=== PATIENT | female | born 1985 | race Caucasian/White ===

== ENCOUNTER 2023-07-13 07:21 | Inpatient (IN) | payer MEDICARE, MEDICAID, SELFPAY ==
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
--- NOTE | 2023-07-13 07:53 | PC.NURSE ---
Attempted to read 96 hour hold rights to patient. Patient very hostile and yelling at this time. [employer] is still present and at bedside with patient. Patient is still in handcuffs at this time for her safety per PD. Copy of rights left at the bedside.
[2023-07-13] MEDS: haloperidol inj 5 mg/mL INJ 1 mL IM (07:59)
--- NOTE | 2023-07-13 08:18 | PC.PHAR ---
unable to verify medications with pt-no meds pull up on ext med history
[2023-07-13 08:29] VITALS: BP 149/81; PULSE 90; RESP 18; O2SAT 95
[2023-07-13] MEDS: nicotine 21 mg Patch 1 PATCH TRANSDERMA (08:58)
[2023-07-13] MEDS: LORazepam 1 mg Tablet PO (09:22)
[2023-07-13 09:56] LABS: Basophils # 0.1 10^3/uL (0.0-0.1); Basophils % 0.4 %; Eosinophils % 0.2 %; Hematocrit 48.1 % (36-47); Lymphocytes # 2.7 10^3/uL (0.8-4.8); Lymphocytes % 13.4 %; Mean Corpuscular HGB Conc 32.6 g/dL (30-55); Mean Corpuscular Hemoglobin 27.2 pg (27-33); Mean Corpuscular Volume 83.4 fl (85-98); Mean Platelet Volume 10.3 fL (7.4-10.4); Monocytes # 1.2 10^3/uL (0.2-0.9); Neutrophils # 15.74 10^3/uL (1.8-7.7); Neutrophils % 79.4 %; Nucleated Red Blood Cells % 0 %; Platelet Count 390 10^3/cmm (157-399); Red Blood Count 5.77 10^6/uL (3.85-5.65); Red Cell Distribution Width 14.7 % (12.1-15.1); White Blood Count 19.84 10^3/uL (3.29-11.43)
[2023-07-13 10:08] LABS: HCG Qualitative Urine. Negative (Negative)
[2023-07-13 10:21] LABS: Amphetamines Screen Urine Negative (Negative); Barbiturates Screen Urine Negative (Negative); Benzodiazepines Screen Urine Negative (Negative); Cocaine Screen Urine Negative (Negative); Opiate Screen Urine Negative (Negative); PCP Screen Urine Negative (Negative); THC Screen Urine Positive (Negative)
--- NOTE | 2023-07-13 10:24 | XR_ITS ---
WS: [id number] Exam: XR chest 1V portable [id number] Date/Time of Exam: 07/13/2023 12:10 PM Reason For Exam: leukocyctosis No priors. Findings: The lungs are clear and fully expanded. Costophrenic angles are sharp. No infiltrates. Bronchovascula r relief appears normal. Cardiac silhouette is unremarkable. Bony elements are intact. IMPRESSION: Unremarkable chest radiograph.
[2023-07-13 10:30] LABS: Acetaminophen < 5.0 ug/mL (10-30); Alanine Aminotransferase 22 U/L (0-33); Albumin Level 4.2 g/dL (3.5-5.2); Alcohol Level < 10 mg/dL (0-10); Alkaline Phosphatase 84 U/L (35-105); Anion Gap 18.5 (5-19); Aspartate Amino Transferase 16 U/L (0-32); Blood Urea Nitrogen 7 mg/dL (6-20); Calcium 8.8 mg/dL (8.5-10.5); Carbon Dioxide 21 mmol/L (22-29); Chloride 101 mmol/L (98-107); Globulin 3.7 g/dL (1.3-4.6); Glomerular Filtration Rate 79.4 mL/min (90-130); Glucose 108 mg/dL (65-115); Osmolality Calculated 283 mOsm/kg (285-295); Potassium 3.5 mmol/L (3.5-5.1); Salicylate < 0.3 mg/dL (3-10); Sodium 137 mmol/L (136-145); Total Bilirubin 1.2 mg/dL (0.15-1.2); Total Protein 7.9 g/dL (6.6-8.7)
[2023-07-13 10:35] LABS: Thyroid Stimulating Hormone 1.18 uIU/mL (0.27-4.20)
[2023-07-13 10:58] LABS: Urine Appearance Cloudy (CLEAR); Urine Color Yellow (Yellow); pH Urine 6 (5-7)
[2023-07-13 10:59] LABS: Add Urine Microscopic? YES; Bilirubin Urine Neg (Negative); Blood Urine 3+ (Negative); Glucose Urine UA Norm (Normal); Ketones Urine Negative (Negative); Leukocyte Esterase Urine Negative (Negative); Nitrate Urine Negative (Negative); Protein Urine 1+ (Negative); Urobilinogen Urine Norm (Negative)
[2023-07-13 11:08] LABS: Amorphous Sediment Urine TRACE /hpf; Bacteria Urine 2+ /hpf; Hyaline Casts Urine 0-4 /lpf; Mucus Urine 3+ /hpf; RBC Urine 0-4 /hpf (0-2); Transitional Epi Cells Urine 0-4 /hpf; WBC Urine 0-4 /hpf (0-5)
[2023-07-13 11:09] LABS: Add Urine Culture? No
[2023-07-13 11:31] VITALS: TEMP 37
[2023-07-13] MEDS: nitrofurantoin SR (BID) 100 mg Capsule PO ×2 (11:58→17:44)
[2023-07-13 12:20] VITALS: BP 167/99; PULSE 99; RESP 18
--- NOTE | 2023-07-13 14:07 | PC.NURSE ---
Patient yelling out randomly and appears to be responding to internal stimuli, looking into the distance as if someone were there. Stated, you guys always gotta go there and start some stupid shit. Patient has been asking staff to stop spewing racist shit, and also asked to talked to someone, but when staff attempted to talk to her she refused to engage.
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
[2023-07-13] MEDS: nicotine 2 mg Gum BUCCAL (18:16)
[2023-07-13] MEDS: trazodone 50 mg Tablet PO (19:48)
[2023-07-13] MEDS: ondansetron 4 MG Tablet PO (19:48)
[2023-07-13] MEDS: OLANZapine 5 mg ODT PO (19:48)
[2023-07-13 20:50] VITALS: BP 183/102; PULSE 100; RESP 20; TEMP 37.1; O2SAT 97
--- NOTE | 2023-07-13 20:54 | PC.NURSE ---
PT STATES SHE IS ANXIOUS AND DEPRESSED. PT WAS GIVEN PRN MEDICATIONS FOR ANXIETY AND SLEEP,, PT WAS GIVEN ZYDIS 5 MG ORDERED FOR ANXIETY AND TRAZODONE 50 MG FOR SLEEP. PT DENIES SI/HI AND AVH AT THIS TIME. PT HAS BEEN TO THE NURSES STATION SEVERAL TIMES HAVING VARIOUS COMPLAINTS AND HAVING DELUSIONS THAT SOMEONE HAS MY [age] YEAR OLD, AND ITS ALL JUST A GAME TO THEM. PT WAS ASSURRED HER CHILDREN ARE SAFE. DR. CUBA WAS NOTIFIED OF ZYDIS BEING INEFFECTIVE AND NEW ORDERS WERE RECEIVED FOR ATIVAN 2 MG, BENADRYL 5 0 MG Q 4 HOURS AGITATION. ALL QUESTIONS ANSWERED AND SUPPORT VOICED.
[2023-07-13] MEDS: LORazepam 2 mg Tablet PO (23:40)
[2023-07-13] MEDS: haloperidol 5 mg Tablet PO (23:40)
--- NOTE | 2023-07-13 23:41 | PC.NURSE ---
HAD TO RETRIEVE A SECOND DOSE OF BENADRYL 50 MG DUE TO THE FIRST DOSE BREAKING IN TWO PIECES INSIDE OF THE PACKAGE, BENADRYL 50 MG WASTED IN PIXIS. SECOND DOSE PULLED TO GIVE ORDERED FOR AGITATION.
[2023-07-13] MEDS: diphenhydrAMINE 50 mg Capsule PO (23:44)
--- NOTE | 2023-07-13 23:46 | PC.NURSE ---
PT WOKE UP IN A SEVERE PANIC, STATING SHE IS HAVING A PANIC ATTACK AND NEEDS SOME MEDICINE RIGHT NOW. PT WAS GIVEN HALDOL 5 MG PO, BENADRYL 50 MG AND ATIVAN 2 MG PO ORDERED FOR AGITATION AND ANXIETY. PT TOOK MEDICATIONS, THANKED RN AND LAID DOWN. SUPPORT WAS VOICED.
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
[2023-07-14 06:00] VITALS: BP 171/129; PULSE 112; RESP 20; TEMP 37.2; O2SAT 96
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
[2023-07-14] MEDS: nicotine 2 mg Gum BUCCAL (08:02)
[2023-07-14] MEDS: nitrofurantoin SR (BID) 100 mg Capsule PO ×2 (09:51→18:44)
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
[2023-07-14 14:00] VITALS: BP 176/80; PULSE 93; RESP 17; TEMP 36.9; O2SAT 96
[2023-07-14] MEDS: OLANZapine 5 mg ODT PO (16:34)
[2023-07-14] MEDS: hyDROXYzine 25 mg Capsule 50 MG PO (16:34)
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
--- NOTE | 2023-07-14 16:37 | PC.NURSE ---
Pt just stated to this nurse that I will just kill myself when I get outta here, I'm sick of this Shit!!! . This nurse tried comforting the pt and stated that her children need her and pt then stated, No they don't they have their father .
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
--- NOTE | 2023-07-14 20:26 | PC.NURSE ---
Attempted to obtain vitals. Patient stated I wish you all would just leave me alone. CN was present at this time.
[2023-07-14] MEDS: haloperidol 5 mg Tablet PO (20:33)
[2023-07-14] MEDS: trazodone 50 mg Tablet PO (20:33)
--- NOTE | 2023-07-15 05:31 | PC.NURSE ---
PT RECEIVED PRN MEDICATIONS THIS SHIFT FOR SLEEP AND INCREASED REPORTS OR ANXIETY. PT RECEIVED TRAZODONE AND HALDOL ORDERED. MEDICATIONS DEEMED EFFECTIVE. PT HAS HAD NO OTHER COMPLAINTS OF ANXIETY AND HAS SLEPT APPROXIMATEL 9-10 HOURS THIS SHIFT. PT CONTINUES TO REST WITH EYES CLOSED AND NO DISTRESS NOTED.
[2023-07-15 06:00] VITALS: RESP 18
--- NOTE | 2023-07-15 06:50 | PC.NURSE ---
pt refused vs [id number]
[2023-07-15] MEDS: haloperidol 5 mg Tablet PO (10:58)
[2023-07-15] MEDS: LORazepam 2 mg Tablet PO (10:58)
[2023-07-15] MEDS: diphenhydrAMINE 50 mg Capsule PO (10:58)
[2023-07-15] MEDS: nicotine 2 mg Gum BUCCAL (11:03)
[2023-07-15] MEDS: nitrofurantoin SR (BID) 100 mg Capsule PO ×2 (11:34→18:18)
--- NOTE | 2023-07-15 11:36 | PC.NURSE ---
At 1055 pt came up to nurses station asking staff for tampons. Staff informed pt that our facility only provides sanitary pads. this pt became agitated and started yelling at staff and stated well if you are just going to let me fucking bleed everywhere can i get something for anxiety? This nurse went back to the med room and pulled PO Haldol 5mg. When this nurse returned to the nurses station pt was asked to come up to the nurses station so we could scan her wrist band per medication administration protocol. Pt then began yelling at this nurse why cant you come out here and give it to me? what are you afraid im going to fucking hit you? Nursing staff decided to to give the pt an oral B52. PO benadryl 50mg and Ativan 2mg was pulled in addition to the Haldol 5mg. Pt took medications willingly. Pt continued to yell at nursing staff about tampons. Staff offered pt sanitary pads that we have on the unit and pt refused them and requested toilet paper. Behavioral monitoring continues.
[2023-07-15 14:00] VITALS: RESP 15
--- NOTE | 2023-07-15 16:38 | PC.NURSE ---
Pt was givin oral medications earlier in the day for agitation, RN told this marine underwriter to only obtain respirations at 1400 vitals. Respirations were obtained at 15. This marine underwriter will continue to monitor.
--- NOTE | 2023-07-15 16:58 | P.NPUPN_ITS ---
Subjective NPU 2 Subjective: 38-year-old female with bipolar disorder with psychotic features with a history of noncompliance reported to be admitted out of concerns regarding her active paranoia. She continued to report that she was uncertain regarding her children safety. She had continued to appear extremely irritable and reported that people here and outside of here had been attempting to support her plans to return home. She had reported a history of multiple inpatient hospitalizations and stated that she did not want to be on any particular medications at this time. The patient had minimized having thoughts of hurting herself or others. Mental Status Exam 2 MSE Comments: Patient is a truculent obese white female with poor hygiene and poor eye contact. Her gait appeared within normal limits. She was seen rambling through the hallway screaming loudly at staff. There was no evidence of any abnormal involuntary motor movements other than moderate psychomotor agitation. Her speech was productive and loud with no increase in rate noted. Her mood was described as upset. Her affect was mood congruent and agitated. Her thought content showed no evidence of suicidal ideation with no plan. She denied any homicidal ideation. There was evidence of significant paranoia and ideas of reference. She was alert and oriented to date but not place at this time. Her recent and remote memory were not tested. Her insight is feeble. Her judgment is poor. Her impulse control appeared impaired. Her attention span appeared impaired as well. She did not appear to be responding to internal stimuli. Vitals/I&O/Wt Last Vital Signs Temp 98.4 F 07/14/23 14:00 Pulse 93 07/14/23 14:00 Resp 15 07/15/23 14:00 BP 176/80 07/14/23 14:00 Pulse Ox 96 07/14/23 14:00 O2 Del Method Room Air 07/14/23 06:00 Data NPU 07/13/23 09:45 07/13/23 09:45 A&P Assessment and plan (1) Psychosis: (2) Suicidal ideation: (3) Bipolar disorder with psychotic features: Plan 38-year-old female with a past history of psychosis and possible bipolar disorder admitted involuntarily with increased agitation and decreased need for sleep with suicidal ideation. Patient would likely benefit from continued inpatient hospital stay. 1. Encourage individual, group and milieu therapy. 2.Recommend sober living treatment at the highest level of care to which the patient is willing to commit. 3.Continue q-15 minute checks for safety.? 4, Trial of latuda to target psychosis/bayron. Involuntary Hold Information 2 96 Hour Hold: 96 Hour Involuntary Admission: Yes 96 Hour Hold Ending Date: 07/19/23 96 Hour Hold Ending Time: 07:48 Attestations NPU 2 Medical Necessity Statement*: Inpatient hospitalization is medically necessary and deemed to ?be ?the clinically appropriate intervention ?at this time.? We will monitor/initiate medications and make changes as indicated.? The patient?s likely length of stay 5-7 days. Coding Level of Care Code Acute Code for Chg Fwd Diagnoses Psychosis F29 Suicidal ideation R45.851 Bipolar disorder with psychotic features F31.9
[2023-07-15] MEDS: lurasidone 20 mg Tablet PO (18:18)
[2023-07-15] MEDS: OLANZapine 5 mg ODT PO (18:27)
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
[2023-07-15] MEDS: ibuprofen 600 mg Tablet PO (20:40)
[2023-07-15] MEDS: hyDROXYzine 25 mg Capsule 50 MG PO (20:41)
[2023-07-15 20:43] VITALS: BP 159/91; PULSE 112; RESP 18; TEMP 36.7; O2SAT 95
--- NOTE | 2023-07-15 21:46 | PC.NURSE ---
PT IS IN BED RESTING, IS OBSERVED HAVING ANXIETY AND AGITATION. PT STATES SHE IS ON HER PERIOD AND NO ONE WILL GIVE ME A TAMPON, I HAVE A RASH AND CAN NOT WEAR A PAD AND NO ONE WILL LISTEN TO ME OR HELP ME. I'VE BEEN LAYING HERE BLEEDING ON MYSELF ALL DAY AND I HAVE HPV AND NO TELLING WHAT ELSE AND I'M SURE IT'S A HUGE INFECTION RISK BUT NO ONE HERE CARES. PT WAS ASSURED THAT THIS RN WOULD ATTEMPT TO ASSIST HER. PT WAS OBSERVED LAYING IN BLOODY SHEETS AND HAD BLOOD ON BLANKETS. PT WAS INFORMED THE UNIT DOES NOT CARE TAMPONS AND THE ONLY ITEM WE HAVE FOR MENSTATION ARE PADS AND MESH PANTIES BUT THIS RN WOULD CONTACT THE [employer] AND SEE IF ANY OTHER FLOORS HAVE TAMPONS AVAILABLE TO THEIR FEMALE PTS. [facility] [employer] WAS ABLE TO GET A PACK OF 10 TAMPONS FOR PT. PT WAS INFORMED THAT WE HAD A SMALL SUPPLY OF TAMPONS AND SHE IS WELCOME TO USE THEM. PT WAS GIVEN ONE TAMPON AND EDUCATED IF SHE NEEDS MORE TO COME TO THE NURSES STATION. PT IS VERY GRATEFUL AND THANKED RN. PT DENIES SI/HI AND AVH AT THIS TIME. RATES ANXIETY AND DEPRESSION 02/22. RATES MENSTRAL CRAMPS 12/23, IBUPROFEN 600 MG WAS GIVEN ORDERED. PT WAS GIVEN VISTARIL 50 MG ORDERED FOR ANXIETY. PT WAS GIVEN HER SHOWER BOX, CLEAN SCRUBS AND TOWELS TO SHOWER DUE TO PT HAVING POOR HYGIENE AND BLEEDING ON SELF. PT STATES I'M TOO TIRED I WILL SHOWER LATER. PT ENCOURAGED TO CLEAN UP BUT CONTINUES TO DECLINE. ALL QUESTIONS ANSWERED AND SUPPORT WAS VOICED.
--- NOTE | 2023-07-16 05:15 | PC.NURSE ---
PT RECEIVED PRN MEDICATION THIS SHIFT FOR REPORTS OF INCREASED ANXIETY. PT WAS GIVEN ZYDIS ORDERED. MEDICATIONS DEEMED EFFECTIVE AT THIS TIME. PT WAS ABLE TO REST THROUGH OUT THE THE SHIFT. PT SLEPT APPROXIMATELY 9-10 HOURS THIS SHIFT. PT CONTINUES TO REST WITH EYES CLOSED AND NO DISTRESS NOTED AT THIS TIME.
[2023-07-16 06:00] VITALS: BP 151/103; PULSE 105; RESP 18; O2SAT 98
[2023-07-16] MEDS: haloperidol 5 mg Tablet PO (09:58)
[2023-07-16] MEDS: benztropine 1 mg Tablet PO (09:58)
[2023-07-16] MEDS: diphenhydrAMINE 50 mg Capsule PO (09:58)
[2023-07-16] MEDS: LORazepam 2 mg Tablet PO ×2 (09:58→19:15)
[2023-07-16] MEDS: nitrofurantoin SR (BID) 100 mg Capsule PO ×2 (09:59→18:24)
[2023-07-16] MEDS: nicotine 2 mg Gum BUCCAL (09:59)
[2023-07-16 14:00] VITALS: BP 155/83; PULSE 119; RESP 20; TEMP 36.3; O2SAT 93
--- NOTE | 2023-07-16 15:42 | P.NPUPN_ITS ---
Subjective NPU 2 Subjective: 38-year-old female with bipolar disorder with psychotic features with a history of noncompliance reported to be admitted out of concerns regarding her active paranoia. She had required use of Haldol as she became violent and threatening asking repeatedly that she speak with someone that could tell her where her children are. The patient had been informed that her children were safe at home with the patient's . She had continued to reiterate that she was being persecuted and that others were responsible for her hospitalization. The patient reported a history of noncompliance with her psychotropic medications despite it having stabilized the patient leading to her many discharges from inpatient psychiatric facilities. She refused to let the treatment team contact her . Mental Status Exam 2 MSE Comments: Patient is a pugnacious obese white female with poor hygiene and poor eye contact. Her gait appeared within normal limits. She was seen rambling and screaming through the hallway cursing at staff. There was no evidence of any abnormal involuntary motor movements other than moderate psychomotor agitation. Her speech was productive and loud with no increase in rate noted. Her mood was described as mad. Her affect was mood congruent and agitated. Her thought content showed no evidence of suicidal ideation with no plan. She denied any homicidal ideation. There was evidence of significant paranoia and ideas of reference. She was alert and oriented to date but not place at this time. Her recent and remote memory were not tested. Her insight is feeble. Her judgment is poor. Her impulse control appeared impaired. Her attention span appeared impaired as well. She did not appear to be responding to internal stimuli. Vitals/I&O/Wt Last Vital Signs Temp 98.1 F 07/15/23 20:43 Pulse 105 H 07/16/23 06:00 Resp 18 07/16/23 06:00 BP 151/103 07/16/23 06:00 Pulse Ox 98 07/16/23 06:00 O2 Del Method Room Air 07/16/23 06:00 Data NPU 07/13/23 09:45 07/13/23 09:45 A&P Assessment and plan (1) Psychosis: (2) Suicidal ideation: (3) Bipolar disorder with psychotic features: Plan 38-year-old female with a past history of psychosis and possible bipolar disorder admitted involuntarily with increased agitation and decreased need for sleep with suicidal ideation. Patient would likely benefit from continued inpatient hospital stay. 1. Encourage individual, group and milieu therapy. 2.Recommend sober living treatment at the highest level of care to which the patient is willing to commit. 3.Continue q-15 minute checks for safety.? 4, Trial of latuda to target psychosis/bayron. Involuntary Hold Information 2 96 Hour Hold: 96 Hour Involuntary Admission: Yes 96 Hour Hold Ending Date: 07/19/23 96 Hour Hold Ending Time: 07:48 Attestations NPU 2 Medical Necessity Statement*: Inpatient hospitalization is medically necessary and deemed to ?be ?the clinically appropriate intervention ?at this time.? We will monitor/initiate medications and make changes as indicated.? The patient?s likely length of stay 5-7 days. Coding Level of Care Code Acute Code for Chg Fwd Diagnoses Psychosis F29 Suicidal ideation R45.851 Bipolar disorder with psychotic features F31.9
[2023-07-16] MEDS: acetaminophen 325 mg Tablet 650 MG PO (17:13)
[2023-07-16] MEDS: ibuprofen 600 mg Tablet PO (17:16)
[2023-07-16] MEDS: OLANZapine 5 mg ODT PO (18:31)
--- NOTE | 2023-07-16 18:32 | PC.NURSE ---
Patient refused Latuda, stating that she doesn't want to take it because once she is discharged she won't be able to afford the medication.This nurse attempted to encourage patient to take until talking with the doctor about possible options, and brought up GoodRx, but patient was adament that she would not be taking this medication.
[2023-07-16 20:25] VITALS: BP 112/74; PULSE 108; RESP 17; TEMP 36.7; O2SAT 96
--- NOTE | 2023-07-16 20:34 | PC.NURSE ---
Patient behavior Around shift change just after 1899, Nurse steve was rounding and opened this patients door. She yelled to the effect get the fuck out of my room and close my door. He explained the rule that the door had to be cracked. She got up and slammed the door. When steve opened the door again she said to the effect that if you don't close my door I will throw this water on you and she did. This nurse and the adaptive physical education specialist went and talked to her about the door policy. She was fine with her door being shut and stated her anxiety was thru the roof. Ativan 2 mg po was given and patient requested to be left alone.
[2023-07-17 06:00] VITALS: PULSE 116; RESP 20; O2SAT 95
[2023-07-17] MEDS: LORazepam 2 mg Tablet PO ×3 (06:01→21:15)
[2023-07-17] MEDS: nicotine 2 mg Gum BUCCAL (06:07)
[2023-07-17 06:40] VITALS: BP 147/99; PULSE 70; RESP 18; O2SAT 95
[2023-07-17] MEDS: nitrofurantoin SR (BID) 100 mg Capsule PO (08:25)
--- NOTE | 2023-07-17 11:03 | PC.NURSE ---
PT BEHAVEURE/STATEMENTS PT UPSET FOR BEING HERE. DURING MORNING ASSESSMENT PT WAS VERY UPSET FOR BEING HERE AND STATED THAT WHEN SHE GETS OUT OF HERE SHE WOULD SHOOT, OR HANG SELF. AFTER PT MET WITH PT GOT VERY UPSET AND REPEATED THAT WHEN SHE GETS OUT SHE WILL SHOOT SELF. WILL CONTINUE TO MONITOR.
[2023-07-17] MEDS: diphenhydrAMINE 50 mg Capsule PO ×2 (12:09→21:15)
[2023-07-17] MEDS: haloperidol 5 mg Tablet PO ×2 (12:09→21:15)
--- NOTE | 2023-07-17 12:15 | PC.NURSE ---
PRN MEDS PT GIVEN 50 MG BENADRYL, 5 MG HALDOL, AND 2 MG ATIVAN FOR ANXIETY, BEING ANGRY AND THREATENING STAFF, WILL CONTINUE TO MONITOR.
[2023-07-17 14:00] VITALS: RESP 20
--- NOTE | 2023-07-17 18:05 | P.NPUPN_ITS ---
Subjective NPU 2 Subjective: 38-year-old female with bipolar disorder with psychotic features with a history of noncompliance reported to be admitted out of concerns regarding her active paranoia. Patient remained actively psychotic. She continued to appear confrontational and reported that she needed to be transferred to another hospital. She had been unwilling to discuss taking any medications for her reported history of schizoaffective disorder. She had required an intervention as security had to convince the patient to take a time out in her room as she had been willing to receive Haldol, Ativan, and Cogentin orally due to excess agitation. The patient had reported having difficulties with sleep. She had made several references to staff that when she left here she was going to hang herself. Mental Status Exam 2 MSE Comments: Patient is a truculent obese white female with poor hygiene and poor eye contact. Her gait appeared within normal limits. She was once again seen rambling and screaming through the hallway verbally assaulting staff. There was no evidence of any abnormal involuntary motor movements other than moderate psychomotor agitation. Her speech was productive and loud with no increase in rate noted. Her mood was described as upset. Her affect was irritable. Her thought content showed no evidence of suicidal ideation with no plan. She denied any homicidal ideation. There was evidence of significant paranoia and ideas of reference. She was alert and oriented x3. . Her recent and remote memory were not tested. Her insight is feeble. Her judgment is poor. Her impulse control appeared impaired. Her attention span appeared impaired as well. She did not appear to be responding to internal stimuli. Vitals/I&O/Wt Last Vital Signs Temp 98.0 F 07/16/23 20:25 Pulse 70 07/17/23 06:40 Resp 20 H 07/17/23 14:00 BP 147/99 07/17/23 06:40 Pulse Ox 95 07/17/23 06:40 O2 Del Method Room Air 07/17/23 06:40 Data NPU 07/13/23 09:45 07/13/23 09:45 A&P Assessment and plan (1) Psychosis: (2) Suicidal ideation: (3) Bipolar disorder with psychotic features: Plan 38-year-old female with a past history of psychosis and possible bipolar disorder admitted involuntarily with increased agitation and decreased need for sleep with suicidal ideation. Patient would likely benefit from continued inpatient hospital stay. 1. Encourage individual, group and milieu therapy. 2.Recommend sober living treatment at the highest level of care to which the patient is willing to commit. 3.Continue q-15 minute checks for safety.? 4. Discontinue Latuda, patient refusing all medications for a myriad of reasons. Involuntary Hold Information 2 96 Hour Hold: 96 Hour Involuntary Admission: Yes 96 Hour Hold Ending Date: 07/19/23 96 Hour Hold Ending Time: 07:48 Attestations NPU 2 Medical Necessity Statement*: Inpatient hospitalization is medically necessary and deemed to ?be ?the clinically appropriate intervention ?at this time.? We will monitor/initiate medications and make changes as indicated.? The patient?s likely length of stay 7-10 days. Coding Level of Care Code Acute Code for g Fwd Diagnoses Psychosis F29 Suicidal ideation R45.851 Bipolar disorder with psychotic features F31.9
[2023-07-17 20:28] VITALS: BP 153/77; PULSE 103; RESP 18; O2SAT 96
--- NOTE | 2023-07-17 23:47 | PC.NURSE ---
Patient behavior Around 2109 patient came to desk and in a loud voice said to the effect-is any one not going to bother to check on me, I just had a bad dream about my kids dying and that should be a cause for some kind of medication, I want the good stuff. Patient given medication for anxiety, see MAR.
[2023-07-18 06:00] VITALS: RESP 16
--- NOTE | 2023-07-18 08:18 | PC.NURSE ---
PT CAME TO NURSES STATION REQUESTING A PHONE NUMBER BUT WOULD NOT TELL STAFF WHAT PHONE NUMBER SHE NEEDED. PT CONTINUED TO YELL AT NURSES LOUD SHE CAN UNTIL SHE ASKED FOR DFS NUMBER. THIS AUTOMATIC CASTING MACHINE OPERATOR LOOKED UP THE [place] DFS NUMBER AND THEN PT YELLED AT ME THAT SHE WANTED THE [place] DFS NUMBER. DURING THIS CONVERSATION PT CONTINUES TO CALL THE AUTOMATIC CASTING MACHINE OPERATOR A SARAH PARRA . PT THEN LEAVES THE NURSES STATION WINDOW AND GOES TO THE DAY ROOM TO GET HER BREAKFAST TRAY. PT BRINGS BREAKFAST TRAY TO NURSES STATION AND DUMPS IT OUT ON THE FLOOR. PT WALKS AWAY AND RETURNS 5 MINUTES LATER AND ASK IF THE MECHANICAL ENGINEERING COOP WERE COMING NOW. WHEN STAFF SAYS NO THE MECHANICAL ENGINEERING [employer]OP ARE NOT COMING PT STATES DO I HAVE TO BEAT THE SHIT OUT OF YOU ALL TO GET THEM HERE TO GET ME OUT OF HERE . PT CONTINUES TO SIT BY NURSES STATION YELLING OUT TO STAFF YELLING AND CUSSING. SECURITY HAS BEEN NOTIFIED.
[2023-07-18] MEDS: diphenhydrAMINE 50 mg Capsule PO (08:55)
[2023-07-18] MEDS: LORazepam 2 mg Tablet PO (08:55)
[2023-07-18] MEDS: haloperidol 5 mg Tablet PO (08:55)
--- NOTE | 2023-07-18 08:56 | PC.NURSE ---
Pt came up to the nurses station yelling at staff members that she needs a phone number to find her kids. This nurse asked the pt what number she needed and we would look it up for her. The patient then began yelling I don't need to tell you my [employer] business bitch. Pt continued to yell and cuss at staff while she walked down to the dayroom. Pt picked up her breakfast tray from the dayroom walked up to the nurses station and dumped it on the floor in front of the nurses station. Pt then went to her room for about 5 minutes and then came out and said are the police on there way. Staff told patient that we cannot just call the police to come and get her. Pt then responded Do i have to beat the shit out of you all to get them to get me out of here? Security was notified and pt continued to yell/cuss at staff stating i would rather be in prison then in this hell hole. Security arrivedon the unit and talked to the patient on the bench outside the nurses station. Pt asked nursing staff for something to calm down. This nurse and charge nurse decided to pull a B52. 2mg Ativan, 50mg Benadryl and 5mg of Haldol PO were pulled and administered to he pt. Pt took medications without issues. Behavioral monitoring continues
[2023-07-18] MEDS: nicotine 2 mg Gum BUCCAL (09:01)
--- NOTE | 2023-07-18 09:03 | PC.NURSE ---
refused breakfast, threw tray on the floor, demanding to leave, cursing staff and name calling, calling charge gang weigher lane cancino
[2023-07-18 14:00] VITALS: RESP 20
--- NOTE | 2023-07-18 15:20 | PC.NURSE ---
patient refused vitals.
[2023-07-18] MEDS: diphenhydrAMINE 50 mg/mL SDV 1mL IM (15:52)
[2023-07-18] MEDS: LORazepam 2 mg/mL INJ 1 mL IM (15:52)
[2023-07-18] MEDS: haloperidol inj 5 mg/mL INJ 1 mL IM (15:52)
--- NOTE | 2023-07-18 15:53 | PC.NURSE ---
Pt came up the nurses station yelling and cussing at staff demanding she see the doctor. Staff informed her that the doctor is busy and that he will see her when he has time. Pt remained on the bench yelling and cussing at staff Charge nurse attempted to verbally deescalate the pt but the pt stated shut up and suck my ass. Security was notified. Security talked to pt for 5-10 minutes. Pt made a couple phone calls then stared yelling at staff saying you guys are refusing to give me medications and now you are refusing to let me see the doctor. If he does not come and see me I will be a huge pain in the ass. This nurse told pt that we do have medications for her that would help her calm down. Ativan 2mg IM, Benadryl 50mg IM and Haldol 5mg IM was pulled and administered to pt. Benadryl was given in the right deltoid and Ativan and Haldol were administered in the left deltoid.During administration pt began crying.Staff attempted to talk to pt to try and calm her down but it was unsuccessful, pt walked away crying. Pt is now observed asleep in her room. Behavioral monitoring continues
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
--- NOTE | 2023-07-18 18:47 | P.NPUPN_ITS ---
Subjective NPU 2 Subjective: 38-year-old female with bipolar disorder with psychotic features with a history of noncompliance reported to be admitted out of concerns regarding her active paranoia. The patient had stated that it was her right to kill herself when she leaves here. She continued to perseverate regarding her children stating that the hospital would be responsible if she was not allowed to leave today. She had continued to require significant redirection with the presence of security while receiving as needed medication. The patient had continued to refuse the need to receive any medication despite clear evidence of difficulties with controlling her impulses as she remained difficult to redirect while targeting nearly the whole staff with her abusive words. Mental Status Exam 2 MSE Comments: Patient is a irascible obese white female with poor hygiene and poor eye contact. Her gait appeared within normal limits. She was once again seen again perseverating regarding her children while screaming and calling nurses cnts through the window. There was no evidence of any abnormal involuntary motor movements other than moderate psychomotor agitation. Her speech was productive and loud with no increase in rate noted. Her mood was described as angry. Her affect remained irritable. Her thought content showed no evidence of suicidal ideation with no plan. She denied any homicidal ideation. There was evidence of significant paranoia and ideas of reference. She was alert and oriented x3. Her recent and remote memory were not tested. Her insight is feeble. Her judgment is poor. Her impulse control appeared impaired. Her attention span appeared impaired as well. She did not appear to be responding to internal stimuli. Vitals/I&O/Wt Last Vital Signs Temp 98.0 F 07/16/23 20:25 Pulse 103 H 07/17/23 20:28 Resp 20 H 07/18/23 14:00 BP 153/77 07/17/23 20:28 Pulse Ox 96 07/17/23 20:28 O2 Del Method Room Air 07/17/23 20:28 Data NPU 07/13/23 09:45 07/13/23 09:45 A&P Assessment and plan (1) Psychosis: (2) Suicidal ideation: (3) Bipolar disorder with psychotic features: Plan 38-year-old female with a past history of psychosis and possible bipolar disorder admitted involuntarily with increased agitation and decreased need for sleep with suicidal ideation. Patient would likely benefit from continued inpatient hospital stay. 1. Encourage individual, group and milieu therapy. 2.Recommend sober living treatment at the highest level of care to which the patient is willing to commit. 3.Continue q-15 minute checks for safety.? 4. 21 day hold filed. Forced medications likely. Involuntary Hold Information 2 96 Hour Hold: 96 Hour Involuntary Admission: Yes 96 Hour Hold Ending Date: 07/19/23 96 Hour Hold Ending Time: 07:48 Attestations NPU 2 Medical Necessity Statement*: Inpatient hospitalization is medically necessary and deemed to ?be ?the clinically appropriate intervention ?at this time.? We will monitor/initiate medications and make changes as indicated.? The patient?s likely length of stay prolonged given continued manic symptoms. Coding Level of Care Code Acute Code for g Fwd Diagnoses Psychosis F29 Suicidal ideation R45.851 Bipolar disorder with psychotic features F31.9
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
--- NOTE | 2023-07-18 21:37 | PC.NURSE ---
Attempted to obtain vitals for patient patient stated NO
--- NOTE | 2023-07-18 21:51 | PC.NURSE ---
IN BED RESTING AROUSES TO VOICE. STATES JUST GET OUT OF HERE I DON'T WANT YOU IN HERE BOTHERING ME. PT DID DENY PAIN. DOES DENY SI/HI AND AVH AT THIS TIME. RATES ANXIETY AND DEPRESSION 02/22 AND STATES YOU SHOULD ALREADY KNOW THAT SHIT, YOU KNOW I'M ANXIOUS AND DEPRESSED. PT WAS OFFERED PRN MEDICATIONS BUT WHEN RN WENT TO ROOM TO GIVE THEM PT WAS RESTING WITH EYES CLOSED. SUPPORT WAS VOICED.
--- NOTE | 2023-07-19 05:11 | PC.NURSE ---
PT DID NOT RECEIVE ANY PRN MEDICATIONS THIS SHIFT. WHEN PT IS AWAKE PT IS NOTED TO BE ANXIOUS AND REFUSES VITALS AND SNACKS. PT HAS SLEPT APPROXIMATELY 9-10 HOURS THIS SHIFT. PT IS CURRENTLY RESTING WITH EYES CLOSED WITH NO DISTRESS NOTED AT THIS TIME.
--- NOTE | 2023-07-19 06:44 | PC.NURSE ---
Attempted to obtain patients vitals. patient refused.
[2023-07-19] MEDS: LORazepam 2 mg Tablet PO ×2 (10:24→18:22)
[2023-07-19] MEDS: diphenhydrAMINE 50 mg Capsule PO (10:24)
[2023-07-19] MEDS: haloperidol 5 mg Tablet PO (10:24)
[2023-07-19] MEDS: nicotine 2 mg Gum BUCCAL (10:49)
[2023-07-19] MEDS: ziprasidone 20 mg/mL SDV IM (12:19)
[2023-07-19 14:00] VITALS: RESP 13
--- NOTE | 2023-07-19 17:12 | P.NPUPN_ITS ---
Subjective NPU 2 Subjective: 38-year-old female with bipolar disorder with psychotic features, r/o schizoaffective disorder bipolar type admitted with paranoia, intense irritability and suicidal ideation. Patient became agitated on interview once again and required prn medication of Haldol and Geodon. She continued to perseverate about needing to see her children but was unwilling to discuss if team could contact who had children. Patient reported that she would prefer skilled nursing and continued to report that zoloft had been helpful for her in the past. Mental Status Exam 2 MSE Comments: Patient is a irascible obese white female with poor hygiene and poor eye contact. Her gait appeared within normal limits. She remained verbally abusive to all in her vicinity and was unable to be redirected. There was no evidence of any abnormal involuntary motor movements other than moderate psychomotor agitation. Her speech was productive and loud with no increase in rate noted. Her mood was remained angry. Her affect remained irritable. Her thought content showed no evidence of suicidal ideation with plan to hang self. She denied any homicidal ideation. There was evidence of significant paranoia and ideas of reference. She was alert and oriented x3. Her recent and remote memory were not tested. Her insight is feeble. Her judgment is poor. Her impulse control appeared impaired. Her attention span appeared impaired as well. She did not appear to be responding to internal stimuli. Vitals/I&O/Wt Last Vital Signs Temp 98.0 F 07/16/23 20:25 Pulse 103 H 07/17/23 20:28 Resp 13 07/19/23 14:00 BP 153/77 07/17/23 20:28 Pulse Ox 96 07/17/23 20:28 O2 Del Method Room Air 07/17/23 20:28 Data NPU 07/13/23 09:45 07/13/23 09:45 A&P Assessment and plan (1) Psychosis: (2) Suicidal ideation: (3) Bipolar disorder with psychotic features: Plan 38-year-old female with a past history of psychosis and possible bipolar disorder admitted involuntarily with increased agitation and decreased need for sleep with suicidal ideation. Patient would likely benefit from continued inpatient hospital stay. 1. Encourage individual, group and milieu therapy. 2.Recommend sober living treatment at the highest level of care to which the patient is willing to commit. 3.Continue q-15 minute checks for safety.? 4. 21 day hold filed with hearing tommorow. Forced medications likely to target agitation, extreme aggression. Involuntary Hold Information 2 96 Hour Hold: 96 Hour Involuntary Admission: Yes 96 Hour Hold Ending Date: 07/19/23 96 Hour Hold Ending Time: 07:48 Attestations NPU 2 Medical Necessity Statement*: Inpatient hospitalization is medically necessary and deemed to ?be ?the clinically appropriate intervention ?at this time.? We will monitor/initiate medications and make changes as indicated.? The patient?s likely length of stay prolonged given continued manic symptoms. Likely length 7-10 days. Coding Level of Care Code Acute Code for Chg Fwd Diagnoses Psychosis F29 Suicidal ideation R45.851 Bipolar disorder with psychotic features F31.9
[2023-07-19] MEDS: OLANZapine 5 mg ODT PO (17:56)
[2023-07-19] MEDS: hyDROXYzine 25 mg Capsule 50 MG PO (19:22)
[2023-07-19 20:01] VITALS: RESP 20
--- NOTE | 2023-07-19 20:01 | PC.NURSE ---
Due to patients aggressive behavior, only RR were obtained per CN.
--- NOTE | 2023-07-20 06:42 | PC.NURSE ---
Patient refused vitals this morning. CN notified.
[2023-07-20] MEDS: diphenhydrAMINE 50 mg Capsule PO ×3 (07:14→19:18)
[2023-07-20] MEDS: LORazepam 2 mg Tablet PO ×2 (07:14→14:21)
[2023-07-20] MEDS: haloperidol 5 mg Tablet PO ×2 (07:14→14:21)
[2023-07-20] MEDS: nicotine 2 mg Gum BUCCAL ×2 (07:51→15:02)
[2023-07-20] MEDS: OLANZapine 5 mg ODT PO ×2 (10:34→15:39)
[2023-07-20 14:00] VITALS: RESP 22
--- NOTE | 2023-07-20 15:39 | PC.NURSE ---
patient refused vitals.
--- NOTE | 2023-07-20 15:48 | P.NPUPN_ITS ---
Subjective NPU 2 Subjective: 38-year-old female with bipolar disorder with psychotic features, r/o schizoaffective disorder bipolar type admitted with paranoia, intense irritability and suicidal ideation. The patient had appeared agitated once again while targeting all the staff with verbal expletives. She continued to make threats. She had told the appeals writer to F off. The patient was not willing to attend the hearing for an extended stay. She continued to state that she would not wish for anyone to contact her current who she lived with at this time. Mental Status Exam 2 MSE Comments: Patient is a testy obese white female with poor hygiene and poor eye contact wearing spectacles. Her gait appeared within normal limits. She remained verbally abusive to all in her vicinity and was unable to be redirected. There was no evidence of any abnormal involuntary motor movements other than severe psychomotor agitation. Her speech was productive and loud with no increase in rate noted. Her mood was described as mad. Her affect remained irritable. Her thought content showed evidence of suicidal ideation with plan to hang self if she was discharged. She denied any homicidal ideation. There was evidence of significant paranoia and ideas of reference. She was alert and oriented x3. Her recent and remote memory were not tested. Her insight is feeble. Her judgment is poor. Her impulse control appeared impaired. Her attention span appeared impaired as well. She did not appear to be responding to internal stimuli. Vitals/I&O/Wt Last Vital Signs Temp 98.0 F 07/16/23 20:25 Pulse 103 H 07/17/23 20:28 Resp 22 H 07/20/23 14:00 BP 153/77 07/17/23 20:28 Pulse Ox 96 07/17/23 20:28 O2 Del Method Room Air 07/17/23 20:28 Data NPU 07/13/23 09:45 07/13/23 09:45 A&P Assessment and plan (1) Psychosis: (2) Suicidal ideation: (3) Bipolar disorder with psychotic features: Plan 38-year-old female with a past history of psychosis and possible bipolar disorder admitted involuntarily with increased agitation and decreased need for sleep with suicidal ideation. Patient would likely benefit from continued inpatient hospital stay. 1. Encourage individual, group and milieu therapy. 2.Recommend sober living treatment at the highest level of care to which the patient is willing to commit. 3.Continue q-15 minute checks for safety.? 4. Patient placed on 21 day hold today will begin forced medication of invega 3mg tonight with Haldol im if patient refuses. Involuntary Hold Information 2 96 Hour Hold: 96 Hour Involuntary Admission: Yes 96 Hour Hold Ending Date: 07/19/23 96 Hour Hold Ending Time: 07:48 Attestations NPU 2 Medical Necessity Statement*: Inpatient hospitalization is medically necessary and deemed to ?be ?the clinically appropriate intervention ?at this time.? We will monitor/initiate medications and make changes as indicated.? The patient?s likely length of stay of 7-10 days. Coding Level of Care Code Acute Code for Chg Fwd Diagnoses Psychosis F29 Suicidal ideation R45.851 Bipolar disorder with psychotic features F31.9
[2023-07-20] MEDS: paliperidone ER 3 mg Tablet PO (16:17)
[2023-07-20] MEDS: ziprasidone 20 mg/mL SDV IM (18:48)
--- NOTE | 2023-07-20 18:48 | PC.NURSE ---
Pt became upset when she was unable to speak to her kids. Pt asked this nurse to please call the [facility] [employer] to have the officers preform a wellness check on her children. Pt asked for some anxiety meds, administered 20mg Geodon IM. Pt tolerated the injection well. Pt was tearful and just wanted to end her misery. Pt then began to speak about doctor assisted suicide. Pt stated that she could move to [place] and end her life there. Pt also stated that she has a cookbook of how to kill herself and make it herself. Pt stated that she would kill herself when she is released.
[2023-07-20] MEDS: water for injection-sterile 10 ML (18:59)
--- NOTE | 2023-07-20 20:47 | PC.NURSE ---
Attempted to obtain patients vitals. Patient Refused. CN notified.
[2023-07-21] MEDS: diphenhydrAMINE 50 mg Capsule PO ×4 (02:43→21:40)
[2023-07-21] MEDS: haloperidol 5 mg Tablet PO ×4 (02:43→21:40)
[2023-07-21] MEDS: LORazepam 2 mg Tablet PO ×4 (02:43→21:40)
--- NOTE | 2023-07-21 02:46 | PC.NURSE ---
Patient Behavior Patient came to the desk and yelled at staff to stop walking down to her room. We explained that we have been doing that every 15 minutes since she has been here and that it will continue for the rest of her stay. It is a safety precaution for all the patients. Patient requested medication for her anxiety. See MAR.
--- NOTE | 2023-07-21 02:59 | PC.NURSE ---
Patient Behavior Patient came and sat in the corner and we asked her to move so we could admit our new patient that was on the bench. She yelled NO . She stated to the effect that she was a cunt. New patient was removed to dayroom.
--- NOTE | 2023-07-21 06:44 | PC.NURSE ---
Patient refused vitals.
[2023-07-21] MEDS: paliperidone ER 3 mg Tablet PO ×2 (10:31→16:58)
--- NOTE | 2023-07-21 11:25 | PC.NURSE ---
Patient yelling in the stevenson, demanding to talk with her briefcase sewer. Patient yelling, is anybody going to get my briefcase sewer for me? Patient went on to say, If I don't get some help soon then I'm gonna fuck shit up! Patient talked briefly on the phone. Patient agitated on phone call. Patient hollered into the window, The next person who calls me a cunt, I'm gonna punch them in the face!
[2023-07-21 14:00] VITALS: RESP 20
--- NOTE | 2023-07-21 17:18 | PC.NURSE ---
Patient agitated after talking on the phone. Patient yells that she wants to bash her head into the wall or slit her wrists until she bleeds out. Administered Benadryl 50mg PO, Haldol 5mg, Ativan 2mg PO to patient.
--- NOTE | 2023-07-21 17:34 | P.NPUPN_ITS ---
Subjective NPU 2 Subjective: 38-year-old female with bipolar disorder with psychotic features, r/o schizoaffective disorder bipolar type admitted with paranoia, intense irritability and suicidal ideation. Patient reported that she simply wanted to to leave here and get her children back. She had spent most of the day in isolation. She had with received multiple as needed medications of Haldol over the past 24 hours and had been compliant to her oral Invega. She had continued to perseverate that this medication was not covered by her insurance. Patient's ex boyfriend who the patient had resided with had stated that the patient had been in numerous hospitalizations but had been largely noncompliant with her treatment when she left. She continued to target staff members with angry and aggressive verbal outbursts threatening to harm staff. She continued to also endorse that she would hurt herself if she was allowed to return home. Mental Status Exam 2 MSE Comments: Patient is an irascible obese white female with poor hygiene and poor eye contact wearing spectacles. Her gait appeared within normal limits. She remained verbally abusive on interview. There was no evidence of any abnormal involuntary motor movements other than severe psychomotor agitation. Her speech was productive and loud with no increase in rate noted. Her mood was described as upset. Her affect remained irritable and mood incongruent. Her thought content showed evidence of suicidal ideation with plan to hang self if she was discharged. She denied any homicidal ideation. There was evidence of significant paranoia and ideas of reference. She was alert and oriented x3. Her recent and remote memory were not tested. Her insight is feeble. Her judgment is poor. Her impulse control appeared impaired. Her attention span appeared impaired as well. She did not appear to be responding to internal stimuli. Vitals/I&O/Wt Last Vital Signs Temp 98.0 F 07/16/23 20:25 Pulse 103 H 07/17/23 20:28 Resp 20 H 07/21/23 14:00 BP 153/77 07/17/23 20:28 Pulse Ox 96 07/17/23 20:28 O2 Del Method Room Air 07/17/23 20:28 Data NPU 07/13/23 09:45 07/13/23 09:45 A&P Assessment and plan (1) Psychosis: (2) Suicidal ideation: (3) Bipolar disorder with psychotic features: Plan 38-year-old female with a past history of psychosis and possible bipolar disorder admitted involuntarily with increased agitation and decreased need for sleep with suicidal ideation. Patient would likely benefit from continued inpatient hospital stay. 1. Encourage individual, group and milieu therapy. 2.Recommend sober living treatment at the highest level of care to which the patient is willing to commit. 3.Continue q-15 minute checks for safety.? 4. Invega oral 3mg bid, with haldol 5mg/2mg ativan if patient refuses. Plan to switch to IM invega. Patient now on 21 day hold. Involuntary Hold Information 2 96 Hour Hold: 96 Hour Involuntary Admission: Yes 96 Hour Hold Ending Date: 07/19/23 96 Hour Hold Ending Time: 07:48 Attestations NPU 2 Medical Necessity Statement*: Inpatient hospitalization is medically necessary and deemed to ?be ?the clinically appropriate intervention ?at this time.? We will monitor/initiate medications and make changes as indicated.? The patient?s likely length of stay of 7-10 days. Coding Level of Care Code Acute Code for Chg Fwd Diagnoses Psychosis F29 Suicidal ideation R45.851 Bipolar disorder with psychotic features F31.9
[2023-07-21] MEDS: OLANZapine 5 mg ODT PO (19:57)
[2023-07-21 20:48] VITALS: BP 136/89; PULSE 117; RESP 18; O2SAT 94
--- NOTE | 2023-07-21 21:34 | PC.NURSE ---
IN BED RESTING AROUSES TO VOICE. PT DENIES SI/HI AND AVH AT THIS TIME. PT STATES I JUST WANT TO STAY BACK HERE AND STAY OUT OF EVERYONE'S WAY. PT RATES ANXIETY AND DEPRESSION 9. DENIES PAIN. PT WAS GIVEN ZYDIS 5 MG ORDERED FOR INCREASED ANXIETY. PT WAS OFFERED VISTARIL BUT REFUSED THE DOSE THIS RN PULLED SO THE DOSE OF 50 MG WAS WASTED. PT DID COME TO NURSES STATION AND RECEIVED MEDICATIONS, SNACKS AND DRINK. ALL QUESTIONS ANSWERED AND SUPPORT VOICED.
[2023-07-22 06:00] VITALS: RESP 18
--- NOTE | 2023-07-22 06:46 | PC.NURSE ---
PT REQUIRED PRN MEDICATIONS THIS SHIFT TO DECREASE REPORTS OF ANXIETY. PT RECEIVED ZYDIS, ATIVAN, HALDOL AND BENADRYL FOR REPORTS OF ANXIETY AND INABILITY TO REST. MEDICATIONS ARE DEEMED EFFECTIVE AT THIS TIME. PT HAS BEEN ABLE TO REST THROUGHOUT THE SHIFT AND HAS SLEPT APPROXIMATELY 9-10 HOURS THIS SHIFT. PT CONTINUES TO REST WITH EYES CLOSED AND REQUESTED NOT TO BE WOKE UP FOR 0600 AM VITALS. PT WAS ASSURED THAT STAFF WOULD LET PT REST. PT CURRENTLY IN BED RESTING WITH EYES CLOSED WITH NO DISTRESS NOTED AT THIS TIME. SUPPORT VOICED.
--- NOTE | 2023-07-22 06:46 | PC.NURSE ---
Per Charge nurse, patient was up and down last night and was having difficulties rest. No vitals were obtained only RR documented.
--- NOTE | 2023-07-22 08:26 | PC.NURSE ---
Patient upset, yelling at staff after she was presented with dylan and susan for anxiety. Patient yelling, saying that she doesn't want any meds that take away her friends. Med nurse said that she would take out the medications that she doesn't want, and give patient her regular morning meds. Patient refused, saying that she didn't want any of it. Patient hostile, agitated. Patient reached into the window and threw straws and sugar packets onto the floor in the nurses' station. Patient yelling, calling nurse and APPLIQUE SEWER radhaking josé and pedrito . Patient demanding to be talked to from somebody at this desk. This nurse stated that this was the desk and I was the charge nurse. Patient called the switch board that we were refusing to give her her medications and that she needed a new nurse to give her the meds that she asked for.
[2023-07-22] MEDS: haloperidol 5 mg Tablet PO ×3 (08:59→20:07)
[2023-07-22] MEDS: diphenhydrAMINE 50 mg Capsule PO ×3 (08:59→20:07)
[2023-07-22] MEDS: paliperidone ER 3 mg Tablet PO ×2 (08:59→18:21)
[2023-07-22] MEDS: LORazepam 2 mg Tablet PO ×3 (08:59→20:07)
[2023-07-22 14:00] VITALS: RESP 17
[2023-07-22] MEDS: sertraline 50 mg Tablet 25 MG PO (14:38)
--- NOTE | 2023-07-22 15:20 | P.NPUPN_ITS ---
Subjective NPU 2 Subjective: 38-year-old female with bipolar disorder with psychotic features, r/o schizoaffective disorder bipolar type admitted with paranoia, intense irritability and suicidal ideation. The patient continued to appear provocative on the milieu. She continued to remain verbally abusive. She had continued to state that she would kill her ex- and reported agitation that she had to take medications. She stated that none of these medications had ever worked for her. She continued to remain verbally and physically threatening and required Haldol despite eventually taking oral Invega over the past few days. Mental Status Exam 2 MSE Comments: Patient is an truculent obese white female with poor hygiene and poor eye contact wearing spectacles. Her gait appeared within normal limits. She remained verbally abusive on interview. There was no evidence of any abnormal involuntary motor movements other than severe psychomotor agitation. Her speech was productive and loud with no increase in rate noted. Her mood was described as mad Her affect remained irritable and mood incongruent. Her thought content showed evidence of homicidal ideation toward her father's two children. She endorsed passive suicidal ideation. There was evidence of significant paranoia and ideas of reference. She was alert and oriented x3. Her recent and remote memory were not tested. Her insight is feeble. Her judgment is poor. Her impulse control appeared impaired. Her attention span appeared impaired as well. She did not appear to be responding to internal stimuli. Vitals/I&O/Wt Last Vital Signs Temp 98.0 F 07/16/23 20:25 Pulse 117 H 07/21/23 20:48 Resp 18 07/22/23 06:00 BP 136/89 07/21/23 20:48 Pulse Ox 94 07/21/23 20:48 O2 Del Method Room Air 07/21/23 20:48 Data NPU 07/13/23 09:45 07/13/23 09:45 A&P Assessment and plan (1) Psychosis: (2) Suicidal ideation: (3) Bipolar disorder with psychotic features: Plan 38-year-old female with a past history of psychosis and possible bipolar disorder admitted involuntarily with increased agitation and decreased need for sleep with suicidal ideation. Patient would likely benefit from continued inpatient hospital stay. 1. Encourage individual, group and milieu therapy. 2.Recommend sober living treatment at the highest level of care to which the patient is willing to commit. 3.Continue q-15 minute checks for safety.? 4. Invega oral 3mg bid, with haldol 5mg/2mg ativan if patient refuses. Plan to switch to IM invega. Patient now on 21 day hold. Involuntary Hold Information 2 96 Hour Hold: 96 Hour Involuntary Admission: Yes 96 Hour Hold Ending Date: 07/19/23 96 Hour Hold Ending Time: 07:48 Attestations NPU 2 Medical Necessity Statement*: Inpatient hospitalization is medically necessary and deemed to ?be ?the clinically appropriate intervention ?at this time.? We will monitor/initiate medications and make changes as indicated.? The patient?s likely length of stay of 7-10 days. Coding Level of Care Code Acute Code for Chg Fwd Diagnoses Psychosis F29 Suicidal ideation R45.851 Bipolar disorder with psychotic features F31.9
--- NOTE | 2023-07-22 15:44 | PC.NURSE ---
PT REFUSED 1400 VITALS FOR THIS DRUM PULLER. PT TOLD THIS DRUM PULLER GO AWAY AND DONT FUCKING TOUCH ME . RESPIRATIONS WERE OBTAINED AT 17. WILL CONTINUE TO MONITOR.
[2023-07-22] MEDS: OLANZapine 5 mg ODT PO (18:40)
--- NOTE | 2023-07-22 18:40 | PC.NURSE ---
pt states that she would like to go to [place] (because it only cost 10 thousand dollars) so she can be euthanized there. when this magnet maker stated she doesnt really want to say those kind of things because it can cause pt to stay alittle longer because she is still considered suicidal. pt became upset stating I was threatening her with staying longer and just go ahead so my can keep putting his fingers in my daughters pussy. I need to get out of her and you are keeping me here longer.
--- NOTE | 2023-07-22 22:02 | PC.NURSE ---
PT ON BENCH AND AGITATED DEMANDING MY ATIVAN AND HALDOL NOW, ITS BEEN FOUR HOURS AND I WAS SUPPOSE TO GET IT ALL AT 7:20. PT WAS EDUCATED THAT THE ATIVAN, HALDOL AND BENADRYL SHE HAS BEEN RECEIVING DUE TO SEVERE AND INCREASED AGITATION IS NOT SCHEDULED AND DOES NOT HAVE AN EXACT TIME FOR THE RN TO GIVE. PT STATED I REALLY DON'T CARE JUST GIVE ME MY FUCKING MEDICATIONS. THIS RN CAME OUT OF REPORT AND EDUCATED PT THAT I WOULD BE DONE SHORTLY AND WOULD COME SEE HER AND THEN LOOK AT WHAT MEDICATIONS WERE DUE OR WHAT MEDIATIONS WERE NEEDED. PT DID CALM AND WENT TO ROOM UNTIL THIS RN CAME IN. WHEN RN INTO ASSESS PT, PT STATED I'M JUST UPSET AND MY WON'T LET ME TALK TO MY KIDS. DENIES PAIN, DENIES SI/HI AND AVH AT THIS TIME. PT RATES ANXIETY AND DEPRESSION 10/10. PT RECEIVED ATIVAN 2 MG, HALDOL 5 MG AND BENADRYL 50 MG ORDERED FOR INCREASED ANXIETY AND AGITATION. PT THEN GOT A SNACK, AND DRINK AND WENT TO BED TO REST. ALL QUESTIONS ANSWERED AND SUPPORT VOICED.
--- NOTE | 2023-07-23 06:41 | PC.NURSE ---
PT REQUIRED PRN MEDICATIONS THIS SHIFT FOR REPORTS OF ANXIETY AND OBSERVED AGITATION EARLIER IN THE SHIFT. PT WAS ABLE TO BE VERBALLY REDIRECTED BUT CONTINUED TO INSIST I NEED MY MEDICATIONS, THE ATIVAN AND HALDOL, PT WAS GIVEN ATIVAN 2 MG, HALDOL 5 MG AND BENADRYL 50 MG ORDERED FOR ANXIETY AND AGITATION. MEDICATIONS DEEMED EFFECTIVE AT THIS TIME. PT WAS ABLE TO SLEEP APPROXIMATELY 8-9 HOURS THIS SHIFT, WAKING TWICE TO GET A DRINK AND SNACKS, THEN WENT BACK TO BED BOTH TIMES AND WAS ABLE TO GO BACK TO SLEEP. PT CONTINUES TO REST WITH EYES CLOSED WITH NO DISTRESS NOTED AT THIS TIME. PT REQUESTED LAST NIGHT THAT SHE NOT BE WOKE UP FOR THOSE VITALS, I WOULD LIKE TO SLEEP. PT REQUEST HONORED AND VITALS WERE NOT TAKEN AT 0600 DUE TO PT REQUEST. SUPPORT VOICED.
[2023-07-23] MEDS: paliperidone ER 3 mg Tablet PO ×2 (09:19→17:46)
[2023-07-23] MEDS: sertraline 50 mg Tablet 25 MG PO (09:19)
[2023-07-23] MEDS: diphenhydrAMINE 50 mg Capsule PO ×2 (09:23→19:41)
[2023-07-23] MEDS: LORazepam 2 mg Tablet PO ×2 (09:23→19:41)
[2023-07-23] MEDS: haloperidol 5 mg Tablet PO ×2 (09:23→19:41)
--- NOTE | 2023-07-23 10:17 | PC.NURSE ---
During morning assessment, patient denied all. Patient states that she doesn't need to be here any longer because she only needed sleep and she has now gotten enough sleep. Patient irritable during assessment.
--- NOTE | 2023-07-23 11:39 | P.NPUPN_ITS ---
Subjective NPU 2 Subjective: Patient presents today reporting that she feels she is doing better and was interested in getting home sooner rather than later. She reports that she has multiple children that she needs to take care of of and asked the most important thing. She reports that she is somewhat unclear about specifics about this hospitalization mostly focusing on getting home. We discussed working with the treatment team on Tuesday for possible discharge planning, but that we would have to get a better picture of her overall situation before she discharges.. We discussed the plan to change the Invega to Invega Sustenna and possibly increase Zoloft as had been previously discussed. She denied any side effects to her medications. Mental Status Exam 2 MSE Comments: This is an obese versus morbidly obese white female in hospital scrubs with limited grooming but adequate eye contact. No abnormal movements except for mild psychomotor retardation. Cooperative with exam in mild distress. Speech was mostly normal rate and volume. Mood described as better I need to get home to my children. Affect slightly subdued. Thought process organized. Thought content: Patient denied suicidal or homicidal ideation, there were no delusions reported or noted, she denied any auditory or visual hallucinations. Attention and concentration appeared intact and memory was somewhat unreliable but none were formally tested. He is alert and oriented x 3. Insight and judgment are limited, impulse control is impaired. Vitals/I&O/Wt Last Vital Signs Temp 98.0 F 07/16/23 20:25 Pulse 117 H 07/21/23 20:48 Resp 17 07/22/23 14:00 BP 136/89 07/21/23 20:48 Pulse Ox 94 07/21/23 20:48 O2 Del Method Room Air 07/21/23 20:48 Data NPU 07/13/23 09:45 07/13/23 09:45 A&P Assessment and plan (1) Psychosis: (2) Suicidal ideation: (3) Bipolar disorder with psychotic features: Plan 38-year-old female with a past history of psychosis and possible bipolar disorder admitted involuntarily with increased agitation and decreased need for sleep with suicidal ideation. Patient would likely benefit from continued inpatient hospital stay. 1. Encourage individual, group and milieu therapy. 2.Recommend sober living treatment at the highest level of care to which the patient is willing to commit. 3.Continue q-15 minute checks for safety.? 4. Invega oral 3mg bid, with haldol 5mg/2mg ativan if patient refuses. Plan to switch to IM invega. Patient now on 21 day hold. Involuntary Hold Information 2 96 Hour Hold: 96 Hour Involuntary Admission: Yes 96 Hour Hold Ending Date: 07/19/23 96 Hour Hold Ending Time: 07:48 Attestations NPU 2 Medical Necessity Statement*: Inpatient hospitalization is medically necessary and deemed to ?be ?the clinically appropriate intervention ?at this time.? We will monitor/initiate medications and make changes as indicated.? The patient?s likely length of stay of 6-9 days. Coding Level of Care Code Acute Code for Chg Fwd Diagnoses Psychosis F29 Suicidal ideation R45.851 Bipolar disorder with psychotic features F31.9
[2023-07-23 14:00] VITALS: RESP 14
[2023-07-23] MEDS: OLANZapine 5 mg ODT PO (16:02)
--- NOTE | 2023-07-23 18:27 | PC.NURSE ---
PT REFUSED 1400 VITALS DUE TO HAVING SOME MEDICATIONS EARLIER IN THE DAY FOR ANXIETY. RESPIRATIONS WERE OBTAINED AT 14. WILL CONTINUE TO MONITOR.
[2023-07-23 20:53] VITALS: BP 137/89; PULSE 100; RESP 18; TEMP 36.8; O2SAT 97
--- NOTE | 2023-07-23 21:41 | PC.NURSE ---
PT TO NURSES STATION AT SHIFT CHANGE DEMANDING AND YELLING ITS TIME FOR MY ATIVAN AND HALDOL YOU KNOW ITS TIME SO JUST GIVE IT TO ME. PT WAS INFORMED THAT THIS RN HAD TO FINISH REPORT AND SEE ALL THE PATIENTS PRIOR TO GIVING MEDICATIONS. PT GOT UPSET AND STORMED OFF TO ROOM. DENIES PAIN. DENIES SI/HI AND AVH AT THIS TIME. RATES ANXIETY AND DEPRESSION 10/10. PT STATED COME ON JUST GO GET MY MEDICINE AND GIVE IT TO ME. PT WAS GIVEN ATIVAN 2MG, HALDOL 5 MG AND BENADRYL 50 MG FOR INCREASED ANXIETY AND AGITATION. PT IS NOTED TO HAVE A HOSTILE MOOD, BUT IS ABLE TO BE REDIRECTED. ALL QUESTIONS ANSWERED AND SUPPORT VOICED.
[2023-07-24 06:00] VITALS: RESP 16; BMI 43.9
--- NOTE | 2023-07-24 06:06 | PC.NURSE ---
PT REQUIRED PRN MEDICATIONS EARLIER IN THE SHIFT REQUESTED FOR AGITATION AND REPORTS OF INCREASED ANXIETY. PT DEMANDED SHE BE GIVEN ATIVAN AND HALDOL. PT WAS OFFERED VISTARIL BUT LAUGHED AND STATED THAT SHIT DON'T WORK FOR ME. PT WAS GIVEN BENADRYL, HALDOL AND ATIVAN ORDERED FOR INCREASED ANXIETY AND AGITATION. MEDICATIONS DEEMED EFFECTIVE AT THIS TIME. PT HAS SLEPT APPROXIMATELY 9-10 HOURS THIS SHIFT AND HAS HAD NO OTHER COMPLAINTS OF ANXIETY. PT CONTINUES TO REST WITH EYES CLOSED WITH NO DISTRESS NOTED AT THIS TIME
[2023-07-24] MEDS: sertraline 50 mg Tablet 25 MG PO (11:11)
[2023-07-24] MEDS: OLANZapine 5 mg ODT PO (11:12)
[2023-07-24] MEDS: paliperidone ER 3 mg Tablet PO ×2 (11:12→17:40)
[2023-07-24 14:00] VITALS: BP 181/96; PULSE 113; RESP 17; O2SAT 96
[2023-07-24] MEDS: haloperidol 5 mg Tablet PO ×2 (15:26→19:46)
[2023-07-24] MEDS: LORazepam 1 mg Tablet PO ×2 (15:26→19:46)
[2023-07-24] MEDS: diphenhydrAMINE 50 mg Capsule PO ×2 (15:26→19:46)
--- NOTE | 2023-07-24 15:37 | PC.NURSE ---
Patient visibly agitated. Administered 5mg Haldol, 50mg Benadryl, and 1mg Ativan to patient.
--- NOTE | 2023-07-24 18:32 | PC.NURSE ---
Patient's BP was elevated 181/96. Patient was asymptomatic. After approximately 30 minutes, her blood pressure was 145/83. Dr. Beatty notified
--- NOTE | 2023-07-24 20:06 | P.NPUPN_ITS ---
Subjective NPU 2 Subjective: Patient presented today reporting that she is doing fine and has arranged all psychosocial and follow-up needs such that the treatment team does not need to worry about it. She was somewhat irritable initially reporting that being here is not helpful excetra. Ultimately she came back later apologizing for her abruptness and reporting that she feels that she is doing much better now on the Invega and that she is worried that she will be able to get it when she leaves and she feels that she is accomplish everything she needs to hear. We discussed this television writer meeting with the treatment team to make sure I have a full understanding of the situation and making sure we identify those possible issues like access to medication prior to discharge. She denied any side effects of the medication. Mental Status Exam 2 MSE Comments: This is an obese versus morbidly obese white female in hospital scrubs with limited grooming but adequate eye contact. No abnormal movements except for mild psychomotor retardation. Cooperative with exam in mild distress. Speech was mostly normal rate and volume. Mood described as better I need to get home to my children. Affect slightly subdued. Thought process organized. Thought content: Patient denied suicidal or homicidal ideation, there were no delusions reported or noted, she denied any auditory or visual hallucinations. Attention and concentration appeared intact and memory was somewhat unreliable but none were formally tested. He is alert and oriented x 3. Insight and judgment are limited, impulse control is impaired. Vitals/I&O/Wt Last Vital Signs Temp 98.3 F 07/23/23 20:53 Pulse 113 H 07/24/23 14:00 Resp 17 07/24/23 14:00 BP 181/96 07/24/23 14:00 Pulse Ox 96 07/24/23 14:00 O2 Del Method Room Air 07/23/23 20:53 Weight last 48 hrs Weight 108.862 kg Data NPU 07/13/23 09:45 07/13/23 09:45 A&P Assessment and plan (1) Psychosis: (2) Suicidal ideation: (3) Bipolar disorder with psychotic features: Plan 38-year-old female with a past history of psychosis and possible bipolar disorder admitted involuntarily with increased agitation and decreased need for sleep with suicidal ideation. Patient would likely benefit from continued inpatient hospital stay. 1. Encourage individual, group and milieu therapy. 2.Recommend sober living treatment at the highest level of care to which the patient is willing to commit. 3.Continue q-15 minute checks for safety.? 4. Invega oral 3mg bid, with haldol 5mg/2mg ativan if patient refuses. Plan to switch to IM invega. Patient now on 21 day hold. Patient's Ativan decreased to 1 mg doses. Involuntary Hold Information 2 96 Hour Hold: 96 Hour Involuntary Admission: Yes 96 Hour Hold Ending Date: 07/19/23 96 Hour Hold Ending Time: 07:48 Attestations NPU 2 Medical Necessity Statement*: Inpatient hospitalization is medically necessary and deemed to ?be ?the clinically appropriate intervention ?at this time.? We will monitor/initiate medications and make changes as indicated.? The patient?s likely length of stay of 5-8 days. Coding Level of Care Code Acute Code for Chg Fwd Diagnoses Psychosis F29 Suicidal ideation R45.851 Bipolar disorder with psychotic features F31.9
[2023-07-24 20:07] VITALS: RESP 16
[2023-07-24] MEDS: ziprasidone 20 mg/mL SDV IM (21:17)
[2023-07-25 06:00] VITALS: RESP 16
--- NOTE | 2023-07-25 08:42 | PC.NURSE ---
PT RESTING IN BED,DID COME TO NURSES STATION FOR COFFEE, APPEARS TO BE IN A GOOD MOOD AND UPBEAT JOKING WITH STAFF. DENIES PAIN. DENIES SI/HI AND AVH AT THIS TIME. PT STATES SHE HAD AN INJECTION OF GEODON LAST SHIFT AND STATES SHES IS REALLY TIRED FROM IT AND DOESN'T WANT THAT SHIT AGAIN. RATES ANXIETY AND DEPRESSION 05/25. PT WENT BACK TO 170, LAID DOWN AND IS CURRENTLY RESTING WITH EYES CLOSED. ALL QUESTIONS ANSWERED AND SUPPORT WAS VOICED.
[2023-07-25] MEDS: paliperidone ER 3 mg Tablet PO ×3 (10:32→20:13)
[2023-07-25] MEDS: sertraline 50 mg Tablet 25 MG PO (10:32)
[2023-07-25] MEDS: LORazepam 1 mg Tablet PO ×2 (12:06→20:13)
[2023-07-25] MEDS: diphenhydrAMINE 50 mg Capsule PO ×2 (12:06→20:13)
[2023-07-25] MEDS: haloperidol 5 mg Tablet PO ×2 (12:06→20:13)
--- NOTE | 2023-07-25 12:08 | PC.NURSE ---
PT UP TO NURSES STATION AND STATES WHAT DO I HAVE TO DO TO GO TO [facility], ARE YOU GOING TO CALL THE CLINICAL COORDINATOR SO I CAN GO TO [facility]. WON'T I GO TO [facility] FOR YELLING AT YOU GUYS. PT EDUCATED THAT WE DO NOT SEND PEOPLE TO [facility] FOR YELLING. PT STATES [facility] WOULD BE BETTER THAT THIS. PT REQUESTED MEDICINE FOR MY NERVES. PT WAS GIVEN ATIVAN 1 MG, HALDOL 5 MG AND BENADRYL 50 MG ORDERED FOR AGITATION AND ANXIETY. SUPPORT WAS VOICED.
[2023-07-25] MEDS: nicotine 2 mg Gum BUCCAL (12:18)
[2023-07-25] MEDS: ziprasidone 20 mg/mL SDV IM (13:21)
--- NOTE | 2023-07-25 13:24 | PC.NURSE ---
AT APPROXIMATELY 1320 PT WAS HEARD YELLING NURSE NURSE THIS ASSHOLE WON'T STAY OUT OF MY ROOM. THIS RN RESPONDED IMMEDIATELY TO [place] TO SEE WHAT PT NEEDED. PT STATED THIS ELLEN WON'T STAY OUT OF MY ROOM, HE KEEPS COMING BACK HERE AND I WANT HIM OUT, THIS RN AND HAND FINISHER IN [place] TO DEESCALATE PT, THERE WAS ANOTHER MALE PT THAT DID WALK DOWN BY THE PTS ROOM, BUT HE DID NOT ENTER HER ROOM. PT CONTINUED TO YELL AND MADE VERBAL THREATS TO THE PT STATING THE NEXT TIME HE COMES DOWN HERE I'M GOING TO PUNCH HIM AND THEN I CAN GO TO [facility] AND GET OUT OF HERE. PT WAS OBSERVED MAKING A FIST AND THEN PUNCHING HER OTHER HAND VERY HARD WHILE LOOKING AT THE OTHER PT. THIS RN AND HAND FINISHER REDIRECTED PT TO THE DAY ROOM, THE PT DID ATTEMPT TO APOLOGIZE FOR GOING NEAR HER ROOM BUT SHE CONTINUED TO SCREAM,YELL AND CUSS. PT CAME UP TO THIS RN AND YELLED IN MY FACE VERY LOUDLY, CAN I GET SOMETHING ELSE FOR MY FUCKING NERVES, I HAVE PTSD AND I CAN'T TAKE HIM GOING BACK THERE BY ME. THIS RN SYMPATHIZED WITH PT AND INFORMED HER THAT I UNDERSTOOD AND STAFF WOULD KEEP AN EYE ON PTS AND MAKE SURE HE DOES NOT GO DOWN BY HER ROOM. PT THEN CAME TO NURSES STATION DEMANDING A SHOT OF GEODON, I WANT A SHOT OF IT I'M NO PISSED OFF I NEED A SHOT. RN INFORMED PT THAT SHE JUST RECEIVED ATIVAN, HALDOL AND BENADRYL BUT WOULD CHECK TO SEE IF IT WAS TIME FOR GEODON. RN DID ADMINISTER GEODON 20 MG IM TO RIGHT DELTOID REQUESTED BY PT. ALL QUESTIONS WERE ANSWERED AND SUPPORT WAS VOICED. BAGGING MACHINE OPERATOR ATTEMPTED TO GET PTS VITAL SIGNS BUT STATED YOU'RE NOT DOING THAT SHIT RIGHT NOW I'M WAY TOO PISSED OFF,
[2023-07-25 14:00] VITALS: RESP 17
--- NOTE | 2023-07-25 15:16 | PC.NURSE ---
PT REFUSED 1400 VITALS DUE TO AGITATION. RESPS WERE OBTAINED AT 17. WILL CONTINUE TO MONITOR.
--- NOTE | 2023-07-25 18:50 | P.NPUPN_ITS ---
Subjective NPU 2 Subjective: Patient presented today reporting that she was doing okay initially but then had a fairly agitated day. She expressed anger about people walking even near her room. She at times lost her temper and was yelling and ultimately needed multiple PRNs to help her manage her agitation. We discussed the importance of her being able to demonstrate some self-control for us to identify that she is ready for discharge. She denied any side effects of the medication and we talked about increasing the dose. Mental Status Exam 2 MSE Comments: This is an obese versus morbidly obese white female in hospital scrubs with limited grooming but adequate eye contact. No abnormal movements except for psychomotor agitation. Cooperative with exam in mild distress. Speech was mostly normal rate and volume. Mood described as upset I will need to be here and the people here are making me angry. Affect congruent and agitated. Thought process organized. Thought content: Patient denied suicidal or homicidal ideation, there were no delusions reported or noted, she denied any auditory or visual hallucinations. Attention and concentration appeared intact and memory was somewhat unreliable but none were formally tested. He is alert and oriented x 3. Insight and judgment are limited, impulse control is impaired. Vitals/I&O/Wt Last Vital Signs Temp 98.3 F 07/23/23 20:53 Pulse 113 H 07/24/23 14:00 Resp 17 07/25/23 14:00 BP 181/96 07/24/23 14:00 Pulse Ox 96 07/24/23 14:00 O2 Del Method Room Air 07/23/23 20:53 Weight last 48 hrs Weight 108.862 kg Data NPU 07/13/23 09:45 07/13/23 09:45 A&P Assessment and plan (1) Psychosis: (2) Suicidal ideation: (3) Bipolar disorder with psychotic features: Plan 38-year-old female with a past history of psychosis and possible bipolar disorder admitted involuntarily with increased agitation and decreased need for sleep with suicidal ideation. Patient would likely benefit from continued inpatient hospital stay. 1. Encourage individual, group and milieu therapy. 2.Recommend sober living treatment at the highest level of care to which the patient is willing to commit. 3.Continue q-15 minute checks for safety.? 4. Invega oral 3mg bid, with haldol 5mg/2mg ativan if patient refuses. Patient now on 21 day hold. Patient's Ativan decreased to 1 mg doses. Increase Invega to 9 mg daily. Will consider the long-acting injectable Involuntary Hold Information 2 96 Hour Hold: 96 Hour Involuntary Admission: Yes 96 Hour Hold Ending Date: 07/19/23 96 Hour Hold Ending Time: 07:48 Attestations NPU 2 Medical Necessity Statement*: Inpatient hospitalization is medically necessary and deemed to ?be ?the clinically appropriate intervention ?at this time.? We will monitor/initiate medications and make changes as indicated.? The patient?s likely length of stay of 5-8 days. Coding Level of Care Code Acute Code for Chg Fwd Diagnoses Psychosis F29 Suicidal ideation R45.851 Bipolar disorder with psychotic features F31.9
[2023-07-25 20:42] VITALS: BP 139/92; PULSE 119; RESP 18; TEMP 36.8; O2SAT 97
[2023-07-26 06:00] VITALS: RESP 16
[2023-07-26] MEDS: acetaminophen 325 mg Tablet 650 MG PO ×2 (07:34→20:20)
[2023-07-26] MEDS: paliperidone ER 3 mg Tablet 9 MG PO (09:50)
[2023-07-26] MEDS: sertraline 50 mg Tablet 25 MG PO (09:51)
[2023-07-26] MEDS: cetirizine 10 mg Tablet PO (10:48)
[2023-07-26] MEDS: nicotine 2 mg Gum BUCCAL ×3 (12:19→19:15)
[2023-07-26 14:00] VITALS: RESP 18
[2023-07-26] MEDS: paliperidone palmitate 234 mg Syringe IM (14:01)
--- NOTE | 2023-07-26 14:43 | P.NPUPN_ITS ---
Subjective NPU 2 Subjective: Patient presented today reporting that she is doing fine. She was apologetic about some of her behaviors in the last 48 hours. She identified understanding which she needs to do to get out and do better. We discussed the risks, benefits and alternatives of initiating Invega Sustenna and she understood and agreed to proceed as documented in this note. She denied any side effects from the medication. Mental Status Exam 2 MSE Comments: This is an obese versus morbidly obese white female in hospital scrubs with limited grooming but adequate eye contact. No abnormal movements except for psychomotor agitation. Cooperative with exam in mild distress. Speech was mostly normal rate and volume. Mood described as getting better, sorry about yesterday just hoping to get out in the next week. Affect congruent absent clear agitation. Thought process organized. Thought content: Patient denied suicidal or homicidal ideation, there were no delusions reported or noted, she denied any auditory or visual hallucinations. Attention and concentration appeared intact and memory was somewhat unreliable but none were formally tested. He is alert and oriented x 3. Insight and judgment are limited, impulse control is impaired. Vitals/I&O/Wt Last Vital Signs Temp 98.3 F 07/25/23 20:42 Pulse 119 H 07/25/23 20:42 Resp 16 07/26/23 06:00 BP 139/92 07/25/23 20:42 Pulse Ox 97 07/25/23 20:42 O2 Del Method Room Air 07/25/23 20:42 Data NPU 07/13/23 09:45 07/13/23 09:45 A&P Assessment and plan (1) Psychosis: (2) Suicidal ideation: (3) Bipolar disorder with psychotic features: Plan 38-year-old female with a past history of psychosis and possible bipolar disorder admitted involuntarily with increased agitation and decreased need for sleep with suicidal ideation. Patient would likely benefit from continued inpatient hospital stay. 1. Encourage individual, group and milieu therapy. 2.Recommend sober living treatment at the highest level of care to which the patient is willing to commit. 3.Continue q-15 minute checks for safety.? 4. Invega oral 3mg bid, with haldol 5mg/2mg ativan if patient refuses. Patient now on 21 day hold. Patient's Ativan decreased to 1 mg doses. Increased Invega to 9 mg daily. Initiate Invega Sustenna 234 mg IM loading dose to the deltoid. Involuntary Hold Information 2 96 Hour Hold: 96 Hour Involuntary Admission: Yes 96 Hour Hold Ending Date: 07/19/23 96 Hour Hold Ending Time: 07:48 Attestations NPU 2 Medical Necessity Statement*: Inpatient hospitalization is medically necessary and deemed to ?be ?the clinically appropriate intervention ?at this time.? We will monitor/initiate medications and make changes as indicated.? The patient?s likely length of stay of 3-6 days. Coding Level of Care Code Acute Code for Chg Fwd Diagnoses Psychosis F29 Suicidal ideation R45.851 Bipolar disorder with psychotic features F31.9
[2023-07-26] MEDS: OLANZapine 5 mg ODT PO (15:10)
[2023-07-26] MEDS: trazodone 50 mg Tablet PO (19:15)
[2023-07-26 20:02] VITALS: BP 115/98; PULSE 113; RESP 20; O2SAT 97
[2023-07-26] MEDS: LORazepam 1 mg Tablet PO (20:12)
[2023-07-26] MEDS: diphenhydrAMINE 50 mg Capsule PO (20:12)
[2023-07-26] MEDS: haloperidol 5 mg Tablet PO (20:12)
[2023-07-27] MEDS: acetaminophen 325 mg Tablet 650 MG PO ×2 (06:43→21:17)
--- NOTE | 2023-07-27 06:50 | PC.NURSE ---
Attempted to obtain vitals. Patient stated oh no you did not wake me up for vitals. Shukir.
[2023-07-27] MEDS: cetirizine 10 mg Tablet PO (08:04)
[2023-07-27] MEDS: sertraline 50 mg Tablet 25 MG PO (08:04)
[2023-07-27] MEDS: paliperidone ER 3 mg Tablet 9 MG PO (08:04)
[2023-07-27] MEDS: nicotine 2 mg Gum BUCCAL ×3 (09:15→18:56)
[2023-07-27] MEDS: nicotine 4 mg lozenge MUCOUS MEM (11:03)
--- NOTE | 2023-07-27 13:10 | P.NPUPN_ITS ---
Subjective NPU 2 Subjective: Patient presented today reporting that she is feeling better and feels that the Invega is doing its job. We discussed feeling like we are seeing the same thing and talked about when her next injection is due. We discussed discharge planning and the current projected discharge date of Tuesday. She denied any side effects of the medication and reports she is eating and sleeping fine. Mental Status Exam 2 MSE Comments: This is an obese versus morbidly obese white female in hospital scrubs with limited grooming but adequate eye contact. No abnormal movements. Cooperative with exam in mild distress. Speech was mostly normal rate and volume. Mood described as getting better. Affect congruent absent clear agitation. Thought process organized. Thought content: Patient denied suicidal or homicidal ideation, there were no delusions reported or noted, she denied any auditory or visual hallucinations. Attention and concentration appeared intact and memory was somewhat unreliable but none were formally tested. He is alert and oriented x 3. Insight and judgment are limited, impulse control is limited but improving . Vitals/I&O/Wt Last Vital Signs Temp 98.3 F 07/25/23 20:42 Pulse 113 H 07/26/23 20:02 Resp 20 H 07/26/23 20:02 BP 115/98 07/26/23 20:02 Pulse Ox 97 07/26/23 20:02 O2 Del Method Room Air 07/26/23 20:02 Data NPU 07/13/23 09:45 07/13/23 09:45 A&P Assessment and plan (1) Psychosis: (2) Suicidal ideation: (3) Bipolar disorder with psychotic features: Plan 38-year-old female with a past history of psychosis and possible bipolar disorder admitted involuntarily with increased agitation and decreased need for sleep with suicidal ideation. Patient would likely benefit from continued inpatient hospital stay. 1. Encourage individual, group and milieu therapy. 2.Recommend sober living treatment at the highest level of care to which the patient is willing to commit. 3.Continue q-15 minute checks for safety.? 4. Invega oral 3mg bid, with haldol 5mg/2mg ativan if patient refuses. Patient now on 21 day hold. Patient's Ativan decreased to 1 mg doses. Increased Invega to 9 mg daily. Initiated Invega Sustenna 234 mg IM loading dose to the deltoid. 07/26/2023. Involuntary Hold Information 2 96 Hour Hold: 96 Hour Involuntary Admission: Yes 96 Hour Hold Ending Date: 07/19/23 96 Hour Hold Ending Time: 07:48 Attestations NPU 2 Medical Necessity Statement*: Inpatient hospitalization is medically necessary and deemed to ?be ?the clinically appropriate intervention ?at this time.? We will monitor/initiate medications and make changes as indicated.? The patient?s likely length of stay of 2-4 days. Coding Level of Care Code Acute Code for g Fwd Diagnoses Psychosis F29 Suicidal ideation R45.851 Bipolar disorder with psychotic features F31.9
[2023-07-27 14:00] VITALS: BP 154/86; PULSE 112; RESP 17; TEMP 36.7; O2SAT 97
[2023-07-27 20:15] VITALS: BP 152/89; PULSE 99; RESP 20; TEMP 36.4; O2SAT 97
[2023-07-27] MEDS: LORazepam 1 mg Tablet PO (20:31)
[2023-07-27] MEDS: haloperidol 5 mg Tablet PO (20:31)
[2023-07-27] MEDS: diphenhydrAMINE 50 mg Capsule PO (20:31)
--- NOTE | 2023-07-28 06:23 | PC.NURSE ---
pt stated at bthe begining of the shift that she did not want to be woke up to have vs done in the mornings.
[2023-07-28] MEDS: acetaminophen 325 mg Tablet 650 MG PO ×3 (07:26→20:11)
[2023-07-28] MEDS: sertraline 50 mg Tablet 25 MG PO (07:27)
[2023-07-28] MEDS: cetirizine 10 mg Tablet PO (07:27)
[2023-07-28] MEDS: paliperidone ER 3 mg Tablet 9 MG PO (07:27)
[2023-07-28] MEDS: nicotine 2 mg Gum BUCCAL ×3 (08:03→15:47)
[2023-07-28] MEDS: fluticasone nasal spray 16gm Btl 1 SPRAY NASAL (08:03)
--- NOTE | 2023-07-28 10:53 | P.NPUPN_ITS ---
Subjective NPU 2 Subjective: Patient presented today reporting that she is feeling a little under the weather today. Otherwise she continues to endorse feeling good about her situation overall being happy about the prospect of discharge tomorrow. We discussed whether or not we should we should give her second dose tomorrow before discharge or whether or not she would be capable of getting a ride back on Tuesday. Otherwise she is appreciative of the fact that we kept her through the irritability to her being at a better place today. She denied any side effects to medication. Mental Status Exam 2 MSE Comments: This is an obese versus morbidly obese white female in hospital scrubs with limited grooming but adequate eye contact. No abnormal movements. Cooperative with exam in mild distress. Speech was mostly normal rate and volume. Mood described as getting better. Affect congruent absent clear agitation. Thought process organized. Thought content: Patient denied suicidal or homicidal ideation, there were no delusions reported or noted, she denied any auditory or visual hallucinations. Attention and concentration appeared intact and memory was somewhat unreliable but none were formally tested. He is alert and oriented x 3. Insight and judgment are limited, impulse control is limited but improving . Vitals/I&O/Wt Last Vital Signs Temp 97.5 F L 07/27/23 20:15 Pulse 99 07/27/23 20:15 Resp 20 H 07/27/23 20:15 BP 152/89 07/27/23 20:15 Pulse Ox 97 07/27/23 20:15 O2 Del Method Room Air 07/27/23 20:15 Data NPU 07/13/23 09:45 07/13/23 09:45 A&P Assessment and plan (1) Psychosis: (2) Suicidal ideation: (3) Bipolar disorder with psychotic features: Plan 38-year-old female with a past history of psychosis and possible bipolar disorder admitted involuntarily with increased agitation and decreased need for sleep with suicidal ideation. Patient would likely benefit from continued inpatient hospital stay. 1. Encourage individual, group and milieu therapy. 2.Recommend sober living treatment at the highest level of care to which the patient is willing to commit. 3.Continue q-15 minute checks for safety.? 4. Invega oral 3mg bid, with haldol 5mg/2mg ativan if patient refuses. Patient now on 21 day hold. Patient's Ativan decreased to 1 mg doses. Increased Invega to 9 mg daily. Initiated Invega Sustenna 234 mg IM loading dose to the deltoid. 07/26/2023. Will decide whether to give the second loading dose of Invega tomorrow before discharge or have her come back on Tuesday. Involuntary Hold Information 2 96 Hour Hold: 96 Hour Involuntary Admission: Yes 96 Hour Hold Ending Date: 07/19/23 96 Hour Hold Ending Time: 07:48 Attestations NPU 2 Medical Necessity Statement*: Inpatient hospitalization is medically necessary and deemed to ?be ?the clinically appropriate intervention ?at this time.? We will monitor/initiate medications and make changes as indicated.? The patient?s likely length of stay of 1-3 days. Coding Level of Care Code Acute Code for g Fwd Diagnoses Psychosis F29 Suicidal ideation R45.851 Bipolar disorder with psychotic features F31.9
[2023-07-28 14:00] VITALS: BP 162/100; PULSE 99; RESP 18; TEMP 37.1; O2SAT 97
[2023-07-28] MEDS: haloperidol 5 mg Tablet PO (19:59)
[2023-07-28] MEDS: diphenhydrAMINE 50 mg Capsule PO (19:59)
[2023-07-28] MEDS: LORazepam 1 mg Tablet PO (19:59)
[2023-07-28 20:36] VITALS: BP 130/69; PULSE 90; RESP 20; TEMP 36.3; O2SAT 95
--- NOTE | 2023-07-29 06:02 | PC.NURSE ---
pt refvs resp 18
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
[2023-07-29] MEDS: nicotine 2 mg Gum BUCCAL (07:15)
[2023-07-29 08:07] VITALS: BP 130/69; PULSE 90; RESP 20; TEMP 36.3; O2SAT 95
[2023-07-29] MEDS: cetirizine 10 mg Tablet PO (08:19)
[2023-07-29] MEDS: paliperidone ER 3 mg Tablet PO (08:19)
[2023-07-29] MEDS: sertraline 50 mg Tablet PO (08:19)
[2023-07-29] MEDS: paliperidone palmitate 156 mg Syringe IM (08:29)
--- NOTE | 2023-07-29 08:42 | DCPLANNER ---
HARLEY completed on 07/29/23 @ 3106. Pt was given a copy of her rights and she stated she understood her rights.
== END 2023-07-29 09:27 | disposition home or self-care (01) | DRG 885 ==
LOC: ER 11:26 → NP 11:47
PROVIDERS: Admitting Provider Psychiatry & Neurology Psychiatry; Emergency Provider Emergency Medicine; Visit Provider Psychiatry & Neurology Psychiatry
DX: F29 Unspecified psychosis not due to a substance or known physiological condition (principal); R45.851 Suicidal ideations; F31.9 Bipolar disorder, unspecified; F12.10 Cannabis abuse, uncomplicated; Z91.148 Patient's other noncompliance with medication regimen for other reason
CPT/HCPCS: 36415; 71045; 80053; 80306; 80307; 81001; 81025; 84443; 85025; 96372; 97150; 97165; 99285; J1200; J1630; J2060; J3486; Q0162; Q0163

== ENCOUNTER 2023-10-24 12:52 | Emergency (ER) | payer MEDICARE, MEDICAID, SELFPAY ==
[2023-10-24 12:58] VITALS: BP 171/128; PULSE 103; RESP 18; TEMP 37.1; O2SAT 95
--- NOTE | 2023-10-24 12:58 | ECG_ITS ---
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 Measurements Intervals [place] Rate: 96 P: 45 MD: 145 QRS: -22 QRSD: 97 T: 43 QT: 362 QTc: 457 Interpretive Statements SINUS RHYTHM INCOMPLETE RIGHT BUNDLE BRANCH BLOCK [90+ ms QRS DURATION, TERMINAL R IN V1/V2, 40+ ms S IN I/aVL/V4/V5/V6] POSSIBLE ANTERIOR MYOCARDIAL INFARCTION , OF INDETERMINATE AGE [30 ms Q WAVE IN V3/V4, OR R < 0.2 mV IN V4] No previous ECG available for comparison Electronically Signed On 10-24-2023 19:04:19 CDT by Jonathan Taylor M.D. [email or web address]
[2023-10-24 13:02] VITALS: BP 171/128; PULSE 103; RESP 18; TEMP 37.1; O2SAT 95; BMI 42.9
--- NOTE | 2023-10-24 13:08 | ED.C_ITS ---
HPI - Psych 2 General: Chief Complaint: Psychiatric Symptoms Stated Complaint: mhe Time Seen by Provider: 10/24/23 12:55 History of Present Illness: 38-year-old female with history of bipol ar disorder. Patient presents to the emergency room on a 96-hour hold with the police. She is very flat, catatonic. She will not provide any history at this time. Below is the affidavit information that was sent with her. Cara has past few visits with SI. Client does have diagnosis of bipolar disorder with psychotic features. Cara presents today with limited cognition. Client has significantly delayed responses and flat affect. At times she is perceived to be in a catatonic state without responding. Cara does not appear to be able to care for herself at this time. Review of Systems 2 Narrative: Constitutional symptoms: Negative except as documented in HPI. Skin symptoms: Negative except as documented in HPI. Eye symptoms: Negative except as documented in HPI. ENMT symptoms: Negative except as documented in HPI. Respiratory symptoms: Negative except as documented in HPI. Cardiovascular symptoms: Negative except as documented in HPI. Gastrointestinal symptoms: Negative except as documented in HPI. Genitourinary symptoms: Negative except as documented in HPI. Musculoskeletal symptoms: Negative except as documented in HPI. Neurologic symptoms: Negative except as documented in HPI. Psychiatric symptoms: Negative except as documented in HPI. Endocrine symptoms: Negative except as documented in HPI. Physical Exam 2 Narrative: EXAM NARRATIVE: General: Alert, no acute distress. Skin: Warm, dry. Head: Normocephalic, atraumatic. Neck: Supple, trachea midline. Eye: Extraocular movements are intact. Ears, nose, mouth and throat: mucosa moist. Cardiovascular: Regular, Normal peripheral perfusion. Respiratory: Lungs are clear to auscultation, respirations are non-labored, breath sounds are equal, Symmetrical chest wall expansion. Gastrointestinal: Soft, Nontender, Non distended, Normal bowel sounds. Musculoskeletal: Normal ROM, no deformity. Neurological: Alert, No focal neurological deficit observed. Psychiatric: Flat affect. Will not answer questions. Course 2 Vital Signs: Vital signs: Vital Signs Temperature 98.7 F 10/24/23 18:11 Pulse Rate 103 H 10/24/23 18:11 Respiratory Rate 18 10/24/23 18:11 Blood Pressure 171/128 10/24/23 18:11 Pulse Oximetry 95 10/24/23 18:11 Oxygen Delivery Me thod Room Air 10/24/23 13:42 MDM - Psych Medical Decision Making Differential diagnosis: Patient with reported depression and suicidal ideation/catatonic state. concerns for infection, alcohol intoxication, cardiac issues or other medical problems prior to psychiatric admission. Workup: labwork, ekg ordered to evaluate the pathologies and to clear the patient medically prior to psychiatric admission Lab review: - Medically cleared. - EKG shows no ischemic changes. - Blood alcohol level is negative, as well as salicylate and Tylenol. - Drug screen is negative - No signs of infection, urinalysis clear and white count is not elevated - No anemia. - BUN and creatinine are within normal limits. EKG: Time 1520. Rate 96. Normal sinus rhythm, No ST-T changes, no ectopy, normal LA & QRS intervals, This was reviewed and interpreted by myself the ER physician at 1525 Consultation: I spoke with Dr. Johnson who recommends 2 mg Ativan. He says this often will bring people out of a catatonic state. The patient improved significantly. She is now awake and rather unpleasant, but she continues to deny any homicidal or suicidal ideation. She had not expressed any of this before. She expresses the desire to go home. I spoke again with Dr. Johnson who agrees that discharge home is okay for now. Assessment and plan: Catatonic state -Patient prefers to go home. She says she feels better. Denies homicidal or suicidal ideations - All lab work was reviewed and interpreted personally by myself, the ER physician - Evaluation and treatment of this problem were appropriate in the emergency setting Lab Data 10/24/23 13:38 10/24/23 13:38 Laboratory Results WBC 16.51 10^3/uL (3.29-11.43) H 10/24/23 13:38 RBC 6.21 10^6/uL (3.85-5.65) H 10/24/23 13:38 Hgb 16.90 g/dL (11.27-16.99) 10/24/23 13:38 Hct 51.4 % (36-47) H 10/24/23 13:38 MCV 82.8 fl (85-98) L 10/24/23 13:38 MCH 27.2 pg (27-33) 10/24/23 13:38 MCHC 32.9 g/dL (30-55) 10/24/23 13:38 RDW 14.9 % (12.1-15.1) 10/24/23 13:38 Plt Count 424 10^3/cmm (157-399) H 10/24/23 13:38 MPV 10.6 fL (7.4-10.4) H 10/24/23 13:38 Neut % (Auto) 80.8 % 10/24/23 13:38 Lymph % (Auto) 11.9 % 10/24/23 13:38 Jack % (Auto) 6.4 % 10/24/23 13:38 Eos % (Auto) 0.1 % 10/24/23 13:38 Baso % (Auto) 0.5 % 10/24/23 13:38 Neut # (Auto) 13.34 10^3/uL (1.8-7.7) H 10/24/23 13:38 Lymph # (Auto) 2.0 10^3/uL (0.8-4.8) 10/24/23 13:38 Jack # (Auto) 1.1 10^3/uL (0.2-0.9) H 10/24/23 13:38 Eos # (Auto) 0.0 10^3/uL (0.0-0.8) 10/24/23 13:38 Baso # (Auto) 0.1 10^3/uL (0.0-0.1) 10/24/23 13:38 Nucleated RBC % (auto) 0 % 10/24/23 13:38 Nucleated RBCs # 0.0 /100WBC 10/24/23 13:38 Sodium 136 mmol/L (136-145) 10/24/23 13:38 Potassium 3.7 mmol/L (3.5-5.1) 10/24/23 13:38 Chloride 98 mmol/L (98-107) 10/24/23 13:38 Carbon Dioxide 22 mmol/L (22-29) 10/24/23 13:38 Anion Gap 19.7 (5-19) H 10/24/23 13:38 BUN 11 mg/dL (6-20) 10/24/23 13:38 Creatinine 0.7 mg/dL (0.5-0.9) 10/24/23 13:38 GFR Calculation 92.7 mL/min (90-130) 10/24/23 13:38 Glucose 112 mg/dL (65-115) 10/24/23 13:38 Calculated Osmolality 282 mOsm/kg (285-295) L 10/24/23 13:38 Calcium 9.5 mg/dL (8.5-10.5) 10/24/23 13:38 Total Bilirubin 1.1 mg/dL (0.15-1.2) 10/24/23 13:38 AST 20 U/L (0-32) 10/24/23 13:38 ALT 38 U/L (0-33) H 10/24/23 13:38 Alkaline Phosphatase 90 U/L (35-105) 10/24/23 13:38 Total Protein 8.6 g/dL (6.6-8.7) 10/24/23 13:38 Albumin 5.0 g/dL (3.5-5.2) 10/24/23 13:38 Globulin 3.6 g/dL (1.3-4.6) 10/24/23 13:38 TSH 1.06 uIU/mL (0.27-4.20) 10/24/23 13:38 Salicylates < 0.3 mg/dL (3-10) L 10/24/23 13:38 Acetaminophen < 5.0 ug/mL (10-30) L 10/24/23 13:38 Ethyl Alcohol < 10 mg/dL (0-10) 10/24/23 13:38 No radiology studies performed this visit Discharge Plan Discharge Patient Disposition: Home Clinical Impression: Catatonic state Condition: Stable Prescriptions: No Action diphenhydramine HCl 50 mg Capsule 50 mg PO Q4H PRN (Reason: Agitation) 30 Days Qty: 60 1RF trazodone 50 mg Tablet 50 mg PO BEDTIME PRN (Reason: sleep) 30 Days Qty: 30 1RF cetirizine 10 mg Tablet 10 mg PO DAILY 30 Days Qty: 30 1RF sertraline 50 mg Tablet 50 mg PO DAILY 30 Days Qty: 30 1RF paliperidone 3 mg Tablet Extended Release 24hr 3 mg PO DAILY 30 Days Qty: 30 1RF divalproex 250 mg tablet,delayed release (DR/EC) 250 mg PO BEDTIME chlorpromazine 100 mg tablet See Rx Instructions .ROUTE .COMPLEX Rx Instructions: TAKE ONE TABLET BY MOUTH AT 8am AND 2pm, THEN TAKE ONE AND ONE-HALF TABLET AT BEDTIME. divalproex 500 mg tablet,delayed release (DR/EC) 500 mg PO BID zolpidem 5 mg tablet 5 mg PO BEDTIME diazepam 10 mg tablet 10 mg PO BID Discharge Orders: Discharge ED (Routine); Ordered 10/24/23 Ordered By: Citlaly New Discharge Diet: Usual diet Patient Instructions: Pain Management Activity Restrictions/Additional Instructions: Thank you for choosing [facility] for your healthcare needs today. Please realize this is an emergency room and that we are providing you with a medical screening exam and this may not be complete and all inclusive of all the testing and or work up that you may need to determine your ailment or severity of your illness. You have been screened and evaluated and felt safe for discharge. Health conditions do change or evolve sometimes and as such it is important that you follow up with your Primary Doctor to be re checked, 3-5 days is a general good time frame for follow up. You are always welcome to return to the ED for re assessment if your symptoms are worsening or you have new concerns Coding Level of Care Code ED Sewing Line Baler for Ashleigh Peres
[2023-10-24 13:42] VITALS: BP 171/128; PULSE 103; RESP 18; TEMP 37.1; O2SAT 95
--- NOTE | 2023-10-24 13:51 | PC.NURSE ---
96 hr rights reviewed with patient @1340 with assistance of [facility] information security analyst Ty. All education reviewed. No verbalized questions or concerns at this time. Patient denies offering of drink or snack. Patient copy of rights left @chair side with patient.
[2023-10-24 14:01] LABS: Basophils # 0.1 10^3/uL (0.0-0.1); Basophils % 0.5 %; Eosinophils % 0.1 %; Hematocrit 51.4 % (36-47); Lymphocytes % 11.9 %; Mean Corpuscular HGB Conc 32.9 g/dL (30-55); Mean Corpuscular Hemoglobin 27.2 pg (27-33); Mean Corpuscular Volume 82.8 fl (85-98); Mean Platelet Volume 10.6 fL (7.4-10.4); Monocytes # 1.1 10^3/uL (0.2-0.9); Monocytes % 6.4 %; Neutrophils # 13.34 10^3/uL (1.8-7.7); Neutrophils % 80.8 %; Nucleated Red Blood Cells % 0 %; Platelet Count 424 10^3/cmm (157-399); Red Blood Count 6.21 10^6/uL (3.85-5.65); Red Cell Distribution Width 14.9 % (12.1-15.1); White Blood Count 16.51 10^3/uL (3.29-11.43)
--- NOTE | 2023-10-24 14:17 | PC.PHAR ---
PT LAST FILLED 5 MEDICATIONS AT [facility] ON 07/29/23 AND 5 MEDICATIONS AT [facility] 09/07/23. NO OTHER RECENT FILLS PROVIDED BY PHARMACIES.
[2023-10-24 14:31] LABS: Alanine Aminotransferase 38 U/L (0-33); Alkaline Phosphatase 90 U/L (35-105); Anion Gap 19.7 (5-19); Aspartate Amino Transferase 20 U/L (0-32); Blood Urea Nitrogen 11 mg/dL (6-20); Calcium 9.5 mg/dL (8.5-10.5); Carbon Dioxide 22 mmol/L (22-29); Chloride 98 mmol/L (98-107); Creatinine Clr Calc Pharmacy 131.8498; Globulin 3.6 g/dL (1.3-4.6); Glomerular Filtration Rate 92.7 mL/min (90-130); Glucose 112 mg/dL (65-115); Osmolality Calculated 282 mOsm/kg (285-295); Potassium 3.7 mmol/L (3.5-5.1); Sodium 136 mmol/L (136-145); Thyroid Stimulating Hormone 1.06 uIU/mL (0.27-4.20); Total Bilirubin 1.1 mg/dL (0.15-1.2); Total Protein 8.6 g/dL (6.6-8.7)
[2023-10-24 14:38] LABS: Acetaminophen < 5.0 ug/mL (10-30); Alcohol Level < 10 mg/dL (0-10); Salicylate < 0.3 mg/dL (3-10)
[2023-10-24] MEDS: LORazepam 2 mg/mL INJ 10 mL MDV IVP (15:16)
--- NOTE | 2023-10-24 15:20 | PC.NURSE ---
PER PHARMACY ANA IS OKAY TO ADMIN. MED AT 1500, PULLED AT 1501
[2023-10-24 18:11] VITALS: BP 171/128; PULSE 103; RESP 18; TEMP 37.1; O2SAT 95
== END 2023-10-24 18:20 | disposition home or self-care (01) ==
PROVIDERS: Emergency Provider Emergency Medicine
DX: F06.1 Catatonic disorder due to known physiological condition (principal)
CPT/HCPCS: 36415; 80053; 80307; 84443; 85025; 93005; 96374; 99284; J2060

== ENCOUNTER 2023-10-24 21:40 | Inpatient (IN) | payer MEDICARE, MEDICAID, SELFPAY ==
[2023-10-24 21:43] VITALS: BP 170/121; PULSE 104; RESP 18; TEMP 36.5; O2SAT 97; BMI 29.2
--- NOTE | 2023-10-24 21:54 | PC.NURSE ---
This RN was called to ER waiting room by registration due to disgruntled/discharged pt making self harm statements. This RN and devulcanizer charger spoke with pt. Pt stated she did not have a ride home to [facility]. When I asked pt how she got to [place], pt began making bizarre statements like They are just going to kill me anyway. I'm going to kill myself one way or another. Pt re-checked into the ER for another psych evaluation.
--- NOTE | 2023-10-24 21:57 | ED.C_ITS ---
Documented by User: Citlaly New MD 10/24/23 22:01 HPI - Psych 2 General: Chief Complaint: Psychiatric Symptoms Stated Complaint: MHE Time Seen by Provider: 10/24/23 21:54 History of Present Illness: 38-year-old female with a history of psy chiatric issues who I had seen here in the emergency room earlier today in a catatonic state. She had been placed on a hold secondary to the thought that she could not take care of herself. Psychiatry was consulted and he recommended Ativan for catatonic state which worked very well and she was awake and requesting discharge. Apparently she went out in the waiting room and could not get a ride home and now has become quite agitated and is yelling that she is going to kill herself. No other history is able to be obtained from her at this time as she is very uncooperative Review of Systems 2 General: Reports: ROS unobtainable due to mental status Physical Exam 2 Narrative: EXAM NARRATIVE: General: Alert, no acute distress. Skin: Warm, dry. Head: Normocephalic, atraumatic. Neck: Supple, trachea midline. Eye: Extraocular movements are intact. Ears, nose, mouth and throat: mucosa moist. Cardiovascular: Regular, Normal peripheral perfusion. Respiratory: Lungs are clear to auscultation, respirations are non-labored, breath sounds are equal, Symmetrical chest wall expansion. Gastrointestinal: Soft, Nontender, Non distended, Normal bowel sounds. Musculoskeletal: Normal ROM, no deformity. Neurological: Alert, No focal neurological deficit observed. Psychiatric: Patient is agitated, uncooperative and yells that she is going to kill herself. Also seems paranoid and yells at nursing that they have taken her kids away Course 2 Vital Signs: Vital signs: Vital Signs Temperature 98.4 F 10/25/23 09:26 Pulse Rate 93 10/25/23 09:26 Respiratory Rate 16 10/25/23 09:26 Blood Pressure 159/103 10/25/23 09:26 Pulse Oximetry 95 10/25/23 09:26 Oxygen Delivery Me thod Room Air 10/25/23 09:08 MDM - Psych Medical Decision Making Workup being reinitiated for psychiatric issues. Patient being transferred to Dr. Jacobsen's care at shift change. Lab Data 10/24/23 22:23 10/24/23 22:23 Laboratory Results WBC 19.15 10^3/uL (3.29-11.43) H 10/24/23 22:23 RBC 6.28 10^6/uL (3.85-5.65) H 10/24/23 22:23 Hgb 17.00 g/dL (11.27-16.99) H 10/24/23 22:23 Hct 51.6 % (36-47) H 10/24/23 22:23 MCV 82.2 fl (85-98) L 10/24/23 22:23 MCH 27.1 pg (27-33) 10/24/23 22:23 MCHC 32.9 g/dL (30-55) 10/24/23 22:23 RDW 15.0 % (12.1-15.1) 10/24/23 22:23 Plt Count 406 10^3/cmm (157-399) H 10/24/23 22:23 MPV 10.0 fL (7.4-10.4) 10/24/23 22:23 Neut % (Auto) 76.3 % 10/24/23 22:23 Lymph % (Auto) 13.9 % 10/24/23 22:23 [place] % (Auto) 8.4 % 10/24/23 22:23 Eos % (Auto) 0.4 % 10/24/23 22:23 Baso % (Auto) 0.6 % 10/24/23 22:23 Neut # (Auto) 14.61 10^3/uL (1.8-7.7) H 10/24/23 22:23 Lymph # (Auto) 2.7 10^3/uL (0.8-4.8) 10/24/23 22:23 [place] # (Auto) 1.6 10^3/uL (0.2-0.9) H 10/24/23 22:23 Eos # (Auto) 0.1 10^3/uL (0.0-0.8) 10/24/23 22:23 Baso # (Auto) 0.1 10^3/uL (0.0-0.1) 10/24/23 22:23 Nucleated RBC % (auto) 0 % 10/24/23 22:23 Nucleated RBCs # 0.0 /100WBC 10/24/23 22:23 Sodium 138 mmol/L (136-145) 10/24/23 22:23 Potassium 3.6 mmol/L (3.5-5.1) 10/24/23 22:23 Chloride 101 mmol/L (98-107) 10/24/23 22:23 Carbon Dioxide 21 mmol/L (22-29) L 10/24/23 22:23 Anion Gap 19.6 (5-19) H 10/24/23 22:23 BUN 13 mg/dL (6-20) 10/24/23 22:23 Creatinine 0.7 mg/dL (0.5-0.9) 10/24/23 22:23 GFR Calculation 92.7 mL/min (90-130) 10/24/23 22:23 Glucose 112 mg/dL (65-115) 10/24/23 22:23 Calculated Osmolality 287 mOsm/kg (285-295) 10/24/23 22:23 Calcium 9.0 mg/dL (8.5-10.5) 10/24/23 22:23 Total Bilirubin 1.1 mg/dL (0.15-1.2) 10/24/23 22:23 AST 18 U/L (0-32) 10/24/23 22:23 ALT 34 U/L (0-33) H 10/24/23 22:23 Alkaline Phosphatase 85 U/L (35-105) 10/24/23 22:23 Total Protein 8.1 g/dL (6.6-8.7) 10/24/23 22:23 Albumin 4.6 g/dL (3.5-5.2) 10/24/23 22:23 Globulin 3.5 g/dL (1.3-4.6) 10/24/23 22:23 TSH 1.61 uIU/mL (0.27-4.20) 10/24/23 22:23 HCG, Qual Negative (Negative) 10/24/23 04:01 Urine Color Dark yellow (Yellow) 10/24/23 04:01 Urine Appearance Cloudy (CLEAR) A 10/24/23 04:01 Urine pH 5 (5-7) 10/24/23 04:01 Ur Specific [place] 1.020 (1.005-1.030) 10/24/23 04:01 Urine Protein Trace (Negative) 10/24/23 04:01 Urine Glucose (UA) Norm (Normal) 10/24/23 04:01 Urine Ketones 1+ (Negative) H 10/24/23 04:01 Urine Blood Neg (Negative) 10/24/23 04:01 Urine Nitrate Negative (Negative) 10/24/23 04:01 Urine Bilirubin 1+ (Negative) H 10/24/23 04:01 Urine Urobilinogen 1 mg/dL (Negative) H 10/24/23 04:01 Ur Leukocyte Esterase Negative (Negative) 10/24/23 04:01 Urine RBC 0-4 /hpf (0-2) H 10/24/23 04:01 Urine WBC 0-4 /hpf (0-5) H 10/24/23 04:01 Ur Squamous Epith Cells 0-4 /hpf (0-5) H 10/24/23 04:01 Amorphous Sediment Trace /hpf 10/24/23 04:01 Urine Bacteria 2+ /hpf (NONE) H 10/24/23 04:01 Urine Mucus 2+ /hpf 10/24/23 04:01 Salicylates < 0.3 mg/dL (3-10) L 10/24/23 22:23 Urine Opiates Screen Negative ng/mL (Negative) 10/24/23 04:01 Ur Barbiturates Screen Negative ng/mL (Negative) 10/24/23 04:01 Ur Phencyclidine Scrn Negative ng/mL (Negative) 10/24/23 04:01 Ur Amphetamines Screen Negative ng/mL (Negative) 10/24/23 04:01 U Benzodiazepines Scrn Positive ng/mL (Negative) H 10/24/23 04:01 Urine Cocaine Screen Negative ng/mL (Negative) 10/24/23 04:01 U Marijuana (THC) Screen Positive ng/mL (Negative) H 10/24/23 04:01 Ethyl Alcohol < 10 mg/dL (0-10) 10/24/23 22:23 Discharge Plan Discharge Patient Disposition: Admitted As Inpatient Admit Provider: Wyatt Johnson Clinical Impression: Suicidal ideation, Bipolar disorder with psychotic features Condition: Stable Sign Out Sign Out Data: Patient Sign Out occurred on 10/25/23 at 06:53. Patient's care was discussed, and care was transferred from Citlaly New MD to Bret L Horstman, DO. Coding Level of Care Code ED Tablet Making Machine Operator for Chg Fwd Documented by User: Janes Jacobsen DO 10/25/23 04:12 HPI - Psych 2 General: Chief Complaint: Psychiatric Symptoms Stated Complaint: MHE Time Seen by Provider: 10/24/23 21:54 Course 2 Vital Signs: Vital signs: Vital Signs Temperature 98.4 F 10/25/23 09:26 Pulse Rate 93 10/25/23 09:26 Respiratory Rate 16 10/25/23 09:26 Blood Pressure 159/103 10/25/23 09:26 Pulse Oximetry 95 10/25/23 09:26 Oxygen Delivery Me thod Room Air 10/25/23 09:08 MDM - Psych Lab Data 10/24/23 22:23 10/24/23 22:23 Laboratory Results WBC 19.15 10^3/uL (3.29-11.43) H 10/24/23 22:23 RBC 6.28 10^6/uL (3.85-5.65) H 10/24/23 22:23 Hgb 17.00 g/dL (11.27-16.99) H 10/24/23 22:23 Hct 51.6 % (36-47) H 10/24/23 22:23 MCV 82.2 fl (85-98) L 10/24/23 22:23 MCH 27.1 pg (27-33) 10/24/23 22:23 MCHC 32.9 g/dL (30-55) 10/24/23 22:23 RDW 15.0 % (12.1-15.1) 10/24/23 22:23 Plt Count 406 10^3/cmm (157-399) H 10/24/23 22:23 MPV 10.0 fL (7.4-10.4) 10/24/23 22:23 Neut % (Auto) 76.3 % 10/24/23 22:23 Lymph % (Auto) 13.9 % 10/24/23 22:23 [place] % (Auto) 8.4 % 10/24/23 22:23 Eos % (Auto) 0.4 % 10/24/23 22:23 Baso % (Auto) 0.6 % 10/24/23 22:23 Neut # (Auto) 14.61 10^3/uL (1.8-7.7) H 10/24/23 22:23 Lymph # (Auto) 2.7 10^3/uL (0.8-4.8) 10/24/23 22:23 [place] # (Auto) 1.6 10^3/uL (0.2-0.9) H 10/24/23 22:23 Eos # (Auto) 0.1 10^3/uL (0.0-0.8) 10/24/23 22:23 Baso # (Auto) 0.1 10^3/uL (0.0-0.1) 10/24/23 22:23 Nucleated RBC % (auto) 0 % 10/24/23 22:23 Nucleated RBCs # 0.0 /100WBC 10/24/23 22:23 Sodium 138 mmol/L (136-145) 10/24/23 22:23 Potassium 3.6 mmol/L (3.5-5.1) 10/24/23 22:23 Chloride 101 mmol/L (98-107) 10/24/23 22:23 Carbon Dioxide 21 mmol/L (22-29) L 10/24/23 22:23 Anion Gap 19.6 (5-19) H 10/24/23 22:23 BUN 13 mg/dL (6-20) 10/24/23 22:23 Creatinine 0.7 mg/dL (0.5-0.9) 10/24/23 22:23 GFR Calculation 92.7 mL/min (90-130) 10/24/23 22:23 Glucose 112 mg/dL (65-115) 10/24/23 22:23 Calculated Osmolality 287 mOsm/kg (285-295) 10/24/23 22:23 Calcium 9.0 mg/dL (8.5-10.5) 10/24/23 22:23 Total Bilirubin 1.1 mg/dL (0.15-1.2) 10/24/23 22:23 AST 18 U/L (0-32) 10/24/23 22:23 ALT 34 U/L (0-33) H 10/24/23 22:23 Alkaline Phosphatase 85 U/L (35-105) 10/24/23 22:23 Total Protein 8.1 g/dL (6.6-8.7) 10/24/23 22:23 Albumin 4.6 g/dL (3.5-5.2) 10/24/23 22:23 Globulin 3.5 g/dL (1.3-4.6) 10/24/23 22:23 TSH 1.61 uIU/mL (0.27-4.20) 10/24/23 22:23 HCG, Qual Negative (Negative) 10/24/23 04:01 Urine Color Dark yellow (Yellow) 10/24/23 04:01 Urine Appearance Cloudy (CLEAR) A 10/24/23 04:01 Urine pH 5 (5-7) 10/24/23 04:01 Ur Specific [place] 1.020 (1.005-1.030) 10/24/23 04:01 Urine Protein Trace (Negative) 10/24/23 04:01 Urine Glucose (UA) Norm (Normal) 10/24/23 04:01 Urine Ketones 1+ (Negative) H 10/24/23 04:01 Urine Blood Neg (Negative) 10/24/23 04:01 Urine Nitrate Negative (Negative) 10/24/23 04:01 Urine Bilirubin 1+ (Negative) H 10/24/23 04:01 Urine Urobilinogen 1 mg/dL (Negative) H 10/24/23 04:01 Ur Leukocyte Esterase Negative (Negative) 10/24/23 04:01 Urine RBC 0-4 /hpf (0-2) H 10/24/23 04:01 Urine WBC 0-4 /hpf (0-5) H 10/24/23 04:01 Ur Squamous Epith Cells 0-4 /hpf (0-5) H 10/24/23 04:01 Amorphous Sediment Trace /hpf 10/24/23 04:01 Urine Bacteria 2+ /hpf (NONE) H 10/24/23 04:01 Urine Mucus 2+ /hpf 10/24/23 04:01 Salicylates < 0.3 mg/dL (3-10) L 10/24/23 22:23 Urine Opiates Screen Negative ng/mL (Negative) 10/24/23 04:01 Ur Barbiturates Screen Negative ng/mL (Negative) 10/24/23 04:01 Ur Phencyclidine Scrn Negative ng/mL (Negative) 10/24/23 04:01 Ur Amphetamines Screen Negative ng/mL (Negative) 10/24/23 04:01 U Benzodiazepines Scrn Positive ng/mL (Negative) H 10/24/23 04:01 Urine Cocaine Screen Negative ng/mL (Negative) 10/24/23 04:01 U Marijuana (THC) Screen Positive ng/mL (Negative) H 10/24/23 04:01 Ethyl Alcohol < 10 mg/dL (0-10) 10/24/23 22:23 All radiology interpretation(s) finalized by discharge Discharge Plan Discharge Patient Disposition: Admitted As Inpatient Admit Provider: Wyatt Johnson Clinical Impression: Suicidal ideation, Bipolar disorder with psychotic features Condition: Stable Sign Out Sign Out Data: Patient Sign Out occurred on 10/25/23 at 06:53. Patient's care was discussed, and care was transferred from Citlaly New MD to Bret Machado DO. Coding Level of Care Code ED Tablet Making Machine Operator for Chg Fwd Documented by User: Bret Machado DO 10/25/23 09:29 HPI - Psych 2 General: Chief Complaint: Psychiatric Symptoms Stated Complaint: MHE Time Seen by Provider: 10/24/23 21:54 Course 2 Vital Signs: Vital signs: Vital Signs Temperature 98.4 F 10/25/23 09:26 Pulse Rate 93 10/25/23 09:26 Respiratory Rate 16 10/25/23 09:26 Blood Pressure 159/103 10/25/23 09:26 Pulse Oximetry 95 10/25/23 09:26 Oxygen Delivery Me thod Room Air 10/25/23 09:08 MDM - Psych Medical Decision Making Workup being reinitiated for psychiatric issues. Patient being transferred to Dr. Jacobsen's care at shift change. Care assumed at change of shift from Dr. Jacobsen. Chart reviewed. Patient was here several times yesterday affidavit from [facility] reviewed patient was acutely psychotic and suicidal. Discussed with the patient she admits to continued suicidal thoughts he makes several bizarre statements about being clairvoyant and becomes easily agitated. Will place her on a 96-hour hold I discussed with Dr. Grimm who is on-call for psychiatry they will have discharges later today he recommends that we give her divalproex and paliperidone which are her usual medications. He recommends not giving the sertraline at this time. He recommended offering the paliperidone p.o., patient is refusing we will give her Risperdal instead. Medical Records I reviewed the patient's medical records. Lab Data I reviewed the patient's lab results. 10/24/23 22:23 10/24/23 22: Laboratory Results WBC 19.15 10^3/uL (3.29-11.43) H 10/24/23 22:23 RBC 6.28 10^6/uL (3.85-5.65) H 10/24/23 22:23 Hgb 17.00 g/dL (11.27-16.99) H 10/24/23 22:23 Hct 51.6 % (36-47) H 10/24/23 22: MCV 82.2 fl (85-98) L 10/24/23 22:23 MCH 27.1 pg (27-33) 10/24/23 22: MCHC 32.9 g/dL (30-55) 10/24/23 22: RDW 15.0 % (12.1-15.1) 10/24/23 22: Plt Count 406 10^3/cmm (157-399) H 10/24/23 22:23 MPV 10.0 fL (7.4-10.4) 10/24/23 22: Neut % (Auto) 76.3 % 10/24/23: Lymph % (Auto) 13.9 % 10/24/23: [place] % (Auto) 8.4 % 10/24/23 22: Eos % (Auto) 0.4 % 10/24/23: Baso % (Auto) 0.6 % 06/10/24 22:23 Neut # (Auto) 14.61 10^3/uL (1.8-7.7) H 10/24/23 22:23 Lymph # (Auto) 2.7 10^3/uL (0.8-4.8) 10/24/23 22:23 [place] # (Auto) 1.6 10^3/uL (0.2-0.9) H 10/24/23 22:23 Eos # (Auto) 0.1 10^3/uL (0.0-0.8) 10/24/23 22:23 Baso # (Auto) 0.1 10^3/uL (0.0-0.1) 10/24/23 22:23 Nucleated RBC % (auto) 0 % 10/24/23 22: Nucleated RBCs # 0.0 /100WBC 10/24/23 22:23 Sodium 138 mmol/L (136-145) 10/24/23 22:23 Potassium 3.6 mmol/L (3.5-5.1) 10/24/23 22:23 Chloride 101 mmol/L (98-107) 10/24/23 22:23 Carbon Dioxide 21 mmol/L (22-29) L 10/24/23 22:23 Anion Gap 19.6 (5-19) H 10/24/23 22:23 BUN 13 mg/dL (6-20) 10/24/23 22:23 Creatinine 0.7 mg/dL (0.5-0.9) 10/24/23 22:23 GFR Calculation 92.7 mL/min (90-130) 10/24/23 22:23 Glucose 112 mg/dL (65-115) 10/24/23 22:23 Calculated Osmolality 287 mOsm/kg (285-295) 10/24/23 22:23 Calcium 9.0 mg/dL (8.5-10.5) 10/24/23 22:23 Total Bilirubin 1.1 mg/dL (0.15-1.2) 10/24/23 22:23 AST 18 U/L (0-32) 10/24/23 22:23 ALT 34 U/L (0-33) H 10/24/23 22:23 Alkaline Phosphatase 85 U/L (35-105) 10/24/23 22:23 Total Protein 8.1 g/dL (6.6-8.7) 10/24/23 22:23 Albumin 4.6 g/dL (3.5-5.2) 10/24/23 22:23 Globulin 3.5 g/dL (1.3-4.6) 10/24/23 22:23 TSH 1.61 uIU/mL (0.27-4.20) 10/24/23 22:23 HCG, Qual Negative (Negative) 10/24/23 04:01 Urine Color Dark yellow (Yellow) 10/24/23 04:01 Urine Appearance Cloudy (CLEAR) A 10/24/23 04:01 Urine pH 5 (5-7) 10/24/23 04:01 Ur Specific [place] 1.020 (1.005-1.030) 10/24/23 04:01 Urine Protein Trace (Negative) 10/24/23 04:01 Urine Glucose (UA) Norm (Normal) 10/24/23 04:01 Urine Ketones 1+ (Negative) H 10/24/23 04:01 Urine Blood Neg (Negative) 10/24/23 04:01 Urine Nitrate Negative (Negative) 10/24/23 04:01 Urine Bilirubin 1+ (Negative) H 10/24/23 04:01 Urine Urobilinogen 1 mg/dL (Negative) H 10/24/23 04:01 Ur Leukocyte Esterase Negative (Negative) 10/24/23 04:01 Urine RBC 0-4 /hpf (0-2) H 10/24/23 04:01 Urine WBC 0-4 /hpf (0-5) H 10/24/23 04:01 Ur Squamous Epith Cells 0-4 /hpf (0-5) H 10/24/23 04:01 Amorphous Sediment Trace /hpf 10/24/23 04:01 Urine Bacteria 2+ /hpf (NONE) H 10/24/23 04:01 Urine Mucus 2+ /hpf 10/24/23 04:01 Salicylates < 0.3 mg/dL (3-10) L 10/24/23 22:23 Urine Opiates Screen Negative ng/mL (Negative) 10/24/23 04:01 Ur Barbiturates Screen Negative ng/mL (Negative) 10/24/23 04:01 Ur Phencyclidine Scrn Negative ng/mL (Negative) 10/24/23 04:01 Ur Amphetamines Screen Negative ng/mL (Negative) 10/24/23 04:01 U Benzodiazepines Scrn Positive ng/mL (Negative) H 10/24/23 04:01 Urine Cocaine Screen Negative ng/mL (Negative) 10/24/23 04:01 U Marijuana (THC) Screen Positive ng/mL (Negative) H 10/24/23 04:01 Ethyl Alcohol < 10 mg/dL (0-10) 10/24/23 22:23 Discharge Plan Discharge Patient Disposition: Admitted As Inpatient Admit Provider: Wyatt Johnson Clinical Impression: Suicidal ideation, Bipolar disorder with psychotic features Condition: Stable Sign Out Sign Out Data: Patient Sign Out occurred on 10/25/23 at 06:53. Patient's care was discussed, and care was transferred from Citlaly New MD to Bret Machaod DO. Coding Level of Care Code ED Tablet Making Machine Operator for Ashleigh Peres
[2023-10-24] MEDS: ziprasidone 20 mg/mL SDV IM (22:11)
[2023-10-24] MEDS: water for injection-sterile 10 ML 1.2 ML (22:12)
[2023-10-24 22:15] VITALS: RESP 18; O2SAT 99
--- NOTE | 2023-10-24 22:25 | ECG_ITS ---
[facility] Test Date: 2023-10-24 Pat Name: Cara Daniels Department: Room: Gender: Female Director Sales: : 1985 Requested By: Citlaly Gomez Order Number: [id number] Morgan MD: Joel Campa M.D. Measurements Intervals [place] Rate: 102 P: 38 CT: 139 QRS: -11 QRSD: 103 T: 48 QT: 348 QTc: 455 Interpretive Statements SINUS TACHYCARDIA POSSIBLE ANTERIOR MYOCARDIAL INFARCTION , OF INDETERMINATE AGE [30 ms Q WAVE IN V3/V4, OR R < 0.2 mV IN V4] Compared to ECG 10/24/2023 15:20:55 Sinus rhythm no longer present Incomplete right bundle-branch block no longer present Myocardial infarct finding still present Electronically Signed On 10-25-2023 17:21:27 CDT by Joel Campa M.D. [id number]
[2023-10-24 22:32] LABS: Basophils # 0.1 10^3/uL (0.0-0.1); Basophils % 0.6 %; Eosinophils # 0.1 10^3/uL (0.0-0.8); Eosinophils % 0.4 %; Hematocrit 51.6 % (36-47); Lymphocytes # 2.7 10^3/uL (0.8-4.8); Lymphocytes % 13.9 %; Mean Corpuscular HGB Conc 32.9 g/dL (30-55); Mean Corpuscular Hemoglobin 27.1 pg (27-33); Mean Corpuscular Volume 82.2 fl (85-98); Monocytes # 1.6 10^3/uL (0.2-0.9); Monocytes % 8.4 %; Neutrophils # 14.61 10^3/uL (1.8-7.7); Neutrophils % 76.3 %; Nucleated Red Blood Cells % 0 %; Platelet Count 406 10^3/cmm (157-399); Red Blood Count 6.28 10^6/uL (3.85-5.65); White Blood Count 19.15 10^3/uL (3.29-11.43)
[2023-10-24] MEDS: LORazepam 2 mg/mL INJ 10 mL MDV IM (22:40)
[2023-10-24 22:59] LABS: Alanine Aminotransferase 34 U/L (0-33); Albumin Level 4.6 g/dL (3.5-5.2); Anion Gap 19.6 (5-19); Aspartate Amino Transferase 18 U/L (0-32); Carbon Dioxide 21 mmol/L (22-29); Chloride 101 mmol/L (98-107); Creatinine Clr Calc Pharmacy 107.3705; Globulin 3.5 g/dL (1.3-4.6); Glomerular Filtration Rate 92.7 mL/min (90-130); Glucose 112 mg/dL (65-115); Potassium 3.6 mmol/L (3.5-5.1); Sodium 138 mmol/L (136-145); Thyroid Stimulating Hormone 1.61 uIU/mL (0.27-4.20); Total Bilirubin 1.1 mg/dL (0.15-1.2); Total Protein 8.1 g/dL (6.6-8.7)
[2023-10-24 23:01] LABS: Alcohol Level < 10 mg/dL (0-10); Salicylate < 0.3 mg/dL (3-10)
[2023-10-24 23:10] LABS: Alkaline Phosphatase 85 U/L (35-105); Blood Urea Nitrogen 13 mg/dL (6-20); Osmolality Calculated 287 mOsm/kg (285-295)
[2023-10-25] VITALS (11 sets, daily range): BP systolic 140–177; BP diastolic 98–111; PULSE 93–124; RESP 16–18; TEMP 36.6–36.9; O2SAT 95–99
[2023-10-25] MEDS: LORazepam 2 mg/mL INJ 10 mL MDV IM (04:10)
[2023-10-25 04:15] LABS: HCG Qualitative Urine. Negative (Negative)
[2023-10-25 04:18] LABS: Amphetamines Screen Urine Negative (Negative); Barbiturates Screen Urine Negative (Negative); Benzodiazepines Screen Urine Positive (Negative); Cocaine Screen Urine Negative (Negative); Opiate Screen Urine Negative (Negative); PCP Screen Urine Negative (Negative); THC Screen Urine Positive (Negative)
[2023-10-25 04:28] LABS: Amorphous Sediment Urine TRACE /hpf; Bacteria Urine 2+ /hpf; Bilirubin Urine 1+ (Negative); Blood Urine Neg (Negative); Glucose Urine UA Norm (Normal); Ketones Urine 1+ (Negative); Leukocyte Esterase Urine Negative (Negative); Mucus Urine 2+ /hpf; Nitrate Urine Negative (Negative); Protein Urine Trace (Negative); RBC Urine 0-4 /hpf (0-2); Squamous Epithelial Cell Urine 0-4 /hpf (0-5); Urine Appearance Cloudy (CLEAR); Urine Color Dark Yellow (Yellow); Urobilinogen Urine 1 mg/dL (Negative); WBC Urine 0-4 /hpf (0-5); pH Urine 5 (5-7)
--- NOTE | 2023-10-25 07:40 | PC.NURSE ---
96 hour hold right read to patient. Patient verbalized understandings. Copy of rights given to patient.
[2023-10-25] MEDS: acetaminophen 500 mg Tablet 1000 MG PO (07:53)
[2023-10-25] MEDS: risperiDONE 1 mg Tablet PO (07:53)
[2023-10-25] MEDS: divalproex DR 500 mg Tablet PO ×2 (07:53→20:55)
--- NOTE | 2023-10-25 10:35 | PC.NURSE ---
THIS NURSE ATTEMPTED TO PERFORM ADMISSION ASSESSMENT. UPON ENTRY TO PT ROOM THIS NURSE USED ADDRESSED PT AND INTRODUCED MYSELF THEN EXPLAINED THAT I WAS THERE TO BEGIN ADMISSION ASSESSMENT. PT STATED OH GREAT MORE FUCKING RUN AROUND. THIS NURSE EXPLAINED THAT I HAVE TO PERFORM ADMISSION ASSESSMENTS ON ALL PATIENTS WHEN THEY COME TO THRE FLOOR. THIS NURSE EXPLAINED THAT IT IS A SMALL PACKET OF QUESTIONS. PT IGNORED THIS NURSE AND THEREFORE THIS NURSE PROCEEDED TO ASK THE FIRST ASSESSMENT QUESTIONS CAN YOU TELL ME A LITTLE ABOUT WHAT BROUGHT YOU HERE? 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 THIS NURSE ASKED CAN YOU TELL ME WHAT THE MAIN TRIGGER FOR THIS WAS? PT IGNORED THIS NURSE SO THIS NURSE WAITED IN SILENCE PATIENTLY FOR PT TO RESPOND AND PT STATED IM NOT COOPERATING WITH YOU. PT THEN IGNORED NURSE AGAIN AND THIS NURSE STATED OKAY WE CAN ATTEMPT TO DO THIS ASSESSMENT LATER. WHILE NURSE WAS WALKING OUT OF PT ROOM PT STATED WHY THE FUCK WOULD I ANSWER YOU? YOU HAVE MY CHARTS. I DO NOT HAVE TO TELLYOU ANYTHING YOU FUCKERS HAVE GOT ME HERE ON A HOLD THAT'S ALL YOU NEED.
[2023-10-25] MEDS: nicotine 2 mg Gum BUCCAL ×4 (11:23→18:00)
--- NOTE | 2023-10-25 11:57 | PC.NURSE ---
ADMIT NOTE PT CAME TO THE ER LAST NIGHT AND WAS CATATONIC ORIGINALLY. THE EMERGENCY DEPARTMENT ADMINISTERED ATIVAN WHICH HELPED AND WAS DISCHARGED FROM THE EMERGENCY DEPARTMENT. PT WAS UNABLE TO OBTAIN A RIDE FROM THE ED AND PROMPTLY BECAME AGITATED AND SUICIDAL. PT WAS GIVEN A NUMBER OF PRN MEDICATION FOR AGITATION. PT REFUSED TO TAKE INVEGA ORALLY WHILE IN THE ED REQUESTING THORAZINE AND VALIUM. WHEN PT WAS ADMITTED TO THE NPU PT WAS ORIGINALLY UNWILLING TO COOPERATE WITH THE ADMISSION ASSESSMENT. TELEVISION AUDIO ENGINEER RAE HAPPENED TO BE ON THE UNIT AND CONVINCED PT TO COOPERATE WITH ADMIT QUESTIONS. THIS NURSE THEN WENT TO THE PT ROOM TO PERFORM ADMIT ASSESSMENT. PT STATED TO THIS NURSE I DON'T KNOW WHY YOU GUYS NEED TO ASK ME QUESTIONS WHEN YOU ARE GOING TO KILL ME OR SEND ME TO SENIOR CARE. THIS NURSE EXPLAINED THAT NO PERSON HERE IS GOING TO KILL HER AND THAT WE ARE HERE TO HELP. THIS NURSE THEN ASKED WHAT IS THE REASON YOU BELIEVE YOU WILL GO TO SENIOR CARE? PT THEN STATED I DON'T KNOW, I GUESS WE WILL SEE WHAT YOU GUYS DECIDE. THROUGHOUT THE ADMISSION PT CONTINUED TO MAKE PARANOID STATEMENTS SIMILAR TO THE PRIOR STATEMENTS. THIS NURSE CONTINUED TO ATTEMPT TO RE-OREINT PT TO REALITY. PT ALSO MADE STATEMENTS ABOUT HER BEING GIVEN EXPERIMENTAL DRUGS IN THE EMERGENCY DEPARTMENT. WHEN THIS NURSE OFFERED TO LOOK AT WHAT SHE WAS GIVEN TO EASE THE PT MIND THE PT STATED IT'S NOT GOING TO SHOW IT HERE IDIOT. PT WAS AGITATED AND SOMETIMES UNCOOPERATIVE DURING ASSESSMENT. THIS NURSE HAD TO FREQUENTLY REMIND PT THAT THESE QUESTIONS WERE ASKED TO EVERYBODY. AT THE END OF THE ASSESSMENT THIS NURSE THANKED THE PATIENT FOR HER COOPERATION AND ASKED IF THERE WAS ANYTHING ELSE SHE NEEDED. PT STATED NO. THEN CONTINUED WITH YOU MADE ME TALK AND I DO NOT LIKE TALKING. THIS NURSE APOLOGIZED FOR THE INCONVENIENCE AND EXPLAINED THE ASSESSMENT AGAIN.
[2023-10-25] MEDS: OLANZapine 5 mg ODT PO ×2 (12:03→20:55)
[2023-10-25] MEDS: chlorPROMazine 50 mg Tablet 100 MG PO (13:26)
[2023-10-25] MEDS: hyDROXYzine 25 mg Capsule 50 MG PO (15:08)
[2023-10-25] MEDS: haloperidol 5 mg Tablet PO (15:08)
[2023-10-25] MEDS: LORazepam 2 mg/mL INJ 1 mL IM (15:41)
[2023-10-25] MEDS: haloperidol inj 5 mg/mL INJ 1 mL IM (15:41)
[2023-10-25] MEDS: diphenhydrAMINE 50 mg/mL SDV 1mL IM (15:42)
--- NOTE | 2023-10-25 15:44 | PC.NURSE ---
Pt is experiencing high anxiety and has requested taking shots to help calm her down. Administered 5mg Haldol IM and 2mg Ativan IM to left deltoid, also administered 50mg of Benadryl IM to right deltoid. Pt tolerated taking the medication well.
[2023-10-25] MEDS: ziprasidone hcl 20 mg Capsule PO ×2 (17:19→20:55)
[2023-10-25] MEDS: chlorPROMazine 50 mg Tablet 150 MG PO (20:54)
[2023-10-25] MEDS: diazePAM 5 mg Tablet 10 MG PO (20:54)
[2023-10-25] MEDS: trazodone 50 mg Tablet PO (20:55)
[2023-10-25] MEDS: divalproex DR 250 mg Tablet PO (20:55)
--- NOTE | 2023-10-25 22:31 | PC.NURSE ---
Addendum entered by Amber Francis CNA 10/25/23 22:47: BP RECHECKED 140/98 WITH A HR OF 110. WILL CONTINUE TO MONITOR. Original Note: INSPECTOR BICYCLE NURSE NOTIFIED OF BP, WILL RECHECK AGAIN IN ONE HOUR.
[2023-10-26 06:00] VITALS: BP 154/85; PULSE 117; RESP 18; O2SAT 97
[2023-10-26] MEDS: hyDROXYzine 25 mg Capsule 50 MG PO ×2 (07:23→21:54)
[2023-10-26] MEDS: chlorPROMazine 50 mg Tablet 100 MG PO ×2 (07:23→15:10)
[2023-10-26] MEDS: nicotine 2 mg Gum BUCCAL ×2 (07:52→17:38)
[2023-10-26] MEDS: diazePAM 5 mg Tablet 10 MG PO ×2 (08:26→21:53)
[2023-10-26] MEDS: divalproex DR 500 mg Tablet PO ×2 (08:26→21:53)
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
[2023-10-26 14:00] VITALS: BP 139/96; PULSE 121; RESP 16; O2SAT 96
--- NOTE | 2023-10-26 15:28 | PC.NURSE ---
This RN went with [employer] to obtain the patient's vitals, as she has been somewhat irritable this evening. While talking with the patient she made the statement that she was going to get out of the unit by getting assault charges. When asked what she meant she said it was bullshit that she was here and you guys are just trying to fuck with me. Patient was assured we wanted the best for her and for her to be able to get on her feet so she could leave feeling better and safe.
[2023-10-26] MEDS: OLANZapine 5 mg ODT PO (18:17)
[2023-10-26] MEDS: chlorPROMazine 50 mg Tablet 150 MG PO (21:53)
[2023-10-26] MEDS: trazodone 50 mg Tablet PO (21:53)
[2023-10-26] MEDS: divalproex DR 250 mg Tablet PO (21:53)
[2023-10-26] MEDS: haloperidol 5 mg Tablet PO (21:54)
[2023-10-26 22:00] VITALS: BP 132/86; PULSE 105; RESP 18; TEMP 36.3; O2SAT 95
[2023-10-27 06:00] VITALS: RESP 16
--- NOTE | 2023-10-27 06:15 | PC.NURSE ---
PER CUSTOMS PORT DIRECTOR NURSE FOR THIS STRINGER MACHINE TENDER TO OBTAIN ONLY RESPIRATIONS. RESPIRATIONS WERE OBTAINED AT 16.
[2023-10-27] MEDS: diazePAM 5 mg Tablet 10 MG PO ×2 (08:45→21:36)
[2023-10-27] MEDS: chlorPROMazine 50 mg Tablet 100 MG PO ×2 (08:45→14:12)
[2023-10-27] MEDS: divalproex DR 500 mg Tablet PO ×2 (08:46→21:36)
--- NOTE | 2023-10-27 08:53 | PC.NURSE ---
Patient resting in bed. Agreed to take medications, but stated that this RN was lying to her and that the valium tablets were, in fact, not valium tablets. She was reassured that they were 5mg valium tablets each to equal her 10mg dose. She rolled her eyes and reiterated that she believed this RN was lying. When attempting to ask assessment questions she laid down and rolled to face the wall. She then became uncooperative, refusing to respond to any questions this RN asked, including if her physical assessment could be done.
[2023-10-27] MEDS: nicotine 2 mg Gum BUCCAL ×2 (10:35→14:18)
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
[2023-10-27] MEDS: OLANZapine 5 mg ODT PO (10:47)
--- NOTE | 2023-10-27 13:54 | P.NPUPN_ITS ---
Subjective NPU 2 Subjective: Patient presented today as a continued poor historian. She was not really able to identify which medications she has been taking or when things got off track after her last discharge. She did allow her medication to be restarted and reported she was feeling a little better. We discussed getting to the bottom of the Valium to understand why it is being prescribed at such a high dose and identifying whether that is reasonable given her circumstances. She continued to present as being somewhat disorganized by staff reports and direct observation. She denied any side effects of the current medication. Mental Status Exam 2 MSE Comments: Patient is an overweight versus obese white female in hospital scrubs with poor hygiene and poor eye contact. No abnormal movements except for mild psychomotor retardation. Cooperative with exam in mild to moderate distress. Speech was decreased rate and volume. Her mood was described as not great, her affect was mood congruent and agitated. Thought process was organized. Her thought content: She denied any suicidal or homicidal ideation. There was evidence of significant paranoia and ideas of reference. She did appear at times to be responding to internal stimuli. Attention and concentration were limited and memory was unreliable but none were formally tested. She was alert and oriented to person, place at this time. Her insight and judgment are poor and her impulse control appeared impaired. Her attention span appeared impaired as well. Vitals/I&O/Wt Last Vital Signs Temp 97.4 F L 10/26/23 22:00 Pulse 105 H 10/26/23 22:00 Resp 16 10/27/23 06:00 BP 132/86 10/26/23 22:00 Pulse Ox 95 10/26/23 22:00 O2 Del Method Room Air 10/25/23 22:00 Data NPU 10/24/23 22:23 10/24/23 22:23 A&P Assessment and plan (1) Bipolar disorder with psychotic features: (2) Psychosis: (3) Suicidal ideation: Plan 38-year-old female with a past history of psychosis, likely bipolar d/o with psychotic features or schizoaffective disorder bipolar type admitted involuntarily with increased agitation and suicidal ideation while noncompliant with medication regimen. 1. Encourage individual, group and milieu therapy. 2. Recommend sober living treatment at the highest level of care to which the patient is willing to commit. 3. Continue q-15 minute checks for safety.? 4. Restarted Valium 10mg bid, restarted chlorpromazine and Dapakote. Will explore the presence of the large dose of benzodiazepine as that relates to her possible discharge. 5. Forced medication with IM invega likely to be of great benefit to patient as previous admission. Involuntary Hold Information 2 96 Hour Hold: 96 Hour Involuntary Admission: Yes 96 Hour Hold Ending Date: 07/19/23 96 Hour Hold Ending Time: 07:48 Attestations NPU 2 Medical Necessity Statement*: Inpatient hospitalization is medically necessary and?the clinically appropriate intervention ?at this time.? We will monitor/initiate medications and make changes as indicated.? The patient?s likely length of stay 6-9 days. Coding Level of Care Code Acute Code for g Fwd Diagnoses Bipolar disorder with psychotic features F31.9 Psychosis F29 Suicidal ideation R45.851
[2023-10-27 14:00] VITALS: BP 140/80; PULSE 107; RESP 20; TEMP 36.9; O2SAT 96
[2023-10-27] MEDS: haloperidol 5 mg Tablet PO (14:15)
[2023-10-27] MEDS: hyDROXYzine 25 mg Capsule 50 MG PO (14:51)
[2023-10-27 21:34] VITALS: BP 128/82; PULSE 101; RESP 17; TEMP 36.6; O2SAT 95
[2023-10-27] MEDS: divalproex DR 250 mg Tablet PO (21:36)
[2023-10-27] MEDS: chlorPROMazine 50 mg Tablet 150 MG PO (21:36)
[2023-10-27] MEDS: trazodone 50 mg Tablet PO (21:36)
[2023-10-28 06:00] VITALS: BP 136/78; PULSE 81; RESP 14; TEMP 37.1
--- NOTE | 2023-10-28 07:41 | P.NPUPN_ITS ---
Subjective NPU 2 Subjective: Patient presented today reporting that she is doing okay. She reports feeling that everyone is angry with her. We discussed that this junior technical writer is not upset with her but she did have a breakdown earlier today. She discussed that the long-acting injectable left a knot in her arm and that she is really hoping to try something else. We discussed the risks, benefits and alternatives of a trial of Abilify in the morning and she understood and agreed to proceed as is documented in this note. Mental Status Exam 2 MSE Comments: Patient is an overweight versus obese white female in hospital scrubs with poor hygiene and poor eye contact. No abnormal movements except for mild psychomotor retardation. Cooperative with exam in mild to moderate distress. Speech was decreased rate and volume. Her mood was described as not great, her affect was mood congruent and agitated. Thought process was organized. Her thought content: She denied any suicidal or homicidal ideation. There was evidence of significant paranoia and ideas of reference. She did appear at times to be responding to internal stimuli. Attention and concentration were limited and memory was unreliable but none were formally tested. She was alert and oriented to person, place at this time. Her insight and judgment are poor and her impulse control appeared impaired. Her attention span appeared impaired as well. Vitals/I&O/Wt Last Vital Signs Temp 97.9 F 10/27/23 21:34 Pulse 101 H 10/27/23 21:34 Resp 17 10/27/23 21:34 BP 128/82 10/27/23 21:34 Pulse Ox 95 10/27/23 21:34 O2 Del Method Room Air 10/25/23 22:00 Data NPU 10/24/23 22:23 10/24/23 22:23 A&P Assessment and plan (1) Bipolar disorder with psychotic features: (2) Psychosis: (3) Suicidal ideation: Plan 38-year-old female with a past history of psychosis, likely bipolar d/o with psychotic features or schizoaffective disorder bipolar type admitted involuntarily with increased agitation and suicidal ideation while noncompliant with medication regimen. 1. Encourage individual, group and milieu therapy. 2. Recommend sober living treatment at the highest level of care to which the patient is willing to commit. 3. Continue q-15 minute checks for safety.? 4. Restarted Valium 10mg bid, restarted chlorpromazine and Dapakote. Will explore the presence of the large dose of benzodiazepine as that relates to her possible discharge. 5. Forced medication with IM invega likely to be of great benefit to patient as previous admission. Identify the breakdown that led to the lapse of medication. 6. Submitted 21-day paperwork. Involuntary Hold Information 2 96 Hour Hold: 96 Hour Involuntary Admission: Yes 96 Hour Hold Ending Date: 07/19/23 96 Hour Hold Ending Time: 07:48 Attestations NPU 2 Medical Necessity Statement*: Inpatient hospitalization is medically necessary and?the clinically appropriate intervention ?at this time.? We will monitor/initiate medications and make changes as indicated.? The patient?s likely length of stay 6-9 days. Coding Level of Care Code Acute Code for [facility] Fwd Diagnoses Bipolar disorder with psychotic features F31.9 Psychosis F29 Suicidal ideation R45.851
[2023-10-28 08:03] VITALS: BP 123/76; PULSE 102; RESP 17; TEMP 36.6; O2SAT 93
[2023-10-28] MEDS: divalproex DR 500 mg Tablet PO ×2 (08:36→20:57)
[2023-10-28] MEDS: chlorPROMazine 50 mg Tablet 100 MG PO ×2 (08:36→13:05)
[2023-10-28] MEDS: hyDROXYzine 25 mg Capsule 50 MG PO ×3 (08:36→20:59)
[2023-10-28] MEDS: diazePAM 5 mg Tablet 10 MG PO ×2 (08:36→20:56)
--- NOTE | 2023-10-28 09:44 | PC.NURSE ---
RESTING IN BED AROUSES TO VOICE AND COMES AND TAKES MEDICATIONS. PT RATES ANXIETY 8/10 AND DEPRESSION /10. VISTARIL 50 MG WAS GIVEN ORDERED FOR REPORTS OF INCREASED ANXIETY. PT IS NOTED TO BE WITHDRAWN TO ROOM. DENIES SI/HI AND AVH AT THIS TIME. PT IS NOTED TO HAVE FLAT AFFECT AND IS GUARDED WITH STAFF. PT CAME AND TOOK MEDS AND THE WENT TO BED. ALL QUESTIONS ANSWERED AND SUPPORT VOICED.
[2023-10-28] MEDS: nicotine 2 mg Gum BUCCAL ×2 (10:59→16:15)
[2023-10-28] MEDS: OLANZapine 5 mg ODT PO (11:01)
[2023-10-28] MEDS: ziprasidone hcl 20 mg Capsule PO (11:01)
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
[2023-10-28 13:21] VITALS: BP 123/79; PULSE 104; RESP 16; TEMP 37; O2SAT 95
[2023-10-28 20:26] VITALS: RESP 16
[2023-10-28] MEDS: trazodone 50 mg Tablet PO (20:56)
[2023-10-28] MEDS: chlorPROMazine 50 mg Tablet 150 MG PO (20:57)
[2023-10-28] MEDS: divalproex DR 250 mg Tablet PO (20:57)
[2023-10-29 06:00] VITALS: RESP 16
[2023-10-29] MEDS: diazePAM 5 mg Tablet 10 MG PO ×2 (08:32→20:32)
[2023-10-29] MEDS: divalproex DR 500 mg Tablet PO ×2 (08:32→20:32)
[2023-10-29] MEDS: chlorPROMazine 50 mg Tablet 100 MG PO ×2 (08:32→14:43)
[2023-10-29] MEDS: nicotine 2 mg Gum BUCCAL ×2 (08:32→17:28)
--- NOTE | 2023-10-29 11:51 | P.NPUPN_ITS ---
Subjective NPU 2 Subjective: Patient presented today reporting that she is not doing well as she continues to be depressed and reports that she just wants to . She feels that her life is over and that there are no viable options for things to get better. She was agreeable to the Abilify as she does not want to have the Invega injection and she agrees she would consider the Abilify injection. We also discussed starting an antidepressant soon as she is feeling overwhelming depression. We agreed to review her chart and see if we saw any past trials that could be informative given that she is having very poor memory at this time. She denied any side effects to the medications. Mental Status Exam 2 MSE Comments: Patient is an overweight versus obese white female in hospital scrubs with poor hygiene and poor eye contact. No abnormal movements except for mild psychomotor retardation. Cooperative with exam in mild to moderate distress. Speech was decreased rate and volume. Her mood was described as depressed, her affect was mood congruent and subdued. Thought process was organized. Her thought content: She denied any suicidal or homicidal ideation. There was evidence of significant paranoia and ideas of reference. She did appear at times to be responding to internal stimuli. Attention and concentration were limited and memory was unreliable but none were formally tested. She was alert and oriented to person, place at this time. Her insight and judgment are poor and her impulse control appeared impaired. Her attention span appeared impaired as well. Vitals/I&O/Wt Last Vital Signs Temp 98.6 F 10/28/23 13:21 Pulse 104 H 10/28/23 13:21 Resp 16 10/29/23 06:00 BP 123/79 10/28/23 13:21 Pulse Ox 95 10/28/23 13:21 O2 Del Method Room Air 10/28/23 08:03 O2 Flow Rate 97 10/28/23 06:00 Data NPU 10/24/23 22:23 10/24/23 22:23 A&P Assessment and plan (1) Bipolar disorder with psychotic features: (2) Psychosis: (3) Suicidal ideation: Plan 38-year-old female with a past history of psychosis, likely bipolar d/o with psychotic features or schizoaffective disorder bipolar type admitted involuntarily with increased agitation and suicidal ideation while noncompliant with medication regimen. 1. Encourage individual, group and milieu therapy. 2. Recommend sober living treatment at the highest level of care to which the patient is willing to commit. 3. Continue q-15 minute checks for safety.? 4. Restarted Valium 10mg bid, restarted chlorpromazine and Dapakote. Will explore the presence of the large dose of benzodiazepine as that relates to her possible discharge. 5. Started Abilify 10 mg daily and will consider starting Lexapro or Prozac for depression. 6. Submitted 21-day paperwork. Involuntary Hold Information 2 96 Hour Hold: 96 Hour Involuntary Admission: Yes 96 Hour Hold Ending Date: 07/19/23 96 Hour Hold Ending Time: 07:48 Attestations NPU 2 Medical Necessity Statement*: Inpatient hospitalization is medically necessary and?the clinically appropriate intervention ?at this time.? We will monitor/initiate medications and make changes as indicated.? The patient?s likely length of stay 6-9 days. Coding Level of Care Code Acute Code for g Fwd Diagnoses Bipolar disorder with psychotic features F31.9 Psychosis F29 Suicidal ideation R45.850
[2023-10-29 14:00] VITALS: BP 134/95; PULSE 108; RESP 16; TEMP 36.3; O2SAT 97
[2023-10-29] MEDS: hyDROXYzine 25 mg Capsule 50 MG PO (16:36)
--- NOTE | 2023-10-29 16:37 | PC.NURSE ---
PPatient anxious despite previous medication (vistaril). Patient rates anxiety 9/. Administered zyprexa 5mg ODT. Patient not willing to discuss her concerns/causes of anxiety. Will continue to be present for support as needed.
[2023-10-29] MEDS: OLANZapine 5 mg ODT PO (17:07)
[2023-10-29] MEDS: haloperidol 5 mg Tablet PO (17:28)
--- NOTE | 2023-10-29 17:29 | PC.NURSE ---
patient denies relief from anxiety medication. Rates anxiety 01/23. Administered haldol 5mg PO.
[2023-10-29 19:38] VITALS: RESP 16
[2023-10-29] MEDS: divalproex DR 250 mg Tablet PO (20:32)
[2023-10-29] MEDS: ARIPiprazole 10 mg Tablet PO (20:32)
[2023-10-29] MEDS: chlorPROMazine 50 mg Tablet 150 MG PO (20:32)
[2023-10-30 06:00] VITALS: BP 139/84; PULSE 96; RESP 16; O2SAT 97
[2023-10-30] MEDS: ARIPiprazole 10 mg Tablet PO (08:27)
[2023-10-30] MEDS: divalproex DR 500 mg Tablet PO ×2 (08:27→20:34)
[2023-10-30] MEDS: diazePAM 5 mg Tablet 10 MG PO ×2 (08:27→20:34)
[2023-10-30] MEDS: chlorPROMazine 50 mg Tablet 100 MG PO ×2 (08:28→14:23)
[2023-10-30] MEDS: nicotine 2 mg Gum BUCCAL (10:16)
[2023-10-30] MEDS: OLANZapine 5 mg ODT PO (11:19)
[2023-10-30] MEDS: LORazepam 2 mg/mL INJ 1 mL IM (11:44)
[2023-10-30] MEDS: diphenhydrAMINE 50 mg/mL SDV 1mL IM (11:44)
[2023-10-30] MEDS: haloperidol inj 5 mg/mL INJ 1 mL IM (11:44)
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
--- NOTE | 2023-10-30 12:41 | P.NPUPN_ITS ---
Subjective NPU 2 Subjective: Patient presented today reporting that she is doing all right. She is very emotional and reported that she is frustrated with not being able to see her kids but in the same time discussed not wanting to live and not being well. We discussed that she needs to focus on getting into therapy and identifying new patterns of behavior. She expressed and demonstrated frustration about being ill and being tired of having to work so hard to be normal. She denied any side effects to the medication and we discussed the importance of trying to help her sleep and work on her depression. Mental Status Exam 2 MSE Comments: Patient is an overweight versus obese white female in hospital scrubs with poor hygiene and poor eye contact. No abnormal movements except for mild psychomotor retardation. Cooperative with exam in mild to moderate distress. Speech was decreased rate and volume. Her mood was described as depressed, her affect was mood congruent and subdued. Thought process was organized. Her thought content: She denied any suicidal or homicidal ideation. There was evidence of significant paranoia and ideas of reference. She did appear at times to be responding to internal stimuli. Attention and concentration were limited and memory was unreliable but none were formally tested. She was alert and oriented to person, place at this time. Her insight and judgment are poor and her impulse control appeared impaired. Her attention span appeared impaired as well. Vitals/I&O/Wt Last Vital Signs Temp 97.3 F L 10/29/23 14:00 Pulse 96 10/30/23 06:00 Resp 16 10/30/23 06:00 BP 139/84 10/30/23 06:00 Pulse Ox 97 10/30/23 06:00 O2 Del Method Room Air 10/29/23 14:00 O2 Flow Rate 97 10/28/23 06:00 Weight last 48 hrs Weight 113.398 kg Data NPU 10/24/23 22:23 10/24/23 22:23 A&P Assessment and plan (1) Bipolar disorder with psychotic features: (2) Psychosis: (3) Suicidal ideation: Plan 38-year-old female with a past history of psychosis, likely bipolar d/o with psychotic features or schizoaffective disorder bipolar type admitted involuntarily with increased agitation and suicidal ideation while noncompliant with medication regimen. 1. Encourage individual, group and milieu therapy. 2. Recommend sober living treatment at the highest level of care to which the patient is willing to commit. 3. Continue q-15 minute checks for safety.? 4. Restarted Valium 10mg bid, restarted chlorpromazine and Dapakote. Will explore the presence of the large dose of benzodiazepine as that relates to her possible discharge. 5. Started Abilify 10 mg daily and will consider starting Lexapro or Prozac for depression. 6. Submitted 21-day paperwork. Involuntary Hold Information 2 96 Hour Hold: 96 Hour Involuntary Admission: Yes 96 Hour Hold Ending Date: 07/19/23 96 Hour Hold Ending Time: 07:48 Attestations NPU 2 Medical Necessity Statement*: Inpatient hospitalization is medically necessary and?the clinically appropriate intervention ?at this time.? We will monitor/initiate medications and make changes as indicated.? The patient?s likely length of stay 6-9 days. Coding Level of Care Code Acute Code for Chg Fwd Diagnoses Bipolar disorder with psychotic features F31.9 Psychosis F29 Suicidal ideation R45.851
[2023-10-30 14:00] VITALS: BP 136/92; PULSE 111; RESP 16; TEMP 36.5; O2SAT 97
[2023-10-30 19:57] VITALS: BP 110/74; PULSE 97; RESP 16; O2SAT 93
[2023-10-30] MEDS: divalproex DR 250 mg Tablet PO (20:34)
[2023-10-30] MEDS: chlorPROMazine 50 mg Tablet 150 MG PO (20:34)
[2023-10-31 06:00] VITALS: BP 135/89; PULSE 95; RESP 16; O2SAT 95
[2023-10-31] MEDS: divalproex DR 500 mg Tablet PO ×2 (08:18→19:04)
[2023-10-31] MEDS: ARIPiprazole 10 mg Tablet 15 MG PO (08:19)
[2023-10-31] MEDS: diazePAM 5 mg Tablet 10 MG PO ×2 (08:19→19:04)
[2023-10-31] MEDS: chlorPROMazine 50 mg Tablet 100 MG PO ×2 (08:19→15:56)
[2023-10-31] MEDS: OLANZapine 5 mg ODT PO ×2 (10:12→19:04)
--- NOTE | 2023-10-31 10:25 | PC.NURSE ---
Patient at window, states that she needs something for anxiety that she rates 8/10. Patient unable to explain cause of anxiety. This nurse administered zyprexa 5mg ODT. Patient stated this isn't going to work. Patient said that the only thing that will wok is shots. This nurse said that she can't have shots without permission from Dr. Beatty. Patient took zyprexa and then returned to her room/.
[2023-10-31] MEDS: nicotine 2 mg Gum BUCCAL ×2 (11:29→19:07)
[2023-10-31] MEDS: haloperidol 5 mg Tablet PO (11:30)
--- NOTE | 2023-10-31 11:31 | PC.NURSE ---
Patient deemed zyprexa ineffective for treatment of anxiety. This nurse administered haldol 5mg PO. While opening up the medication, patient stated, things got ignorant real quick. When asked about this statement, patient shook her head then said, I'm about to lose my shit. Patient took medication. Staff offered to talk with patient about her concerns, patient declined, returning to room.
[2023-10-31] MEDS: diphenhydrAMINE 50 mg/mL SDV 1mL IM (11:51)
[2023-10-31] MEDS: ondansetron 4 MG Tablet PO (11:51)
[2023-10-31] MEDS: haloperidol inj 5 mg/mL INJ 1 mL IM (11:51)
[2023-10-31] MEDS: LORazepam 2 mg/mL INJ 1 mL IM (11:51)
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
[2023-10-31 14:00] VITALS: RESP 16
[2023-10-31] MEDS: divalproex DR 250 mg Tablet PO (19:04)
[2023-10-31] MEDS: chlorPROMazine 50 mg Tablet 150 MG PO (19:05)
[2023-10-31] MEDS: acetaminophen 325 mg Tablet 650 MG PO (19:05)
[2023-10-31 21:12] VITALS: BP 134/100; PULSE 115; RESP 19; TEMP 36.4; O2SAT 97
--- NOTE | 2023-10-31 21:32 | W.PM.NPUPNS ---
Subjective NPU Subjective: Patient presented today reporting that she is feeling a tiny bit better. Staff reports of significant periods of agitation often leading to as needed medication. When speaking to patient she always apologizes and laments about how she is making people mad and not wanting to be a burden. We continue to discuss treatment paradigms that address cluster B pathology which we discussed seeming quite present. She denies current side effects to medication. Mental Status Exam MSE Comments: Patient is an overweight versus obese white female in hospital scrubs with poor hygiene and poor eye contact. No abnormal movements except for mild psychomotor retardation. Cooperative with exam in mild to moderate distress. Speech was decreased rate and volume. Her mood was described as depressed, her affect was mood congruent and subdued. Thought process was organized. Her thought content: She denied any suicidal or homicidal ideation. There was evidence of significant paranoia and ideas of reference. She did appear at times to be responding to internal stimuli. Attention and concentration were limited and memory was unreliable but none were formally tested. She was alert and oriented to person, place at this time. Her insight and judgment are poor and her impulse control appeared impaired. Her attention span appeared impaired as well. Vitals/I&O/Wt Last Vital Signs Temp 97.5 F L 10/31/23 21:12 Pulse 115 H 10/31/23 21:12 Resp 19 H 10/31/23 21:12 BP 134/100 10/31/23 21:12 Pulse Ox 97 10/31/23 21:12 O2 Del Method Room Air 10/31/23 21:12 O2 Flow Rate 97 10/28/23 06:00 Weight last 48 hrs Weight 113.398 kg Data NPU 10/24/23 22:23 10/24/23 22:23 A&P Assessment and plan (1) Bipolar disorder with psychotic features: (2) Psychosis: (3) Suicidal ideation: Plan 38-year-old female with a past history of psychosis, likely bipolar d/o with psychotic features or schizoaffective disorder bipolar type admitted involuntarily with increased agitation and suicidal ideation while noncompliant with medication regimen. 1. Encourage individual, group and milieu therapy. 2. Recommend sober living treatment at the highest level of care to which the patient is willing to commit. 3. Continue q-15 minute checks for safety.? 4. Restarted Valium 10mg bid, restarted chlorpromazine and Dapakote. Will explore the presence of the large dose of benzodiazepine as that relates to her possible discharge. 5. Increased Abilify to 15 mg daily and will consider starting Lexapro or Prozac for depression. 6. Submitted 21-day paperwork. Hearing tomorrow 11/01/2023. Involuntary Hold Information 96 Hour Hold: 96 Hour Involuntary Admission: Yes 96 Hour Hold Ending Date: 07/19/23 96 Hour Hold Ending Time: 07:48 Attestations NPU Medical Necessity Statement*: Inpatient hospitalization is medically necessary and?the clinically appropriate intervention ?at this time.? We will monitor/initiate medications and make changes as indicated.? The patient?s likely length of stay 5-8 days. Coding Level of Care Code Acute Code for [facility] Fwd Diagnoses Bipolar disorder with psychotic features F31.9 Psychosis F29 Suicidal ideation R45.851
[2023-11-01 06:00] VITALS: BP 137/91; PULSE 91; RESP 14; O2SAT 94
[2023-11-01] MEDS: chlorPROMazine 50 mg Tablet 100 MG PO ×2 (08:52→13:42)
[2023-11-01] MEDS: ARIPiprazole 10 mg Tablet 15 MG PO (08:52)
[2023-11-01] MEDS: diazePAM 5 mg Tablet 10 MG PO ×2 (08:52→20:04)
[2023-11-01] MEDS: divalproex DR 500 mg Tablet PO ×2 (08:52→20:04)
[2023-11-01] MEDS: hyDROXYzine 25 mg Capsule 50 MG PO ×2 (12:30→19:23)
--- NOTE | 2023-11-01 12:31 | PC.NURSE ---
PRN Medication: Vistaril 50 mg PO given at to pt for c/o anxiety.
[2023-11-01] MEDS: ziprasidone hcl 20 mg Capsule PO (12:49)
--- NOTE | 2023-11-01 12:49 | PC.NURSE ---
PRN Medication: Geodon 20 mg given to pt for c/o anxiety and agitation. Vistaril seemingly ineffective. Will continue to monitor.
[2023-11-01] MEDS: acetaminophen 325 mg Tablet 650 MG PO (13:10)
[2023-11-01] MEDS: OLANZapine 5 mg ODT PO (13:27)
--- NOTE | 2023-11-01 13:27 | PC.NURSE ---
PRN Medication: Zyprexa 5 mg PO given to pt for c/o anxiety. Pt continuing to come to nurse's station stating, I need something for anxiety before I flip the fuck out! You don't have a very good poker face, I know you're scared of me. Pt educated on medication and possible timeframe for effectiveness. Will continue to monitor.
[2023-11-01] MEDS: haloperidol 5 mg Tablet PO (13:42)
--- NOTE | 2023-11-01 13:42 | PC.NURSE ---
Pt Behavior: PT CONTINUES TO COME TO DESK YELLING AND SCREAMING MY LIFE IS OVER, GIVE ME SOMETHING FOR ANXIETY NOW! MY LIFE DEPENDS ON IT. RN REVIEWED PTS MAR. BUILDING SUPERINTENDENT HAS GIVEN PT PRN'S FOR ANXIETY BUT PT STATES THAT SHIT DON'T WORK I NEED SOMETHING ELSE. AFTER REVIEWING MAR, PT HAS THORAZINE SCHEDULED AND BUILDING SUPERINTENDENT WAS INSTRUCTED TO GIVE THAT WITH HALDOL SINCE ZYDIS SEEMS TO BE INEFFECTIVE FOR PT. PT DID TAKE THE MEDICATIONS AND THEN WAS OBSERVED YELLING SHORTLY AFTER TO THE NURSES I NEED SOMETHING ELSE FOR ANXIETY.
[2023-11-01 14:00] VITALS: BP 121/80; PULSE 93; RESP 20; TEMP 36.6; O2SAT 93
--- NOTE | 2023-11-01 14:00 | PC.NURSE ---
PT CONTINUES TO COME TO DESK YELLING AND SCREAMING MY LIFE IS OVER, GIVE ME SOMETHING FOR ANXIETY NOW! MY LIFE DEPENDS ON IT. RN REVIEWED PTS MAR. DIAGNOSTIC TECHNOLOGIST HAS GIVEN PT PRN'S FOR ANXIETY BUT PT STATES THAT SHIT DON'T WORK I NEED SOMETHING ELSE. AFTER REVIEWING MAR, PT HAS THORAZINE SCHEDULED AND DIAGNOSTIC TECHNOLOGIST WAS INSTRUCTED TO GIVE THAT WITH HALDOL SINCE ZYDIS SEEMS TO BE INEFFECTIVE FOR PT. PT DID TAKE THE MEDICATIONS AND THEN WAS OBSERVED YELLING SHORTLY AFTER TO THE NURSES I NEED SOMETHING ELSE FOR ANXIETY. PT WAS EDUCATED THAT THE MEDICATIONS ARE NOT IMMEDIATE. SUPPORT VOICED.
[2023-11-01] MEDS: ondansetron 4 MG Tablet PO (14:22)
--- NOTE | 2023-11-01 14:22 | PC.NURSE ---
PRN ZOFRAN 4 MG GIVEN PO PER PT C/O STATED UPSET STOMACH
[2023-11-01] MEDS: nicotine 2 mg Gum BUCCAL ×2 (14:27→19:24)
--- NOTE | 2023-11-01 14:57 | PC.NURSE ---
off the unit for court date
--- NOTE | 2023-11-01 15:41 | PC.NURSE ---
RETURN TO UNIT FROM COURT
--- NOTE | 2023-11-01 15:41 | PC.NURSE ---
PATIENT KEPT BRA & CROC SHOES
--- NOTE | 2023-11-01 15:53 | PC.NURSE ---
Addendum entered by Francisca Alonzo LPN 11/01/23 15:54: Note time to be 1342 when PRN medication was administered. Original Note: PRN Medication: Haldol 5 mg PO given to pt along with scheduled Thorazine per RN instructions. PT CONTINUES TO COME TO DESK YELLING AND SCREAMING MY LIFE IS OVER, GIVE ME SOMETHING FOR ANXIETY NOW! MY LIFE DEPENDS ON IT. RN REVIEWED PTS MAR. COMMUTATOR INSPECTOR HAS GIVEN PT PRN'S FOR ANXIETY BUT PT STATES THAT SHIT DON'T WORK I NEED SOMETHING ELSE. AFTER REVIEWING MAR, PT HAS THORAZINE SCHEDULED AND COMMUTATOR INSPECTOR WAS INSTRUCTED TO GIVE THAT WITH HALDOL SINCE ZYDIS SEEMS TO BE INEFFECTIVE FOR PT. PT DID TAKE THE MEDICATIONS AND THEN WAS OBSERVED YELLING SHORTLY AFTER TO THE NURSES I NEED SOMETHING ELSE FOR ANXIETY. PT WAS EDUCATED THAT THE MEDICATIONS ARE NOT IMMEDIATE. SUPPORT VOICED.
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
[2023-11-01] MEDS: divalproex DR 250 mg Tablet PO (20:04)
[2023-11-01] MEDS: chlorPROMazine 50 mg Tablet 150 MG PO (20:06)
[2023-11-01 20:17] VITALS: BP 137/94; PULSE 102; RESP 18; O2SAT 98
[2023-11-02 06:00] VITALS: BP 116/74; PULSE 90; RESP 16; O2SAT 92
[2023-11-02] MEDS: nicotine 2 mg Gum BUCCAL ×3 (09:20→16:03)
[2023-11-02] MEDS: ARIPiprazole 10 mg Tablet 15 MG PO (09:20)
[2023-11-02] MEDS: chlorPROMazine 50 mg Tablet 100 MG PO ×2 (09:23→13:09)
[2023-11-02] MEDS: divalproex DR 500 mg Tablet PO ×2 (09:23→21:45)
[2023-11-02] MEDS: diazePAM 5 mg Tablet 10 MG PO ×2 (09:24→21:44)
[2023-11-02] MEDS: acetaminophen 325 mg Tablet 650 MG PO (12:33)
[2023-11-02] MEDS: OLANZapine 5 mg ODT PO (12:33)
--- NOTE | 2023-11-02 12:40 | P.NPUPN_ITS ---
Subjective NPU 2 Subjective: Patient presented today reporting that she is struggling with anxiety. We discussed the risks, benefits and alternatives of initiating propranolol 20 mg p.o. 3 times daily as needed and she understood and agreed to proceed as is documented in this note. Staff reports that she continues to be volatile and trying to get every as needed she can get. We continue to discuss her unwillingness to allow herself to feel the frustration and trying to medicate that away. She denied any side effects to the medication. Mental Status Exam 2 MSE Comments: Patient is an overweight versus obese white female in hospital scrubs with poor hygiene and poor eye contact. No abnormal movements except for mild psychomotor retardation. Cooperative with exam in mild to moderate distress. Speech was decreased rate and volume. Her mood was described as depressed, her affect was mood congruent and subdued. Thought process was organized. Her thought content: She denied any suicidal or homicidal ideation. There was evidence of significant paranoia and ideas of reference. She did appear at times to be responding to internal stimuli. Attention and concentration were limited and memory was unreliable but none were formally tested. She was alert and oriented to person, place at this time. Her insight and judgment are poor and her impulse control appeared impaired. Her attention span appeared impaired as well. Vitals/I&O/Wt Last Vital Signs Temp 98 F 11/01/23 14:00 Pulse 90 11/02/23 06:00 Resp 16 11/02/23 06:00 BP 116/74 11/02/23 06:00 Pulse Ox 92 11/02/23 06:00 O2 Del Method Room Air 11/01/23 06:00 O2 Flow Rate 97 10/28/23 06:00 Data NPU 10/24/23 22:23 10/24/23 22:23 A&P Assessment and plan (1) Bipolar disorder with psychotic features: (2) Psychosis: (3) Suicidal ideation: Plan 38-year-old female with a past history of psychosis, likely bipolar d/o with psychotic features or schizoaffective disorder bipolar type admitted involuntarily with increased agitation and suicidal ideation while noncompliant with medication regimen. 1. Encourage individual, group and milieu therapy. 2. Recommend sober living treatment at the highest level of care to which the patient is willing to commit. 3. Continue q-15 minute checks for safety.? 4. Restarted Valium 10mg bid, restarted chlorpromazine and Dapakote. Will explore the presence of the large dose of benzodiazepine as that relates to her possible discharge. 5. Increased Abilify to 15 mg daily and initiated propranolol 20 mg p.o. 3 times daily as needed. Will consider starting Lexapro or Prozac for depression. 6. Submitted 21-day paperwork. Hearing 11/01/2023. 21-day hold granted. Involuntary Hold Information 2 96 Hour Hold: 96 Hour Involuntary Admission: Yes 96 Hour Hold Ending Date: 07/19/23 96 Hour Hold Ending Time: 07:48 Attestations NPU 2 Medical Necessity Statement*: Inpatient hospitalization is medically necessary and?the clinically appropriate intervention ?at this time.? We will monitor/initiate medications and make changes as indicated.? The patient?s likely length of stay 5-8 days. Coding Level of Care Code Acute Code for Chg Fwd Diagnoses Bipolar disorder with psychotic features F31.9 Psychosis F29 Suicidal ideation R45.851
[2023-11-02] MEDS: benztropine 1 mg Tablet PO (13:08)
[2023-11-02] MEDS: haloperidol 5 mg Tablet PO (13:08)
[2023-11-02] MEDS: ziprasidone hcl 20 mg Capsule PO (13:48)
[2023-11-02 14:00] VITALS: BP 123/84; PULSE 103; RESP 16; TEMP 36.4; O2SAT 97
[2023-11-02] MEDS: hyDROXYzine 25 mg Capsule 50 MG PO (16:01)
[2023-11-02] MEDS: propranolol 20 mg Tablet PO (18:21)
[2023-11-02 20:54] VITALS: BP 119/79; PULSE 80; RESP 16; TEMP 36.8; O2SAT 95
[2023-11-02] MEDS: chlorPROMazine 50 mg Tablet 150 MG PO (21:43)
[2023-11-02] MEDS: divalproex DR 250 mg Tablet PO (21:44)
[2023-11-02] MEDS: ibuprofen 600 mg Tablet PO (21:48)
[2023-11-03 06:00] VITALS: BP 120/78; PULSE 70; RESP 18; TEMP 36.3; O2SAT 95
[2023-11-03] MEDS: nicotine 2 mg Gum BUCCAL ×3 (10:15→16:10)
[2023-11-03] MEDS: hyDROXYzine 25 mg Capsule 50 MG PO (10:15)
[2023-11-03] MEDS: diazePAM 5 mg Tablet PO ×2 (10:16→20:59)
[2023-11-03] MEDS: divalproex DR 500 mg Tablet PO ×2 (10:16→20:59)
[2023-11-03] MEDS: ARIPiprazole 10 mg Tablet 15 MG PO (10:16)
[2023-11-03] MEDS: chlorPROMazine 50 mg Tablet 100 MG PO ×2 (10:20→13:06)
[2023-11-03] MEDS: propranolol 20 mg Tablet PO ×2 (11:48→17:54)
[2023-11-03] MEDS: ARIPiprazole 10 mg Tablet PO (11:48)
[2023-11-03] MEDS: OLANZapine 5 mg ODT PO (12:17)
[2023-11-03] MEDS: haloperidol 5 mg Tablet PO (13:05)
--- NOTE | 2023-11-03 13:22 | PC.NURSE ---
PT CONTINUES TO COME TO THE NURSING STATING HOLDING HEAD AND STATES I'M HAVING A PANIC ATTACK SEE SEE. WHILE SHE WIPES SWEAT OFF HER FOREHEAD. PT DID REQUEST TO SPEAK TO SOMEONE. THIS RN INFORMED PT THAT SHE COULD TALK TO ME. PT WAS INTERMITTENTLY TEARFUL AND WOULD PERSEVERATES WITH TOPICS. RN ACTIVELY LISTENED TO PT AND HER STRUGGLES SHE HAS HAD WITH LIFE AN MENTAL ILLNESS. RN SUGGESTED TO PT SHE PRACTICE GUIDED IMAGINARY OR BREATHING TECHNIQUES TO DECREASE ANXIETY INSTEAD OF INSISTING I NEED MORE MEDS THATS ALL THAT WORKS. PT BEGAN TO GET UP SET SAYING YOU WANT ME TO FOCUS ON BEING HOMELESS AND NOT HAVING MY KIDS. PT WAS VERBALLY REDIRECTED AND WAS INFORMED THAT IS NOT WHAT STAFF WAS INTENDING AND TO FOCUS ON THE GOOD TIMES WITH HER CHILDREN AND GETTING THEM BACK. PT CONTINUED TO POINT OUT SHE WAS HAVING PERSPIRATION AND COLD CHILLS, IDENTIFYING THESE SYMPTOMS WITH A PANIC ATTACK. OT WAS GIVEN A COLD WASH CLOTH FOR COMFORT. ANOTHER STAFF MEMBER ALSO CAME OVER TO SPEAK TO PT AND ASSIST PT WITH PROCESSING FEELINGS WITHOUT TAKING MORE MEDICATIONS. PT WAS ABLE TO SPEAK TO STAFF FOR APPROXIMATELY 20 MINUTES BEFORE ASKING RN WHAT CAN I HAVE JUST GIVE ME SOMETHING TO HELP ME, I'M SO ANXIOUS. THIS RN REVIEWED MAR AND INFORMED PT SHE COULD HAVE HER SCHEDULED THORAZINE AND THEN HALDOL 5 MG FOR INCREASED ANXIETY AND AGITATION. PT STATED GOOD BECAUSE I'M ABOUT TO GET COMBATIVE. PT TOOK MEDICATIONS WITH EASE, THEN PUT HER HEAD DOWN WALKING TO ROOM. PT WAS ENCOURAGED TO LAY DOWN, REST AND ALLOW THE MEDICATIONS TO WORK. ALL QUESTIONS WERE ANSWERED AND SUPPORT VOICED.
[2023-11-03 13:39] VITALS: BP 124/94; PULSE 69; RESP 16; O2SAT 96
--- NOTE | 2023-11-03 14:26 | P.NPUPN_ITS ---
Subjective NPU 2 Subjective: Patient presented today continuing to have her regular challenges with saying her anxiety was overwhelming. We discussed the importance of her being able to manage her anxiety and ways other than as needed medications. We discussed the risks, benefits and alternatives of increasing her Abilify to 25 mg p.o. daily. She denies any side effects of the medication but continues to report under treatment of her anxiety. We continue to discuss cluster B pathology and ways that she can begin to address it. Mental Status Exam 2 MSE Comments: Patient is an overweight versus obese white female in hospital scrubs with poor hygiene and poor eye contact. No abnormal movements except for mild psychomotor retardation. Cooperative with exam in mild to moderate distress. Speech was decreased rate and volume. Her mood was described as depressed, her affect was mood congruent and subdued. Thought process was organized. Her thought content: She denied any suicidal or homicidal ideation. There was evidence of significant paranoia and ideas of reference. She did appear at times to be responding to internal stimuli. Attention and concentration were limited and memory was unreliable but none were formally tested. She was alert and oriented to person, place at this time. Her insight and judgment are poor and her impulse control appeared impaired. Her attention span appeared impaired as well. Vitals/I&O/Wt Last Vital Signs Temp 97.4 F L 11/03/23 06:00 Pulse 69 11/03/23 13:39 Resp 16 11/03/23 13:39 BP 124/94 11/03/23 13:39 Pulse Ox 96 11/03/23 13:39 O2 Del Method Room Air 11/03/23 13:39 O2 Flow Rate 97 10/28/23 06:00 Data NPU 10/24/23 22:23 10/24/23 22:23 A&P Assessment and plan (1) Bipolar disorder with psychotic features: (2) Psychosis: (3) Suicidal ideation: Plan 38-year-old female with a past history of psychosis, likely bipolar d/o with psychotic features or schizoaffective disorder bipolar type admitted involuntarily with increased agitation and suicidal ideation while noncompliant with medication regimen. 1. Encourage individual, group and milieu therapy. 2. Recommend sober living treatment at the highest level of care to which the patient is willing to commit. 3. Continue q-15 minute checks for safety.? 4. Restarted Valium 10mg bid, restarted chlorpromazine and Dapakote. Will explore the presence of the large dose of benzodiazepine as that relates to her possible discharge. 5. Increase Abilify to 25 mg daily and initiated propranolol 20 mg p.o. 3 times daily as needed. Will consider starting Lexapro or Prozac for depression. 6. Submitted 21-day paperwork. Hearing 11/01/2023. 21-day hold granted. Involuntary Hold Information 2 96 Hour Hold: 96 Hour Involuntary Admission: Yes 96 Hour Hold Ending Date: 07/19/23 96 Hour Hold Ending Time: 07:48 Attestations NPU 2 Medical Necessity Statement*: Inpatient hospitalization is medically necessary and?the clinically appropriate intervention ?at this time.? We will monitor/initiate medications and make changes as indicated.? The patient?s likely length of stay 5-8 days. Coding Level of Care Code Acute Code for [facility] Fwd Diagnoses Bipolar disorder with psychotic features F31.9 Psychosis F29 Suicidal ideation R45.851
[2023-11-03] MEDS: ibuprofen 600 mg Tablet PO (14:33)
[2023-11-03] MEDS: ziprasidone hcl 20 mg Capsule PO (16:14)
[2023-11-03 19:44] VITALS: BP 98/59; PULSE 67; RESP 19; TEMP 36.8; O2SAT 98
[2023-11-03] MEDS: chlorPROMazine 50 mg Tablet 150 MG PO (20:59)
[2023-11-03] MEDS: divalproex DR 250 mg Tablet PO (20:59)
[2023-11-04 06:00] VITALS: BP 136/90; PULSE 69; RESP 16; TEMP 36.3
[2023-11-04] MEDS: hyDROXYzine 25 mg Capsule 50 MG PO ×2 (06:26→15:24)
[2023-11-04] MEDS: ARIPiprazole 10 mg Tablet 25 MG PO (08:29)
[2023-11-04] MEDS: diazePAM 5 mg Tablet PO ×2 (08:29→20:55)
[2023-11-04] MEDS: divalproex DR 500 mg Tablet PO ×2 (08:29→20:55)
[2023-11-04] MEDS: chlorPROMazine 50 mg Tablet 100 MG PO ×2 (08:29→13:18)
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
[2023-11-04] MEDS: ibuprofen 600 mg Tablet PO (12:19)
[2023-11-04] MEDS: haloperidol 5 mg Tablet PO (13:18)
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
--- NOTE | 2023-11-04 13:45 | P.NPUPN_ITS ---
Subjective NPU 2 Subjective: Patient presents today continuing to echo the comments from previous days of being anxious and needing more medication. She continues to lobby and take as needed medications extensively without any reports of improvements in this quite histrionic and her approaches to get the attention of staff or to make her point. She denies any side effects from the increase in the Abilify but continues to report that the medications are not helping to control her symptoms but she continues to endorse a desire to be knocked out. Mental Status Exam 2 MSE Comments: Patient is an overweight versus obese white female in hospital scrubs with poor hygiene and poor eye contact. No abnormal movements except for mild psychomotor retardation intermixed with moments of significant psychomotor agitation. Cooperative with exam in mild to moderate distress. Speech was decreased rate and volume but then at times she would get upset and yell. Her mood was described as anxious, her affect was mood congruent and irritable. Thought process was organized. Her thought content: She denied any suicidal or homicidal ideation. There was evidence of significant paranoia and ideas of reference. She did appear at times to be responding to internal stimuli. Attention and concentration were limited and memory was unreliable but none were formally tested. She was alert and oriented to person, place at this time. Her insight and judgment are poor and her impulse control appeared impaired. Her attention span appeared impaired as well. Vitals/I&O/Wt Last Vital Signs Temp 97.4 F L 11/04/23 06:00 Pulse 69 11/04/23 06:00 Resp 16 11/04/23 06:00 BP 136/90 11/04/23 06:00 Pulse Ox 98 11/03/23 19:44 O2 Del Method Room Air 11/04/23 06:00 O2 Flow Rate 97 10/28/23 06:00 Data NPU 10/24/23 22:23 10/24/23 22:23 A&P Assessment and plan (1) Bipolar disorder with psychotic features: (2) Psychosis: (3) Suicidal ideation: Plan 38-year-old female with a past history of psychosis, likely bipolar d/o with psychotic features or schizoaffective disorder bipolar type admitted involuntarily with increased agitation and suicidal ideation while noncompliant with medication regimen. 1. Encourage individual, group and milieu therapy. 2. Recommend sober living treatment at the highest level of care to which the patient is willing to commit. 3. Continue q-15 minute checks for safety.? 4. Restarted Valium 10mg bid, restarted chlorpromazine and Dapakote. Will explore the presence of the large dose of benzodiazepine as that relates to her possible discharge. 5. Increased Abilify to 25 mg daily and initiated propranolol 20 mg p.o. 3 times daily as needed. Will consider starting Lexapro or Prozac for depression. 6. Submitted 21-day paperwork. Hearing 11/01/2023. 21-day hold granted. Involuntary Hold Information 2 96 Hour Hold: 96 Hour Involuntary Admission: Yes 96 Hour Hold Ending Date: 07/19/23 96 Hour Hold Ending Time: 07:48 Attestations NPU 2 Medical Necessity Statement*: Inpatient hospitalization is medically necessary and?the clinically appropriate intervention ?at this time.? We will monitor/initiate medications and make changes as indicated.? The patient?s likely length of stay 5-8 days. Coding Level of Care Code Acute Code for [facility] Fwd Diagnoses Bipolar disorder with psychotic features F31.9 Psychosis F29 Suicidal ideation R45.851
[2023-11-04 13:50] VITALS: BP 128/83; PULSE 77; RESP 17; O2SAT 97
[2023-11-04] MEDS: nicotine 2 mg Gum BUCCAL ×2 (13:59→15:53)
[2023-11-04] MEDS: OLANZapine 5 mg ODT PO ×2 (14:18→18:10)
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
[2023-11-04] MEDS: ziprasidone hcl 20 mg Capsule PO (14:36)
[2023-11-04] MEDS: propranolol 20 mg Tablet PO (14:36)
[2023-11-04] MEDS: acetaminophen 325 mg Tablet 650 MG PO (15:23)
--- NOTE | 2023-11-04 16:31 | PC.NURSE ---
Patient has been up at nurses' station for much of the evening. She has been obsessing again over going to court with her for a divorce. Staff provided her with envelopes she requested to put her responses to the court in. She was assured we would take them to be mailed in the mailroom. Patient continued to say she didn't trust staff to do this and that we just wanted her to . This RN assured her we would mail them for her and that we had her best interests in mind. She then began saying staff didn't care about her anxiety and we weren't doing anything about it. This RN explained that we had given her several medications for agitation and anxiety within the last 2 hours. She denied receiving these medications although staff observed her taking them. When told this patient said, whatever. You guys can just let me . I'm just a piece of shit anyway. This RN spoke with her about other aspects of life to focus on and positive coping mechanisms. Patient ignored these suggestions and continued to suggest staff wanted her to .
[2023-11-04 20:15] VITALS: BP 125/81; PULSE 70; RESP 16; TEMP 36.2; O2SAT 94
[2023-11-04] MEDS: chlorPROMazine 50 mg Tablet 150 MG PO (20:55)
[2023-11-04] MEDS: divalproex DR 250 mg Tablet PO (20:55)
[2023-11-05 06:00] VITALS: BP 137/83; PULSE 71; RESP 16; O2SAT 98
--- NOTE | 2023-11-05 10:16 | P.NPUPN_ITS ---
Subjective NPU 2 Subjective: Patient presented today reporting that she is feeling like she just wants to quit. She endorsed being depressed and feeling that her life was over. We discussed that even though she is feeling like she wants to quit we will continue to work towards her having a stable regimen of medications and that she be connected to appropriate therapy so that she can try to create some change. We discussed the risks, benefits and alternatives of increasing her Abilify to 30 mg and starting Prozac 20 mg p.o. daily and she understood and agreed to proceed as is documented in this note. She denied any side effects to her current medications. Mental Status Exam 2 MSE Comments: Patient is an overweight versus obese white female in hospital scrubs with poor hygiene and poor eye contact. No abnormal movements except for moderate psychomotor retardation. Cooperative with exam in mild to moderate distress. Speech was decreased rate and volume. Her mood was described as depressed, her affect was mood congruent and irritable. Thought process was organized. Her thought content: She endorsed suicidal but denied homicidal ideation. There was evidence of significant paranoia and ideas of reference. She did not appear at times to be responding to internal stimuli. Attention and concentration were intact and memory was unreliable but none were formally tested. She was alert and oriented to person, place at this time. Her insight and judgment are poor and her impulse control appeared impaired. Her attention span appeared impaired as well. Vitals/I&O/Wt Last Vital Signs Temp 97.2 F L 11/04/23 20:15 Pulse 71 11/05/23 06:00 Resp 16 11/05/23 06:00 BP 137/83 11/05/23 06:00 Pulse Ox 98 11/05/23 06:00 O2 Del Method Room Air 11/05/23 06:00 O2 Flow Rate 97 10/28/23 06:00 Data NPU 10/24/23 22:23 10/24/23 22:23 A&P Assessment and plan (1) Bipolar disorder with psychotic features: (2) Psychosis: (3) Suicidal ideation: Plan 38-year-old female with a past history of psychosis, likely bipolar d/o with psychotic features or schizoaffective disorder bipolar type admitted involuntarily with increased agitation and suicidal ideation while noncompliant with medication regimen. 1. Encourage individual, group and milieu therapy. 2. Recommend sober living treatment at the highest level of care to which the patient is willing to commit. 3. Continue q-15 minute checks for safety.? 4. Restarted Valium 10mg bid, restarted chlorpromazine and Dapakote. Will explore the presence of the large dose of benzodiazepine as that relates to her possible discharge. 5. Increase Abilify to 30 mg daily and continue propranolol 20 mg p.o. 3 times daily as needed. Start Prozac 20 mg p.o. daily for depression 6. Submitted 21-day paperwork. Hearing 11/01/2023. 21-day hold granted. Involuntary Hold Information 2 96 Hour Hold: 96 Hour Involuntary Admission: Yes 96 Hour Hold Ending Date: 07/19/23 96 Hour Hold Ending Time: 07:48 Attestations NPU 2 Medical Necessity Statement*: Inpatient hospitalization is medically necessary and?the clinically appropriate intervention ?at this time.? We will monitor/initiate medications and make changes as indicated.? The patient?s likely length of stay 5-8 days. Coding Level of Care Code Acute Code for [facility] Fwd Diagnoses Bipolar disorder with psychotic features F31.9 Psychosis F29 Suicidal ideation R45.851
[2023-11-05] MEDS: diazePAM 5 mg Tablet PO ×2 (10:46→20:22)
[2023-11-05] MEDS: divalproex DR 500 mg Tablet PO ×2 (10:46→20:22)
[2023-11-05] MEDS: ARIPiprazole 10 mg Tablet 25 MG PO (10:46)
[2023-11-05] MEDS: nicotine 2 mg Gum BUCCAL ×2 (10:46→14:12)
[2023-11-05] MEDS: hyDROXYzine 25 mg Capsule 50 MG PO ×2 (10:47→18:05)
[2023-11-05] MEDS: acetaminophen 325 mg Tablet 650 MG PO (10:47)
[2023-11-05] MEDS: chlorPROMazine 50 mg Tablet 100 MG PO ×2 (10:47→13:52)
[2023-11-05] MEDS: fluoxetine 20 mg Capsule PO (13:52)
[2023-11-05] MEDS: propranolol 20 mg Tablet PO (13:52)
[2023-11-05 14:00] VITALS: BP 120/85; PULSE 87; RESP 16; TEMP 36.6; O2SAT 97
[2023-11-05] MEDS: ziprasidone hcl 20 mg Capsule PO (14:46)
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
[2023-11-05] MEDS: ondansetron 4 MG Tablet PO (18:05)
--- NOTE | 2023-11-05 18:09 | PC.NURSE ---
PRN Medication Patient at the nurses station requesting medication for anxiety and nausea. When asked about her anxiety, states she has a pending divorce and a court date soon. She hopes the proper paperwork was mailed. Tried to talk to the patient about the process and she yells i know how this works . PRN medications given.
[2023-11-05] MEDS: haloperidol 5 mg Tablet PO (19:03)
[2023-11-05 19:43] VITALS: BP 118/79; PULSE 98; RESP 18; TEMP 36.4; O2SAT 98
[2023-11-05] MEDS: chlorPROMazine 50 mg Tablet 150 MG PO (20:22)
[2023-11-05] MEDS: divalproex DR 250 mg Tablet PO (20:22)
[2023-11-06 06:00] VITALS: RESP 16
[2023-11-06] MEDS: OLANZapine 5 mg ODT PO ×3 (06:31→20:32)
[2023-11-06] MEDS: chlorPROMazine 50 mg Tablet 100 MG PO ×2 (08:06→13:10)
[2023-11-06] MEDS: ARIPiprazole 30 mg Tablet PO (08:06)
[2023-11-06] MEDS: fluoxetine 20 mg Capsule PO (08:06)
[2023-11-06] MEDS: divalproex DR 500 mg Tablet PO ×2 (08:06→21:49)
[2023-11-06] MEDS: diazePAM 5 mg Tablet PO ×2 (08:06→20:32)
--- NOTE | 2023-11-06 09:24 | PC.NURSE ---
Patient approached nurses' station agitated this morning. She stated, I really had a rough night. This RN asked her what had happened and she replied, I just heard whispers all night. She was then asked if the whispers were saying bad things or good things. She rolled her eyes and said angrily, I don't want to talk about that!
[2023-11-06] MEDS: nicotine 2 mg Gum BUCCAL ×2 (13:31→15:03)
[2023-11-06] MEDS: hyDROXYzine 25 mg Capsule 50 MG PO (13:33)
--- NOTE | 2023-11-06 13:43 | P.NPUPN_ITS ---
Subjective NPU 2 Subjective: Patient presented today reporting that she is doing okay at times. Staff reports of less agitated moments and her desire for as needed medications. She continues to lobby for medication to help with her anxiety and continues to talk about things in a ieyak-euj-vfaro perspective consistent with cluster B pathology. We continue to talk about the need for her to actively engage herself in alternate behaviors as she seems stuck in this feedback loop that is ultimately ending with wanting frequent medications. She denied any side effects of the medication. Mental Status Exam 2 MSE Comments: Patient is an overweight versus obese white female in hospital scrubs with poor hygiene and poor eye contact. No abnormal movements except for moderate psychomotor retardation. Cooperative with exam in mild to moderate distress. Speech was decreased rate and volume. Her mood was described as depressed, her affect was mood congruent and irritable. Thought process was organized. Her thought content: She endorsed suicidal but denied homicidal ideation. There was evidence of significant paranoia and ideas of reference. She did not appear at times to be responding to internal stimuli. Attention and concentration were intact and memory was unreliable but none were formally tested. She was alert and oriented to person, place at this time. Her insight and judgment are poor and her impulse control appeared impaired. Her attention span appeared impaired as well. Vitals/I&O/Wt Last Vital Signs Temp 97.5 F L 11/05/23 19:43 Pulse 98 11/05/23 19:43 Resp 16 11/06/23 06:00 BP 118/79 11/05/23 19:43 Pulse Ox 98 11/05/23 19:43 O2 Del Method Room Air 11/05/23 14:00 O2 Flow Rate 97 10/28/23 06:00 Data NPU 10/24/23 22:23 10/24/23 22:23 A&P Assessment and plan (1) Bipolar disorder with psychotic features: (2) Psychosis: (3) Suicidal ideation: Plan 38-year-old female with a past history of psychosis, likely bipolar d/o with psychotic features or schizoaffective disorder bipolar type admitted involuntarily with increased agitation and suicidal ideation while noncompliant with medication regimen. 1. Encourage individual, group and milieu therapy. 2. Recommend sober living treatment at the highest level of care to which the patient is willing to commit. 3. Continue q-15 minute checks for safety.? 4. Restarted Valium 10mg bid, restarted chlorpromazine and Dapakote. Will explore the presence of the large dose of benzodiazepine as that relates to her possible discharge. 5. Increased Abilify to 30 mg daily and continue propranolol 20 mg p.o. 3 times daily as needed. Started Prozac 20 mg p.o. daily for depression 6. Submitted 21-day paperwork. Hearing 11/01/2023. 21-day hold granted. Involuntary Hold Information 2 96 Hour Hold: 96 Hour Involuntary Admission: Yes 96 Hour Hold Ending Date: 07/19/23 96 Hour Hold Ending Time: 07:48 Attestations NPU 2 Medical Necessity Statement*: Inpatient hospitalization is medically necessary and?the clinically appropriate intervention ?at this time.? We will monitor/initiate medications and make changes as indicated.? The patient?s likely length of stay 5-8 days. Coding Level of Care Code Acute Code for g Fwd Diagnoses Bipolar disorder with psychotic features F31.9 Psychosis F29 Suicidal ideation R45.851
--- NOTE | 2023-11-06 14:12 | PC.NURSE ---
Patient approached nurses' station and began rambling about needing to mail out something for social security. Staff told her we could give her an envelope, but that we did not have a stamp at this time and would do what we could to help her until social workers got here tomorrow. Patient became very angry and began cursing staff and stated that we just didn't want to help her. It was again reiterated that we did not have any stamps, but would've gladly given her one if we did. She then told this RN she would need help filling out some paperwork. When asked what paperwork she was speaking of she yelled, why are you asking me that?! I wasn't talking to you, although the patient was looking at this fiction writer while she was speaking. Patient was given her thorazine and vistaril to help calm her. She did approach the nurses' station after going back to her room once more to ask this RN, has your life ever been so shit before that you can't even get a stamp? Patient was told personal questions were inappropriate to ask staff. Patient then went back to bed yelling that no one would help her get a stamp and that she was a piece of shit anyway.
[2023-11-06] MEDS: haloperidol 5 mg Tablet PO (16:45)
[2023-11-06 20:09] VITALS: RESP 16
[2023-11-06] MEDS: chlorPROMazine 50 mg Tablet 150 MG PO (20:31)
[2023-11-06] MEDS: trazodone 50 mg Tablet PO (20:32)
[2023-11-06] MEDS: divalproex DR 250 mg Tablet PO (20:38)
[2023-11-07] MEDS: ibuprofen 600 mg Tablet PO ×2 (06:20→20:04)
[2023-11-07] MEDS: ARIPiprazole 30 mg Tablet PO (08:14)
[2023-11-07] MEDS: chlorPROMazine 50 mg Tablet 100 MG PO ×2 (08:14→14:28)
[2023-11-07] MEDS: divalproex DR 500 mg Tablet PO ×2 (08:14→20:03)
[2023-11-07] MEDS: diazePAM 5 mg Tablet PO ×2 (08:14→20:03)
[2023-11-07] MEDS: fluoxetine 20 mg Capsule PO (08:14)
--- NOTE | 2023-11-07 08:35 | PC.NURSE ---
During morning assessment, patient stated that she is doing worse today than she was yesterday. Patient upset about missing her son's birthday yesterday. Patient calm during assessment.
[2023-11-07] MEDS: hyDROXYzine 25 mg Capsule 50 MG PO (11:24)
[2023-11-07] MEDS: nicotine 2 mg Gum BUCCAL ×2 (11:24→15:25)
[2023-11-07] MEDS: propranolol 20 mg Tablet PO (11:24)
[2023-11-07] MEDS: haloperidol 5 mg Tablet PO (13:12)
--- NOTE | 2023-11-07 13:13 | PC.NURSE ---
Patient reports hearing voices that are telling her to harm herself. Patient tearful. Administered haldol 5mg PO to patient and recommended something for distraction. Patient declined stating that she doesn't know what is gonig to help her.
[2023-11-07 14:00] VITALS: BP 111/77; PULSE 71; RESP 16; TEMP 37.2; O2SAT 97
[2023-11-07] MEDS: ziprasidone hcl 20 mg Capsule PO (17:06)
--- NOTE | 2023-11-07 17:13 | P.NPUPN_ITS ---
Subjective NPU 2 Subjective: Patient presented today reporting that she is doing okay to some degree but she continued to have other complaints and reporting suicidality per staff reports and occasionally and direct observation. She continued to identify her not being able to sleep and we discussed the risks, benefits and alternatives of a trial of Seroquel and she understood and agreed to proceed as is documented in this note. She denied any side effects or medication. Mental Status Exam 2 MSE Comments: Patient is an overweight versus obese white female in hospital scrubs with poor hygiene and poor eye contact. No abnormal movements except for moderate psychomotor retardation. Cooperative with exam in mild to moderate distress. Speech was decreased rate and volume. Her mood was described as depressed, her affect was mood congruent and slightly less irritable. Thought process was organized. Her thought content: She endorsed suicidal but denied homicidal ideation. There was evidence of significant paranoia and ideas of reference. She did not appear at times to be responding to internal stimuli. Attention and concentration were intact and memory was unreliable but none were formally tested. She was alert and oriented to person, place at this time. Her insight and judgment are poor and her impulse control appeared impaired. Her attention span appeared impaired as well. Vitals/I&O/Wt Last Vital Signs Temp 97.9 F 11/07/23 19:37 Pulse 67 11/07/23 19:37 Resp 18 11/07/23 19:37 BP 130/98 11/07/23 19:37 Pulse Ox 100 11/07/23 19:37 O2 Del Method Room Air 11/07/23 14:00 O2 Flow Rate 97 10/28/23 06:00 Data NPU 10/24/23 22:23 10/24/23 22:23 A&P Assessment and plan (1) Bipolar disorder with psychotic features: (2) Psychosis: (3) Suicidal ideation: Plan 38-year-old female with a past history of psychosis, likely bipolar d/o with psychotic features or schizoaffective disorder bipolar type admitted involuntarily with increased agitation and suicidal ideation while noncompliant with medication regimen. 1. Encourage individual, group and milieu therapy. 2. Recommend sober living treatment at the highest level of care to which the patient is willing to commit. 3. Continue q-15 minute checks for safety.? 4. Restarted Valium 10mg bid, restarted chlorpromazine and Dapakote. Will explore the presence of the large dose of benzodiazepine as that relates to her possible discharge. 5. Increased Abilify to 30 mg daily and continue propranolol 20 mg p.o. 3 times daily as needed. Started Prozac 20 mg p.o. daily for depression. Added Seroquel 50 to 100 mg p.o. nightly for sleep. 6. Submitted 21-day paperwork. Hearing 11/01/2023. 21-day hold granted. Involuntary Hold Information 2 96 Hour Hold: 96 Hour Involuntary Admission: Yes 96 Hour Hold Ending Date: 07/19/23 96 Hour Hold Ending Time: 07:48 Attestations NPU 2 Medical Necessity Statement*: Inpatient hospitalization is medically necessary and?the clinically appropriate intervention ?at this time.? We will monitor/initiate medications and make changes as indicated.? The patient?s likely length of stay 5-8 days. Coding Level of Care Code Acute Code for g Fwd Diagnoses Bipolar disorder with psychotic features F31.9 Psychosis F29 Suicidal ideation R45.851
[2023-11-07] MEDS: OLANZapine 5 mg ODT PO (18:49)
[2023-11-07 19:37] VITALS: BP 130/98; PULSE 67; RESP 18; TEMP 36.6; O2SAT 100
[2023-11-07] MEDS: divalproex DR 250 mg Tablet PO (20:03)
[2023-11-07] MEDS: quetiapine 25 mg Tablet 50 MG PO (20:03)
[2023-11-07] MEDS: chlorPROMazine 50 mg Tablet 150 MG PO (20:04)
[2023-11-08 06:00] VITALS: RESP 16
[2023-11-08] MEDS: chlorPROMazine 50 mg Tablet 100 MG PO ×2 (08:06→14:49)
[2023-11-08] MEDS: ARIPiprazole 30 mg Tablet PO (08:06)
[2023-11-08] MEDS: fluoxetine 20 mg Capsule PO (08:07)
[2023-11-08] MEDS: diazePAM 5 mg Tablet PO ×2 (08:07→20:48)
[2023-11-08] MEDS: divalproex DR 500 mg Tablet PO ×2 (08:07→20:48)
--- NOTE | 2023-11-08 08:34 | PC.NURSE ---
Patient states she slept well last night after taking her seroquel. She stated she is feeling very depressed this morning, as she is hearing voices telling her to kill herself. Patient says she has no plan. Denies hi and vh. Patient did appear paranoid and asked why this RN was asking her questions. Denied any needs at this time.
[2023-11-08] MEDS: OLANZapine 5 mg ODT PO ×2 (12:46→19:20)
[2023-11-08] MEDS: nicotine 2 mg Gum BUCCAL ×3 (12:47→19:20)
[2023-11-08 13:40] VITALS: BP 110/70; PULSE 84; RESP 20; TEMP 36.6; O2SAT 94
[2023-11-08] MEDS: haloperidol 5 mg Tablet PO (14:49)
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
[2023-11-08] MEDS: ziprasidone hcl 20 mg Capsule PO (16:22)
--- NOTE | 2023-11-08 16:24 | W.PM.NPUPNS ---
Subjective NPU Subjective: Patient presented today reporting that she is doing about the same. She did identify that she is sleeping better with the Seroquel and staff reports corroborate disposition. She was last irritable by the reports as well with some reports of anxiety and the sindhu falling but not as it has been the previous week. She denied any significant side effects. Mental Status Exam MSE Comments: Patient is an overweight versus obese white female in hospital scrubs with poor hygiene and poor eye contact. No abnormal movements except for moderate psychomotor retardation. Cooperative with exam in mild to moderate distress. Speech was decreased rate and volume. Her mood was described as depressed, her affect was mood congruent and slightly less irritable. Thought process was organized. Her thought content: She endorsed suicidal but denied homicidal ideation. There was evidence of significant paranoia and ideas of reference. She did not appear at times to be responding to internal stimuli. Attention and concentration were intact and memory was unreliable but none were formally tested. She was alert and oriented to person, place at this time. Her insight and judgment are poor and her impulse control appeared impaired. Her attention span appeared impaired as well. Vitals/I&O/Wt Last Vital Signs Temp 97.9 F 11/08/23 13:40 Pulse 84 11/08/23 13:40 Resp 20 H 11/08/23 13:40 BP 110/70 11/08/23 13:40 Pulse Ox 94 11/08/23 13:40 O2 Del Method Room Air 11/08/23 13:40 O2 Flow Rate 97 10/28/23 06:00 Data NPU 10/24/23 22:23 10/24/23 22:23 A&P Assessment and plan (1) Bipolar disorder with psychotic features: (2) Psychosis: (3) Suicidal ideation: Plan 38-year-old female with a past history of psychosis, likely bipolar d/o with psychotic features or schizoaffective disorder bipolar type admitted involuntarily with increased agitation and suicidal ideation while noncompliant with medication regimen. 1. Encourage individual, group and milieu therapy. 2. Recommend sober living treatment at the highest level of care to which the patient is willing to commit. 3. Continue q-15 minute checks for safety.? 4. Restarted Valium 10mg bid, restarted chlorpromazine and Dapakote. Will explore the presence of the large dose of benzodiazepine as that relates to her possible discharge. 5. Increased Abilify to 30 mg daily and continue propranolol 20 mg p.o. 3 times daily as needed. Started Prozac 20 mg p.o. daily for depression. Added Seroquel 50 to 100 mg p.o. nightly for sleep. 6. Submitted 21-day paperwork. Hearing 11/01/2023. 21-day hold granted. Involuntary Hold Information 96 Hour Hold: 96 Hour Involuntary Admission: Yes 96 Hour Hold Ending Date: 07/19/23 96 Hour Hold Ending Time: 07:48 Attestations NPU Medical Necessity Statement*: Inpatient hospitalization is medically necessary and?the clinically appropriate intervention ?at this time.? We will monitor/initiate medications and make changes as indicated.? The patient?s likely length of stay 5-8 days. Coding Level of Care Code Acute Code for [facility] Fwd Diagnoses Bipolar disorder with psychotic features F31.9 Psychosis F29 Suicidal ideation R45.851
[2023-11-08] MEDS: ondansetron 4 MG Tablet PO ×2 (16:25→19:20)
[2023-11-08] MEDS: propranolol 20 mg Tablet PO (19:20)
--- NOTE | 2023-11-08 19:57 | PC.NURSE ---
Pt received medication at shift change. Pt stated that she will be killed when she is let go from the facility. Staff encouraged her to get some rest, and assured the pt that we don't allow people to harm her in the hospital.
[2023-11-08] MEDS: divalproex DR 250 mg Tablet PO (20:48)
[2023-11-08] MEDS: chlorPROMazine 50 mg Tablet 150 MG PO (20:48)
[2023-11-08] MEDS: quetiapine 25 mg Tablet 50 MG PO (21:30)
[2023-11-08 22:00] VITALS: BP 130/80; PULSE 80; RESP 18; TEMP 36.6; O2SAT 95
[2023-11-09 06:00] VITALS: BP 132/89; PULSE 71; RESP 18; O2SAT 95
[2023-11-09] MEDS: diazePAM 5 mg Tablet PO ×2 (08:02→20:10)
[2023-11-09] MEDS: ARIPiprazole 30 mg Tablet PO (08:02)
[2023-11-09] MEDS: chlorPROMazine 50 mg Tablet 100 MG PO ×2 (08:02→13:46)
[2023-11-09] MEDS: fluoxetine 20 mg Capsule PO (08:02)
[2023-11-09] MEDS: ibuprofen 600 mg Tablet PO (08:03)
[2023-11-09] MEDS: divalproex DR 500 mg Tablet PO ×2 (08:03→20:10)
[2023-11-09] MEDS: hyDROXYzine 25 mg Capsule 50 MG PO (12:19)
[2023-11-09] MEDS: haloperidol 5 mg Tablet PO (13:47)
[2023-11-09 13:54] VITALS: BP 138/97; PULSE 99; RESP 16; TEMP 36.2; O2SAT 96
--- NOTE | 2023-11-09 14:58 | W.PM.NPUPNS ---
Subjective NPU Subjective: Patient presented today reporting that she is sleeping better. We discussed the importance of sleep and she identified that her reported hallucinations worsen when she is not sleeping. We continue to discuss the importance of therapy in contouring her challenges. She continues to report similar issues as when she presented but with less passion and agitation. She denied any side effects of medication. Mental Status Exam MSE Comments: Patient is an overweight versus obese white female in hospital scrubs with poor hygiene and poor eye contact. No abnormal movements except for moderate psychomotor retardation. Cooperative with exam in mild to moderate distress. Speech was decreased rate and volume. Her mood was described as depressed, her affect was mood congruent and slightly less irritable. Thought process was organized. Her thought content: She endorsed suicidal but denied homicidal ideation. There was evidence of significant paranoia and ideas of reference. She did not appear at times to be responding to internal stimuli. Attention and concentration were intact and memory was unreliable but none were formally tested. She was alert and oriented to person, place at this time. Her insight and judgment are poor and her impulse control appeared impaired. Her attention span appeared impaired as well. Vitals/I&O/Wt Last Vital Signs Temp 97.2 F L 11/09/23 13:54 Pulse 99 11/09/23 13:54 Resp 16 11/09/23 13:54 BP 138/97 11/09/23 13:54 Pulse Ox 96 11/09/23 13:54 O2 Del Method Room Air 11/09/23 06:00 O2 Flow Rate 97 10/28/23 06:00 Data NPU 10/24/23 22:23 10/24/23 22:23 A&P Assessment and plan (1) Bipolar disorder with psychotic features: (2) Psychosis: (3) Suicidal ideation: Plan 38-year-old female with a past history of psychosis, likely bipolar d/o with psychotic features or schizoaffective disorder bipolar type admitted involuntarily with increased agitation and suicidal ideation while noncompliant with medication regimen. 1. Encourage individual, group and milieu therapy. 2. Recommend sober living treatment at the highest level of care to which the patient is willing to commit. 3. Continue q-15 minute checks for safety.? 4. Restarted Valium 10mg bid, restarted chlorpromazine and Dapakote. Will explore the presence of the large dose of benzodiazepine as that relates to her possible discharge. 5. Increased Abilify to 30 mg daily and continue propranolol 20 mg p.o. 3 times daily as needed. Started Prozac 20 mg p.o. daily for depression. Added Seroquel 50 to 100 mg p.o. nightly for sleep. 6. Submitted 21-day paperwork. Hearing 11/01/2023. 21-day hold granted. Involuntary Hold Information 96 Hour Hold: 96 Hour Involuntary Admission: Yes 96 Hour Hold Ending Date: 07/19/23 96 Hour Hold Ending Time: 07:48 Attestations NPU Medical Necessity Statement*: Inpatient hospitalization is medically necessary and?the clinically appropriate intervention ?at this time.? We will monitor/initiate medications and make changes as indicated.? The patient?s likely length of stay 5-8 days. Coding Level of Care Code Acute Code for [facility] Fwd Diagnoses Bipolar disorder with psychotic features F31.9 Psychosis F29 Suicidal ideation R45.851
[2023-11-09] MEDS: nicotine 2 mg Gum BUCCAL ×2 (16:58→20:10)
[2023-11-09] MEDS: quetiapine 25 mg Tablet 50 MG PO (20:10)
[2023-11-09] MEDS: chlorPROMazine 50 mg Tablet 150 MG PO (20:10)
[2023-11-09] MEDS: divalproex DR 250 mg Tablet PO (20:10)
[2023-11-09 22:00] VITALS: BP 137/82; PULSE 81; RESP 18; TEMP 36.8; O2SAT 95
[2023-11-10 06:00] VITALS: BP 122/74; PULSE 88; RESP 18; TEMP 36.9; O2SAT 97
[2023-11-10] MEDS: divalproex DR 500 mg Tablet PO ×2 (08:00→20:28)
[2023-11-10] MEDS: ARIPiprazole 30 mg Tablet PO (08:01)
[2023-11-10] MEDS: chlorPROMazine 50 mg Tablet 100 MG PO ×2 (08:01→13:26)
[2023-11-10] MEDS: fluoxetine 20 mg Capsule PO (08:01)
[2023-11-10] MEDS: diazePAM 5 mg Tablet PO ×2 (08:01→20:28)
[2023-11-10] MEDS: hyDROXYzine 25 mg Capsule 50 MG PO (12:27)
[2023-11-10] MEDS: nicotine 2 mg Gum BUCCAL ×2 (13:29→18:22)
[2023-11-10] MEDS: haloperidol 5 mg Tablet PO (13:51)
[2023-11-10 14:00] VITALS: BP 157/91; PULSE 106; RESP 16; TEMP 36.8; O2SAT 97
[2023-11-10] MEDS: OLANZapine 5 mg ODT PO (14:42)
--- NOTE | 2023-11-10 17:32 | P.NPUPN_ITS ---
Subjective NPU 2 Subjective: Patient presented today reporting that she is doing maybe a little better. We discussed that she seemed to have some slight alteration in her continence. She reports is because she was able to talk to her flight deck officer and that was allowing her to get 1 thing checked off of her list of things she needs to do. However we discussed that it seems like something different than that and that we continue to feel strongly that getting engaged in therapy is going to play critical role in her getting better even though she continues to be quite focused on medication as a solution. She denied any side effects of the medication. Mental Status Exam 2 MSE Comments: Patient is an overweight versus obese white female in hospital scrubs with poor hygiene and poor eye contact. No abnormal movements except for moderate psychomotor retardation. Cooperative with exam in mild to moderate distress. Speech was decreased rate and volume. Her mood was described as depressed, her affect was mood congruent and slightly less irritable. Thought process was organized. Her thought content: She endorsed suicidal but denied homicidal ideation. There was evidence of significant paranoia and ideas of reference. She did not appear at times to be responding to internal stimuli. Attention and concentration were intact and memory was unreliable but none were formally tested. She was alert and oriented to person, place at this time. Her insight and judgment are poor and her impulse control appeared impaired. Her attention span appeared impaired as well. Vitals/I&O/Wt Last Vital Signs Temp 98.3 F 11/10/23 14:00 Pulse 106 H 11/10/23 14:00 Resp 16 11/10/23 14:00 BP 157/91 11/10/23 14:00 Pulse Ox 97 11/10/23 14:00 O2 Del Method Room Air 11/10/23 06:00 O2 Flow Rate 97 10/28/23 06:00 Data NPU 10/24/23 22:23 10/24/23 22:23 A&P Assessment and plan (1) Bipolar disorder with psychotic features: (2) Psychosis: (3) Suicidal ideation: Plan 38-year-old female with a past history of psychosis, likely bipolar d/o with psychotic features or schizoaffective disorder bipolar type admitted involuntarily with increased agitation and suicidal ideation while noncompliant with medication regimen. 1. Encourage individual, group and milieu therapy. 2. Recommend sober living treatment at the highest level of care to which the patient is willing to commit. 3. Continue q-15 minute checks for safety.? 4. Restarted Valium 10mg bid, restarted chlorpromazine and Dapakote. Will explore the presence of the large dose of benzodiazepine as that relates to her possible discharge. 5. Increased Abilify to 30 mg daily and continue propranolol 20 mg p.o. 3 times daily as needed. Started Prozac 20 mg p.o. daily for depression. Added Seroquel 50 to 100 mg p.o. nightly for sleep. 6. Submitted 21-day paperwork. Hearing 11/01/2023. 21-day hold granted. Involuntary Hold Information 2 96 Hour Hold: 96 Hour Involuntary Admission: Yes 96 Hour Hold Ending Date: 07/19/23 96 Hour Hold Ending Time: 07:48 Attestations NPU 2 Medical Necessity Statement*: Inpatient hospitalization is medically necessary and?the clinically appropriate intervention ?at this time.? We will monitor/initiate medications and make changes as indicated.? The patient?s likely length of stay 4-7 days. Coding Level of Care Code Acute Code for [facility] [place] Fwd Diagnoses Bipolar disorder with psychotic features F31.9 Psychosis F29 Suicidal ideation R45.851
[2023-11-10] MEDS: quetiapine 25 mg Tablet 50 MG PO (20:28)
[2023-11-10] MEDS: divalproex DR 250 mg Tablet PO (20:28)
[2023-11-10] MEDS: chlorPROMazine 50 mg Tablet 150 MG PO (20:28)
[2023-11-10 22:00] VITALS: BP 155/95; PULSE 85; RESP 18; TEMP 36.4; O2SAT 99
[2023-11-11 06:00] VITALS: BP 147/86; PULSE 82; RESP 18; TEMP 36.6; O2SAT 96
[2023-11-11] MEDS: divalproex DR 500 mg Tablet PO ×2 (08:25→20:41)
[2023-11-11] MEDS: ibuprofen 600 mg Tablet PO (08:25)
[2023-11-11] MEDS: fluoxetine 20 mg Capsule PO (08:25)
[2023-11-11] MEDS: chlorPROMazine 50 mg Tablet 100 MG PO ×2 (08:25→14:32)
[2023-11-11] MEDS: ARIPiprazole 30 mg Tablet PO (08:25)
[2023-11-11] MEDS: diazePAM 5 mg Tablet PO ×2 (08:25→20:42)
[2023-11-11] MEDS: acetaminophen 325 mg Tablet 650 MG PO (12:25)
[2023-11-11] MEDS: hyDROXYzine 25 mg Capsule 50 MG PO (12:53)
[2023-11-11 14:00] VITALS: BP 134/81; PULSE 97; RESP 20; TEMP 36.8; O2SAT 97
[2023-11-11] MEDS: nicotine 2 mg Gum BUCCAL ×2 (14:08→17:31)
[2023-11-11] MEDS: haloperidol 5 mg Tablet PO (14:32)
--- NOTE | 2023-11-11 14:32 | P.NPUPN_ITS ---
Subjective NPU 2 Subjective: Patient presented today reporting that she is continuing to feel better as she is in her mind taking care of things that need to be taking care of. The court case that has had her worried reportedly is going to be resolved at the beginning of the week with a Zoom call here. We continue to have a conversation about DBT and continuing to take greater control over mindfulness. She discussed looking into stoicism and we had a discussion about the importance of her doing the things that are discussed in stoicism primarily being mindful and making decisions and not just reacting. She denied any side effects to her medications. Mental Status Exam 2 MSE Comments: Patient is an overweight versus obese white female in hospital scrubs with poor hygiene and poor eye contact. No abnormal movements except for moderate psychomotor retardation. Cooperative with exam in mild to moderate distress. Speech was decreased rate and volume. Her mood was described as depressed, her affect was mood congruent and slightly less irritable. Thought process was organized. Her thought content: She endorsed suicidal but denied homicidal ideation. There was evidence of significant paranoia and ideas of reference. She did not appear at times to be responding to internal stimuli. Attention and concentration were intact and memory was unreliable but none were formally tested. She was alert and oriented to person, place at this time. Her insight and judgment are poor and her impulse control appeared impaired. Her attention span appeared impaired as well. Vitals/I&O/Wt Last Vital Signs Temp 97.8 F 11/11/23 06:00 Pulse 82 11/11/23 06:00 Resp 18 11/11/23 06:00 BP 147/86 11/11/23 06:00 Pulse Ox 96 11/11/23 06:00 O2 Del Method Room Air 11/11/23 06:00 O2 Flow Rate 97 10/28/23 06:00 Data NPU 10/24/23 22:23 10/24/23 22:23 A&P Assessment and plan (1) Bipolar disorder with psychotic features: (2) Psychosis: (3) Suicidal ideation: Plan 38-year-old female with a past history of psychosis, likely bipolar d/o with psychotic features or schizoaffective disorder bipolar type admitted involuntarily with increased agitation and suicidal ideation while noncompliant with medication regimen. 1. Encourage individual, group and milieu therapy. 2. Recommend sober living treatment at the highest level of care to which the patient is willing to commit. 3. Continue q-15 minute checks for safety.? 4. Restarted Valium 10mg bid, restarted chlorpromazine and Dapakote. Will explore the presence of the large dose of benzodiazepine as that relates to her possible discharge. 5. Increased Abilify to 30 mg daily and continue propranolol 20 mg p.o. 3 times daily as needed. Started Prozac 20 mg p.o. daily for depression. Added Seroquel 50 to 100 mg p.o. nightly for sleep. 6. Submitted 21-day paperwork. Hearing 11/01/2023. 21-day hold granted. Involuntary Hold Information 2 96 Hour Hold: 96 Hour Involuntary Admission: Yes 96 Hour Hold Ending Date: 07/19/23 96 Hour Hold Ending Time: 07:48 Attestations NPU 2 Medical Necessity Statement*: Inpatient hospitalization is medically necessary and?the clinically appropriate intervention ?at this time.? We will monitor/initiate medications and make changes as indicated.? The patient?s likely length of stay 4-7 days. Coding Level of Care Code Acute Code for [facility] Fwd Diagnoses Bipolar disorder with psychotic features F31.9 Psychosis F29 Suicidal ideation R45.851
[2023-11-11] MEDS: OLANZapine 5 mg ODT PO (17:54)
[2023-11-11] MEDS: divalproex DR 250 mg Tablet PO (20:41)
[2023-11-11] MEDS: quetiapine 25 mg Tablet 50 MG PO (20:41)
[2023-11-11] MEDS: chlorPROMazine 50 mg Tablet 150 MG PO (20:42)
[2023-11-11 21:47] VITALS: BP 114/77; PULSE 85; RESP 16; TEMP 36.6; O2SAT 93
[2023-11-12 06:00] VITALS: BP 137/78; PULSE 89; RESP 20; TEMP 36.6; O2SAT 97
[2023-11-12] MEDS: divalproex DR 500 mg Tablet PO ×2 (08:51→20:05)
[2023-11-12] MEDS: ARIPiprazole 30 mg Tablet PO (08:51)
[2023-11-12] MEDS: diazePAM 5 mg Tablet PO ×3 (08:51→20:05)
[2023-11-12] MEDS: chlorPROMazine 50 mg Tablet 100 MG PO ×2 (08:51→14:05)
[2023-11-12] MEDS: fluoxetine 20 mg Capsule PO (08:51)
[2023-11-12] MEDS: nicotine 2 mg Gum BUCCAL ×4 (08:51→19:04)
[2023-11-12] MEDS: haloperidol 5 mg Tablet PO (11:22)
--- NOTE | 2023-11-12 13:08 | PC.NURSE ---
PATIENT STATES THAT HER MIND IS REELING , REQUESTING SOMETHING FOR ANXIETY. ADMINISTERED ZYPREXA 5MG ODT TO PATIENT.
[2023-11-12 14:00] VITALS: BP 138/95; PULSE 114; RESP 16; TEMP 36.4; O2SAT 98
--- NOTE | 2023-11-12 14:13 | PC.NURSE ---
DR. SANTOS GAVE VERBAL ORDER FOR 5MG VALIUM ONCE ONE NOW.
--- NOTE | 2023-11-12 15:37 | P.NPUPN_ITS ---
Subjective NPU 2 Subjective: 38[facility] with psychosis and bayron. She continued to report having extreme anxiety stating that her situation with her children not being with her was intolerable. She had complained of intense anxiety and continued to spend much of her day isolating herself in her room. She had been more tearful on the milieu. She stated that she remained upset over her legal issues and stated that she continued to feel as if people were out to harm her. She continued to report that her worry was spiraling out of control. She had requested simplifying her medication regimen as she stated that she often felt overwhelmed by the number of medications that she was on. Mental Status Exam 2 MSE Comments: Patient is an overweight versus obese white female in hospital scrubs with poor hygiene and poor eye contact. No abnormal movements except for moderate psychomotor retardation. She was cooperative with exam in mild to moderate distress. Speech was productive in rate and volume. Her mood was described as stressed. Her affect was mood congruent and tearful. Thought process was linear and organized. Her thought content: She endorsed suicidal ideation but denied homicidal ideation. There was evidence of significant paranoia and ideas of reference. She did not appear at times to be responding to internal stimuli. Attention and concentration were intact and memory was unreliable but none were formally tested. She was alert and oriented to person, place at this time. Her insight and judgment are poor and her impulse control appeared impaired. Her attention span appeared impaired as well. Vitals/I&O/Wt Last Vital Signs Temp 97.6 F 11/12/23 14:00 Pulse 114 H 11/12/23 14:00 Resp 16 11/12/23 14:00 BP 138/95 11/12/23 14:00 Pulse Ox 98 11/12/23 14:00 O2 Del Method Room Air 11/12/23 14:00 O2 Flow Rate 97 10/28/23 06:00 Data NPU 10/24/23 22:23 10/24/23 22:23 A&P Assessment and plan (1) Bipolar disorder with psychotic features: (2) Psychosis: (3) Suicidal ideation: Plan 38-year-old female with a past history of psychosis, likely bipolar d/o with psychotic features or schizoaffective disorder bipolar type admitted involuntarily with increased agitation and suicidal ideation while noncompliant with medication regimen. 1. Encourage individual, group and milieu therapy. 2. Recommend sober living treatment at the highest level of care to which the patient is willing to commit. 3. Continue q-15 minute checks for safety.? 4. Increase valium to 5mg tid. Continue chlorpromazine and Depakote. Will explore the presence of the large dose of benzodiazepine as that relates to her possible discharge. 5. Continue Abilify 30 mg daily and continue propranolol 20 mg p.o. 3 times daily as needed. Continue Prozac 20 mg p.o. daily for depression. Continue Seroquel 50 to 100 mg p.o. nightly for sleep. 6. 21-day hold granted. Involuntary Hold Information 2 96 Hour Hold: 96 Hour Involuntary Admission: Yes 96 Hour Hold Ending Date: 07/19/23 96 Hour Hold Ending Time: 07:48 Attestations NPU 2 Medical Necessity Statement*: Inpatient hospitalization is medically necessary and?the clinically appropriate intervention ?at this time.? We will monitor/initiate medications and make changes as indicated.? The patient?s likely length of stay 4-7 days. Coding Level of Care Code Acute Code for [facility] Fwd Diagnoses Bipolar disorder with psychotic features F31.9 Psychosis F29 Suicidal ideation R45.851
[2023-11-12] MEDS: chlorPROMazine 50 mg Tablet 150 MG PO (20:05)
[2023-11-12] MEDS: divalproex DR 250 mg Tablet PO (20:05)
[2023-11-12 20:41] VITALS: BP 129/83; PULSE 96; RESP 16; O2SAT 95
[2023-11-12] MEDS: quetiapine 25 mg Tablet 50 MG PO (21:11)
[2023-11-13] MEDS: ibuprofen 600 mg Tablet PO (05:38)
[2023-11-13 06:00] VITALS: BP 126/90; PULSE 104; RESP 18; O2SAT 97
[2023-11-13] MEDS: ARIPiprazole 30 mg Tablet PO (08:19)
[2023-11-13] MEDS: fluoxetine 20 mg Capsule PO (08:19)
[2023-11-13] MEDS: nicotine 2 mg Gum BUCCAL ×2 (08:19→12:24)
[2023-11-13] MEDS: divalproex DR 500 mg Tablet PO ×2 (08:19→21:04)
[2023-11-13] MEDS: diazePAM 5 mg Tablet PO ×3 (08:19→21:04)
[2023-11-13] MEDS: chlorPROMazine 50 mg Tablet 100 MG PO ×2 (08:20→13:13)
--- NOTE | 2023-11-13 12:24 | P.NPUPN_ITS ---
Subjective NPU 2 Subjective: 38[facility] with psychosis and bayron. She continued to report depressed mood and extreme problems with anxiety. She had continued to report continued worries about the future and stated that she felt distrustful of everyone. She reported that she was strongly thinking of euthanasia . She reports that she had destroyed many good things in her life. She had reported that she continued to be motivated to being able to care for her children again. She reported no side effects from the medication and reported decreased anxiety while taking her Valium. Mental Status Exam 2 MSE Comments: Patient is an overweight versus obese white female in hospital scrubs with poor hygiene and poor eye contact. No abnormal movements except for moderate psychomotor retardation. She was cooperative with exam in mild to moderate distress. Speech was productive in rate and volume. Her mood was described as down. Her affect was mood congruent and less tearful. Thought process was linear and organized. Her thought content: She endorsed suicidal ideation but denied homicidal ideation. There was evidence of significant paranoia and ideas of reference. She did not appear to be responding to internal stimuli. Attention and concentration were intact and memory was unreliable but none were formally tested. She was alert and oriented to person, place at this time. Her insight and judgment are poor and her impulse control appeared impaired. Her attention span appeared impaired as well. Vitals/I&O/Wt Last Vital Signs Temp 97.6 F 11/12/23 14:00 Pulse 104 H 11/13/23 06:00 Resp 18 11/13/23 06:00 BP 126/90 11/13/23 06:00 Pulse Ox 97 11/13/23 06:00 O2 Del Method Room Air 11/13/23 06:00 O2 Flow Rate 97 10/28/23 06:00 Weight last 48 hrs Weight 111.584 kg Data NPU 10/24/23 22:23 10/24/23 22:23 A&P Assessment and plan (1) Bipolar disorder with psychotic features: (2) Psychosis: (3) Suicidal ideation: Plan 38-year-old female with a past history of psychosis, likely bipolar d/o with psychotic features or schizoaffective disorder bipolar type admitted involuntarily with increased agitation and suicidal ideation while noncompliant with medication regimen. 1. Encourage individual, group and milieu therapy. 2. Recommend sober living treatment at the highest level of care to which the patient is willing to commit. 3. Continue q-15 minute checks for safety.? 4. Continue valium to 5mg tid. Continue chlorpromazine and Depakote. Will explore the presence of the large dose of benzodiazepine as that relates to her possible discharge. 5. Continue Abilify 30 mg daily and continue propranolol 20 mg p.o. 3 times daily as needed. Continue Prozac 20 mg p.o. daily for depression. Continue Seroquel 50 to 100 mg p.o. nightly for sleep. 6. 21-day hold granted. Involuntary Hold Information 2 96 Hour Hold: 96 Hour Involuntary Admission: Yes 96 Hour Hold Ending Date: 07/19/23 96 Hour Hold Ending Time: 07:48 Attestations NPU 2 Medical Necessity Statement*: Inpatient hospitalization is medically necessary and?the clinically appropriate intervention ?at this time.? We will monitor/initiate medications and make changes as indicated.? The patient?s likely length of stay 4-7 days. Coding Level of Care Code Acute Code for [facility] Fwd Diagnoses Bipolar disorder with psychotic features F31.9 Psychosis F29 Suicidal ideation R45.851
[2023-11-13 14:00] VITALS: BP 151/104; PULSE 102; RESP 16; TEMP 36.6; O2SAT 96
[2023-11-13 19:42] VITALS: BP 143/82; PULSE 97; RESP 16; O2SAT 96
[2023-11-13] MEDS: quetiapine 25 mg Tablet 50 MG PO (21:04)
[2023-11-13] MEDS: divalproex DR 250 mg Tablet PO (21:04)
[2023-11-13] MEDS: chlorPROMazine 50 mg Tablet 150 MG PO (21:04)
[2023-11-13] MEDS: propranolol 20 mg Tablet PO (21:06)
[2023-11-14 06:00] VITALS: BP 149/82; PULSE 69; RESP 16; O2SAT 95
[2023-11-14] MEDS: diazePAM 5 mg Tablet PO ×3 (08:17→20:31)
[2023-11-14] MEDS: propranolol 20 mg Tablet PO ×3 (08:17→20:31)
[2023-11-14] MEDS: fluoxetine 20 mg Capsule PO (08:17)
[2023-11-14] MEDS: chlorPROMazine 50 mg Tablet 100 MG PO ×2 (08:17→14:08)
[2023-11-14] MEDS: ARIPiprazole 30 mg Tablet PO (08:17)
[2023-11-14] MEDS: divalproex DR 500 mg Tablet PO ×2 (08:17→20:34)
--- NOTE | 2023-11-14 08:51 | PC.NURSE ---
PT CURRENTLY DENIES SI/HI/AH/VH. PT CURRENTLY DENIES ANXIETY AND DEPRESSION. PT STATES THAT SHE FEEL ALRIGHT TODAY. PT WAS COOPERATIVE WITH ASSESSMENT AND MEDICATIONS. PT CURRENT NEEDS ARE MET AT THIS TIME.
[2023-11-14] MEDS: nicotine 2 mg Gum BUCCAL ×2 (11:34→16:34)
[2023-11-14] MEDS: OLANZapine 5 mg ODT PO (12:58)
[2023-11-14 14:00] VITALS: BP 113/66; PULSE 77; RESP 16; TEMP 36.5; O2SAT 97
--- NOTE | 2023-11-14 16:48 | P.NPUPN_ITS ---
Subjective NPU 2 Subjective: 38-year-old female with multiple [facility] hospitalizations admitted with psychosis and bayron with a history of bipolar 1 disorder. She had reported continued depressed mood. She had reported continued problems with managing her worry. She was calm and more cooperative on the unit. She had reported that she continued to have some thoughts of suicide and continue to report having thoughts of euthanasia. She had isolated herself on the milieu today. She had continued to report that she did not wish to consider dialectical behavioral therapy to help her manage her chronic thoughts of harming herself as well. Mental Status Exam 2 MSE Comments: Patient is an overweight versus obese white female in hospital scrubs with poor hygiene and poor eye contact. No abnormal movements except for moderate psychomotor retardation. She was cooperative with exam in mild to moderate distress. Speech was productive in rate and volume. Her mood was described as sad. Her affect was mood congruent and tearful. Thought process was linear and organized. Her thought content: She endorsed suicidal ideation but denied homicidal ideation. There was evidence of significant paranoia and ideas of reference. She did not appear to be responding to internal stimuli. Attention and concentration were intact and memory was unreliable but none were formally tested. She was alert and oriented to person, place at this time. Her insight and judgment are poor and her impulse control appeared impaired. Her attention span appeared impaired as well. Vitals/I&O/Wt Last Vital Signs Temp 97.7 F 11/14/23 14:00 Pulse 77 11/14/23 14:00 Resp 16 11/14/23 14:00 BP 113/66 11/14/23 14:00 Pulse Ox 97 11/14/23 14:00 O2 Del Method Room Air 11/14/23 06:00 O2 Flow Rate 97 10/28/23 06:00 Weight last 48 hrs Weight 111.584 kg Data NPU 10/24/23 22:23 10/24/23 22:23 A&P Assessment and plan (1) Bipolar disorder with psychotic features: (2) Psychosis: (3) Suicidal ideation: Plan 38-year-old female with a past history of psychosis, likely bipolar d/o with psychotic features or schizoaffective disorder bipolar type admitted involuntarily with increased agitation and suicidal ideation while noncompliant with medication regimen. 1. Encourage individual, group and milieu therapy. 2. Recommend sober living treatment at the highest level of care to which the patient is willing to commit. 3. Continue q-15 minute checks for safety.? 4. Continue valium to 5mg tid. Continue chlorpromazine and Depakote. 5. Continue Abilify 30 mg daily and continue propranolol 20 mg p.o. 3 times daily as needed. Concern about drug drug interactions particularly with 2d6 with prozac, abilify and chlorpromazine as primary substrates. Discussed with patient and will switch back to zoloft as this medication does not act as a strong inhibitor of 2d6 and less likely to cause a rise in blood levels of abilify AND thorazine. 6. 21-day hold granted. Involuntary Hold Information 2 96 Hour Hold: 96 Hour Involuntary Admission: Yes 96 Hour Hold Ending Date: 07/19/23 96 Hour Hold Ending Time: 07:48 Attestations NPU 2 Medical Necessity Statement*: Inpatient hospitalization is medically necessary and?the clinically appropriate intervention ?at this time.? We will monitor/initiate medications and make changes as indicated.? The patient?s likely length of stay 4-7 days. Coding Level of Care Code Acute Code for Chg Fwd Diagnoses Bipolar disorder with psychotic features F31.9 Psychosis F29 Suicidal ideation R45.851
[2023-11-14] MEDS: divalproex DR 250 mg Tablet PO (20:31)
[2023-11-14] MEDS: chlorPROMazine 50 mg Tablet 150 MG PO (20:32)
[2023-11-14 21:53] VITALS: BP 115/71; PULSE 70; RESP 15; TEMP 36.3; O2SAT 96
[2023-11-15 06:00] VITALS: BP 119/71; PULSE 78; RESP 15; TEMP 36.4; O2SAT 96
[2023-11-15] MEDS: chlorPROMazine 50 mg Tablet 100 MG PO ×2 (08:05→14:44)
[2023-11-15] MEDS: sertraline 50 mg Tablet PO (08:05)
[2023-11-15] MEDS: diazePAM 5 mg Tablet PO ×3 (08:05→20:01)
[2023-11-15] MEDS: propranolol 20 mg Tablet PO ×3 (08:05→20:01)
[2023-11-15] MEDS: ARIPiprazole 30 mg Tablet PO (08:05)
[2023-11-15] MEDS: divalproex DR 500 mg Tablet PO ×2 (08:05→20:00)
[2023-11-15] MEDS: hyDROXYzine 25 mg Capsule 50 MG PO (09:42)
[2023-11-15] MEDS: nicotine 2 mg Gum BUCCAL ×2 (09:44→17:05)
[2023-11-15 14:00] VITALS: BP 109/73; PULSE 72; RESP 16; TEMP 36.8; O2SAT 96
--- NOTE | 2023-11-15 15:08 | P.NPUPN_ITS ---
Subjective NPU 2 Subjective: 38-year-old female with multiple [facility] hospital[facility] admitted with psychosis and bayron with a history of bipolar 1 disorder. She had reported continued depressed mood. The patient had reported that she was feeling better. She reported no current side effects from her medication although she had been stating that she felt sleepy here in the daytime. She had attended a Zoom meeting with her assistant county attorney regarding some legal charges that the patient stated appear to be solved. The patient was apparently informed that she could consider inpatient State hospitalization psychiatrically removal of having to face further charges in [place]. Patient had reported that she had been in the [facility] hospital before and she would prefer to go home to her ex-. She continues to report having struggles with managing her anxiety and reported some significant history of trauma that the patient had reported that led to her distrusting others. Mental Status Exam 2 MSE Comments: Patient is an overweight versus obese, white female in hospital scrubs with poor hygiene and poor eye contact. No abnormal movements except for moderate psychomotor retardation. She was cooperative with exam in mild distress. Speech was productive in rate and volume. Her mood was described as down. Her affect was restricted in range. Thought process was linear and organized. Her thought content: She endorsed suicidal ideation but denied homicidal ideation. The patient described being evil. She did not appear to be responding to internal stimuli. Attention and concentration were intact and memory was unreliable but none were formally tested. She was alert and oriented to person, place at this time. Her insight and judgment are poor and her impulse control appeared impaired. Her attention span appeared impaired as well. Vitals/I&O/Wt Last Vital Signs Temp 98.3 F 11/15/23 14:00 Pulse 72 11/15/23 14:00 Resp 16 11/15/23 14:00 BP 109/73 11/15/23 14:00 Pulse Ox 96 11/15/23 14:00 O2 Del Method Room Air 11/15/23 14:00 O2 Flow Rate 97 10/28/23 06:00 Data NPU 10/24/23 22:23 10/24/23 22:23 A&P Assessment and plan (1) Bipolar I disorder with mood-congruent psychotic features: (2) Bipolar disorder with psychotic features: (3) Psychosis: (4) Suicidal ideation: Plan 38-year-old female with a past history of psychosis, likely bipolar d/o with psychotic features or schizoaffective disorder bipolar type admitted involuntarily with increased agitation and suicidal ideation while noncompliant with medication regimen. 1. Encourage individual, group and milieu therapy. 2. Recommend sober living treatment at the highest level of care to which the patient is willing to commit. 3. Continue q-15 minute checks for safety.? 4. Continue valium to 5mg tid. Continue chlorpromazine and Depakote. 5. Continue Abilify 30 mg daily and continue propranolol 20 mg p.o. 3 times daily as needed. Concern about drug drug interactions particularly with 2d6 with prozac, abilify and chlorpromazine as primary substrates. Discussed with patient and will switch back to zoloft as this medication does not act as a strong inhibitor of 2d6 and less likely to cause a rise in blood levels of abilify AND thorazine. 6. 21-day hold granted. Involuntary Hold Information 2 96 Hour Hold: 96 Hour Involuntary Admission: Yes 96 Hour Hold Ending Date: 07/19/23 96 Hour Hold Ending Time: 07:48 Attestations NPU 2 Medical Necessity Statement*: Inpatient hospitalization is medically necessary and?the clinically appropriate intervention ?at this time.? We will monitor/initiate medications and make changes as indicated.? The patient?s likely length of stay 4-7 days. Coding Level of Care Code Acute Code for g Fwd Diagnoses Bipolar I disorder with mood-congruent psychotic features F31.9 Bipolar disorder with psychotic features F31.9 Psychosis F29 Suicidal ideation R45.851
[2023-11-15] MEDS: chlorPROMazine 50 mg Tablet 150 MG PO (20:01)
[2023-11-15] MEDS: divalproex DR 250 mg Tablet PO (20:01)
[2023-11-15] MEDS: quetiapine 25 mg Tablet 50 MG PO (20:04)
[2023-11-15 21:28] VITALS: BP 118/78; PULSE 70; RESP 15; O2SAT 97
[2023-11-16 06:00] VITALS: BP 155/85; PULSE 68; RESP 13; TEMP 36.4; O2SAT 96
[2023-11-16] MEDS: chlorPROMazine 50 mg Tablet 100 MG PO ×2 (08:15→14:26)
[2023-11-16] MEDS: ARIPiprazole 30 mg Tablet PO (08:16)
[2023-11-16] MEDS: sertraline 50 mg Tablet PO (08:16)
[2023-11-16] MEDS: divalproex DR 500 mg Tablet PO (08:16)
[2023-11-16] MEDS: diazePAM 5 mg Tablet PO ×2 (08:16→14:26)
[2023-11-16] MEDS: propranolol 20 mg Tablet PO ×2 (08:16→14:26)
[2023-11-16] MEDS: nicotine 2 mg Gum BUCCAL ×3 (11:14→15:53)
[2023-11-16] MEDS: OLANZapine 5 mg ODT PO (13:02)
[2023-11-16] MEDS: ondansetron 4 MG Tablet PO (13:41)
[2023-11-16 14:00] VITALS: BP 124/87; PULSE 87; RESP 18; TEMP 36.4; O2SAT 99
--- NOTE | 2023-11-16 15:06 | P.NPUPN_ITS ---
Subjective NPU 2 Subjective: 38-year-old female with multiple [facility] hospitalizations admitted with psychosis and bayron with a history of bipolar 1 disorder. Patient had signed paperwork allowing the [place] court system to examine the patient's records to determine whether she may require a court order to go to the [facility]. She had expressed desire to go live with her ex- and remain in [place]. She had stated that she would remain compliant with her medication regimen. She had continued to struggle with maintaining emotional control with significant periods of intense mood swings. She had been more redirectable but complained of significant anxiety. She had reported feeling a little more hopeful. She had described having a negative outlook on the future despite stating she was more hopeful. She reported adequate sleep but continue to report having intense periods of anxiety with difficulty sleep with managing stress. She had acknowledged that she had poor coping skills. She had again refused to consider DBT as an option for her to manage her emotional dyscontrol. Mental Status Exam 2 MSE Comments: Patient is an overweight versus obese, white female in hospital scrubs with improved hygiene and poor eye contact. No abnormal movements except for mild psychomotor retardation. She was cooperative with exam in mild distress. Speech was productive in rate and volume. Her mood was described as down. Her affect was restricted in range. Thought process was linear and organized. Her thought content: She endorsed no active suicidal ideation but denied homicidal ideation. T She did not appear to be responding to internal stimuli. Attention and concentration were intact and memory was unreliable but none were formally tested. She was alert and oriented to person, place at this time. Her insight and judgment are poor and her impulse control appeared impaired. Her attention span appeared impaired as well. Vitals/I&O/Wt Last Vital Signs Temp 97.5 F L 11/16/23 14:00 Pulse 87 11/16/23 14:00 Resp 18 11/16/23 14:00 BP 124/87 11/16/23 14:00 Pulse Ox 99 11/16/23 14:00 O2 Del Method Room Air 11/16/23 06:00 O2 Flow Rate 97 10/28/23 06:00 Data NPU 10/24/23 22:23 10/24/23 22:23 A&P Assessment and plan (1) Bipolar I disorder with mood-congruent psychotic features: (2) Bipolar disorder with psychotic features: (3) Psychosis: (4) Suicidal ideation: Plan 38-year-old female with a past history of psychosis, likely bipolar d/o with psychotic features or schizoaffective disorder bipolar type admitted involuntarily with increased agitation and suicidal ideation while noncompliant with medication regimen. 1. Encourage individual, group and milieu therapy. 2. Recommend sober living treatment at the highest level of care to which the patient is willing to commit. 3. Continue q-15 minute checks for safety.? 4. Continue valium 10mg bid Continue chlorpromazine and Depakote. 5. Continue Abilify 30 mg daily and continue propranolol 20 mg p.o. 3 times daily as needed. Concern about drug drug interactions particularly with 2d6 with prozac, abilify and chlorpromazine as primary substrates. Discussed with patient and will switch back to zoloft as this medication does not act as a strong inhibitor of 2d6 and less likely to cause a rise in blood levels of abilify AND thorazine. 6. 21-day hold granted. LFT's, depakote level in am, Involuntary Hold Information 2 96 Hour Hold: 96 Hour Involuntary Admission: Yes 96 Hour Hold Ending Date: 07/19/23 96 Hour Hold Ending Time: 07:48 Attestations NPU 2 Medical Necessity Statement*: Inpatient hospitalization is medically necessary and?the clinically appropriate intervention ?at this time.? We will monitor/initiate medications and make changes as indicated.? The patient?s likely length of stay 2-3 days. Coding Level of Care Code Acute Code for [facility] Diagnoses Bipolar I disorder with mood-congruent psychotic features F31.9 Bipolar disorder with psychotic features F31.9 Psychosis F29 Suicidal ideation R45.851
[2023-11-16] MEDS: sertraline 50 mg Tablet 25 MG PO (15:52)
--- NOTE | 2023-11-16 16:07 | PC.SOCIAL ---
IMM updated IMM dated and given to patient, copy placed in chart
--- NOTE | 2023-11-16 16:37 | DCPLANNER ---
Pt notified and IMM rights explained to pt and given to pt and copy placed in file
[2023-11-16 17:48] VITALS: BP 124/87; PULSE 87; RESP 18; TEMP 36.4; O2SAT 99
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
== END 2023-11-16 18:09 | disposition home or self-care (01) | DRG 885 ==
LOC: ER 10-25 06:53 → NP 10-25 08:51
PROVIDERS: Emergency Medicine; Admitting Provider Psychiatry & Neurology Psychiatry; Emergency Provider Family Medicine; Visit Provider Psychiatry & Neurology Psychiatry
DX: F31.5 Bipolar disorder, current episode depressed, severe, with psychotic features (principal); R45.851 Suicidal ideations; Z91.148 Patient's other noncompliance with medication regimen for other reason; F41.9 Anxiety disorder, unspecified
CPT/HCPCS: 36415; 80053; 80306; 80307; 81001; 81025; 84443; 85025; 93005; 96372; 96374; 97165; 99284; 99285; J1200; J1630; J2060; J3486; Q0161; Q0162

== ENCOUNTER 2024-02-25 15:53 | Emergency (ER) | payer MEDICARE, MEDICAID, SELFPAY ==
[2024-02-25 16:13] VITALS: BP 152/92; PULSE 118; RESP 17; TEMP 36.6; O2SAT 95; BMI 41.7
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
[2024-02-25] MEDS: tetanus-dipt-pertussis 0.5 mL SDV IM (20:37)
[2024-02-25 20:44] LABS: Basophils # 0.1 10^3/uL (0.0-0.1); Basophils % 0.6 %; Eosinophils # 0.1 10^3/uL (0.0-0.8); Eosinophils % 0.7 %; Hematocrit 42.2 % (36-47); Mean Corpuscular HGB Conc 32.7 g/dL (30-55); Mean Corpuscular Hemoglobin 28.9 pg (27-33); Mean Corpuscular Volume 88.3 fl (85-98); Mean Platelet Volume 9.8 fL (7.4-10.4); Monocytes # 0.9 10^3/uL (0.2-0.9); Monocytes % 7.5 %; Neutrophils # 8.25 10^3/uL (1.8-7.7); Nucleated Red Blood Cells % 0 %; Platelet Count 312 10^3/cmm (157-399); Red Blood Count 4.78 10^6/uL (3.85-5.65); Red Cell Distribution Width 13.3 % (12.1-15.1); White Blood Count 12.33 10^3/uL (3.29-11.43)
[2024-02-25 21:02] LABS: Alanine Aminotransferase 27 U/L (0-33); Albumin Level 4.5 g/dL (3.5-5.2); Alkaline Phosphatase 63 U/L (35-105); Anion Gap 16.4 (5-19); Aspartate Amino Transferase 14 U/L (0-32); Blood Urea Nitrogen 14 mg/dL (6-20); Carbon Dioxide 18 mmol/L (22-29); Chloride 104 mmol/L (98-107); Globulin 2.9 g/dL (1.3-4.6); Glomerular Filtration Rate 69.3 mL/min (90-130); Glucose 119 mg/dL (65-115); Osmolality Calculated 282 mOsm/kg (285-295); Potassium 3.4 mmol/L (3.5-5.1); Sodium 135 mmol/L (136-145); Total Bilirubin 0.5 mg/dL (0.15-1.2); Total Protein 7.4 g/dL (6.6-8.7)
[2024-02-25 21:28] LABS: HCG Qualitative Urine. Negative (Negative)
[2024-02-25 21:36] LABS: Bilirubin Urine Negative (Negative); Blood Urine 2+ (Negative); Glucose Urine UA Negative (Normal); Ketones Urine Negative (Negative); Leukocyte Esterase Urine 1+ (Negative); Nitrate Urine Negative (Negative); Protein Urine Trace (Negative); Specific Gravity, Urine 1.028 (1.005-1.030); Urine Appearance Cloudy (CLEAR); Urine Color Yellow (Yellow)
[2024-02-25 21:41] LABS: Add Urine Microscopic? YES; Bacteria Urine 4+ /hpf; Hyaline Casts Urine 1.65 /lpf; RBC Urine 0-2 /hpf (0-2); Squamous Epithelial Cell Urine 21-50 /hpf (0-5); WBC Urine 21-50 /hpf (0-5)
[2024-02-25 21:42] LABS: Add Urine Culture? No
[2024-02-25 21:44] LABS: Amphetamines Screen Urine Negative (Negative); Barbiturates Screen Urine Negative (Negative); Benzodiazepines Screen Urine Positive (Negative); Cocaine Screen Urine Negative (Negative); Opiate Screen Urine Negative (Negative); PCP Screen Urine Negative (Negative); THC Screen Urine Positive (Negative)
[2024-02-25 22:38] VITALS: BP 148/92; PULSE 110; RESP 16; O2SAT 96
== END 2024-02-25 22:42 | disposition home or self-care (01) ==
PROVIDERS: Emergency Provider Nurse Practitioner; PCP Family Medicine
DX: M54.2 Cervicalgia (principal); M54.50 Low back pain, unspecified; S00.411A Abrasion of right ear, initial encounter; S19.9XXA Unspecified injury of neck, initial encounter; S39.92XA Unspecified injury of lower back, initial encounter; S09.93XA Unspecified injury of face, initial encounter; Y07.010 Husband, current, perpetrator of maltreatment and neglect; Y09 Assault by unspecified means; Z23 Encounter for immunization
CPT/HCPCS: 36415; 70486; 72125; 72131; 80053; 80306; 81001; 81025; 85025; 90471; 90715; 99284

== ENCOUNTER 2024-03-12 12:07 | Inpatient (IN) | payer MEDICARE, MEDICAID, SELFPAY ==
[2024-03-12 12:15] VITALS: BP 129/89; PULSE 101; RESP 18; TEMP 36.9; O2SAT 97
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
[2024-03-12 12:43] LABS: HCG Qualitative Urine. Negative (Negative)
[2024-03-12 12:49] LABS: Amphetamines Screen Urine Negative (Negative); Barbiturates Screen Urine Negative (Negative); Benzodiazepines Screen Urine Positive (Negative); Cocaine Screen Urine Negative (Negative); Opiate Screen Urine Negative (Negative); PCP Screen Urine Negative (Negative); THC Screen Urine Positive (Negative)
[2024-03-12 13:19] LABS: Basophils # 0.1 10^3/uL (0.0-0.1); Basophils % 0.7 %; Eosinophils # 0.1 10^3/uL (0.0-0.8); Eosinophils % 1.2 %; Lymphocytes # 2.3 10^3/uL (0.8-4.8); Mean Corpuscular Hemoglobin 29.1 pg (27-33); Mean Corpuscular Volume 85.7 fl (85-98); Mean Platelet Volume 9.9 fL (7.4-10.4); Monocytes # 0.8 10^3/uL (0.2-0.9); Monocytes % 7.6 %; Neutrophils # 6.78 10^3/uL (1.8-7.7); Neutrophils % 67.3 %; Nucleated Red Blood Cells % 0 %; Platelet Count 446 10^3/cmm (157-399); Red Blood Count 5.25 10^6/uL (3.85-5.65); Red Cell Distribution Width 13.2 % (12.1-15.1); White Blood Count 10.08 10^3/uL (3.29-11.43)
[2024-03-12 13:38] LABS: Valproic Acid Level 2.8 ug/mL (50-100)
[2024-03-12 13:41] LABS: Acetaminophen < 5.0 ug/mL (10-30); Alanine Aminotransferase 27 U/L (0-33); Albumin Level 4.6 g/dL (3.5-5.2); Alcohol Level < 10 mg/dL (0-10); Alkaline Phosphatase 79 U/L (35-105); Anion Gap 16.3 (5-19); Aspartate Amino Transferase 17 U/L (0-32); Blood Urea Nitrogen 10 mg/dL (6-20); Carbon Dioxide 22 mmol/L (22-29); Chloride 103 mmol/L (98-107); Glomerular Filtration Rate 79.4 mL/min (90-130); Glucose 102 mg/dL (65-115); Osmolality Calculated 285 mOsm/kg (285-295); Potassium 3.3 mmol/L (3.5-5.1); Salicylate < 0.3 mg/dL (3-10); Sodium 138 mmol/L (136-145); Total Bilirubin 0.4 mg/dL (0.15-1.2); Total Protein 7.6 g/dL (6.6-8.7)
--- NOTE | 2024-03-12 14:14 | PC.NURSE ---
96 hour hold rights read to patient. Alberto from security present during reading of rights. Patient stated I can't be on a hold, what about my Fucking Kids? This nurse asked patient what she meant by that. Patient would not respond at this time. Attempted to give patient a copy of her rights, but patient refused to take a copy.
[2024-03-12 15:42] VITALS: BP 149/108; PULSE 93; RESP 18; TEMP 36.6; O2SAT 99
[2024-03-12 15:56] VITALS: BP 126/90; PULSE 90; RESP 18; O2SAT 97
[2024-03-12] MEDS: nicotine 21 mg Patch 1 PATCH TRANSDERMA (16:23)
[2024-03-12] MEDS: OLANZapine 5 mg ODT PO (16:30)
[2024-03-12] MEDS: propranolol 20 mg Tablet PO ×2 (16:30→20:23)
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
[2024-03-12] MEDS: lithium carbonate 300 mg Capsule PO (18:11)
[2024-03-12] MEDS: topiramate 100 mg Tablet PO (18:11)
[2024-03-12] MEDS: paliperidone ER 6 mg Tablet PO (18:11)
--- NOTE | 2024-03-12 18:18 | PC.NURSE ---
Dc's number is [phone] Mando's number is [phone]
[2024-03-12] MEDS: haloperidol 5 mg Tablet PO (19:03)
[2024-03-12] MEDS: trazodone 50 mg Tablet PO (20:22)
[2024-03-12] MEDS: CLONazepam 1 mg Tablet 2 MG PO (20:22)
[2024-03-12] MEDS: chlorPROMazine 50 mg Tablet 150 MG PO (20:23)
[2024-03-12 20:26] VITALS: BP 112/73; PULSE 80; RESP 15; O2SAT 97
[2024-03-13 06:00] VITALS: BP 145/94; PULSE 80; RESP 18; O2SAT 97
[2024-03-13] MEDS: chlorPROMazine 50 mg Tablet 100 MG PO ×2 (06:39→14:45)
[2024-03-13] MEDS: acetaminophen 325 mg Tablet 650 MG PO (06:46)
[2024-03-13] MEDS: paliperidone ER 6 mg Tablet PO ×2 (08:19→21:45)
[2024-03-13] MEDS: topiramate 100 mg Tablet PO ×2 (08:19→21:45)
[2024-03-13] MEDS: lithium carbonate 300 mg Capsule PO ×2 (08:19→21:46)
[2024-03-13] MEDS: OLANZapine 5 mg ODT PO ×2 (08:19→14:46)
[2024-03-13] MEDS: sertraline 100 mg Tablet PO (08:19)
[2024-03-13] MEDS: propranolol 20 mg Tablet PO ×3 (08:19→21:45)
[2024-03-13] MEDS: nicotine 2 mg Gum BUCCAL ×2 (08:21→16:00)
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
[2024-03-13] MEDS: haloperidol 5 mg Tablet PO ×2 (12:19→16:00)
[2024-03-13 14:00] VITALS: BP 114/74; PULSE 76; RESP 18; TEMP 36.6; O2SAT 97
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
[2024-03-13] MEDS: diazePAM 5 mg Tablet 10 MG PO (16:46)
[2024-03-13 19:47] VITALS: BP 101/66; PULSE 75; RESP 18; TEMP 36.3; O2SAT 97
[2024-03-13] MEDS: trazodone 50 mg Tablet PO (21:45)
[2024-03-13] MEDS: chlorPROMazine 50 mg Tablet 150 MG PO (21:45)
[2024-03-13] MEDS: CLONazepam 1 mg Tablet 2 MG PO (21:45)
[2024-03-14 06:00] VITALS: BP 126/75; PULSE 80; RESP 18; TEMP 36.9; O2SAT 95
[2024-03-14] MEDS: topiramate 100 mg Tablet PO ×2 (08:22→21:04)
[2024-03-14] MEDS: paliperidone ER 6 mg Tablet PO ×2 (08:22→21:04)
[2024-03-14] MEDS: lithium carbonate 300 mg Capsule PO ×2 (08:22→21:04)
[2024-03-14] MEDS: sertraline 100 mg Tablet PO (08:22)
[2024-03-14] MEDS: chlorPROMazine 50 mg Tablet 100 MG PO ×2 (08:22→15:10)
[2024-03-14] MEDS: propranolol 20 mg Tablet PO ×3 (08:22→21:04)
[2024-03-14] MEDS: nicotine 2 mg Gum BUCCAL ×2 (08:50→15:10)
[2024-03-14] MEDS: acetaminophen 325 mg Tablet 650 MG PO (09:25)
[2024-03-14] MEDS: diazePAM 5 mg Tablet 10 MG PO (10:52)
[2024-03-14 14:00] VITALS: BP 117/80; PULSE 87; RESP 16; TEMP 36.7; O2SAT 98
[2024-03-14] MEDS: haloperidol 5 mg Tablet PO (16:04)
--- NOTE | 2024-03-14 18:37 | P.NPUPN_ITS ---
Subjective NPU 2 Subjective: 38-year-old [facility] with psychosis and [place] with a history of bipolar 1 disorder. The patient had been agreeable to restarting her previous medications and reported that the Valium had been helpful for anxiety. She reported less confusion but stated that she still wanted to be close to her children. She had continued to report that her was the antichrist. She had continued to show evidence of poor frustration tolerance with periods of agitation requiring as needed medications. She had been agreeable to restarting her current medications and stated that she continued to be worried about potentially being placed under guardianship. Patient had stated that her had recommended that the patient receive guardianship as he had stated that she was incapable of caring for herself or her children. Patient had appeared more anxious. She had reported that her thoughts were racing at times and continue to report having problems with controlling her anger. She had acknowledged having voices in her head but stated that they were better controlled with her current medication regimen. Mental Status Exam 2 MSE Comments: Patient is an overweight versus obese white female in hospital scrubs with poor hygiene and poor eye contact. No abnormal movements except for moderate psychomotor retardation. She was cooperative with exam moderate to severe distress. Speech was productive in rate and normal in volume. Her mood was described as upset. Her affect was dysphoric. Thought process was linear and organized. Her thought content: She endorsed suicidal ideation but denied homicidal ideation. There was evidence of significant paranoia and ideas of reference. She did not appear at times to be responding to internal stimuli. Attention and concentration were intact and memory was unreliable but none were formally tested. She was alert and oriented to person, place at this time. Her insight and judgment are poor and her impulse control appeared impaired. Her attention span appeared impaired as well. Vitals/I&O/Wt Last Vital Signs Temp 98.1 F 03/14/24 14:00 Pulse 87 03/14/24 14:00 Resp 16 03/14/24 14:00 BP 117/80 03/14/24 14:00 Pulse Ox 98 03/14/24 14:00 O2 Del Method Room Air 03/14/24 14:00 Data NPU 03/12/24 13:13 03/12/24 13:13 A&P Assessment and plan (1) Bipolar I disorder with mood-congruent psychotic features: (2) Bipolar disorder with psychotic features: (3) Psychosis: (4) Suicidal ideation: Plan 38-year-old female with a past history of psychosis, with history of Bipolar Disorder I or schizoaffective disorder admitted with psychosis and suicidal ideation in context of recently running out of medications. 1. Encourage individual, group and milieu therapy. 2. Recommend sober living treatment at the highest level of care to which the patient is willing to commit. 3. Continue q-15 minute checks for safety.? 4. Continue invega 6mg bid, and lithium as prescribed at 300mg bid. Continue valium 10mg in am, 20mg at night, restart Chlorpromazine 100mg in am, 100mg in afternoon, 150mg at night, zoloft 100mg daily, propranolol 20mg tid. 5. Attempt to gather collateral information , Involuntary Hold Information 2 96 Hour Hold: 96 Hour Involuntary Admission: Yes 96 Hour Hold Ending Date: 03/16/25 96 Hour Hold Ending Time: 12:20 Other Hold: Hold End Date: 03/16/24 Attestations NPU 2 Medical Necessity Statement*: Inpatient hospitalization is medically necessary and deemed to ?be ?the clinically appropriate intervention ?at this time.? We will monitor/initiate medications and make changes as indicated.? The patient?s likely length of stay 7-10 days. Coding Level of Care Code Acute Code for g Fwd Diagnoses Bipolar I disorder with mood-congruent psychotic features F31.9 Bipolar disorder with psychotic features F31.9 Psychosis F29 Suicidal ideation R45.851
[2024-03-14 20:13] VITALS: BP 122/84; PULSE 76; RESP 16; TEMP 36.3; O2SAT 98
[2024-03-14] MEDS: chlorPROMazine 50 mg Tablet 150 MG PO (21:03)
[2024-03-14] MEDS: trazodone 50 mg Tablet PO (21:04)
[2024-03-14] MEDS: diazePAM 5 mg Tablet 20 MG PO (21:04)
[2024-03-15 06:00] VITALS: BP 164/92; PULSE 81; RESP 18; TEMP 36.8; O2SAT 97
[2024-03-15] MEDS: chlorPROMazine 50 mg Tablet 100 MG PO (06:41)
[2024-03-15] MEDS: topiramate 100 mg Tablet PO (08:01)
[2024-03-15] MEDS: lithium carbonate 300 mg Capsule PO (08:01)
[2024-03-15] MEDS: diazePAM 5 mg Tablet 10 MG PO (08:01)
[2024-03-15] MEDS: propranolol 20 mg Tablet PO (08:02)
[2024-03-15] MEDS: sertraline 100 mg Tablet PO (08:02)
[2024-03-15] MEDS: paliperidone ER 6 mg Tablet PO (08:04)
--- NOTE | 2024-03-15 09:53 | PC.NURSE ---
PT CURRENTLY DENIES SI/HI/AH/VH. PT CURRENTLY ENDORSES ANXIETY AND DEPRESSION RATING BOTH AN 8/10 ON A 0-10 SCALE WHERE 0 IS NONE AND 10 IS THE WORST POSSIBLE. PT WAS LABILE DURING ASSESSMENT GOING FROM TEARFUL TO YELLING THROUGH GRITTED TEETH. PT WAS COOPERATIVE WITH ASSESSMENT. PT WAS INITIALLY UNWILLING TO MEDICATIONS. THEN PT TOOK ALL MEDICATIONS EXCEPT FOR HER INVEGA. AFTER SPEAKING WITH PT PT INEVITABLY TOOK HER INVEGA STATING WHAT THE HELL I MIGHT WELL TAKE IT. PT CURRENT NEEDS ARE MET AT THIS TIME.
[2024-03-15] MEDS: haloperidol 5 mg Tablet PO (13:17)
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
[2024-03-15 13:55] VITALS: BP 164/92; PULSE 116; RESP 18; TEMP 36.8; O2SAT 97
--- NOTE | 2024-03-15 14:01 | DCPLANNER ---
IMM was given to pt and rights explained and copy placed in pts file.
== END 2024-03-15 15:18 | disposition home or self-care (01) | DRG 885 ==
LOC: ER 14:02 → NP 14:38
PROVIDERS: Admitting Provider Psychiatry & Neurology Psychiatry; Emergency Provider Emergency Medicine; PCP Family Medicine; Visit Provider Psychiatry & Neurology Psychiatry
DX: F31.9 Bipolar disorder, unspecified (principal); R45.851 Suicidal ideations; F29 Unspecified psychosis not due to a substance or known physiological condition; F60.3 Borderline personality disorder; T43.596A Underdosing of other antipsychotics and neuroleptics, initial encounter; E66.9 Obesity, unspecified; Z68.34 Body mass index [BMI] 34.0-34.9, adult
CPT/HCPCS: 36415; 80053; 80164; 80306; 80307; 81025; 85025; 97150; 97165; 99285; Q0161

== ENCOUNTER 2025-03-22 13:50 | Inpatient (IN) | payer MEDICARE, MEDICAID, SELFPAY ==
[2025-03-22 13:51] VITALS: BMI 30.9
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
--- OUTSIDE RECORDS SUMMARY | 2025-03-22 13:58 | XMS_ITS | Data Portability ---
Author Organization [place] [facility] [place], autoContract Address [address], [place] [address] Care Team Providers Care Architectural Examiner Name Role Phone COMFORT TARIQ Referring Provider Unavailable Unavailable Referring Provider Unavailable [facility] OTHER Assessment Encounter Date Assessment Date Assessment LastModified by Organization Details LastModified Time 05/04/2018 05/04/2018 retirement Psych and relationship dependency/cont rolling problems. Recent psych admission and started on Zyprexa. Will need to watch for expected continued weight gain. Not available 05/10/2018 12:35:48 Plan of Treatment Reminders Order Date Submit Date Provider Last Modified By Organization Details Last Modified Time Details Appointments None recorded. Lab None recorded. Referral mental health counselor referral 2021 022 SHIRIN Monte, [address] [facility] [place], [address], 2 01:46:57 Procedures None recorded. Surgeries None recorded. Imaging None recorded. Medication Orders sertraline 100 mg tablet 2020 021 tacho [facility], [address] [place] [address], [id number], 2 09:53:40 sertraline 100 mg tablet 2020 021 tacho [facility], [address] [place], [id number], 2 09:53:40 hydroxyzine pamoate 25 mg capsule 2017 018 [facility] [address], [address] [facility] [address], [place], [address], 0 15:01:24 sertraline 100 mg tablet 2017 Nella loya [facility] [address], [address], [place], [address], 2 09:53:40 Patient TargetsNo targets recorded. Patient Instructions Encounter Date Encounter Id Patient Instructions Last Modified By Organization Details Last Modified Time 05/04/2018 [id number] d/c Lorazepam an d HCTZ , rty Zoloft qhs and hold Ambien only if needed. Not available 05/04/2018 12:19:02 Need to watch fo r expected weight gain with recent high dose Zyprexa. Follow up with local Psych, sounds like she needs to get out of the house and away from her controlling soon to be Ex. ?? Not available 05/10/2018 12:38:13 06/04/2019 [id number] high blood pressure: care instructions roetucker Not available 06/04/2019 15:13:56 learning about high blood pressure roetucker Not available 06/04/2019 15:13:56 BP is ok Keep f/ u with OB- DrMary Lima Return as needed roethakeem Not available 06/04/2019 15:10:47 05/21/2020 [id number] palpitations: care instructions roetucker Not available 05/21/2020 11:44:37 high blood pressure: care instructions kstucker Not available 05/21/2020 11:44:37 learning about high blood pressure kstucker Not available 05/21/2020 11:44:37 Increase Zoloft F/U in 4 weeks kstucker Not available 05/21/2020 22:52:30 07/24/2020 [id number] insomnia: care instructions kstucker Not available 07/24/2020 16:45:18 high blood pressure: care instructions kstucker Not available 07/24/2020 16:45:18 learning about high blood pressure kstucker Not available 07/24/2020 16:45:18 Will check labs today Increase Zoloft BP is ok F/U in 4 weeks [email or web address] Not available 08/17/2020 23:16:36 10/09/2021 [id number] post-traumatic stress disorder (PTSD): care instructions roetomekahakeem Not available 10/09/2021 10:21:42 Refer for mental health Cont current meds Will check labs today F/U in 6 months or sooner if needed roethakeem Not available 10/09/2021 13:58:41 Reason for Referral Mental Health Counselor Refe rral for Bipolar II disorder Referring Physician: Comfort Tariq, Family Medicine, Encounter Date: 10/09/2021 Results Created Date Observation Date Name Description Value Unit Range Abnormal Flag Note LastModifiedBy Organization Detail LastModifiedTime 04/12/20 18 04/12/2018 HCG preg ur ql HCG preg ur ql NEGATI VE Not Available [facility] [employer] [facility] [address], [place], [address], 04/12/2018 16:29:58 04/12/20 18 04/12/2018 urine drug scree n urine amphetamine detection by screening method NEGATI VE neg Not Available [facility] [address], [place], [address], 04/12/2018 16:33:29 04/12/20 18 04/12/2018 urine drug scree n urine barbiturates detection by screening method NEGATI VE neg Not Available [facility] [address], [place], [address], 04/12/2018 16:33:29 04/12/20 18 04/12/2018 urine drug scree n urine benzodiazepi dileep detection by screening method POSITI VE neg high Not Available [facility] [address], [place], [address], 04/12/2018 16:33:29 04/12/20 18 04/12/2018 urine drug scree n urine cocaine detection by screening method NEGATI VE neg Not Available [facility] [address], [place], [address], 04/12/2018 16:33:29 04/12/20 18 04/12/2018 urine drug scree n urine opiates detection by screening method Negati ve neg Not Available [facility] [address], [place], [address], 04/12/2018 16:33:29 04/12/20 18 04/12/2018 urine drug scree n urine phencyclidin e detection by screening method NEGATI VE neg Not Available [facility] [address], [place], [address], 04/12/2018 16:33:29 04/12/20 18 04/12/2018 urine drug scree n urine cannabinoids detection by screening method POSITI VE neg high Not Available [facility] [address], [place], [address], 04/12/2018 16:33:29 04/12/20 18 04/12/2018 urine drug scree n urine oxycodone detection NEGATI VE neg Not Available [facility] [address], [place], [address], 04/12/2018 16:33:29 04/12/20 18 04/12/2018 urine drug scree n MDMA ur screen Negati ve neg Not Available [facility] [address], [place], [address], 04/12/2018 16:33:29 04/12/20 18 04/12/2018 urine drug scree n urine propoxyphene detection by screening method Negati ve neg Not Available [facility] [address], [place], [address], 04/12/2018 16:33:29 04/12/20 18 04/12/2018 urine drug scree n tricyclics serpl ql Negati ve neg Not Available [facility] [address], [place], [address], 04/12/2018 16:33:29 04/12/20 18 04/12/2018 CBC w/ auto diff blood leukocytes automated count (number/volu me) 14.5 10*3/ uL 4.5-11 .0 high Not Available [facility] [address], [place], [address], 04/12/2018 16:38:28 04/12/20 18 04/12/2018 CBC w/ auto diff blood erythrocytes automated count (number/volu me) 5.36 10*6/ uL 4.00-5 .40 Not Available [facility] [address], [place], [address], 04/12/2018 16:38:28 04/12/20 18 04/12/2018 CBC w/ auto diff blood hemoglobin measurement (mass/volume ) 13.7 g/dL 12.0-1 6.0 Not Available [facility] [address], [place], [address], 04/12/2018 16:38:28 04/12/20 18 04/12/2018 CBC w/ auto diff HCT vfr bld auto 43.2 % 36.0-4 8.0 Not Available [facility] [address], [place], [address], 04/12/2018 16:38:28 04/12/20 18 04/12/2018 CBC w/ auto diff automated erythrocyte mean corpuscular volume 80.6 fL 80-100 Not Available [facility] [address], [place], [address], 04/12/2018 16:38:28 04/12/20 18 04/12/2018 CBC w/ auto diff automated erythrocyte mean corpuscular hemoglobin (mass per erythrocyte) 25.6 pg 27-32 low Not Available [facility] [address], [place], [address], 04/12/2018 16:38:28 04/12/20 18 04/12/2018 CBC w/ auto diff automated erythrocyte mean corpuscular hemoglobin concentratio n measurement (mass/vol 31.8 g/dL 31.0-3 7.0 Not Available [facility] [address], [place], [address], 04/12/2018 16:38:28 04/12/20 18 04/12/2018 CBC w/ auto diff automated erythrocyte distribution width ratio 15.4 % 12-14. 5 high Not Available [facility] [address], [place], [address], 04/12/2018 16:38:28 04/12/20 18 04/12/2018 CBC w/ auto diff automated blood platelet count (count/volum e) 352 10*3/ uL 140-45 0 Not Available [facility] [address], [place], [address], 04/12/2018 16:38:28 04/12/20 18 04/12/2018 CBC w/ auto diff automated blood platelet mean volume 9.3 fL 7.4-10 .4 Not Available [facility] [address], [place], [address], 04/12/2018 16:38:28 04/12/20 18 04/12/2018 CBC w/ auto diff automated blood segmented neutrophils/ 100 leukocytes 84.4 % 40-70 high Not Available [facility] [address], [place], [address], 04/12/2018 16:38:28 04/12/20 18 04/12/2018 CBC w/ auto diff blood lymphocytes/ 100 leukocytes by flow cytometry 9.4 % 20-44 low Not Available [facility] [address], [place], [address], 04/12/2018 16:38:28 04/12/20 18 04/12/2018 CBC w/ auto diff automated blood monocytes/10 0 leukocytes 4.5 % 2-9 Not Available [facility] [address], [place], [address], 04/12/2018 16:38:28 04/12/20 18 04/12/2018 CBC w/ auto diff automated blood eosinophils/ 100 leukocytes 0.7 % 0-4 Not Available [facility] [address], [place], [address], 04/12/2018 16:38:28 04/12/20 18 04/12/2018 CBC w/ auto diff automated blood basophils/10 0 leukocytes 1.0 % 0-1 Not Available [facility] [address], [place], [address], 04/12/2018 16:38:28 04/12/20 18 04/12/2018 CBC w/ auto diff blood neutrophils automated count (number/volu me) 12.20 10*3/ uL 1.8-7. 7 high Not Available [facility] [address], [place], [address], 04/12/2018 16:38:28 04/12/20 18 04/12/2018 CBC w/ auto diff blood lymphocytes automated count (number/volu me) 1.37 10*3/ uL 0.9-4. 8 Not Available [facility] [address], [place], [address], 04/12/2018 16:38:28 04/12/20 18 04/12/2018 CBC w/ auto diff blood monocytes automated count (number/volu me) 0.7 10*3/ uL 0-0.8 Not Available [facility] [address], [place], [address], 04/12/2018 16:38:28 04/12/20 18 04/12/2018 CBC w/ auto diff blood eosinophils automated count (count/volum e) 0.10 10*3/ uL 0-0.7 Not Available [facility] [address], [place], [address], 04/12/2018 16:38:28 04/12/20 18 04/12/2018 CBC w/ auto diff automated blood basophil count (count/volum e) 0.14 10*3/ uL 0-0.2 Not Available [facility] [address], [place], [address], 04/12/2018 16:38:28 04/12/20 18 04/12/2018 urina lysis , compl ete color of urine by auto Yellow Not Available [facility] [address], [place], [address], 04/12/2018 16:42:02 04/12/20 18 04/12/2018 urina lysis , compl ete urine clarity by refractometr y automated Clear Not Available [facility] [address], [place], [address], 04/12/2018 16:42:02 04/12/20 18 04/12/2018 urina lysis , compl ete urine glucose detection Negati ve negati ve Not Available [facility] [address], [place], [address], 04/12/2018 16:42:02 04/12/20 18 04/12/2018 urina lysis , compl ete urine bilirubin detection Negati ve negati ve Not Available [facility] [address], [place], [address], 04/12/2018 16:42:02 04/12/20 18 04/12/2018 urina lysis , compl ete urine ketones detection by automated test strip Negati ve negati ve Not Available [facility] [address], [place], [address], 04/12/2018 16:42:02 04/12/20 18 04/12/2018 urina lysis , compl ete specific gravity of urine by automated test strip 1.020 1.001- 1.030 Not Available [facility] [address], [place], [address], 04/12/2018 16:42:02 04/12/20 18 04/12/2018 urina lysis , compl ete urine erythrocytes detection by automated method Trace- lysed negati ve Not Available [facility] [address], [place], [address], 04/12/2018 16:42:02 04/12/20 18 04/12/2018 urina lysis , compl ete urine pH measurement by automated test strip 5.5 5.0-8. 5 Not Available [facility] [address], [place], [address], 04/12/2018 16:42:02 04/12/20 18 04/12/2018 urina lysis , compl ete urine protein detection Negati ve negati ve Not Available [facility] [address], [place], [address], 04/12/2018 16:42:02 04/12/20 18 04/12/2018 urina lysis , compl ete urine urobilinogen measurement by automated test strip (mass/volume ) 0.2 0.2-1 mg/dL Not Available [facility] [address], [place], [address], 04/12/2018 16:42:02 04/12/20 18 04/12/2018 urina lysis , compl ete urine nitrite detection Negati ve negati ve Not Available [facility] [address], [place], [address], 04/12/2018 16:42:02 04/12/20 18 04/12/2018 urina lysis , compl ete urine leukocyte esterase detection by automated test strip Negati ve negati ve Not Available [facility] [address], [place], [address], 04/12/2018 16:42:02 04/12/20 18 04/12/2018 urina lysis , compl ete urine leukocytes detection 0-1 0-3 Not Available [facility] [address], [place], [address], 04/12/2018 16:42:02 04/12/20 18 04/12/2018 urina lysis , compl ete urine erythrocytes count by automated test strip (number/volu me) 0-1 0-2 Not Available [facility] [address], [place], [address], 04/12/2018 16:42:02 04/12/20 18 04/12/2018 urina lysis , compl ete urine squamous epithelial cells detection by automated method 3-5 Not Available [facility] [address], [place], [address], 04/12/2018 16:42:02 04/12/20 18 04/12/2018 urina lysis , compl ete urine bacteria detection by automated method 1+ Not Available [facility] [address], [place], [address], 04/12/2018 16:42:02 04/12/20 18 04/12/2018 CMP, serum or plasm a glomerular filtration rate/1.73 sq M.predicted by creatinine-b ased formula (CKD-epi) 95.5 mL 60.0-1 20.0 Not Available [facility] [address], [place], [address], 04/12/2018 17:24:50 04/12/20 18 04/12/2018 CMP, serum or plasm a serum or plasma glucose measurement (mass/volume ) 111 mg/dL 74-106 high Not Available [facility] [address], [place], [address], 04/12/2018 17:24:50 04/12/20 18 04/12/2018 CMP, serum or plasm a serum or plasma urea nitrogen measurement (mass/volume ) 12 mg/dL 7-17 Not Available [facility] [address], [place], [address], 04/12/2018 17:24:50 04/12/20 18 04/12/2018 CMP, serum or plasm a serum or plasma creatinine measurement (mass/volume ) 0.8 mg/dL 0.7-1. 2 Not Available [facility] [address], [place], [address], 04/12/2018 17:24:50 04/12/20 18 04/12/2018 CMP, serum or plasm a blood urea nitrogen/cre atinine mass ratio 15.0 % 12-20 Not Available [facility] [address], [place], [address], 04/12/2018 17:24:50 04/12/20 18 04/12/2018 CMP, serum or plasm a serum or plasma sodium measurement (moles/volum e) 139 mmol/ L 137-14 5 Not Available [facility] [address], [place], [address], 04/12/2018 17:24:50 04/12/20 18 04/12/2018 CMP, serum or plasm a serum or plasma potassium measurement (moles/volum e) 3.7 mmol/ L 3.5-5. 1 Not Available [facility] [address], [place], [address], 04/12/2018 17:24:50 04/12/20 18 04/12/2018 CMP, serum or plasm a serum or plasma chloride measurement (moles/volum e) 104 mmol/ L 98-107 Not Available [facility] [address], [place], [address], 04/12/2018 17:24:50 04/12/20 18 04/12/2018 CMP, serum or plasm a serum or plasma carbon dioxide, total measurement (moles/volum e) 24 mmol/ L 22-30 Not Available [facility] [address] [facility] [address], [place], [address], 04/12/2018 17:24:50 04/12/20 18 04/12/2018 CMP, serum or plasm a blood calcium measurement (mass/volume ) 9.3 mg/dL 8.4-10 .2 Not Available [facility] [address] [facility] [address], [place], [address], 04/12/2018 17:24:50 04/12/20 18 04/12/2018 CMP, serum or plasm a serum or plasma anion gap 14.7 mmol/ L 11.0-2 0.0 Not Available [facility] [address], [place], [address], 04/12/2018 17:24:50 04/12/20 18 04/12/2018 CMP, serum or plasm a osmolality of serum or plasma by calculation 278 mOsm/ kg 265.85 -296.6 0 Not Available [facility] [address] [facility] [address], [place], [address], 04/12/2018 17:24:50 04/12/20 18 04/12/2018 CMP, serum or plasm a serum or plasma protein measurement (mass/volume ) 7.9 g/dL 6.3-8. 2 Not Available [facility] [address] [facility] [address], [place], [address], 04/12/2018 17:24:50 04/12/20 18 04/12/2018 CMP, serum or plasm a serum or plasma albumin measurement (mass/volume ) 4.7 g/dL 3.5-5. 0 Not Available [facility] [address], [place], [address], 04/12/2018 17:24:50 04/12/20 18 04/12/2018 CMP, serum or plasm a albumin/glob serpl-mrto 3.2 g/dL 2.2-4. 2 Not Available [facility] [address], [place], [address], 04/12/2018 17:24:50 04/12/20 18 04/12/2018 CMP, serum or plasm a serum or plasma albumin/glob ulin mass ratio 1.40 % 1.10-2 .20 Not Available [facility] [address], [place], [address], 04/12/2018 17:24:50 04/12/20 18 04/12/2018 CMP, serum or plasm a serum or plasma total bilirubin measurement (mass/volume ) 0.80 mg/dL 0.2-1. 3 Not Available [facility] [address], [place], [address], 04/12/2018 17:24:50 04/12/20 18 04/12/2018 CMP, serum or plasm a serum or plasma aspartate aminotransfe rase measurement (enzymatic activity/vol ume) 21 U/L 14-36 Not Available [facility] [address], [place], [address], 04/12/2018 17:24:50 04/12/20 18 04/12/2018 CMP, serum or plasm a serum or plasma alanine aminotransfe rase measurement (enzymatic activity/vol ume) 26 U/L 9-52 Not Available [facility] [address], [place], [address], 04/12/2018 17:24:50 04/12/20 18 04/12/2018 CMP, serum or plasm a serum or plasma alkaline phosphatase measurement (enzymatic activity/vol ume) 80 U/L 38-126 Not Available [facility] [address], [place], [address], 04/12/2018 17:24:50 04/12/20 18 04/12/2018 TSH bld-a cnc TSH bld-acnc 1.46 u[IU] /mL 0.46-4 .68 Not Available [facility] [address], [place], [address], 04/12/2018 17:24:51 04/12/20 18 04/12/2018 serum drug scree n ethanol serpl ql scn < 10.0 0.0-10 .0 Not Available [facility] [address], [place], [address], 04/12/2018 17:24:51 04/12/20 18 04/12/2018 serum drug scree n blood acetaminophe n measurement (mass/volume ) <10.00 ug/mL 10.00- 30.00 low Not Available [facility] [address], [place], [address], 04/12/2018 17:24:51 04/12/20 18 04/12/2018 serum drug scree n serum or plasma salicylates measurement (mass/volume ) <1.0 mg/dL 2.0-29 low Not Available [facility] [address], [place], [address], 04/12/2018 17:24:51 04/12/20 18 04/12/2018 urine drug scree n urine oxazepam level >500.0 NG/mL RX or metab olite of Diaze jamel, Nordi azepa m or Temaz epam. Not Available [facility] [address], [place], [address], 04/20/2018 13:50:32 04/12/20 18 04/12/2018 urine drug scree n urine temazepam detection by confirmatory method > 300.0 RX or metab olite of Diaze jamel. Not Available [facility] [address], [place], [address], 04/20/2018 13:50:32 04/12/20 18 04/12/2018 urine drug scree n urine nordiazepam detection by confirmatory method 212.3 NG/mL RX or metab olite of Diaze jamel. Not Available [facility] [address], [place], [address], 04/20/2018 13:50:32 04/12/20 18 04/12/2018 urine drug scree n urine carboxy tetrahydroca nnabinol detection by confirmatory method 112.0 NG/mL Not Available [facility] [address], [place], [address], 04/20/2018 13:50:32 04/12/20 18 04/12/2018 urine drug scree n urine drug screen SEE COMMEN T The [employer] wing drugs were teste d by LCMS as part of this panel . Any drugs not speci fical ly liste d above were NOT DETEC SEGUNDO . The cutof f for detec tion will be liste d after each drug in ng/ml . OPIAT E CLASS : Codei ne 18, Dihyd rocod eine 30,Hy droco done 60, Norhy droco done 18, [place] morph one 18, Morph ine 30 OXYCO DONE CLASS : Oxyco done 18, Oxymo rphon e 30, Norox ycodo ne 30 Other OPIOI DS/OP IATE ANALO GS: Meper idine 12, Norme perid ine 30, Nalox one 30, Trama dol 30, Propo xphen e 90, Norpr opoxy phen 18, Bupre nophi ne 30, Fenta nyl 18, Norfe ntany l 6, Metha done 60, EDDP 30, Tapen tadol 60 BENZO DIAZE PINES CLASS : 7-Ami noclo nazep am 30, Alpha -hydr oxyla lpraz olam 30, Fluni traze jamel 9, Loraz apam 18, Nordi azepa m 18, Oxaze jamel 30, Temaz epam 18, Diaze jamel 18, Triaz olam 18, MUSCL E RELAX ANTS: Caris prodo l 60 ANTIC ONVUL SANTS : Gabap entin 18 CNF STIMU LANT: Methy lphen idate 60 ANTID EPRES SANTS : Amitr iptyl ine 30, Nortr iptyl ine 30 Hallu cinog ens: Ketam ine 12, PCP 18 Synth etic Stimu lants : MDVP 30 Other /DOA: Amphe tamin e 60, Metha mphet amine 30, THC-C OOH 18, MDA 60, 6-LEONARDA 9, MDMA 60, Dimet hyltr iptam ine 18, Benzo ylecg onine (Coca in Metab olite ) 30 Synth etic Canna binoi ds: JWH-0 73 4-But anoic acid 12, JWH-0 18 5-Pen tanoi c Acid 18, AM220 1 4-Hyd roxyp entyl Metab olite 12, JWH-1 22 5-Hyd roxyp entyl 12 Not Available [facility] [address], [place], [address], 04/20/2018 13:50:32 04/12/20 18 04/12/2018 urine drug scree n urine oxazepam level >500.0 NG/mL RX or metab olite of Diaze jamel, Nordi azepa m or Temaz epam. Not Available [facility] [address], [place], [address], 04/20/2018 13:50:36 04/12/20 18 04/12/2018 urine drug scree n urine temazepam detection by confirmatory method > 300.0 RX or metab olite of Diaze jamel. Not Available [facility] [address], [place], [address], 04/20/2018 13:50:36 04/12/20 18 04/12/2018 urine drug scree n urine nordiazepam detection by confirmatory method 212.3 NG/mL RX or metab olite of Diaze jamel. Not Available [facility] [address], [place], [address], 04/20/2018 13:50:36 04/12/20 18 04/12/2018 urine drug scree n urine carboxy tetrahydroca nnabinol detection by confirmatory method 112.0 NG/mL Not Available [facility] [address], [place], [address], 04/20/2018 13:50:36 04/12/20 18 04/12/2018 urine drug scree n urine drug screen SEE COMMEN T The follo wing drugs were teste d by LCMS as part of this panel . Any drugs not speci fical ly liste d above were NOT DETEC SEGUNDO . The cutof f for detec tion will be liste d after each drug in ng/ml . OPIAT E CLASS : Codei ne 18, Dihyd rocod eine 30,Hy droco done 60, Norhy droco done 18, [place] morph one 18, Morph ine 30 OXYCO DONE CLASS : Oxyco done 18, Oxymo rphon e 30, Norox ycodo ne 30 Other OPIOI DS/OP IATE ANALO GS: Meper idine 12, Norme perid ine 30, Nalox one 30, Trama dol 30, Propo xphen e 90, Norpr opoxy phen 18, Bupre nophi ne 30, Fenta nyl 18, Norfe ntany l 6, Metha done 60, EDDP 30, Tapen tadol 60 BENZO DIAZE PINES CLASS : 7-Ami noclo nazep am 30, Alpha -hydr oxyla lpraz olam 30, Fluni traze jamel 9, Loraz apam 18, Nordi azepa m 18, Oxaze jamel 30, Temaz epam 18, Diaze jamel 18, Triaz olam 18, MUSCL E RELAX ANTS: Caris prodo l 60 ANTIC ONVUL SANTS : Gabap entin 18 CNF STIMU LANT: Methy lphen idate 60 ANTID EPRES SANTS : Amitr iptyl ine 30, Nortr iptyl ine 30 Hallu cinog ens: Ketam ine 12, PCP 18 Synth etic Stimu lants : MDVP 30 Other /DOA: Amphe tamin e 60, Metha mphet amine 30, THC-C OOH 18, MDA 60, 6-LEONARDA 9, MDMA 60, Dimet hyltr iptam ine 18, Benzo ylecg onine (Coca in Metab olite ) 30 Synth etic Canna binoi ds: JWH-0 73 4-But anoic acid 12, JWH-0 18 5-Pen tanoi c Acid 18, AM220 1 4-Hyd roxyp entyl Metab olite 12, JWH-1 22 5-Hyd roxyp entyl 12 Not Available [facility] [address], [place], [address], 04/20/2018 13:50:36 04/12/20 18 04/12/2018 urine drug scree n urine oxazepam level >500.0 NG/mL RX or metab olite of Diaze jamel, Nordi azepa m or Temaz epam. Not Available [facility] [address], [place], [address], 04/20/2018 13:50:38 04/12/20 18 04/12/2018 urine drug scree n urine temazepam detection by confirmatory method > 300.0 RX or metab olite of Diaze jamel. Not Available [facility] [address], [place], [address], 04/20/2018 13:50:38 04/12/20 18 04/12/2018 urine drug scree n urine nordiazepam detection by confirmatory method 212.3 NG/mL RX or metab olite of Diaze jamel. Not Available [facility] [address], [place], [address], 04/20/2018 13:50:38 04/12/20 18 04/12/2018 urine drug scree n urine carboxy tetrahydroca nnabinol detection by confirmatory method 112.0 NG/mL Not Available [facility] [address], [place], [address], 04/20/2018 13:50:38 04/12/20 18 04/12/2018 urine drug scree n urine drug screen SEE COMMEN T The follo wing drugs were teste d by LCMS as part of this panel . Any drugs not speci fical ly liste d above were NOT DETEC SEGUNDO . The cutof f for detec tion will be liste d after each drug in ng/ml . OPIAT E CLASS : Codei ne 18, Dihyd rocod eine 30,Hy droco done 60, Norhy droco done 18, [place] morph one 18, Morph ine 30 OXYCO DONE CLASS : Oxyco done 18, Oxymo rphon e 30, Norox ycodo ne 30 Other OPIOI DS/OP IATE ANALO GS: Meper idine 12, Norme perid ine 30, Nalox one 30, Trama dol 30, Propo xphen e 90, Norpr opoxy phen 18, Bupre nophi ne 30, Fenta nyl 18, Norfe ntany l 6, Metha done 60, EDDP 30, Tapen tadol 60 BENZO DIAZE PINES CLASS : 7-Ami noclo nazep am 30, Alpha -hydr oxyla lpraz olam 30, Fluni traze jamel 9, Loraz apam 18, Nordi azepa m 18, Oxaze jamel 30, Temaz epam 18, Diaze jamel 18, Triaz olam 18, MUSCL E RELAX ANTS: Caris prodo l 60 ANTIC ONVUL SANTS : Gabap entin 18 CNF STIMU LANT: Methy lphen idate 60 ANTID EPRES SANTS : Amitr iptyl ine 30, Nortr iptyl ine 30 Hallu cinog ens: Ketam ine 12, PCP 18 Synth etic Stimu lants : MDVP 30 Other /DOA: Amphe tamin e 60, Metha mphet amine 30, THC-C OOH 18, MDA 60, 6-LEONARDA 9, MDMA 60, Dimet hyltr iptam ine 18, Benzo ylecg onine (Coca in Metab olite ) 30 Synth etic Canna binoi ds: JWH-0 73 4-But anoic acid 12, JWH-0 18 5-Pen tanoi c Acid 18, AM220 1 4-Hyd roxyp entyl Metab olite 12, JWH-1 22 5-Hyd roxyp entyl 12 Not Available [facility] [address], [place], [address], 04/20/2018 13:50:38 04/22/20 18 04/22/2018 urina lysis , compl ete color of urine by auto Yellow Not Available [facility] [address], [place], [address], 04/22/2018 16:16:14 04/22/20 18 04/22/2018 urina lysis , compl ete urine clarity by refractometr y automated Cloudy Not Available [facility] [address], [place], [address], 04/22/2018 16:16:14 04/22/20 18 04/22/2018 urina lysis , compl ete urine glucose detection Negati ve negati ve Not Available [facility] [address], [place], [address], 04/22/2018 16:16:14 04/22/20 18 04/22/2018 urina lysis , compl ete urine bilirubin detection Negati ve negati ve Not Available [facility] [address], [place], [address], 04/22/2018 16:16:14 04/22/20 18 04/22/2018 urina lysis , compl ete urine ketones detection by automated test strip 20 negati ve high Not Available [facility] [address], [place], [address], 04/22/2018 16:16:14 04/22/20 18 04/22/2018 urina lysis , compl ete specific gravity of urine by automated test strip 1.023 1.001- 1.030 Not Available [facility] [address], [place], [address], 04/22/2018 16:16:14 04/22/20 18 04/22/2018 urina lysis , compl ete urine erythrocytes detection by automated method Small negati ve Not Available [facility] [address], [place], [address], 04/22/2018 16:16:14 04/22/20 18 04/22/2018 urina lysis , compl ete urine pH measurement by automated test strip 5.0 5.0-8. 5 Not Available [facility] [address], [place], [address], 04/22/2018 16:16:14 04/22/20 18 04/22/2018 urina lysis , compl ete urine protein detection Negati ve negati ve Not Available [facility] [address], [place], [address], 04/22/2018 16:16:14 04/22/20 18 04/22/2018 urina lysis , compl ete urine urobilinogen measurement by automated test strip (mass/volume ) Normal 0.2-1 mg/dL Not Available [facility] [address], [place], [address], 04/22/2018 16:16:14 04/22/20 18 04/22/2018 urina lysis , compl ete urine nitrite detection Negati ve negati ve Not Available [facility] [address], [place], [address], 04/22/2018 16:16:14 04/22/20 18 04/22/2018 urina lysis , compl ete urine leukocyte esterase detection by automated test strip Trace negati ve Not Available [facility] [address], [place], [address], 04/22/2018 16:16:14 04/22/20 18 04/22/2018 urina lysis , compl ete urine leukocytes detection 3-5 0-3 Not Available [facility] [address], [place], [address], 04/22/2018 16:16:14 04/22/20 18 04/22/2018 urina lysis , compl ete urine erythrocytes count by automated test strip (number/volu me) 3-5 0-2 Not Available [facility] as [facility] [address], [place], [address], 04/22/2018 16:16:14 04/22/20 18 04/22/2018 urina lysis , compl ete urine squamous epithelial cells detection by automated method 21-30 Not Available [facility] as [facility] [address], [place], [address], 04/22/2018 16:16:14 04/22/20 18 04/22/2018 urina lysis , compl ete urine bacteria detection by automated method 1+ Not Available [facility] [address], [place], [address], 04/22/2018 16:16:14 04/22/20 18 04/22/2018 urina lysis , compl ete urine mucus detection by automated method 2+ Not Available [facility] as [facility] [address], [place], [place], [address], 04/22/2018 16:16:14 04/22/20 18 04/22/2018 urina lysis , compl ete urine transitional cells detection by computer assisted method Not Available [facility] as [facility] [address], [place], [address], 04/22/2018 16:16:14 04/22/20 18 04/22/2018 autom ated blood compl ete blood count (hemo gram) panel blood leukocytes automated count (number/volu me) 16.6 10*3/ uL 4.5-11 .0 [facility] 1533, 04/22 Not Available [facility] [address], [place], [address], 04/22/2018 16:33:50 04/22/20 18 04/22/2018 autom ated blood compl ete blood count (hemo gram) panel blood erythrocytes automated count (number/volu me) 5.65 10*6/ uL 4.2-5. 4 high Not Available [facility] [address], [place], [address], 04/22/2018 16:33:50 04/22/20 18 04/22/2018 autom ated blood compl ete blood count (hemo gram) panel blood hemoglobin measurement (mass/volume ) 13.8 g/dL 12.0-1 6.0 Not Available [facility] [address], [place], [address], 04/22/2018 16:33:50 04/22/20 18 04/22/2018 autom ated blood compl ete blood count (hemo gram) panel HCT vfr bld auto 45.2 % 36.0-4 8.0 Not Available [facility] [address], [place], [address], 04/22/2018 16:33:50 04/22/20 18 04/22/2018 autom ated blood compl ete blood count (hemo gram) panel automated erythrocyte mean corpuscular volume 80.0 fL 80-100 Not Available [facility] [address], [place], [address], 04/22/2018 16:33:50 04/22/20 18 04/22/2018 autom ated blood compl ete blood count (hemo gram) panel automated erythrocyte mean corpuscular hemoglobin (mass per erythrocyte) 24.4 pg 27-32 low Not Available [facility] [address], [place], [address], 04/22/2018 16:33:50 04/22/20 18 04/22/2018 autom ated blood compl ete blood count (hemo gram) panel automated erythrocyte mean corpuscular hemoglobin concentratio n measurement (mass/vol 30.5 g/dL 31.0-3 7.0 low Not Available [facility] [address], [place], [address], 04/22/2018 16:33:50 04/22/20 18 04/22/2018 autom ated blood compl ete blood count (hemo gram) panel automated erythrocyte distribution width ratio 15.9 % 12-14. 5 high Not Available [facility] [address], [place], [address], 04/22/2018 16:33:50 04/22/20 18 04/22/2018 autom ated blood compl ete blood count (hemo gram) panel automated blood platelet count (count/volum e) 595 10*3/ uL 150-45 0 high 1533, 04/22 Not Available [facility] [address], [place], [address], 04/22/2018 16:33:50 04/22/20 18 04/22/2018 autom ated blood compl ete blood count (hemo gram) panel automated blood platelet mean volume 10.5 fL 7.4-10 .4 high Not Available [facility] [address], [place], [address], 04/22/2018 16:33:50 04/22/20 18 04/22/2018 turner ol serpl ql scn ethanol serpl ql scn < 10.0 0.0-10 .0 Not Available [facility] [address], [place], [address], 04/22/2018 16:46:31 04/22/20 18 04/22/2018 BMP, serum or plasm a serum or plasma glucose measurement (mass/volume ) 123 mg/dL 74-106 high Not Available [facility] [address], [place], [address], 04/22/2018 16:51:27 04/22/20 18 04/22/2018 BMP, serum or plasm a serum or plasma urea nitrogen measurement (mass/volume ) 14 mg/dL 7-17 Not Available [facility] [address], [place], [address], 04/22/2018 16:51:27 04/22/20 18 04/22/2018 BMP, serum or plasm a serum or plasma creatinine measurement (mass/volume ) 1.0 mg/dL 0.7-1. 2 Not Available [facility] [address], [place], [address], 04/22/2018 16:51:27 04/22/20 18 04/22/2018 BMP, serum or plasm a serum or plasma sodium measurement (moles/volum e) 144 mmol/ L 137-14 5 Not Available [facility] [address], [place], [address], 04/22/2018 16:51:27 04/22/20 18 04/22/2018 BMP, serum or plasm a serum or plasma potassium measurement (moles/volum e) 4.1 mmol/ L 3.5-5. 1 Not Available [facility] [address], [place], [address], 04/22/2018 16:51:27 04/22/20 18 04/22/2018 BMP, serum or plasm a serum or plasma chloride measurement (moles/volum e) 109 mmol/ L 98-107 high Not Available [facility] [address], [place], [address], 04/22/2018 16:51:27 04/22/20 18 04/22/2018 BMP, serum or plasm a serum or plasma carbon dioxide, total measurement (moles/volum e) 21 mmol/ L 22-30 low Not Available [facility] [address], [place], [address], 04/22/2018 16:51:27 04/22/20 18 04/22/2018 BMP, serum or plasm a blood calcium measurement (mass/volume ) 10.4 mg/dL 8.4-10 .2 high Not Available [facility] [address], [place], [address], 04/22/2018 16:51:27 04/22/20 18 04/22/2018 BMP, serum or plasm a serum or plasma anion gap 14.0 mEq/L 7.0-16 .0 Not Available [facility] [address], [place], [address], 04/22/2018 16:51:27 04/22/20 18 04/22/2018 BMP, serum or plasm a blood urea nitrogen/cre atinine mass ratio 14.0 % 12.0-2 0.0 Not Available [facility] [address], [place], [address], 04/22/2018 16:51:27 04/22/20 18 04/22/2018 BMP, serum or plasm a osmolality of serum or plasma by calculation 289 mOsm/ kg 261-28 0 high Not Available [facility] [address], [place], [address], 04/22/2018 16:51:27 04/22/20 18 04/22/2018 BMP, serum or plasm a glomerular filtration rate/1.73 sq M.predicted by creatinine-b ased formula (CKD-epi) 72.9 mL 60.0-1 20.0 Not Available [facility] [address], [place], [address], 04/22/2018 16:51:27 04/22/20 18 04/22/2018 urine drug scree n urine creatinine measurement (mass/volume ) 284.2 mg/dL Not Available [facility] [address], [place], [address], 04/22/2018 17:19:27 04/22/20 18 04/22/2018 urine drug scree n urine amphetamine detection by screening method NEGATI VE neg Not Available [facility] [address], [place], [address], 04/22/2018 17:19:27 04/22/20 18 04/22/2018 urine drug scree n urine cocaine detection by screening method NEGATI VE neg Not Available [facility] [address], [place], [address], 04/22/2018 17:19:27 04/22/20 18 04/22/2018 urine drug scree n urine cannabinoids detection by screening method POSITI VE neg high Not Available [facility] [address], [place], [address], 04/22/2018 17:19:27 04/22/20 18 04/22/2018 urine drug scree n urine benzodiazepi dileep detection by screening method POSITI VE neg high Not Available [facility] [address], [place], [address], 04/22/2018 17:19:27 04/22/20 18 04/22/2018 urine drug scree n urine tricyclic antidepressa nt measurement NEGATI VE neg Not Available [facility] [address], [place], [address], 04/22/2018 17:19:27 04/22/20 18 04/22/2018 urine drug scree n urine barbiturates detection by screening method NEGATI VE neg Not Available [facility] [address], [place], [address], 04/22/2018 17:19:27 04/22/20 18 04/22/2018 urine drug scree n MDMA ur screen Negati ve neg Not Available [facility] [address], [place], [address], 04/22/2018 17:19:27 04/22/20 18 04/22/2018 urine drug scree n urine opiates detection by screening method Negati ve neg Not Available [facility] [address], [place], [address], 04/22/2018 17:19:27 04/22/20 18 04/22/2018 urine drug scree n urine phencyclidin e detection by screening method NEGATI VE neg Not Available [facility] [address], [place], [address], 04/22/2018 17:19:27 04/22/20 18 04/22/2018 urine drug scree n urine oxycodone screening test NEGATI VE neg Not Available [facility] [address], [place], [address], 04/22/2018 17:19:27 04/22/20 18 04/22/2018 urine drug scree n urine propoxyphene detection by screening method Negati ve neg Not Available [facility] [address], [place], [address], 04/22/2018 17:19:27 06/14/19 19 06/14/2018 urine drug scree n urine amphetamine detection by screening method NEGATI VE neg Not Available [facility] [address], [place], [address], 06/14/2018 06:41:03 06/14/19 19 06/14/2018 urine drug scree n urine barbiturates detection by screening method NEGATI VE neg Not Available [facility] [address], [place], [address], 06/14/2018 06:41:03 06/14/19 19 06/14/2018 urine drug scree n urine benzodiazepi dileep detection by screening method POSITI VE neg high Not Available [facility] [address], [place], [address], 06/14/2018 06:41:03 06/14/19 19 06/14/2018 urine drug scree n urine cocaine detection by screening method NEGATI VE neg Not Available [facility] [address], [place], [address], 06/14/2018 06:41:03 06/14/19 19 06/14/2018 urine drug scree n urine opiates detection by screening method Negati ve neg Not Available [facility] [address], [place], [address], 06/14/2018 06:41:03 06/14/19 19 06/14/2018 urine drug scree n urine phencyclidin e detection by screening method NEGATI VE neg Not Available [facility] [address], [place], [address], 06/14/2018 06:41:03 06/14/19 19 06/14/2018 urine drug scree n urine cannabinoids detection by screening method POSITI VE neg high Not Available [facility] [address], [place], [address], 06/14/2018 06:41:03 06/14/1906/14/2018 urine drug scree n urine oxycodone detection NEGATI VE neg Not Available [facility] [address], [place], [address], 06/14/2018 06:41:03 06/14/19 19 06/14/2018 urine drug scree n MDMA ur screen Negati ve neg Not Available [facility] [address], [place], [address], 06/14/2018 06:41:03 06/14/19 19 06/14/2018 urine drug scree n urine propoxyphene detection by screening method Negati ve neg Not Available [facility] [address], [place], [address], 06/14/2018 06:41:03 06/14/1906/14/2018 urine drug scree n tricyclics serpl ql Positi ve neg high Not Available [facility] [address], [place], [address], 06/14/2018 06:41:03 06/14/1906/14/2018 urina lysis , compl ete color of urine by auto Yellow Not Available [facility] [address], [place], [address], 06/14/2018 06:47:11 06/14/1906/14/2018 urina lysis , compl ete urine clarity by refractometr y automated Clear Not Available [facility] [address], [place], [address], 06/14/2018 06:47:11 06/14/1906/14/2018 urina lysis , compl ete urine glucose detection Negati ve negati ve Not Available [facility] [address], [place], [address], 06/14/2018 06:47:11 06/14/1906/14/2018 urina lysis , compl ete urine bilirubin detection Small negati ve Not Available [facility] [address], [place], [address], 06/14/2018 06:47:11 06/14/1906/14/2018 urina lysis , compl ete urine ketones detection by automated test strip 40 negati ve high Not Available [facility] [address], [place], [address], 06/14/2018 06:47:11 06/14/1906/14/2018 urina lysis , compl ete specific gravity of urine by automated test strip >=1.03 0 1.001- 1.030 Not Available [facility] [address], [place], [address], 06/14/2018 06:47:11 06/14/1906/14/2018 urina lysis , compl ete urine erythrocytes detection by automated method Negati ve negati ve Not Available [facility] [address], [place], [address], 06/14/2018 06:47:11 06/14/1906/14/2018 urina lysis , compl ete urine pH measurement by automated test strip 5.5 5.0-8. 5 Not Available [facility] [address], [place], [address], 06/14/2018 06:47:11 06/14/1906/14/2018 urina lysis , compl ete urine protein detection 100 negati ve high Not Available [facility] [address], [place], [address], 06/14/2018 06:47:11 06/14/1906/14/2018 urina lysis , compl ete urine urobilinogen measurement by automated test strip (mass/volume ) 0.2 0.2-1 mg/dL Not Available [facility] [address], [place], [address], 06/14/2018 06:47:11 06/14/1906/14/2018 urina lysis , compl ete urine nitrite detection Negati ve negati ve Not Available [facility] [address], [place], [address], 06/14/2018 06:47:11 06/14/1906/14/2018 urina lysis , compl ete urine leukocyte esterase detection by automated test strip Negati ve negati ve Not Available [facility] [address], [place], [address], 06/14/2018 06:47:11 06/14/1906/14/2018 urina lysis , compl ete urine leukocytes detection 0-2 0-3 Not Available [facility] [address], [place], [address], 06/14/2018 06:47:11 06/14/1906/14/2018 urina lysis , compl ete urine erythrocytes count by automated test strip (number/volu me) 0-2 0-2 Not Available [facility] [address], [place], [address], 06/14/2018 06:47:11 06/14/1906/14/2018 urina lysis , compl ete urine squamous epithelial cells detection by automated method 6-10 Not Available [facility] [address], [place], [address], 06/14/2018 06:47:11 06/14/19 19 06/14/2018 urina lysis , compl ete urine bacteria detection by automated method 2+ Not Available [facility] as [facility] [address], [place], [address], 06/14/2018 06:47:11 06/14/1906/14/2018 urina lysis , compl ete urine amorphous crystals detection by computer assisted method TRACE Not Available [facility] as [facility] [address], [place], [address], 06/14/2018 06:47:11 06/14/1906/14/2018 CBC w/ auto diff blood leukocytes automated count (number/volu me) 9.6 10*3/ uL 4.5-11 .0 Not Available [place] [facility] [address], [place], [address], 06/14/2018 07:19:05 06/14/1906/14/2018 CBC w/ auto diff blood erythrocytes automated count (number/volu me) 5.74 10*6/ uL 4.00-5 .40 high Not Available [place] [facility] [address], [place], [address], 06/14/2018 07:19:05 06/14/1906/14/2018 CBC w/ auto diff blood hemoglobin measurement (mass/volume ) 14.3 g/dL 12.0-1 6.0 Not Available [facility] [address], [place], [place], [address], 06/14/2018 07:19:05 06/14/1906/14/2018 CBC w/ auto diff HCT vfr bld auto 45.0 % 36.0-4 8.0 Not Available [facility] [address], [place], [place], [address], 06/14/2018 07:19:05 06/14/1906/14/2018 CBC w/ auto diff automated erythrocyte mean corpuscular volume 78.3 fL 80-100 low Not Available [facility] [address], [place], [place], [address], 06/14/2018 07:19:05 06/14/1906/14/2018 CBC w/ auto diff automated erythrocyte mean corpuscular hemoglobin (mass per erythrocyte) 24.9 pg 27-32 low Not Available [facility] [address], [place], [place], [address], 06/14/2018 07:19:05 06/14/1906/14/2018 CBC w/ auto diff automated erythrocyte mean corpuscular hemoglobin concentratio n measurement (mass/vol 31.8 g/dL 31.0-3 7.0 Not Available [facility] [address], [place], [place], [address], 06/14/2018 07:19:05 06/14/1906/14/2018 CBC w/ auto diff automated erythrocyte distribution width ratio 15.1 % 12-14. 5 high Not Available [facility] [address], [place], [address], 06/14/2018 07:19:05 06/14/1906/14/2018 CBC w/ auto diff automated blood platelet count (count/volum e) 410 10*3/ uL 140-45 0 Not Available [facility] [address], [place], [address], 06/14/2018 07:19:05 06/14/1906/14/2018 CBC w/ auto diff automated blood platelet mean volume 8.8 fL 7.4-10 .4 Not Available [facility] [address], [place], [address], 06/14/2018 07:19:05 06/14/1906/14/2018 compl ete blood count (CBC) with refle x manua l white blood cell diffe renti al blood leukocytes automated count (number/volu me) 9.6 10*3/ uL 4.5-11 .0 Not Available [facility] [address], [place], [address], 06/14/2018 07:23:32 06/14/1906/14/2018 compl ete blood count (CBC) with refle x manua l white blood cell diffe renti al blood erythrocytes automated count (number/volu me) 5.74 10*6/ uL 4.00-5 .40 high Not Available [facility] [address], [place], [address], 06/14/2018 07:23:32 06/14/1906/14/2018 compl ete blood count (CBC) with refle x manua l white blood cell diffe renti al blood hemoglobin measurement (mass/volume ) 14.3 g/dL 12.0-1 6.0 Not Available [facility] [address], [place], [address], 06/14/2018 07:23:32 06/14/1906/14/2018 compl ete blood count (CBC) with refle x manua l white blood cell diffe renti al HCT vfr bld auto 45.0 % 36.0-4 8.0 Not Available [facility] [address], [place], [address], 06/14/2018 07:23:32 06/14/19 19 06/14/2018 compl ete blood count (CBC) with refle x manua l white blood cell diffe renti al automated erythrocyte mean corpuscular volume 78.3 fL 80-100 low Not Available [facility] [address], [place], [address], 06/14/2018 07:23:32 06/14/1906/14/2018 compl ete blood count (CBC) with refle x manua l white blood cell diffe renti al automated erythrocyte mean corpuscular hemoglobin (mass per erythrocyte) 24.9 pg 27-32 low Not Available [facility] [address], [place], [address], 06/14/2018 07:23:32 06/14/1906/14/2018 compl ete blood count (CBC) with refle x manua l white blood cell diffe renti al automated erythrocyte mean corpuscular hemoglobin concentratio n measurement (mass/vol 31.8 g/dL 31.0-3 7.0 Not Available [facility] [address], [place], [address], 06/14/2018 07:23:32 06/14/1906/14/2018 compl ete blood count (CBC) with refle x manua l white blood cell diffe renti al automated erythrocyte distribution width ratio 15.1 % 12-14. 5 high Not Available [facility] [address], [place], [address], 06/14/2018 07:23:32 06/14/1906/14/2018 compl ete blood count (CBC) with refle x manua l white blood cell diffe renti al automated blood platelet count (count/volum e) 410 10*3/ uL 140-45 0 Not Available [facility] [address], [place], [address], 06/14/2018 07:23:32 06/14/19 19 06/14/2018 compl ete blood count (CBC) with refle x manua l white blood cell diffe renti al automated blood platelet mean volume 8.8 fL 7.4-10 .4 Not Available [facility] [address], [place], [address], 06/14/2018 07:23:32 06/14/1906/14/2018 compl ete blood count (CBC) with refle x manua l white blood cell diffe renti al manual differential cell count MAN DIFF PERFOR MED Not Available [facility] [address], [place], [address], 06/14/2018 07:23:32 06/14/1906/14/2018 compl ete blood count (CBC) with refle x manua l white blood cell diffe renti al blood segmented neutrophils/ 100 leukocytes 53 % 40-70 Not Available [facility] [address], [place], [address], 06/14/2018 07:23:32 06/14/1906/14/2018 compl ete blood count (CBC) with refle x manua l white blood cell diffe renti al manual blood band neutrophils form/100 leukocytes 6 % 0-5 high Not Available [facility] [address], [place], [address], 06/14/2018 07:23:32 06/14/19 19 06/14/2018 compl ete blood count (CBC) with refle x manua l white blood cell diffe renti al automated blood lymphocytes/ 100 leukocytes 21 % 20-44 Not Available [facility] [address], [place], [address], 06/14/2018 07:23:32 06/14/1906/14/2018 compl ete blood count (CBC) with refle x manua l white blood cell diffe renti al manual blood lymphocytes variant/100 leukocytes 18 % 0-2 high ATYPI KEVIN LYMPH OCYTE S NOTED - POSSI BLE REACT NEYDA LYMPH OCYTE S SUSPE CTED Not Available [facility] [address], [place], [address], 06/14/2018 07:23:32 06/14/1906/14/2018 compl ete blood count (CBC) with refle x manua l white blood cell diffe renti al blood monocytes/10 0 leukocytes 2 % 2-9 Not Available [facility] [address], [place], [address], 06/14/2018 07:23:32 06/14/1906/14/2018 compl ete blood count (CBC) with refle x manua l white blood cell diffe renti al blood neutrophils count (number/volu me) 5.66 10*3/ uL 1.8-7. 7 Not Available [facility] [address], [place], [address], 06/14/2018 07:23:32 06/14/1906/14/2018 compl ete blood count (CBC) with refle x manua l white blood cell diffe renti al blood lymphocytes count (number/volu me) 3.74 10*3/ uL 0.9-4. 8 Not Available [facility] [address], [place], [address], 06/14/2018 07:23:32 06/14/1906/14/2018 compl ete blood count (CBC) with refle x manua l white blood cell diffe renti al blood monocytes count (number/volu me) 0.2 10*3/ uL 0.0-0. 8 Not Available [facility] [address], [place], [address], 06/14/2018 07:23:32 06/14/19 19 06/14/2018 compl ete blood count (CBC) with refle x manua l white blood cell diffe renti al platelet estimate Review number is increa sed in value Not Available [facility] [address], [place], [address], 06/14/2018 07:23:32 06/14/19 19 06/14/2018 compl ete blood count (CBC) with refle x manua l white blood cell diffe renti al blood platelet clump detection by light microscopy Few in number . Not Available [facility] [address], [place], [address], 06/14/2018 07:23:32 06/14/19 19 06/14/2018 compl ete blood count (CBC) with refle x manua l white blood cell diffe renti al blood hypochromia detection by light microscopy Findin g of urine appear ance Not Available [facility] [address], [place], [address], 06/14/2018 07:23:32 06/14/19 19 06/14/2018 compl ete blood count (CBC) with refle x manua l white blood cell diffe renti al blood anisocytosis detection by light microscopy Findin g of urine appear ance Not Available [facility] [address], [place], [address], 06/14/2018 07:23:32 06/14/1906/14/2018 compl ete blood count (CBC) with refle x manua l white blood cell diffe renti al blood microcytes detection by light microscopy Findin g of urine appear ance Not Available [facility] [address], [place], [address], 06/14/2018 07:23:32 06/14/19 19 06/14/2018 compl ete blood count (CBC) with refle x manua l white blood cell diffe renti al blood toxic granules detection by light microscopy Findin g of urine appear ance Not Available [place] [facility] [address], [place], [address], 06/14/2018 07:23:32 06/14/1906/14/2018 CMP, serum or plasm a glomerular filtration rate/1.73 sq M.predicted by creatinine-b ased formula (CKD-epi) 72.9 mL 60.0-1 20.0 Not Available [place] [facility] [address], [place], [address], 06/14/2018 07:23:36 06/14/1906/14/2018 CMP, serum or plasm a serum or plasma glucose measurement (mass/volume ) 135 mg/dL 74-106 high Not Available [facility] [address], [place], [address], 06/14/2018 07:23:36 06/14/1906/14/2018 CMP, serum or plasm a serum or plasma urea nitrogen measurement (mass/volume ) 16 mg/dL 7-17 Not Available [facility] [address], [place], [address], 06/14/2018 07:23:36 06/14/1906/14/2018 CMP, serum or plasm a serum or plasma creatinine measurement (mass/volume ) 1.0 mg/dL 0.7-1. 2 Not Available [place] [facility] [address], [place], [address], 06/14/2018 07:23:36 06/14/1906/14/2018 CMP, serum or plasm a blood urea nitrogen/cre atinine mass ratio 16.0 % 12-20 Not Available [facility] as [facility] [address], [place], [address], 06/14/2018 07:23:36 06/14/1906/14/2018 CMP, serum or plasm a serum or plasma sodium measurement (moles/volum e) 144 mmol/ L 137-14 5 Not Available [facility] [address], [place], [address], 06/14/2018 07:23:36 06/14/1906/14/2018 CMP, serum or plasm a serum or plasma potassium measurement (moles/volum e) 3.4 mmol/ L 3.5-5. 1 low Not Available [facility] [address], [place], [address], 06/14/2018 07:23:36 06/14/1906/14/2018 CMP, serum or plasm a serum or plasma chloride measurement (moles/volum e) 104 mmol/ L 98-107 Not Available [facility] [address], [place], [address], 06/14/2018 07:23:36 06/14/1906/14/2018 CMP, serum or plasm a serum or plasma carbon dioxide, total measurement (moles/volum e) 24 mmol/ L 22-30 Not Available [facility] [address], [place], [address], 06/14/2018 07:23:36 06/14/1906/14/2018 CMP, serum or plasm a blood calcium measurement (mass/volume ) 9.8 mg/dL 8.4-10 .2 Not Available [facility] [address], [place], [address], 06/14/2018 07:23:36 06/14/1906/14/2018 CMP, serum or plasm a serum or plasma anion gap 19.4 mmol/ L 11.0-2 0.0 Not Available [facility] [address], [place], [address], 06/14/2018 07:23:36 06/14/1906/14/2018 CMP, serum or plasm a osmolality of serum or plasma by calculation 290 mOsm/ kg 265.85 -296.6 0 Not Available [facility] [address], [place], [address], 06/14/2018 07:23:36 06/14/1906/14/2018 CMP, serum or plasm a serum or plasma protein measurement (mass/volume ) 9.3 g/dL 6.3-8. 2 high Not Available [facility] [address], [place], [address], 06/14/2018 07:23:36 06/14/19 19 06/14/2018 CMP, serum or plasm a serum or plasma albumin measurement (mass/volume ) 5.3 g/dL 3.5-5. 0 high Not Available [facility] [address], [place], [address], 06/14/2018 07:23:36 06/14/1906/14/2018 CMP, serum or plasm a albumin/glob serpl-mrto 4.0 g/dL 2.2-4. 2 Not Available [facility] [address], [place], [address], 06/14/2018 07:23:36 06/14/1906/14/2018 CMP, serum or plasm a serum or plasma albumin/glob ulin mass ratio 1.30 % 1.10-2 .20 Not Available [facility] [address], [place], [address], 06/14/2018 07:23:36 06/14/1906/14/2018 CMP, serum or plasm a serum or plasma total bilirubin measurement (mass/volume ) 0.70 mg/dL 0.2-1. 3 Not Available [place] [facility] [address], [place], [address], 06/14/2018 07:23:36 06/14/1906/14/2018 CMP, serum or plasm a serum or plasma aspartate aminotransfe rase measurement (enzymatic activity/vol ume) 34 U/L 14-36 Not Available [facility] as [facility] [address], [place], [address], 06/14/2018 07:23:36 06/14/1906/14/2018 CMP, serum or plasm a serum or plasma alanine aminotransfe rase measurement (enzymatic activity/vol ume) 35 U/L 9-52 Not Available [facility] as [facility] [address], [place], [address], 06/14/2018 07:23:36 06/14/1906/14/2018 CMP, serum or plasm a serum or plasma alkaline phosphatase measurement (enzymatic activity/vol ume) 80 U/L 38-126 Not Available [facility] as [facility] [address], [place], [address], 06/14/2018 07:23:36 06/14/1906/14/2018 TSH bld-a cnc TSH bld-acnc 2.07 u[IU] /mL 0.46-4 .68 Not Available [facility] [address], [place], [address], 06/14/2018 07:23:37 06/14/1906/14/2018 serum drug scree n ethanol serpl ql scn < 10.0 0.0-10 .0 Not Available [place] [facility] [address], [place], [address], 06/14/2018 07:23:37 06/14/1906/14/2018 serum drug scree n blood acetaminophe n measurement (mass/volume ) <10.00 ug/mL 10.00- 30.00 low Not Available [place] [facility] [address], [place], [address], 06/14/2018 07:23:37 06/14/1906/14/2018 serum drug scree n serum or plasma salicylates measurement (mass/volume ) <1.0 mg/dL 2.0-29 low Not Available [facility] as [facility] [address], [place], [address], 06/14/2018 07:23:37 06/14/1906/14/2018 cultu re, urine culture, urine 10,00 0-50, 000 cfu/m L Mixed Gram Posit neyda Marjorie isola segundo. No furth er janee p indic ated. Sugge st recol lecti on if sympt oms indic ate. Not Available [place] [facility] [address] [facility] [address], [place], [address], 06/16/2018 09:52:44 06/14/1906/14/2018 urine drug scree n 7aminoclonaz epam ur ql cfm Not Available [facility] as [facility] [address] [facility] [address], [place], [address], 06/16/2018 12:02:22 06/14/1906/14/2018 urine drug scree n urine carboxy tetrahydroca nnabinol detection by confirmatory method 290.5 NG/mL Not Available [facility] as [facility] [address], [place], [address], 06/16/2018 12:02:22 06/14/1906/14/2018 urine drug scree n urine drug screen SEE COMMEN T The follo wing drugs were teste d by LCMS as part of this panel . Any drugs not speci fical ly liste d above were NOT DETEC SEGUNDO . The cutof f for detec tion will be liste d after each drug in ng/ml . OPIAT E CLASS : Codei ne 18, Dihyd rocod eine 30,Hy droco done 60, Norhy droco done 18, [place] morph one 18, Morph ine 30 OXYCO DONE CLASS : Oxyco done 18, Oxymo rphon e 30, Norox ycodo ne 30 Other OPIOI DS/OP IATE ANALO GS: Meper idine 12, Norme perid ine 30, Nalox one 30, Trama dol 30, Propo xphen e 90, Norpr opoxy phen 18, Bupre nophi ne 30, Fenta nyl 18, Norfe ntany l 6, Metha done 60, EDDP 30, Tapen tadol 60 BENZO DIAZE PINES CLASS : 7-Ami noclo nazep am 30, Alpha -hydr oxyla lpraz olam 30, Fluni traze jamel 9, [place]az apam 18, Nordi azepa m 18, Oxaze jamel 30, Temaz epam 18, Diaze jamel 18, Triaz olam 18, MUSCL E RELAX ANTS: Caris prodo l 60 ANTIC ONVUL SANTS : Gabap entin 18 CNF STIMU LANT: Methy lphen idate 60 ANTID EPRES SANTS : Amitr iptyl ine 30, Nortr iptyl ine 30 Hallu cinog ens: Ketam ine 12, PCP 18 Synth etic Stimu lants : MDVP 30 Other /DOA: Amphe tamin e 60, Metha mphet amine 30, THC-C OOH 18, MDA 60, 6-LEONARDA 9, MDMA 60, Dimet hyltr iptam ine 18, Benzo ylecg onine (Coca in Metab olite ) 30 Synth etic Canna binoi ds: JWH-0 73 4-But anoic acid 12, JWH-0 18 5-Pen tanoi c Acid 18, AM220 1 4-Hyd roxyp entyl Metab olite 12, JWH-1 22 5-Hyd roxyp entyl 12 Not Available [facility] [address], [place], [address], 06/16/2018 12:02:22 07/08/19 19 07/08/2018 CBC w/ auto diff blood leukocytes automated count (number/volu me) 11.0 10*3/ uL 4.5-11 .0 1303, 07/08 Not Available [facility] [address], [place], [address], 07/08/2018 14:03:52 07/08/19 19 07/08/2018 CBC w/ auto diff blood erythrocytes automated count (number/volu me) 5.95 10*6/ uL 4.2-5. 4 high Not Available [facility] [address], [place], [address], 07/08/2018 14:03:52 07/08/19 19 07/08/2018 CBC w/ auto diff blood hemoglobin measurement (mass/volume ) 14.5 g/dL 12.0-1 6.0 Not Available [facility] [address], [place], [address], 07/08/2018 14:03:52 07/08/19 19 07/08/2018 CBC w/ auto diff HCT vfr bld auto 49.3 % 36.0-4 8.0 high Not Available [facility] [address], [place], [address], 07/08/2018 14:03:52 07/08/1907/08/2018 CBC w/ auto diff automated erythrocyte mean corpuscular volume 82.9 fL 80-100 Not Available [facility] [address], [place], [address], 07/08/2018 14:03:52 07/08/19 19 07/08/2018 CBC w/ auto diff automated erythrocyte mean corpuscular hemoglobin (mass per erythrocyte) 24.4 pg 27-32 low Not Available [facility] [employer] [facility] [address], [place], [address], 07/08/2018 14:03:52 07/08/19 19 07/08/2018 CBC w/ auto diff automated erythrocyte mean corpuscular hemoglobin concentratio n measurement (mass/vol 29.4 g/dL 31.0-3 7.0 low Not Available [facility] [address], [place], [address], 07/08/2018 14:03:52 07/08/19 19 07/08/2018 CBC w/ auto diff automated erythrocyte distribution width ratio 16.6 % 12-14. 5 high Not Available [facility] [address], [place], [address], 07/08/2018 14:03:52 07/08/19 19 07/08/2018 CBC w/ auto diff automated blood platelet count (count/volum e) 442 10*3/ uL 150-45 0 1303, 07/08 Not Available [place] [employer] [facility] [address], [place], [address], 07/08/2018 14:03:52 07/08/19 19 07/08/2018 CBC w/ auto diff automated blood platelet mean volume 10.8 fL 7.4-10 .4 high Not Available [facility] [address], [place], [address], 07/08/2018 14:03:52 07/08/19 19 07/08/2018 CBC w/ auto diff automated blood segmented neutrophils/ 100 leukocytes 72.8 % 40-70 high Not Available [facility] [address], [place], [address], 07/08/2018 14:03:52 07/08/19 19 07/08/2018 CBC w/ auto diff blood lymphocytes/ 100 leukocytes by flow cytometry 15.8 % 20-44 low Not Available [facility] [employer] [facility] [address], [place], [address], 07/08/2018 14:03:52 07/08/19 19 07/08/2018 CBC w/ auto diff automated blood monocytes/10 0 leukocytes 9.6 % 2-9 high Not Available [facility] [address], [place], [address], 07/08/2018 14:03:52 07/08/19 19 07/08/2018 CBC w/ auto diff automated blood eosinophils/ 100 leukocytes 0.4 % 0-4 Not Available [facility] [address], [place], [address], 07/08/2018 14:03:52 07/08/19 19 07/08/2018 CBC w/ auto diff automated blood basophils/10 0 leukocytes 0.9 % 0-1 Not Available [facility] [address], [place], [address], 07/08/2018 14:03:52 07/08/19 19 07/08/2018 CBC w/ auto diff blood neutrophils automated count (number/volu me) 8.04 10*3/ uL 1.8-7. 7 high Not Available [facility] [address], [place], [address], 07/08/2018 14:03:52 07/08/19 19 07/08/2018 CBC w/ auto diff blood lymphocytes automated count (number/volu me) 1.74 10*3/ uL 0.9-4. 8 Not Available [facility] [address], [place], [address], 07/08/2018 14:03:52 07/08/19 19 07/08/2018 CBC w/ auto diff blood monocytes automated count (number/volu me) 1.1 10*3/ uL 0-0.8 high Not Available [facility] [address], [place], [address], 07/08/2018 14:03:52 07/08/19 19 07/08/2018 CBC w/ auto diff blood eosinophils automated count (count/volum e) 0.04 10*3/ uL 0-0.7 Not Available [facility] [address], [place], [address], 07/08/2018 14:03:52 07/08/19 19 07/08/2018 CBC w/ auto diff automated blood basophil count (count/volum e) 0.10 10*3/ uL 0-0.2 Not Available [facility] [address], [place], [address], 07/08/2018 14:03:52 07/08/19 19 07/08/2018 CBC w/ auto diff imm granulocytes bld ql auto 0.5 % 0-0 high Not Available [facility] [address], [place], [address], 07/08/2018 14:03:52 07/08/19 19 07/08/2018 CBC w/ auto diff imm granulocytes # bld 0.1 10*3/ uL 0-0 high Not Available [facility] [address], [place], [address], 07/08/2018 14:03:52 07/08/19 19 07/08/2018 CBC w/ auto diff NRBC/100 WBC bld auto-RTO 0.0 % 0-0 Not Available [facility] [facility] [address], [place], [address], 07/08/2018 14:03:52 07/08/19 19 07/08/2018 urine drug scree n urine creatinine measurement (mass/volume ) > 346.5 Not Available [facility] [address], [place], [address], 07/08/2018 14:10:14 07/08/19 19 07/08/2018 urine drug scree n urine amphetamine detection by screening method NEGATI VE neg Not Available [facility] [address], [place], [address], 07/08/2018 14:10:14 07/08/19 19 07/08/2018 urine drug scree n urine cocaine detection by screening method NEGATI VE neg Not Available [facility] [address], [place], [address], 07/08/2018 14:10:14 07/08/19 19 07/08/2018 urine drug scree n urine cannabinoids detection by screening method NEGATI VE neg Not Available [facility] [address], [place], [address], 07/08/2018 14:10:14 07/08/19 19 07/08/2018 urine drug scree n urine benzodiazepi dileep detection by screening method NEGATI VE neg Not Available [facility] [address], [place], [address], 07/08/2018 14:10:14 07/08/19 19 07/08/2018 urine drug scree n urine tricyclic antidepressa nt measurement NEGATI VE neg Not Available [facility] [address], [place], [address], 07/08/2018 14:10:14 07/08/19 19 07/08/2018 urine drug scree n urine barbiturates detection by screening method NEGATI VE neg Not Available [facility] [address], [place], [address], 07/08/2018 14:10:14 07/08/19 19 07/08/2018 urine drug scree n MDMA ur screen Negati ve neg Not Available [facility] [address], [place], [address], 07/08/2018 14:10:14 07/08/1907/08/2018 urine drug scree n urine opiates detection by screening method Negati ve neg Not Available [facility] [address], [place], [address], 07/08/2018 14:10:14 07/08/19 19 07/08/2018 urine drug scree n urine phencyclidin e detection by screening method NEGATI VE neg Not Available [facility] [address], [place], [address], 07/08/2018 14:10:14 07/08/19 19 07/08/2018 urine drug scree n urine oxycodone screening test NEGATI VE neg Not Available [facility] [address], [place], [address], 07/08/2018 14:10:14 07/08/19 19 07/08/2018 urine drug scree n urine propoxyphene detection by screening method Negati ve neg Not Available [facility] [address], [place], [address], 07/08/2018 14:10:14 07/08/19 19 07/08/2018 urina lysis , compl ete color of urine by auto Yellow Not Available [facility] [address], [place], [address], 07/08/2018 14:12:36 07/08/19 19 07/08/2018 urina lysis , compl ete urine clarity by refractometr y automated Cloudy Not Available [facility] [address], [place], [address], 07/08/2018 14:12:36 07/08/19 19 07/08/2018 urina lysis , compl ete urine glucose detection Negati ve negati ve Not Available [facility] [address], [place], [address], 07/08/2018 14:12:36 07/08/19 19 07/08/2018 urina lysis , compl ete urine bilirubin detection Negati ve negati ve Not Available [facility] [address], [place], [address], 07/08/2018 14:12:36 07/08/19 19 07/08/2018 urina lysis , compl ete urine ketones detection by automated test strip Trace negati ve Not Available [facility] [address], [place], [address], 07/08/2018 14:12:36 07/08/19 19 07/08/2018 urina lysis , compl ete specific gravity of urine by automated test strip 1.025 1.001- 1.030 Not Available [facility] [address], [place], [address], 07/08/2018 14:12:36 07/08/19 19 07/08/2018 urina lysis , compl ete urine erythrocytes detection by automated method Negati ve negati ve Not Available [facility] [address], [place], [address], 07/08/2018 14:12:36 07/08/19 19 07/08/2018 urina lysis , compl ete urine pH measurement by automated test strip 6.0 5.0-8. 5 Not Available [facility] [address], [place], [address], 07/08/2018 14:12:36 07/08/19 19 07/08/2018 urina lysis , compl ete urine protein detection 30 negati ve Not Available [facility] [address], [place], [address], 07/08/2018 14:12:36 07/08/19 19 07/08/2018 urina lysis , compl ete urine urobilinogen measurement by automated test strip (mass/volume ) 2.0 0.2-1 mg/dL high Not Available [facility] [address], [place], [address], 07/08/2018 14:12:36 07/08/19 19 07/08/2018 urina lysis , compl ete urine nitrite detection Negati ve negati ve Not Available [facility] [address], [place], [address], 07/08/2018 14:12:36 07/08/19 19 07/08/2018 urina lysis , compl ete urine leukocyte esterase detection by automated test strip Negati ve negati ve Not Available [facility] [address], [place], [address], 07/08/2018 14:12:36 07/08/19 19 07/08/2018 urina lysis , compl ete urine leukocytes detection 0-2 0-3 Not Available [facility] [address], [place], [address], 07/08/2018 14:12:36 07/08/19 19 07/08/2018 urina lysis , compl ete urine erythrocytes count by automated test strip (number/volu me) NONE SEEN 0-2 Not Available [facility] [address], [place], [address], 07/08/2018 14:12:36 07/08/19 19 07/08/2018 urina lysis , compl ete urine squamous epithelial cells detection by automated method 21-30 Not Available [facility] [address], [place], [address], 07/08/2018 14:12:36 07/08/19 19 07/08/2018 urina lysis , compl ete urine bacteria detection by automated method 2+ Not Available [facility] [address], [place], [address], 07/08/2018 14:12:36 07/08/19 19 07/08/2018 urina lysis , compl ete urine mucus detection by automated method 3+ Not Available [facility] [address], [place], [address], 07/08/2018 14:12:36 07/08/19 19 07/08/2018 CMP, serum or plasm a serum or plasma glucose measurement (mass/volume ) 99 mg/dL 74-106 Not Available [facility] [address], [place], [address], 07/08/2018 14:19:31 07/08/19 19 07/08/2018 CMP, serum or plasm a serum or plasma urea nitrogen measurement (mass/volume ) 12 mg/dL 7-17 Not Available [facility] [address] [facility] [address], [place], [address], 07/08/2018 14:19:31 07/08/19 19 07/08/2018 CMP, serum or plasm a serum or plasma creatinine measurement (mass/volume ) 1.0 mg/dL 0.7-1. 2 Not Available [facility] [address] [facility] [address], [place], [address], 07/08/2018 14:19:31 07/08/19 19 07/08/2018 CMP, serum or plasm a serum or plasma sodium measurement (moles/volum e) 144 mmol/ L 137-14 5 Not Available [facility] [address], [place], [address], 07/08/2018 14:19:31 07/08/1907/08/2018 CMP, serum or plasm a serum or plasma potassium measurement (moles/volum e) 4.2 mmol/ L 3.5-5. 1 Not Available [facility] [address] [facility] [address], [place], [address], 07/08/2018 14:19:31 07/08/1907/08/2018 CMP, serum or plasm a serum or plasma chloride measurement (moles/volum e) 108 mmol/ L 98-107 high Not Available [facility] [address], [place], [address], 07/08/2018 14:19:31 07/08/19 19 07/08/2018 CMP, serum or plasm a serum or plasma carbon dioxide, total measurement (moles/volum e) 24 mmol/ L 22-30 Not Available [facility] [address], [place], [address], 07/08/2018 14:19:31 07/08/1907/08/2018 CMP, serum or plasm a blood calcium measurement (mass/volume ) 9.7 mg/dL 8.4-10 .2 Not Available [facility] [address], [place], [address], 07/08/2018 14:19:31 07/08/1907/08/2018 CMP, serum or plasm a serum or plasma anion gap 12.0 mEq/L 7.0-16 .0 Not Available [facility] [address], [place], [address], 07/08/2018 14:19:31 07/08/1907/08/2018 CMP, serum or plasm a blood urea nitrogen/cre atinine mass ratio 12.0 % 12.0-2 0.0 Not Available [facility] [address], [place], [address], 07/08/2018 14:19:31 07/08/1907/08/2018 CMP, serum or plasm a osmolality of serum or plasma by calculation 287 mOsm/ kg 261-28 0 high Not Available [facility] [address], [place], [address], 07/08/2018 14:19:31 07/08/1907/08/2018 CMP, serum or plasm a glomerular filtration rate/1.73 sq M.predicted by creatinine-b ased formula (CKD-epi) 72.9 mL 60.0-1 20.0 Not Available [facility] [address], [place], [address], 07/08/2018 14:19:31 07/08/1907/08/2018 CMP, serum or plasm a serum or plasma total bilirubin measurement (mass/volume ) 0.60 mg/dL 0.2-1. 3 Not Available [facility] [address], [place], [address], 07/08/2018 14:19:31 07/08/19 19 07/08/2018 CMP, serum or plasm a serum or plasma aspartate aminotransfe rase measurement (enzymatic activity/vol ume) 24 U/L 14-36 Not Available [facility] [address], [place], [address], 07/08/2018 14:19:31 07/08/19 19 07/08/2018 CMP, serum or plasm a serum or plasma alanine aminotransfe rase measurement (enzymatic activity/vol ume) 14 U/L 9-52 Not Available [facility] [address], [place], [address], 07/08/2018 14:19:31 07/08/19 19 07/08/2018 CMP, serum or plasm a serum or plasma alkaline phosphatase measurement (enzymatic activity/vol ume) 74 U/L 38-126 Not Available [facility] [address], [place], [address], 07/08/2018 14:19:31 07/08/19 19 07/08/2018 CMP, serum or plasm a serum or plasma protein measurement (mass/volume ) 8.8 g/dL 6.3-8. 2 high Not Available [facility] [address], [place], [address], 07/08/2018 14:19:31 07/08/19 19 07/08/2018 CMP, serum or plasm a serum or plasma albumin measurement (mass/volume ) 5.0 g/dL 3.5-5. 0 Not Available [facility] [address], [place], [address], 07/08/2018 14:19:31 07/08/19 19 07/08/2018 CMP, serum or plasm a plasma globulin measurement (mass/volume ) 3.8 g/dL 2.2-4. 2 Not Available [facility] [address] [facility] [address], [place], [address], 07/08/2018 14:19:31 07/08/19 19 07/08/2018 CMP, serum or plasm a serum or plasma albumin/glob ulin mass ratio 1.30 % 1.10-2 .20 Not Available [facility] [address] [facility] [address], [place], [address], 07/08/2018 14:19:31 07/08/19 19 07/08/2018 serum drug scree n serum or plasma salicylates measurement (mass/volume ) <1.0 mg/dL 2.0-29 low Not Available [facility] [address] [facility] [address], [place], [address], 07/08/2018 14:19:31 07/08/19 19 07/08/2018 serum drug scree n blood acetaminophe n measurement (mass/volume ) <10.00 ug/mL 10.00- 30.00 low Not Available [facility] [address] [facility] [address], [place], [address], 07/08/2018 14:19:31 07/08/19 19 07/08/2018 serum drug scree n ethanol serpl ql scn < 10.0 0.0-10 .0 Not Available [facility] [address] [facility] [address], [place], [address], 07/08/2018 14:19:31 07/08/19 19 07/08/2018 TSH, serum or plasm a TSH serpl-acnc 1.76 u[IU] /mL 0.465- 4.68 Not Available [facility] [address] [facility] [address], [place], [address], 07/08/2018 14:46:31 08/12/19 19 08/11/2018 CBC w/ auto diff blood leukocytes automated count (number/volu me) 10.8 10*3/ uL 4.5-11 .0 Not Available [facility] [address], [place], [address], 08/11/2018 11:22:35 08/12/19 19 08/11/2018 CBC w/ auto diff blood erythrocytes automated count (number/volu me) 5.29 10*6/ uL 4.00-5 .40 Not Available [facility] [address], [place], [address], 08/11/2018 11:22:35 08/12/19 19 08/11/2018 CBC w/ auto diff blood hemoglobin measurement (mass/volume ) 13.2 g/dL 12.0-1 6.0 Not Available [facility] [address], [place], [address], 08/11/2018 11:22:35 08/12/19 19 08/11/2018 CBC w/ auto diff HCT vfr bld auto 42.8 % 36.0-4 8.0 Not Available [facility] [address], [place], [address], 08/11/2018 11:22:35 08/12/19 19 08/11/2018 CBC w/ auto diff automated erythrocyte mean corpuscular volume 81.0 fL 80-100 Not Available [facility] [address], [place], [address], 08/11/2018 11:22:35 08/12/19 19 08/11/2018 CBC w/ auto diff automated erythrocyte mean corpuscular hemoglobin (mass per erythrocyte) 24.9 pg 27-32 low Not Available [facility] [address], [place], [address], 08/11/2018 11:22:35 08/12/19 19 08/11/2018 CBC w/ auto diff automated erythrocyte mean corpuscular hemoglobin concentratio n measurement (mass/vol 30.8 g/dL 31.0-3 7.0 low Not Available [facility] [address], [place], [address], 08/11/2018 11:22:35 08/12/19 19 08/11/2018 CBC w/ auto diff automated erythrocyte distribution width ratio 15.8 % 12-14. 5 high Not Available [facility] [address], [place], [address], 08/11/2018 11:22:35 08/12/19 19 08/11/2018 CBC w/ auto diff automated blood platelet count (count/volum e) 430 10*3/ uL 140-45 0 Not Available [facility] [address], [place], [address], 08/11/2018 11:22:35 08/12/19 19 08/11/2018 CBC w/ auto diff automated blood platelet mean volume 8.7 fL 7.4-10 .4 Not Available [facility] [address], [place], [address], 08/11/2018 11:22:35 08/12/19 19 08/11/2018 CBC w/ auto diff automated blood segmented neutrophils/ 100 leukocytes 79.0 % 40-70 high Not Available [facility] [address], [place], [address], 08/11/2018 11:22:35 08/12/19 19 08/11/2018 CBC w/ auto diff blood lymphocytes/ 100 leukocytes by flow cytometry 12.4 % 20-44 low Not Available [facility] [address], [place], [address], 08/11/2018 11:22:35 08/12/19 19 08/11/2018 CBC w/ auto diff automated blood monocytes/10 0 leukocytes 7.1 % 2-9 Not Available [facility] [address], [place], [address], 08/11/2018 11:22:35 08/12/19 19 08/11/2018 CBC w/ auto diff automated blood eosinophils/ 100 leukocytes 0.4 % 0-4 Not Available [facility] [address], [place], [address], 08/11/2018 11:22:35 08/12/19 19 08/11/2018 CBC w/ auto diff automated blood basophils/10 0 leukocytes 1.2 % 0-1 high Not Available [facility] [address], [place], [address], 08/11/2018 11:22:35 08/12/19 19 08/11/2018 CBC w/ auto diff blood neutrophils automated count (number/volu me) 8.49 10*3/ uL 1.8-7. 7 high Not Available [facility] [address], [place], [address], 08/11/2018 11:22:35 08/12/19 19 08/11/2018 CBC w/ auto diff blood lymphocytes automated count (number/volu me) 1.33 10*3/ uL 0.9-4. 8 Not Available [facility] [address], [place], [address], 08/11/2018 11:22:35 08/12/19 19 08/11/2018 CBC w/ auto diff blood monocytes automated count (number/volu me) 0.8 10*3/ uL 0-0.8 Not Available [facility] [address], [place], [address], 08/11/2018 11:22:35 08/12/19 19 08/11/2018 CBC w/ auto diff blood eosinophils automated count (count/volum e) 0.05 10*3/ uL 0-0.7 Not Available [facility] [address], [place], [address], 08/11/2018 11:22:35 08/12/19 19 08/11/2018 CBC w/ auto diff automated blood basophil count (count/volum e) 0.13 10*3/ uL 0-0.2 Not Available [facility] [address], [place], [address], 08/11/2018 11:22:35 08/12/19 19 08/11/2018 compl ete blood count (CBC) with refle x manua l white blood cell diffe renti al platelet estimate Review number is increa sed in value Not Available [facility] [address], [place], [address], 08/11/2018 11:23:08 08/12/19 19 08/11/2018 compl ete blood count (CBC) with refle x manua l white blood cell diffe renti al blood hypochromia detection by light microscopy Findin g of urine appear ance Not Available [facility] [address], [place], [address], 08/11/2018 11:23:08 08/12/19 19 08/11/2018 CMP, serum or plasm a glomerular filtration rate/1.73 sq M.predicted by creatinine-b ased formula (CKD-epi) 72.9 mL 60.0-1 20.0 Not Available [facility] [address], [place], [address], 08/11/2018 11:59:29 08/12/19 19 08/11/2018 CMP, serum or plasm a serum or plasma glucose measurement (mass/volume ) 102 mg/dL 74-106 Not Available [facility] [address], [place], [address], 08/11/2018 11:59:29 08/12/19 19 08/11/2018 CMP, serum or plasm a serum or plasma urea nitrogen measurement (mass/volume ) 16 mg/dL 7-17 Not Available [facility] [address], [place], [address], 08/11/2018 11:59:29 08/12/19 19 08/11/2018 CMP, serum or plasm a serum or plasma creatinine measurement (mass/volume ) 1.0 mg/dL 0.7-1. 2 Not Available [facility] [address] [facility] [address], [place], [address], 08/11/2018 11:59:29 08/12/19 19 08/11/2018 CMP, serum or plasm a blood urea nitrogen/cre atinine mass ratio 16.0 % 12-20 Not Available [facility] [address] [facility] [address], [place], [address], 08/11/2018 11:59:29 08/12/19 19 08/11/2018 CMP, serum or plasm a serum or plasma sodium measurement (moles/volum e) 140 mmol/ L 137-14 5 Not Available [facility] [address] [facility] [address], [place], [address], 08/11/2018 11:59:29 08/12/1908/11/2018 CMP, serum or plasm a serum or plasma potassium measurement (moles/volum e) 3.7 mmol/ L 3.5-5. 1 Not Available [facility] [address] [facility] [address], [place], [address], 08/11/2018 11:59:29 08/12/1908/11/2018 CMP, serum or plasm a serum or plasma chloride measurement (moles/volum e) 106 mmol/ L 98-107 Not Available [facility] [address], [place], [address], 08/11/2018 11:59:29 08/12/19 19 08/11/2018 CMP, serum or plasm a serum or plasma carbon dioxide, total measurement (moles/volum e) 24 mmol/ L 22-30 Not Available [facility] [address], [place], [address], 08/11/2018 11:59:29 08/12/1908/11/2018 CMP, serum or plasm a blood calcium measurement (mass/volume ) 9.2 mg/dL 8.4-10 .2 Not Available [facility] [address] [facility] [address], [place], [address], 08/11/2018 11:59:29 08/12/1908/11/2018 CMP, serum or plasm a serum or plasma anion gap 13.7 mmol/ L 11.0-2 0.0 Not Available [facility] [address], [place], [address], 08/11/2018 11:59:29 08/12/19 19 08/11/2018 CMP, serum or plasm a osmolality of serum or plasma by calculation 281 mOsm/ kg 265.85 -296.6 0 Not Available [facility] [address], [place], [address], 08/11/2018 11:59:29 08/12/1908/11/2018 CMP, serum or plasm a serum or plasma protein measurement (mass/volume ) 7.8 g/dL 6.3-8. 2 Not Available [facility] [address] [facility] [address], [place], [address], 08/11/2018 11:59:29 08/12/1908/11/2018 CMP, serum or plasm a serum or plasma albumin measurement (mass/volume ) 4.6 g/dL 3.5-5. 0 Not Available [facility] [address], [place], [address], 08/11/2018 11:59:29 08/12/1908/11/2018 CMP, serum or plasm a albumin/glob serpl-mrto 3.2 g/dL 2.2-4. 2 Not Available [facility] [address], [place], [address], 08/11/2018 11:59:29 08/12/19 19 08/11/2018 CMP, serum or plasm a serum or plasma albumin/glob ulin mass ratio 1.40 % 1.10-2 .20 Not Available [facility] [address], [place], [address], 08/11/2018 11:59:29 08/12/19 19 08/11/2018 CMP, serum or plasm a serum or plasma total bilirubin measurement (mass/volume ) 0.80 mg/dL 0.2-1. 3 Not Available [facility] [address], [place], [address], 08/11/2018 11:59:29 08/12/19 19 08/11/2018 CMP, serum or plasm a serum or plasma aspartate aminotransfe rase measurement (enzymatic activity/vol ume) 26 U/L 14-36 Not Available [facility] [address], [place], [address], 08/11/2018 11:59:29 08/12/19 19 08/11/2018 CMP, serum or plasm a serum or plasma alanine aminotransfe rase measurement (enzymatic activity/vol ume) 26 U/L 9-52 Not Available [facility] [address], [place], [address], 08/11/2018 11:59:29 08/12/19 19 08/11/2018 CMP, serum or plasm a serum or plasma alkaline phosphatase measurement (enzymatic activity/vol ume) 74 U/L 38-126 Not Available [facility] [address], [place], [address], 08/11/2018 11:59:29 08/12/19 19 08/11/2018 TSH bld-a cnc TSH bld-acnc 0.87 u[IU] /mL 0.46-4 .68 Not Available [facility] [address], [place], [address], 08/11/2018 11:59:29 08/12/19 19 08/11/2018 serum drug scree n ethanol serpl ql scn < 10.0 0.0-10 .0 Not Available [facility] [address], [place], [address], 08/11/2018 11:59:30 08/12/19 19 08/11/2018 serum drug scree n blood acetaminophe n measurement (mass/volume ) <10.00 ug/mL 10.00- 30.00 low Not Available [facility] [address], [place], [address], 08/11/2018 11:59:30 08/12/19 19 08/11/2018 serum drug scree n serum or plasma salicylates measurement (mass/volume ) <1.0 mg/dL 2.0-29 low Not Available [facility] [address], [place], [address], 08/11/2018 11:59:30 08/12/19 19 08/11/2018 HCG preg ur ql HCG preg ur ql NEGATI VE Not Available [facility] [address], [place], [address], 08/11/2018 12:33:29 08/12/1908/11/2018 urine drug scree n urine amphetamine detection by screening method NEGATI VE neg Not Available [facility] [address], [place], [address], 08/11/2018 12:36:05 08/12/1908/11/2018 urine drug scree n urine barbiturates detection by screening method NEGATI VE neg Not Available [facility] [address], [place], [address], 08/11/2018 12:36:05 08/12/19 19 08/11/2018 urine drug scree n urine benzodiazepi dileep detection by screening method POSITI VE neg high Not Available [facility] [address], [place], [address], 08/11/2018 12:36:05 08/12/19 19 08/11/2018 urine drug scree n urine cocaine detection by screening method NEGATI VE neg Not Available [facility] [address], [place], [address], 08/11/2018 12:36:05 08/12/19 19 08/11/2018 urine drug scree n urine opiates detection by screening method Negati ve neg Not Available [facility] [address], [place], [address], 08/11/2018 12:36:05 08/12/19 19 08/11/2018 urine drug scree n urine phencyclidin e detection by screening method NEGATI VE neg Not Available [facility] [address], [place], [address], 08/11/2018 12:36:05 08/12/19 19 08/11/2018 urine drug scree n urine cannabinoids detection by screening method NEGATI VE neg Not Available [facility] [address], [place], [address], 08/11/2018 12:36:05 08/12/19 19 08/11/2018 urine drug scree n urine oxycodone detection NEGATI VE neg Not Available [facility] [address], [place], [address], 08/11/2018 12:36:05 08/12/19 19 08/11/2018 urine drug scree n MDMA ur screen Negati ve neg Not Available [facility] [address], [place], [address], 08/11/2018 12:36:05 08/12/19 19 08/11/2018 urine drug scree n urine propoxyphene detection by screening method Negati ve neg Not Available [facility] [address], [place], [address], 08/11/2018 12:36:05 08/12/19 19 08/11/2018 urine drug scree n tricyclics serpl ql Negati ve neg Not Available [facility] [address], [place], [address], 08/11/2018 12:36:05 08/12/19 19 08/11/2018 urina lysis , compl ete color of urine by auto DARK YELLOW Not Available [facility] [address], [place], [address], 08/11/2018 12:48:00 08/12/19 19 08/11/2018 urina lysis , compl ete urine clarity by refractometr y automated Slight ly Not Available [facility] [address], [place], [address], 08/11/2018 12:48:00 08/12/19 19 08/11/2018 urina lysis , compl ete urine glucose detection Negati ve negati ve Not Available [facility] [address], [place], [address], 08/11/2018 12:48:00 08/12/19 19 08/11/2018 urina lysis , compl ete urine bilirubin detection Negati ve negati ve Not Available [facility] [address], [place], [address], 08/11/2018 12:48:00 08/12/19 19 08/11/2018 urina lysis , compl ete urine ketones detection by automated test strip Negati ve negati ve Not Available [facility] [address], [place], [address], 08/11/2018 12:48:00 08/12/19 19 08/11/2018 urina lysis , compl ete specific gravity of urine by automated test strip 1.025 1.001- 1.030 Not Available [facility] [address], [place], [address], 08/11/2018 12:48:00 08/12/19 19 08/11/2018 urina lysis , compl ete urine erythrocytes detection by automated method Large negati ve Not Available [facility] [address], [place], [address], 08/11/2018 12:48:00 08/12/19 19 08/11/2018 urina lysis , compl ete urine pH measurement by automated test strip 6.0 5.0-8. 5 Not Available [facility] [address], [place], [address], 08/11/2018 12:48:00 08/12/1908/11/2018 urina lysis , compl ete urine protein detection 30 negati ve Not Available [facility] [address], [place], [address], 08/11/2018 12:48:00 08/12/1908/11/2018 urina lysis , compl ete urine urobilinogen measurement by automated test strip (mass/volume ) 0.2 0.2-1 mg/dL Not Available [facility] [address], [place], [address], 08/11/2018 12:48:00 08/12/1908/11/2018 urina lysis , compl ete urine nitrite detection Negati ve negati ve Not Available [facility] [address], [place], [address], 08/11/2018 12:48:00 08/12/1908/11/2018 urina lysis , compl ete urine leukocyte esterase detection by automated test strip Negati ve negati ve Not Available [facility] [address], [place], [address], 08/11/2018 12:48:00 08/12/19 19 08/11/2018 urina lysis , compl ete urine leukocytes detection 0-1 0-3 Not Available [facility] [address], [place], [address], 08/11/2018 12:48:00 08/12/19 19 08/11/2018 urina lysis , compl ete urine erythrocytes count by automated test strip (number/volu me) NONE SEEN 0-2 Not Available [facility] [address], [place], [address], 08/11/2018 12:48:00 08/12/19 19 08/11/2018 urina lysis , compl ete urine squamous epithelial cells detection by automated method 5-7 Not Available [facility] [address], [place], [address], 08/11/2018 12:48:00 08/12/19 19 08/11/2018 urina lysis , compl ete urine bacteria detection by automated method 2+ Not Available [facility] [address], [place], [address], 08/11/2018 12:48:00 08/12/1908/11/2018 cultu re, urine colony count by visual count 50,000 - 100,00 0 Not Available [facility] [address], [place], [address], 08/13/2018 08:09:35 08/12/19 19 08/11/2018 cultu re, urine culture, urine E coli XXX Ql Cult FDA Not Available [facility] [address], [place], [address], 08/13/2018 08:09:35 08/12/19 19 08/11/2018 urine gram negat neyda organ ism susce ptibi lity test by minim um inhib itory delmer ntrat ion amoxicillin/ clavulanate susceptibili ty test by minimum inhibitory concentratio n =16/8 ug/mL intermedi ate Not Available [facility] [address], [place], [address], 08/13/2018 08:09:35 08/12/19 19 08/11/2018 urine gram negat neyda organ ism susce ptibi lity test by minim um inhib itory delmer ntrat ion ampicillin susceptibili ty test by minimum inhibitory concentratio n >16 ug/mL resistant Not Available [facility] [address], [place], [address], 08/13/2018 08:09:35 08/12/19 19 08/11/2018 urine gram negat neyda organ ism susce ptibi lity test by minim um inhib itory delmer ntrat ion ampicillin/s ulbactam susceptibili ty test by minimum inhibitory concentratio n >16/8 ug/mL resistant Not Available [facility] [address], [place], [address], 08/13/2018 08:09:35 08/12/19 19 08/11/2018 urine gram negat neyda organ ism susce ptibi lity test by minim um inhib itory delmer ntrat ion cefazolin susceptibili ty test by minimum inhibitory concentratio n 4 ug/mL susceptib le Not Available [facility] [address], [place], [address], 08/13/2018 08:09:35 08/12/19 19 08/11/2018 urine gram negat neyda organ ism susce ptibi lity test by minim um inhib itory delmer ntrat ion cefepime susceptibili ty test by minimum inhibitory concentratio n <=8 ug/mL susceptib le Not Available [facility] [address], [place], [address], 08/13/2018 08:09:35 08/12/19 19 08/11/2018 urine gram negat neyda organ ism susce ptibi lity test by minim um inhib itory delmer ntrat ion cefotaxime susceptibili ty test by minimum inhibitory concentratio n <=2 ug/mL susceptib le Not Available [facility] [address], [place], [address], 08/13/2018 08:09:35 08/12/19 19 08/11/2018 urine gram negat neyda organ ism susce ptibi lity test by minim um inhib itory delmer ntrat ion ceftazidime susceptibili ty test by minimum inhibitory concentratio n <=1 ug/mL susceptib le Not Available [facility] [address], [place], [address], 08/13/2018 08:09:35 08/12/19 19 08/11/2018 urine gram negat neyda organ ism susce ptibi lity test by minim um inhib itory delmer ntrat ion ceftriaxone susceptibili ty test by minimum inhibitory concentratio n <=1 ug/mL susceptib le Not Available [facility] [address], [place], [address], 08/13/2018 08:09:35 08/12/19 19 08/11/2018 urine gram negat neyda organ ism susce ptibi lity test by minim um inhib itory delmer ntrat ion ciprofloxaci n susceptibili ty test by minimum inhibitory concentratio n <=1 ug/mL susceptib le Not Available [facility] [address], [place], [address], 08/13/2018 08:09:35 08/12/19 19 08/11/2018 urine gram negat neyda organ ism susce ptibi lity test by minim um inhib itory delmer ntrat ion gentamicin susceptibili ty test by minimum inhibitory concentratio n <=2 ug/mL susceptib le Not Available [facility] [address], [place], [address], 08/13/2018 08:09:35 08/12/19 19 08/11/2018 urine gram negat neyda organ ism susce ptibi lity test by minim um inhib itory delmer ntrat ion imipenem susceptibili ty test by minimum inhibitory concentratio n <=1 ug/mL susceptib le Not Available [facility] [address], [place], [address], 08/13/2018 08:09:35 08/12/19 19 08/11/2018 urine gram negat neyda organ ism susce ptibi lity test by minim um inhib itory delmer ntrat ion levofloxacin susceptibili ty test by minimum inhibitory concentratio n <=2 ug/mL susceptib le Not Available [facility] [address], [place], [address], 08/13/2018 08:09:35 08/12/19 19 08/11/2018 urine gram negat neyda organ ism susce ptibi lity test by minim um inhib itory delmer ntrat ion nitrofuranto in susceptibili ty test by minimum inhibitory concentratio n <=32 ug/mL susceptib le Not Available [facility] [address], [place], [address], 08/13/2018 08:09:35 08/12/19 19 08/11/2018 urine gram negat neyda organ ism susce ptibi lity test by minim um inhib itory delmer ntrat ion tetracycline susceptibili ty test by minimum inhibitory concentratio n <=4 ug/mL susceptib le Not Available [facility] [address], [place], [address], 08/13/2018 08:09:35 08/12/19 19 08/11/2018 urine gram negat neyda organ ism susce ptibi lity test by minim um inhib itory delmer ntrat ion ticarcillin/ clavulanate susceptibili ty test by minimum inhibitory concentratio n 64 ug/mL intermedi ate Not Available [facility] [address], [place], [address], 08/13/2018 08:09:35 08/12/19 19 08/11/2018 urine gram negat neyda organ ism susce ptibi lity test by minim um inhib itory delmer ntrat ion tobramycin susceptibili ty test by minimum inhibitory concentratio n <=4 ug/mL susceptib le Not Available [facility] [address], [place], [address], 08/13/2018 08:09:35 08/12/19 19 08/11/2018 urine gram negat neyda organ ism susce ptibi lity test by minim um inhib itory delmer ntrat ion trimethoprim /sulfamethox azole susceptibili ty test by minimum inhibitory concentratio n <=2/38 ug/mL susceptib le Not Available [facility] [address], [place], [address], 08/13/2018 08:09:35 08/12/19 19 08/11/2018 urine gram negat neyda organ ism susce ptibi lity test by minim um inhib itory delmer ntrat ion piperacillin /tazobactam susceptibili ty test by minimum inhibitory concentratio n <=16 ug/mL susceptib le Not Available [facility] [address], [place], [address], 08/13/2018 08:09:35 08/12/19 19 08/11/2018 urine drug scree n gabapentin ur-mcnc 38.5 NG/mL Not Available [facility] [address], [place], [address], 08/15/2018 10:46:40 08/12/19 19 08/11/2018 urine drug scree n 7aminoclonaz epam ur ql cfm Not Available [facility] [address] [facility], [place], [address], 08/15/2018 10:46:40 08/12/19 19 08/11/2018 urine drug scree n urine drug screen SEE COMMEN T The follo wing drugs were teste d by LCMS as part of this panel . Any drugs not speci fical ly liste d above were NOT DETEC SEGUNDO . The cutof f for detec tion will be liste d after each drug in ng/ml . OPIAT E CLASS : Codei ne 18, Dihyd rocod eine 30,Hy droco done 60, Norhy droco done 18, [place] morph one 18, Morph ine 30 OXYCO DONE CLASS : Oxyco done 18, Oxymo rphon e 30, Norox ycodo ne 30 Other OPIOI DS/OP IATE ANALO GS: Meper idine 12, Norme perid ine 30, Nalox one 30, Trama dol 30, Propo xphen e 90, Norpr opoxy phen 18, Bupre nophi ne 30, Fenta nyl 18, Norfe ntany l 6, Metha done 60, EDDP 30, Tapen tadol 60 BENZO DIAZE PINES CLASS : 7-Ami noclo nazep am 30, Alpha -hydr oxyla lpraz olam 30, Fluni traze jamel 9, Loraz apam 18, Nordi azepa m 18, Oxaze jamel 30, Temaz epam 18, Diaze jamel 18, Triaz olam 18, MUSCL E RELAX ANTS: Caris prodo l 60 ANTIC ONVUL SANTS : Gabap entin 18 CNF STIMU LANT: Methy lphen idate 60 ANTID EPRES SANTS : Amitr iptyl ine 30, Nortr iptyl ine 30 Hallu cinog ens: Ketam ine 12, PCP 18 Synth etic Stimu lants : MDVP 30 Other /DOA: Amphe tamin e 60, Metha mphet amine 30, THC-C OOH 18, MDA 60, 6-LEONARDA 9, MDMA 60, Dimet hyltr iptam ine 18, Benzo ylecg onine (Coca in Metab olite ) 30 Synth etic Canna binoi ds: JWH-0 73 4-But anoic acid 12, JWH-0 18 5-Pen tanoi c Acid 18, AM220 1 4-Hyd roxyp entyl Metab olite 12, JWH-1 22 5-Hyd roxyp entyl 12 Not Available [facility] [address], [place], [address], 08/15/2018 10:46:40 08/12/19 19 08/11/2018 urine drug scree n gabapentin ur-mcnc 38.5 NG/mL Not Available [facility] [address], [place], [address], 08/15/2018 10:46:42 08/12/1908/11/2018 urine drug scree n 7aminoclonaz epam ur ql cfm Not Available [facility] [address], [place], [address], 08/15/2018 10:46:42 08/12/1908/11/2018 urine drug scree n urine drug screen SEE COMMEN T The follo wing drugs were teste d by LCMS as part of this panel . Any drugs not speci fical ly liste d above were NOT DETEC SEGUNDO . The cutof f for detec tion will be liste d after each drug in ng/ml . OPIAT E CLASS : Codei ne 18, Dihyd rocod eine 30,Hy droco done 60, Norhy droco done 18, [place] morph one 18, Morph ine 30 OXYCO DONE CLASS : Oxyco done 18, Oxymo rphon e 30, Norox ycodo ne 30 Other OPIOI DS/OP IATE ANALO GS: Meper idine 12, Norme perid ine 30, Nalox one 30, Trama dol 30, Propo xphen e 90, Norpr opoxy phen 18, Bupre nophi ne 30, Fenta nyl 18, Norfe ntany l 6, Metha done 60, EDDP 30, Tapen tadol 60 BENZO DIAZE PINES CLASS : 7-Ami noclo nazep am 30, Alpha -hydr oxyla lpraz olam 30, Fluni traze jamel 9, Loraz apam 18, Nordi azepa m 18, Oxaze jamel 30, Temaz epam 18, Diaze jamel 18, Triaz olam 18, MUSCL E RELAX ANTS: Caris prodo l 60 ANTIC ONVUL SANTS : Gabap entin 18 CNF STIMU LANT: Methy lphen idate 60 ANTID EPRES SANTS : Amitr iptyl ine 30, Nortr iptyl ine 30 Hallu cinog ens: Ketam ine 12, PCP 18 Synth etic Stimu lants : MDVP 30 Other /DOA: Amphe tamin e 60, Metha mphet amine 30, THC-C OOH 18, MDA 60, 6-LEONARDA 9, MDMA 60, Dimet hyltr iptam ine 18, Benzo ylecg onine (Coca in Metab olite ) 30 Synth etic Canna binoi ds: JWH-0 73 4-But anoic acid 12, JWH-0 18 5-Pen tanoi c Acid 18, AM220 1 4-Hyd roxyp entyl Metab olite 12, JWH-1 22 5-Hyd roxyp entyl 12 Not Available [facility] [address], [place], [address], 08/15/2018 10:46:42 10/25/19 20 10/25/2019 urina lysis , compl ete color of urine by auto Yellow Not Available [facility] [address], [place], [address], 10/25/2019 18:36:58 10/25/19 20 10/25/2019 urina lysis , compl ete urine clarity by refractometr y automated Hazy Not Available [facility] [address], [place], [address], 10/25/2019 18:36:58 10/25/19 20 10/25/2019 urina lysis , compl ete urine glucose detection Negati ve negati ve Not Available [facility] [address], [place], [address], 10/25/2019 18:36:58 10/25/19 20 10/25/2019 urina lysis , compl ete urine bilirubin detection Negati ve negati ve Not Available [facility] [address], [place], [address], 10/25/2019 18:36:58 10/25/19 20 10/25/2019 urina lysis , compl ete urine ketones detection by automated test strip Negati ve negati ve Not Available [facility] [address], [place], [address], 10/25/2019 18:36:58 10/25/19 20 10/25/2019 urina lysis , compl ete specific gravity of urine by automated test strip 1.024 1.001- 1.030 Not Available [facility] [address], [place], [address], 10/25/2019 18:36:58 10/25/19 20 10/25/2019 urina lysis , compl ete urine erythrocytes detection by automated method Negati ve negati ve Not Available [facility] [address], [place], [address], 10/25/2019 18:36:58 10/25/19 20 10/25/2019 urina lysis , compl ete urine pH measurement by automated test strip 5.0 5.0-8. 5 Not Available [facility] [address], [place], [address], 10/25/2019 18:36:58 10/25/19 20 10/25/2019 urina lysis , compl ete urine protein detection Negati ve negati ve Not Available [facility] [address], [place], [address], 10/25/2019 18:36:58 10/25/19 20 10/25/2019 urina lysis , compl ete urine urobilinogen measurement by automated test strip (mass/volume ) Normal 0.2-1 mg/dL Not Available [facility] [address], [place], [address], 10/25/2019 18:36:58 10/25/19 20 10/25/2019 urina lysis , compl ete urine nitrite detection Negati ve negati ve Not Available [facility] [address], [place], [address], 10/25/2019 18:36:58 10/25/19 20 10/25/2019 urina lysis , compl ete urine leukocyte esterase detection by automated test strip Negati ve negati ve Not Available [facility] [address], [place], [address], 10/25/2019 18:36:58 10/25/19 20 10/25/2019 urina lysis , compl ete urine leukocytes detection 0-2 0-3 Not Available [facility] [address], [place], [address], 10/25/2019 18:36:58 10/25/19 20 10/25/2019 urina lysis , compl ete urine erythrocytes count by automated test strip (number/volu me) 0-2 0-2 Not Available [facility] [address], [place], [address], 10/25/2019 18:36:58 10/25/19 20 10/25/2019 urina lysis , compl ete urine squamous epithelial cells detection by automated method 0-2 Not Available [facility] [address], [place], [address], 10/25/2019 18:36:58 10/25/19 20 10/25/2019 urina lysis , compl ete urine mucus detection by automated method TR Not Available [facility] [address], [place], [address], 10/25/2019 18:36:58 10/25/19 20 10/25/2019 urine drug scree n urine creatinine measurement (mass/volume ) 136.0 mg/dL Not Available [facility] [address], [place], [address], 10/25/2019 18:54:05 10/25/19 20 10/25/2019 urine drug scree n urine amphetamine detection by screening method NEGATI VE neg Not Available [facility] [address], [place], [address], 10/25/2019 18:54:05 10/25/19 20 10/25/2019 urine drug scree n urine cocaine detection by screening method NEGATI VE neg Not Available [facility] [address], [place], [address], 10/25/2019 18:54:05 10/25/19 20 10/25/2019 urine drug scree n urine cannabinoids detection by screening method NEGATI VE neg Not Available [facility] [address], [place], [address], 10/25/2019 18:54:05 10/25/19 20 10/25/2019 urine drug scree n urine benzodiazepi dileep detection by screening method NEGATI VE neg Not Available [facility] [address], [place], [address], 10/25/2019 18:54:05 10/25/19 20 10/25/2019 urine drug scree n urine tricyclic antidepressa nt measurement NEGATI VE neg Not Available [facility] [address], [place], [address], 10/25/2019 18:54:05 10/25/19 20 10/25/2019 urine drug scree n urine barbiturates detection by screening method NEGATI VE neg Not Available [facility] [address], [place], [address], 10/25/2019 18:54:05 10/25/19 20 10/25/2019 urine drug scree n MDMA ur screen Negati ve neg Not Available [facility] [address], [place], [address], 10/25/2019 18:54:05 10/25/19 20 10/25/2019 urine drug scree n screening urine opiates detection Negati ve neg Not Available [facility] [address], [place], [address], 10/25/2019 18:54:05 10/25/19 20 10/25/2019 urine drug scree n urine phencyclidin e detection by screening method NEGATI VE neg Not Available [facility] [address], [place], [address], 10/25/2019 18:54:05 10/25/19 20 10/25/2019 urine drug scree n urine oxycodone screening test NEGATI VE neg Not Available [facility] [address], [place], [address], 10/25/2019 18:54:05 10/25/19 20 10/25/2019 urine drug scree n urine propoxyphene detection by screening method Negati ve neg Not Available [facility] [address], [place], [address], 10/25/2019 18:54:05 10/25/19 20 10/25/2019 autom ated blood compl ete blood count (hemo gram) panel automated blood leukocyte count (number/volu me) 11.4 10*3/ uL 4.5-11 .0 high 1923, 10/24 Not Available [facility] [address], [place], [address], 10/25/2019 20:23:28 10/25/19 20 10/25/2019 autom ated blood compl ete blood count (hemo gram) panel blood erythrocytes automated count (number/volu me) 4.45 10*6/ uL 4.2-5. 4 Not Available [facility] [address], [place], [address], 10/25/2019 20:23:28 10/25/19 20 10/25/2019 autom ated blood compl ete blood count (hemo gram) panel blood hemoglobin measurement (mass/volume ) 11.2 g/dL 12.0-1 6.0 low Not Available [facility] [address], [place], [address], 10/25/2019 20:23:28 10/25/19 20 10/25/2019 autom ated blood compl ete blood count (hemo gram) panel HCT vfr bld auto 36.3 % 36.0-4 8.0 Not Available [facility] [address], [place], [address], 10/25/2019 20:23:28 10/25/19 20 10/25/2019 autom ated blood compl ete blood count (hemo gram) panel automated erythrocyte mean corpuscular volume (MCV) measurement 81.6 fL 80-100 Not Available [facility] [address], [place], [address], 10/25/2019 20:23:28 10/25/19 20 10/25/2019 autom ated blood compl ete blood count (hemo gram) panel automated erythrocyte mean corpuscular hemoglobin (mass per erythrocyte) 25.2 pg 27-32 low Not Available [facility] [address], [place], [address], 10/25/2019 20:23:28 10/25/19 20 10/25/2019 autom ated blood compl ete blood count (hemo gram) panel automated erythrocyte mean corpuscular hemoglobin concentratio n measurement (mass/vol 30.9 g/dL 31.0-3 7.0 low Not Available [facility] [address], [place], [address], 10/25/2019 20:23:28 10/25/19 20 10/25/2019 autom ated blood compl ete blood count (hemo gram) panel automated erythrocyte distribution width ratio 15.2 % 12-14. 5 high Not Available [facility] [address], [place], [address], 10/25/2019 20:23:28 10/25/19 20 10/25/2019 autom ated blood compl ete blood count (hemo gram) panel automated blood platelet count (count/volum e) 383 10*3/ uL 150-45 0 1923, 10/24 Not Available [facility] [address], [place], [address], 10/25/2019 20:23:28 10/25/19 20 10/25/2019 autom ated blood compl ete blood count (hemo gram) panel automated blood platelet mean volume measurement 11.5 fL 9.1-13 .2 Not Available [facility] [address], [place], [address], 10/25/2019 20:23:28 10/25/19 20 10/25/2019 CMP, serum or plasm a serum or plasma glucose measurement (mass/volume ) 83 mg/dL 74-106 Not Available [facility] [address], [place], [address], 10/25/2019 20:32:34 10/25/19 20 10/25/2019 CMP, serum or plasm a serum or plasma urea nitrogen measurement (mass/volume ) 9 mg/dL 7-17 Not Available [facility] [address], [place], [address], 10/25/2019 20:32:34 10/25/19 20 10/25/2019 CMP, serum or plasm a serum or plasma creatinine measurement (mass/volume ) 0.5 mg/dL 0.7-1. 2 low Not Available [facility] [address], [place], [address], 10/25/2019 20:32:34 10/25/19 20 10/25/2019 CMP, serum or plasm a serum or plasma sodium measurement (moles/volum e) 135 mmol/ L 137-14 5 low Not Available [facility] [address], [place], [address], 10/25/2019 20:32:34 10/25/19 20 10/25/2019 CMP, serum or plasm a serum or plasma potassium measurement (moles/volum e) 5.2 mmol/ L 3.5-5. 1 high Not Available [facility] [address], [place], [address], 10/25/2019 20:32:34 10/25/19 20 10/25/2019 CMP, serum or plasm a serum or plasma chloride measurement (moles/volum e) 108 mmol/ L 98-107 high Not Available [facility] [address], [place], [address], 10/25/2019 20:32:34 10/25/19 20 10/25/2019 CMP, serum or plasm a serum or plasma total carbon dioxide measurement (moles/volum e) 19 mmol/ L 22-30 low Not Available [facility] [address], [place], [address], 10/25/2019 20:32:34 10/25/19 20 10/25/2019 CMP, serum or plasm a blood calcium measurement (mass/volume ) 9.8 mg/dL 8.4-10 .2 Not Available [facility] [address], [place], [address], 10/25/2019 20:32:34 10/25/19 20 10/25/2019 CMP, serum or plasm a serum or plasma anion gap 8.0 mEq/L 7.0-16 .0 Not Available [facility] [address], [place], [address], 10/25/2019 20:32:34 10/25/19 20 10/25/2019 CMP, serum or plasm a blood urea nitrogen/cre atinine mass ratio 18.0 % 12.0-2 0.0 Not Available [facility] [address], [place], [address], 10/25/2019 20:32:34 10/25/19 20 10/25/2019 CMP, serum or plasm a osmolality of serum or plasma by calculation 268 mOsm/ kg 261-28 0 Not Available [facility] [address] [facility] [address], [place], [address], 10/25/2019 20:32:34 10/25/19 20 10/25/2019 CMP, serum or plasm a glomerular filtration rate (GFR) estimation/1 .73 sq M using creatinine measurement wi 124.5 mL 60.0-1 20.0 Not Available [facility] [address], [place], [address], 10/25/2019 20:32:34 10/25/19 20 10/25/2019 CMP, serum or plasm a serum or plasma total bilirubin measurement (mass/volume ) 0.80 mg/dL 0.2-1. 3 Not Available [facility] [address], [place], [address], 10/25/2019 20:32:34 10/25/19 20 10/25/2019 CMP, serum or plasm a serum or plasma aspartate aminotransfe rase measurement (enzymatic activity/vol ume) 35 U/L 14-36 Not Available [facility] [address], [place], [address], 10/25/2019 20:32:34 10/25/19 20 10/25/2019 CMP, serum or plasm a serum or plasma alanine aminotransfe rase measurement (enzymatic activity/vol ume) 17 U/L 0-34 Not Available [facility] [address], [place], [address], 10/25/2019 20:32:34 10/25/19 20 10/25/2019 CMP, serum or plasm a serum or plasma alkaline phosphatase measurement (enzymatic activity/vol ume) 133 U/L 38-126 high Not Available [facility] [address], [place], [address], 10/25/2019 20:32:34 10/25/19 20 10/25/2019 CMP, serum or plasm a serum or plasma protein measurement (mass/volume ) 7.1 g/dL 6.3-8. 2 Not Available [facility] [address], [place], [address], 10/25/2019 20:32:34 10/25/19 20 10/25/2019 CMP, serum or plasm a serum or plasma albumin measurement (mass/volume ) 4.1 g/dL 3.5-5. 0 Not Available [facility] [address], [place], [address], 10/25/2019 20:32:34 10/25/19 20 10/25/2019 CMP, serum or plasm a plasma globulin measurement (mass/volume ) 3.0 g/dL 2.2-4. 2 Not Available [facility] [address], [place], [address], 10/25/2019 20:32:34 10/25/19 20 10/25/2019 CMP, serum or plasm a serum or plasma albumin/glob ulin mass ratio 1.30 % 1.10-2 .20 Not Available [facility] [address], [place], [address], 10/25/2019 20:32:34 10/25/19 20 10/25/2019 uric acid, serum or plasm a serum or plasma uric acid measurement (mass/volume ) 5.0 mg/dL 2.5-6. 2 Not Available [facility] [address], [place], [address], 10/25/2019 20:44:38 10/25/19 20 10/25/2019 proth rombi n time (PT) with inter natio nal monserrat lized ratio (INR) prothrombin time (PT) in platelet poor plasma 12.7 s 11.4-1 4.8 Not Available [facility] [address], [place], [address], 10/25/2019 21:02:49 10/25/19 20 10/25/2019 proth rombi n time (PT) with inter natio nal monserrat lized ratio (INR) INR in platelet poor plasma by coagulation assay 1.0 2.0-3. 0 low Not Available [facility] [address], [place], [address], 10/25/2019 21:02:49 10/25/19 20 10/25/2019 fibri nogen ppp coag. [facility] fibrinogen measurement in platelet poor plasma by derived coagulation (mass/volume ) 672 mg/dL 207-44 2 high Not Available [facility] [address], [place], [address], 10/25/2019 21:02:49 10/25/19 20 10/25/2019 urine prote in/cr eatin ine ratio urine creatinine measurement (mass/volume ) 149.7 mg/dL Not Available [facility] [address], [place], [address], 10/25/2019 21:24:30 10/25/19 20 10/25/2019 urine prote in/cr eatin ine ratio urine protein measurement (mass/volume ) 8.0 mg/dL 0.0-12 .0 Not Available [facility] [address], [place], [address], 10/25/2019 21:24:30 10/25/19 20 10/25/2019 urine prote in/cr eatin ine ratio urine protein creatinine ratio 0.0 Not Available [facility] [address], [place], [address], 10/25/2019 21:24:30 10/25/19 20 10/25/2019 24 hour urine creat inine measu remen t (mass /volu me) total urine volume measurement 1750 mL Not Available [facility] [address], [place], [address], 10/26/2019 20:51:00 10/25/19 20 10/25/2019 24 hour urine creat inine measu remen t (mass /volu me) urine creatinine measurement (mass/volume ) 90.0 mg/dL Not Available [facility] [address], [place], [address], 10/26/2019 20:51:00 10/25/19 20 10/25/2019 24 hour urine creat inine measu remen t (mass /volu me) 24 hour urine creatinine measurement (mass/volume ) 1575 mg 800-28 00 Not Available [facility] [address], [place], [address], 10/26/2019 20:51:00 10/25/19 20 10/25/2019 24 hour urine prote in measu remen t (mass /time ) urine protein measurement (mass/volume ) 8.0 mg/dL 0.0-12 .0 Not Available [facility] [address], [place], [address], 10/26/2019 20:51:00 10/25/19 20 10/25/2019 24 hour urine prote in measu remen t (mass /time ) 24 hour urine protein measurement (mass/time) 140.0 mg 42.0-2 25.0 Not Available [facility] [address], [place], [address], 10/26/2019 20:51:00 11/06/19 20 11/06/2019 autom ated blood compl ete blood count (hemo gram) panel automated blood leukocyte count (number/volu me) 12.9 10*3/ uL 4.5-11 .0 high 1648, 11/05 Not Available [facility] [address], [place], [address], 11/06/2019 17:49:13 11/06/19 20 11/06/2019 autom ated blood compl ete blood count (hemo gram) panel blood erythrocytes automated count (number/volu me) 4.58 10*6/ uL 4.2-5. 4 Not Available [facility] [address], [place], [address], 11/06/2019 17:49:13 11/06/19 20 11/06/2019 autom ated blood compl ete blood count (hemo gram) panel blood hemoglobin measurement (mass/volume ) 11.1 g/dL 12.0-1 6.0 low Not Available [facility] [address], [place], [address], 11/06/2019 17:49:13 11/06/19 20 11/06/2019 autom ated blood compl ete blood count (hemo gram) panel HCT vfr bld auto 36.9 % 36.0-4 8.0 Not Available [facility] [address], [place], [address], 11/06/2019 17:49:13 11/06/19 20 11/06/2019 autom ated blood compl ete blood count (hemo gram) panel automated erythrocyte mean corpuscular volume (MCV) measurement 80.6 fL 80-100 Not Available [facility] [address], [place], [address], 11/06/2019 17:49:13 11/06/19 20 11/06/2019 autom ated blood compl ete blood count (hemo gram) panel automated erythrocyte mean corpuscular hemoglobin (mass per erythrocyte) 24.2 pg 27-32 low Not Available [facility] [address], [place], [address], 11/06/2019 17:49:13 11/06/19 20 11/06/2019 autom ated blood compl ete blood count (hemo gram) panel automated erythrocyte mean corpuscular hemoglobin concentratio n measurement (mass/vol 30.1 g/dL 31.0-3 7.0 low Not Available [facility] [address], [place], [address], 11/06/2019 17:49:13 11/06/19 20 11/06/2019 autom ated blood compl ete blood count (hemo gram) panel automated erythrocyte distribution width ratio 15.6 % 12-14. 5 high Not Available [facility] [address], [place], [address], 11/06/2019 17:49:13 11/06/19 20 11/06/2019 autom ated blood compl ete blood count (hemo gram) panel automated blood platelet count (count/volum e) 405 10*3/ uL 150-45 0 1648, 11/05 Not Available [facility] [address], [place], [address], 11/06/2019 17:49:13 11/06/19 20 11/06/2019 autom ated blood compl ete blood count (hemo gram) panel automated blood platelet mean volume measurement 11.1 fL 9.1-13 .2 Not Available [facility] [address], [place], [address], 11/06/2019 17:49:13 11/06/19 20 11/06/2019 urina lysis , compl ete color of urine by auto Yellow Not Available [facility] [address], [place], [address], 11/06/2019 18:00:50 11/06/19 20 11/06/2019 urina lysis , compl ete urine clarity by refractometr y automated Clear Not Available [facility] [address], [place], [address], 11/06/2019 18:00:50 11/06/19 20 11/06/2019 urina lysis , compl ete urine glucose detection Negati ve negati ve Not Available [facility] [address], [place], [address], 11/06/2019 18:00:50 11/06/19 20 11/06/2019 urina lysis , compl ete urine bilirubin detection Negati ve negati ve Not Available [facility] [address], [place], [address], 11/06/2019 18:00:50 11/06/19 20 11/06/2019 urina lysis , compl ete urine ketones detection by automated test strip Negati ve negati ve Not Available [facility] [address], [place], [address], 11/06/2019 18:00:50 11/06/19 20 11/06/2019 urina lysis , compl ete specific gravity of urine by automated test strip 1.017 1.001- 1.030 Not Available [facility] [address], [place], [address], 11/06/2019 18:00:50 11/06/19 20 11/06/2019 urina lysis , compl ete urine erythrocytes detection by automated method Negati ve negati ve Not Available [facility] [address], [place], [address], 11/06/2019 18:00:50 11/06/19 20 11/06/2019 urina lysis , compl ete urine pH measurement by automated test strip 6.0 5.0-8. 5 Not Available [facility] [address], [place], [address], 11/06/2019 18:00:50 11/06/19 20 11/06/2019 urina lysis , compl ete urine protein detection Negati ve negati ve Not Available [facility] [address], [place], [address], 11/06/2019 18:00:50 11/06/19 20 11/06/2019 urina lysis , compl ete urine urobilinogen measurement by automated test strip (mass/volume ) Normal 0.2-1 mg/dL Not Available [facility] [address], [place], [address], 11/06/2019 18:00:50 11/06/19 20 11/06/2019 urina lysis , compl ete urine nitrite detection Negati ve negati ve Not Available [facility] [address], [place], [address], 11/06/2019 18:00:50 11/06/19 20 11/06/2019 urina lysis , compl ete urine leukocyte esterase detection by automated test strip Negati ve negati ve Not Available [facility] [address], [place], [address], 11/06/2019 18:00:50 11/06/19 20 11/06/2019 urina lysis , compl ete urine leukocytes detection 0-2 0-3 Not Available [facility] [address], [place], [address], 11/06/2019 18:00:50 11/06/19 20 11/06/2019 urina lysis , compl ete urine erythrocytes count by automated test strip (number/volu me) 0-2 0-2 Not Available [facility] [address], [place], [address], 11/06/2019 18:00:50 11/06/19 20 11/06/2019 urina lysis , compl ete urine squamous epithelial cells detection by automated method 0-2 Not Available [facility] [address], [place], [address], 11/06/2019 18:00:50 11/06/19 20 11/06/2019 urina lysis , compl ete urine mucus detection by automated method TR Not Available [facility] [address], [place], [address], 11/06/2019 18:00:50 11/06/19 20 11/06/2019 urine drug scree n urine creatinine measurement (mass/volume ) 80.4 mg/dL Not Available [facility] [address], [place], [address], 11/06/2019 18:12:16 11/06/19 20 11/06/2019 urine drug scree n urine amphetamine detection by screening method NEGATI VE neg Not Available [facility] [address], [place], [address], 11/06/2019 18:12:16 11/06/19 20 11/06/2019 urine drug scree n urine cocaine detection by screening method NEGATI VE neg Not Available [facility] [address], [place], [address], 11/06/2019 18:12:16 11/06/19 20 11/06/2019 urine drug scree n urine cannabinoids detection by screening method NEGATI VE neg Not Available [facility] [address], [place], [address], 11/06/2019 18:12:16 11/06/19 20 11/06/2019 urine drug scree n urine benzodiazepi dileep detection by screening method NEGATI VE neg Not Available [facility] [address], [place], [address], 11/06/2019 18:12:16 11/06/19 20 11/06/2019 urine drug scree n urine tricyclic antidepressa nt measurement NEGATI VE neg Not Available [facility] [address], [place], [address], 11/06/2019 18:12:16 11/06/19 20 11/06/2019 urine drug scree n urine barbiturates detection by screening method NEGATI VE neg Not Available [facility] [address], [place], [address], 11/06/2019 18:12:16 11/06/19 20 11/06/2019 urine drug scree n MDMA ur screen Negati ve neg Not Available [facility] [address], [place], [address], 11/06/2019 18:12:16 11/06/19 20 11/06/2019 urine drug scree n screening urine opiates detection Negati ve neg Not Available [facility] [address], [place], [address], 11/06/2019 18:12:16 11/06/19 20 11/06/2019 urine drug scree n urine phencyclidin e detection by screening method NEGATI VE neg Not Available [facility] [address], [place], [address], 11/06/2019 18:12:16 11/06/19 20 11/06/2019 urine drug scree n urine oxycodone screening test NEGATI VE neg Not Available [facility] [address], [place], [address], 11/06/2019 18:12:16 11/06/19 20 11/06/2019 urine drug scree n urine propoxyphene detection by screening method Negati ve neg Not Available [facility] [address], [place], [address], 11/06/2019 18:12:16 11/06/19 20 11/06/2019 type + scree n, serum ABO+Rh gp bld A Positi ve Not Available [facility] [address], [place], [address], 11/06/2019 18:26:20 11/06/19 20 11/06/2019 type + scree n, serum bld gp Ab scn serpl ql NEGATI VE Not Available [facility] [address], [place], [address], 11/06/2019 18:26:20 11/06/19 20 11/06/2019 surgi kevin patho logy surgical pathology SEE PATH REPORT Patho logy resul ts will be under REPO RTS in the EMR when avail able. Not Available [facility] [address], [place], [address], 11/07/2019 12:00:16 11/06/19 20 11/06/2019 surgi kevin patho logy surgical pathology SEE PATH REPORT Patho logy resul ts will be under REPO RTS in the EMR when avail able. Not Available [facility] [address], [place], [address], 11/08/2019 11:35:22 11/06/19 20 11/06/2019 serum reagi n antib hitesh detec tion by RPR serum reagin antibody detection by RPR NONREA CTIVE nonrea ctive Not Available [facility] [address], [place], [address], 11/08/2019 11:37:26 11/07/19 20 11/07/2019 CBC w/ auto diff automated blood leukocyte count (number/volu me) 14.9 10*3/ uL 4.5-11 .0 high 0437, 11/06 Not Available [facility] [address], [place], [address], 11/07/2019 05:38:22 11/07/19 20 11/07/2019 CBC w/ auto diff blood erythrocytes automated count (number/volu me) 3.92 10*6/ uL 4.2-5. 4 low Not Available [facility] [address], [place], [place], [address], 11/07/2019 05:38:22 11/07/19 20 11/07/2019 CBC w/ auto diff blood hemoglobin measurement (mass/volume ) 9.7 g/dL 12.0-1 6.0 low Not Available [facility] [address], [place], [address], 11/07/2019 05:38:22 11/07/19 20 11/07/2019 CBC w/ auto diff HCT vfr bld auto 31.9 % 36.0-4 8.0 low Not Available [facility] [address], [place], [address], 11/07/2019 05:38:22 11/07/19 20 11/07/2019 CBC w/ auto diff automated erythrocyte mean corpuscular volume (MCV) measurement 81.4 fL 80-100 Not Available [facility] [address], [place], [address], 11/07/2019 05:38:22 11/07/19 20 11/07/2019 CBC w/ auto diff automated erythrocyte mean corpuscular hemoglobin (mass per erythrocyte) 24.7 pg 27-32 low Not Available [facility] [address], [place], [address], 11/07/2019 05:38:22 11/07/19 20 11/07/2019 CBC w/ auto diff automated erythrocyte mean corpuscular hemoglobin concentratio n measurement (mass/vol 30.4 g/dL 31.0-3 7.0 low Not Available [facility] [address], [place], [address], 11/07/2019 05:38:22 11/07/19 20 11/07/2019 CBC w/ auto diff automated erythrocyte distribution width ratio 15.2 % 12-14. 5 high Not Available [facility] [address], [place], [address], 11/07/2019 05:38:22 11/07/19 20 11/07/2019 CBC w/ auto diff automated blood platelet count (count/volum e) 329 10*3/ uL 150-45 0 0437, 11/06 Not Available [facility] [address], [place], [address], 11/07/2019 05:38:22 11/07/19 20 11/07/2019 CBC w/ auto diff automated blood platelet mean volume measurement 10.3 fL 9.1-13 .2 Not Available [facility] [address], [place], [address], 11/07/2019 05:38:22 11/07/19 20 11/07/2019 CBC w/ auto diff automated blood segmented neutrophils/ 100 leukocytes 83.6 % 40-70 high Not Available [facility] [address], [place], [address], 11/07/2019 05:38:22 11/07/19 20 11/07/2019 CBC w/ auto diff blood lymphocytes/ 100 leukocytes by flow cytometry 9.2 % 20-44 low Not Available [facility] [address], [place], [address], 11/07/2019 05:38:22 11/07/19 20 11/07/2019 CBC w/ auto diff automated blood monocytes/10 0 leukocytes 6.2 % 2-9 Not Available [facility] [address], [place], [address], 11/07/2019 05:38:22 11/07/19 20 11/07/2019 CBC w/ auto diff automated blood eosinophils/ 100 leukocytes 0.2 % 0-4 Not Available [facility] [address], [place], [address], 11/07/2019 05:38:22 11/07/19 20 11/07/2019 CBC w/ auto diff automated blood basophils/10 0 leukocytes 0.3 % 0-1 Not Available [facility] [address], [place], [address], 11/07/2019 05:38:22 11/07/19 20 11/07/2019 CBC w/ auto diff automated blood neutrophil count (number/volu me) 12.42 10*3/ uL 1.8-7. 7 high Not Available [facility] [address], [place], [address], 11/07/2019 05:38:22 11/07/19 20 11/07/2019 CBC w/ auto diff automated blood lymphocyte count (number/volu me) 1.37 10*3/ uL 0.9-4. 8 Not Available [facility] [address], [place], [address], 11/07/2019 05:38:22 11/07/19 20 11/07/2019 CBC w/ auto diff blood monocytes automated count (number/volu me) 0.9 10*3/ uL 0-0.8 high Not Available [facility] [address], [place], [address], 11/07/2019 05:38:22 11/07/19 20 11/07/2019 CBC w/ auto diff automated blood eosinophil count 0.03 10*3/ uL 0-0.7 Not Available [facility] [address], [place], [address], 11/07/2019 05:38:22 11/07/19 20 11/07/2019 CBC w/ auto diff automated blood basophil count (number/volu me) 0.05 10*3/ uL 0-0.2 Not Available [facility] [address], [place], [address], 11/07/2019 05:38:22 11/07/19 20 11/07/2019 CBC w/ auto diff automated blood immature granulocytes detection 0.5 % 0-0 high Not Available [facility] [address], [place], [address], 11/07/2019 05:38:22 11/07/19 20 11/07/2019 CBC w/ auto diff blood immature granulocytes count (number/volu me) 0.1 10*3/ uL 0-0 high Not Available [facility] [address], [place], [address], 11/07/2019 05:38:22 11/07/19 20 11/07/2019 CBC w/ auto diff automated blood nucleated erythrocyte count percentage of total leukocytes 0.0 % 0-0 Not Available [facility] [address], [place], [address], 11/07/2019 05:38:22 02/22/20 20 02/22/2020 autom ated blood compl ete blood count (hemo gram) panel leukocytes [#/volume] in blood by automated count 7.4 10*3/ uL 4.5-11 .0 1703, 02/21 Not Available [facility] [address], [place], [address], 02/22/2020 18:03:44 02/22/20 20 02/22/2020 autom ated blood compl ete blood count (hemo gram) panel erythrocytes [#/volume] in blood by automated count 4.85 10*6/ uL 4.2-5. 4 Not Available [facility] [address], [place], [address], 02/22/2020 18:03:44 02/22/2002/22/2020 autom ated blood compl ete blood count (hemo gram) panel hemoglobin [mass/volume ] in blood 11.4 g/dL 12.0-1 6.0 low Not Available [facility] [address], [place], [address], 02/22/2020 18:03:44 02/22/2002/22/2020 autom ated blood compl ete blood count (hemo gram) panel HCT vfr bld auto 38.7 % 36.0-4 8.0 Not Available [facility] [address], [place], [address], 02/22/2020 18:03:44 02/22/2002/22/2020 autom ated blood compl ete blood count (hemo gram) panel MCV [entitic volume] by automated count 79.8 fL 80-100 low Not Available [facility] [address], [place], [address], 02/22/2020 18:03:44 02/22/2002/22/2020 autom ated blood compl ete blood count (hemo gram) panel MCH [entitic mass] by automated count 23.5 pg 27-32 low Not Available [facility] [address], [place], [address], 02/22/2020 18:03:44 02/22/2002/22/2020 autom ated blood compl ete blood count (hemo gram) panel MCHC [mass/volume ] by automated count 29.5 g/dL 31.0-3 7.0 low Not Available [facility] [address], [place], [address], 02/22/2020 18:03:44 02/22/20 20 02/22/2020 autom ated blood compl ete blood count (hemo gram) panel erythrocyte distribution width [ratio] by automated count 16.5 % 12-14. 5 high Not Available [facility] [address], [place], [address], 02/22/2020 18:03:44 02/22/2002/22/2020 autom ated blood compl ete blood count (hemo gram) panel platelets [#/volume] in blood by automated count 380 10*3/ uL 150-45 0 1703, 02/21 Not Available [facility] [address], [place], [address], 02/22/2020 18:03:44 02/22/20 20 02/22/2020 autom ated blood compl ete blood count (hemo gram) panel platelet mean volume [entitic volume] in blood by automated count 10.9 fL 9.1-13 .2 Not Available [facility] [address], [place], [address], 02/22/2020 18:03:44 02/22/2002/22/2020 proth rombi n time (PT) with inter natio nal monserrat lized ratio (INR) prothrombin time (PT) 11.8 s 11.4-1 4.8 Not Available [facility] [address], [place], [address], 02/22/2020 18:15:13 02/22/2002/22/2020 proth rombi n time (PT) with inter natio nal monserrat lized ratio (INR) INR in platelet poor plasma by coagulation assay 0.9 2.0-3. 0 low Not Available [facility] [address], [place], [address], 02/22/2020 18:15:13 02/22/2002/22/2020 serum or plasm a thyro xine (T4) free measu remen t (mass /volu me) thyroxine (T4) free [mass/volume ] in serum or plasma 0.85 NG/dL 0.78-2 .19 Not Available [facility] [address], [place], [address], 02/22/2020 18:33:32 02/22/2002/22/2020 BMP, serum or plasm a glucose [mass/volume ] in serum or plasma 90 mg/dL 74-106 Not Available [facility] [address], [place], [address], 02/22/2020 18:47:53 02/22/2002/22/2020 BMP, serum or plasm a urea nitrogen [mass/volume ] in serum or plasma 15 mg/dL 7-17 Not Available [facility] [address], [place], [address], 02/22/2020 18:47:53 02/22/2002/22/2020 BMP, serum or plasm a creatinine [mass/volume ] in serum or plasma 0.7 mg/dL 0.7-1. 2 Not Available [facility] [address], [place], [address], 02/22/2020 18:47:53 02/22/2002/22/2020 BMP, serum or plasm a sodium [moles/volum e] in serum or plasma 142 mmol/ L 137-14 5 Not Available [facility] [address], [place], [address], 02/22/2020 18:47:53 02/22/2002/22/2020 BMP, serum or plasm a potassium [moles/volum e] in serum or plasma 4.1 mmol/ L 3.5-5. 1 Not Available [facility] [address], [place], [address], 02/22/2020 18:47:53 02/22/20 20 02/22/2020 BMP, serum or plasm a chloride [moles/volum e] in serum or plasma 108 mmol/ L 98-107 high Not Available [facility] [address], [place], [address], 02/22/2020 18:47:53 02/22/2002/22/2020 BMP, serum or plasm a carbon dioxide, total [moles/volum e] in serum or plasma 25 mmol/ L 22-30 Not Available [facility] [address], [place], [address], 02/22/2020 18:47:53 02/22/2002/22/2020 BMP, serum or plasm a calcium [mass/volume ] in blood 9.4 mg/dL 8.4-10 .2 Not Available [facility] [address], [place], [address], 02/22/2020 18:47:53 02/22/2002/22/2020 BMP, serum or plasm a anion gap in serum or plasma 9.0 mEq/L 7.0-16 .0 Not Available [facility] [address], [place], [address], 02/22/2020 18:47:53 02/22/2002/22/2020 BMP, serum or plasm a urea nitrogen/cre atinine [mass ratio] in blood 21.4 % 12.0-2 0.0 high Not Available [facility] [address], [place], [address], 02/22/2020 18:47:53 02/22/2002/22/2020 BMP, serum or plasm a osmolality of serum or plasma by calculation 284 mOsm/ kg 261-28 0 high Not Available [facility] [address], [place], [address], 02/22/2020 18:47:53 02/22/2002/22/2020 BMP, serum or plasm a glomerular filtration rate/1.73 sq M.predicted [volume rate/area] in serum, plasma or blood by creatinine-b ased formula (CKD-epi) 111.5 mL 60.0-1 20.0 Not Available [facility] [address], [place], [address], 02/22/2020 18:47:53 02/22/2002/22/2020 lipid panel , serum triglyceride [mass/volume ] in serum or plasma 308 mg/dL 0-149 high Not Available [facility] [address], [place], [address], 02/22/2020 18:47:54 02/22/2002/22/2020 lipid panel , serum cholesterol [mass/volume ] in serum or plasma 174 mg/dL 107-20 0 Not Available [facility] [address], [place], [address], 02/22/2020 18:47:54 02/22/2002/22/2020 lipid panel , serum cholesterol in LDL [mass/volume ] in serum or plasma by calculation 82 mg/dL 0-99 Not Available [facility] [address], [place], [address], 02/22/2020 18:47:54 02/22/20 20 02/22/2020 lipid panel , serum cholesterol in VLDL [mass/volume ] in serum or plasma 61.0 mg/dL Not Available [facility] [address], [place], [address], 02/22/2020 18:47:54 02/22/20 20 02/22/2020 lipid panel , serum cholesterol in HDL [mass/volume ] in serum or plasma 31 mg/dL 39-61 low Not Available [facility] [address], [place], [address], 02/22/2020 18:47:54 02/22/20 20 02/22/2020 lipid panel , serum cardiac heart disease risk [ratio] in serum or plasma 5.61 [arb' U] Ather oscle rosis Risk Ratio s Men 1/2 avera ge 3.43 [place] ge 4.97 2x avera ge 9.55 3x avera ge 23.39 Women 1/2 avera ge 3.27 [place] ge 4.44 2x avera ge 7.05 [address] ge 11[address]04 [address] rage risk impli es a 20-25 % chanc e of devel oping CHD by age 60 Not Available [facility] [address], [place], [address], 02/22/2020 18:47:54 02/22/2002/22/2020 TSH, serum or plasm a thyrotropin [units/volum e] in serum or plasma 1.25 u[IU] /mL 0.465- 4.68 Not Available [facility] [address], [place], [address], 02/22/2020 18:47:54 03/10/2003/10/2020 autom ated blood compl ete blood count (hemo gram) panel leukocytes [#/volume] in blood by automated count 10.4 10*3/ uL 4.5-11 .0 Not Available [facility] [address], [place], [address], 03/10/2020 10:13:25 03/10/20 20 03/10/2020 autom ated blood compl ete blood count (hemo gram) panel erythrocytes [#/volume] in blood by automated count 4.94 10*6/ uL 4.2-5. 4 Not Available [facility] [address], [place], [address], 03/10/2020 10:13:25 03/10/20 20 03/10/2020 autom ated blood compl ete blood count (hemo gram) panel hemoglobin [mass/volume ] in blood 11.7 g/dL 12.0-1 6.0 low Not Available [facility] [address], [place], [address], 03/10/2020 10:13:25 03/10/20 20 03/10/2020 autom ated blood compl ete blood count (hemo gram) panel HCT vfr bld auto 40.0 % 36.0-4 8.0 Not Available [facility] [address], [place], [address], 03/10/2020 10:13:25 03/10/20 20 03/10/2020 autom ated blood compl ete blood count (hemo gram) panel MCV [entitic volume] by automated count 81.0 fL 80-100 Not Available [facility] [address], [place], [address], 03/10/2020 10:13:25 03/10/20 20 03/10/2020 autom ated blood compl ete blood count (hemo gram) panel MCH [entitic mass] by automated count 23.7 pg 27-32 low Not Available [facility] [address], [place], [address], 03/10/2020 10:13:25 03/10/20 20 03/10/2020 autom ated blood compl ete blood count (hemo gram) panel MCHC [mass/volume ] by automated count 29.3 g/dL 31.0-3 7.0 low Not Available [facility] [address], [place], [address], 03/10/2020 10:13:25 03/10/20 20 03/10/2020 autom ated blood compl ete blood count (hemo gram) panel erythrocyte distribution width [ratio] by automated count 16.8 % 12-14. 5 high Not Available [facility] [address], [place], [address], 03/10/2020 10:13:25 03/10/20 20 03/10/2020 autom ated blood compl ete blood count (hemo gram) panel platelets [#/volume] in blood by automated count 249 10*3/ uL 150-45 0 0909, 03/10 Not Available [facility] [address], [place], [address], 03/10/2020 10:13:25 03/10/2003/10/2020 HCG preg ur ql HCG preg ur ql NEGATI VE Not Available [facility] [address], [place], [address], 03/10/2020 11:08:07 03/27/20 20 03/27/2020 surgi kevin patho logy surgical pathology study SEE PATH REPORT Patho logy resul ts will be under REPO RTS in the EMR when avail able. Not Available [facility] [address], [place], [address], 03/27/2020 13:45:59 03/27/20 20 03/27/2020 surgi kevin patho logy surgical pathology study SEE PATH REPORT Patho logy resul ts will be under REPO RTS in the EMR when avail able. Not Available [facility] [address], [place], [address], 03/28/2020 13:28:07 07/25/19 21 07/25/2020 CMP, serum or plasm a sodium 139 mEq/L 135-14 6 Not Available [facility] [address] [place], [address], 07/25/2020 04:33:26 07/25/19 21 07/25/2020 CMP, serum or plasm a potassium 4.9 mEq/L 3.5-5. 4 Not Available [facility] [address] [place], [address], 07/25/2020 04:33:26 07/25/19 21 07/25/2020 CMP, serum or plasm a chloride 102 mEq/L 95-107 Not Available [facility] [address] [place], [address], 07/25/2020 04:33:26 07/25/19 21 07/25/2020 CMP, serum or plasm a carbon dioxide 24 mEq/L 19-31 Not Available [facility] [address] [place], [address], 07/25/2020 04:33:26 07/25/19 21 07/25/2020 CMP, serum or plasm a anion gap 13 mEq/L 7-23 Not Available [facility] [address] [place], [address], 07/25/2020 04:33:26 07/25/19 21 07/25/2020 CMP, serum or plasm a glucose non-fasting 85 mg/dL 70-139 Not Available [facility] [address] [place], [address], 07/25/2020 04:33:26 07/25/19 21 07/25/2020 CMP, serum or plasm a urea nitrogen (BUN) 14 mg/dL 6-20 Not Available [facility] [address] [place], [address], 07/25/2020 04:33:26 07/25/19 21 07/25/2020 CMP, serum or plasm a creatinine 0.75 mg/dL 0.60-1 .30 Not Available [facility] [address] [place], [address], 07/25/2020 04:33:26 07/25/19 21 07/25/2020 CMP, serum or plasm a eGFR 118 mL/mi n/1.7 3m'2 >59 Not Available [facility] [address] [place], [address], 07/25/2020 04:33:26 07/25/19 21 07/25/2020 CMP, serum or plasm a eGFR non- amer 102 mL/mi n/1.7 3m'2 >59 Not Available [facility] [address] [place], [place], [address], 07/25/2020 04:33:26 07/25/19 21 07/25/2020 CMP, serum or plasm a BUN/creatini ne ratio 19 ratio Not Available [facility] [address] [place], [address], 07/25/2020 04:33:26 07/25/19 21 07/25/2020 CMP, serum or plasm a calcium total 10.2 mg/dL 8.5-10 .5 Not Available [facility] [address] [place], [address], 07/25/2020 04:33:26 07/25/19 21 07/25/2020 CMP, serum or plasm a protein total 7.4 g/dL 6.1-8. 3 Not Available [facility] [address] [place], [address], 07/25/2020 04:33:26 07/25/19 21 07/25/2020 CMP, serum or plasm a albumin 4.9 g/dL 3.5-5. 2 Not Available [facility] [address] [place], [address], 07/25/2020 04:33:26 07/25/19 21 07/25/2020 CMP, serum or plasm a globulin 2.5 g/dL 1.7-4. 3 Not Available [facility] [address] [place], [address], 07/25/2020 04:33:26 07/25/19 21 07/25/2020 CMP, serum or plasm a A/G ratio 2.0 ratio 0.9-2. 8 Not Available [facility] [address] [place], [address], 07/25/2020 04:33:26 07/25/19 21 07/25/2020 CMP, serum or plasm a bilirubin total 0.2 mg/dL 0.0-1. 2 Not Available [facility] [address] [place], [address], 07/25/2020 04:33:26 07/25/19 21 07/25/2020 CMP, serum or plasm a alkaline phosphatase 78 U/L 40-112 Not Available [facility] [address] [place], [address], 07/25/2020 04:33:26 07/25/19 21 07/25/2020 CMP, serum or plasm a AST (SGOT) 19 U/L 9-40 Not Available [facility] [address] [place], [address], 07/25/2020 04:33:26 07/25/19 21 07/25/2020 CMP, serum or plasm a ALT (SGPT) 21 U/L 5-40 Not Available [facility] [address] [place], [address], 07/25/2020 04:33:26 07/25/19 21 07/25/2020 CBC w/ auto diff WBC 11.0 K/uL 4.0-11 .0 Not Available [facility] [address] [place], [address], 07/25/2020 07:39:42 07/25/19 21 07/25/2020 CBC w/ auto diff RBC 4.96 M/uL 4.00-5 .50 Not Available [facility] [address] [place], [address], 07/25/2020 07:39:42 07/25/19 21 07/25/2020 CBC w/ auto diff hemoglobin 9.9 g/dL 12.0-1 6.0 low Not Available [facility] [address] [place], [address], 07/25/2020 07:39:42 07/25/19 21 07/25/2020 CBC w/ auto diff hematocrit 34.2 % 36.0-4 8.0 low Not Available [facility] [address] [place], [address], 07/25/2020 07:39:42 07/25/19 21 07/25/2020 CBC w/ auto diff MCV 69.0 fL 78.0-1 02.0 low Not Available [facility] [address] [place], [address], 07/25/2020 07:39:42 07/25/19 21 07/25/2020 CBC w/ auto diff MCH 20.0 pg 25.0-3 5.0 low Not Available [facility] [address] [place], [place], [address], 07/25/2020 07:39:42 07/25/19 21 07/25/2020 CBC w/ auto diff MCHC 28.9 g/dL 30.0-3 8.0 low Not Available [facility] [address] [place], [place], [address], 07/25/2020 07:39:42 07/25/19 21 07/25/2020 CBC w/ auto diff RDW 17.5 % 11.5-1 6.0 high Not Available [facility] [address] [place], [place], [address], 07/25/2020 07:39:42 07/25/19 21 07/25/2020 CBC w/ auto diff platelet count 616 K/uL 150-45 0 high Not Available [facility] [address] [place], [place], [address], 07/25/2020 07:39:42 07/25/19 21 07/25/2020 CBC w/ auto diff abs neutrophils 7.2 K/uL 1.8-7. 0 high Not Available [facility] [address] [place], [place], [address], 07/25/2020 07:39:42 07/25/19 21 07/25/2020 CBC w/ auto diff abs lymphocytes 2.4 K/uL 1.0-4. 0 Not Available [facility] [address] [place], [place], [address], 07/25/2020 07:39:42 07/25/19 21 07/25/2020 CBC w/ auto diff abs monocytes 0.8 K/uL 0.1-1. 1 Not Available [facility] [address] [place], [place], [address], 07/25/2020 07:39:42 07/25/19 21 07/25/2020 CBC w/ auto diff abs eosinophils 0.4 K/uL 0.0-0. 5 Not Available [facility] [address] [place], [place], [address], 07/25/2020 07:39:42 07/25/19 21 07/25/2020 CBC w/ auto diff abs basophils 0.1 K/uL 0.0-0. 3 Not Available [facility] [address] [place] [place], [address], 07/25/2020 07:39:42 07/25/19 21 07/25/2020 CBC w/ auto diff abs bands 0.1 K/uL <0.1 high Not Available [facility] [address] [place], [place], [address], 07/25/2020 07:39:42 07/25/19 21 07/25/2020 CBC w/ auto diff neutrophils 65.4 % Not Available [facility] [address] [place], [address], 07/25/2020 07:39:42 07/25/19 21 07/25/2020 CBC w/ auto diff lymphocytes 22.0 % Not Available [facility] [address] [place], [address], 07/25/2020 07:39:42 07/25/19 21 07/25/2020 CBC w/ auto diff monocytes 7.5 % Not Available [facility] [address] [place], [address], 07/25/2020 07:39:42 07/25/19 21 07/25/2020 CBC w/ auto diff eosinophils 3.4 % Not Available [facility] [address] [place], [address], 07/25/2020 07:39:42 07/25/19 21 07/25/2020 CBC w/ auto diff basophils 1.2 % Not Available [facility] [address] [place], [address], 07/25/2020 07:39:42 07/25/19 21 07/25/2020 CBC w/ auto diff bands 0.5 % Not Available [facility] [address] [place], [address], 07/25/2020 07:39:42 07/25/19 21 07/25/2020 blood film for revie w blood film for review See Note Comme nts on Lab Id:[id number] RBC Morph ology : Ellip tocyt es +, Spher ocyte s +, Aniso cytos is ++, Micro cytes ++, Poiki locyt osis +, Large Plate lets + Plate lets Incre ased Not Available [facility] [address] [place], [address], 07/25/2020 07:39:43 07/25/19 21 07/25/2020 blood film for revie w blood film for review See Note Comme nts on Lab Id:[id number] RBC Morph ology : Ellip tocyt es +, Spher ocyte s +, Aniso cytos is ++, Micro cytes ++, Poiki locyt osis +, Large Plate lets + Plate lets Incre ased Not Available [facility] [address] [place], [address], 07/25/2020 07:39:46 06/07/19 22 06/07/2021 CBC W AUTO DIFFE RENTI AL PANEL - BLOOD leukocytes [#/volume] in blood by automated count 21.7 10*3/ uL 4.5-11 .0 high 1230, 06/07 Not Available [facility] [address], [place], [address], 06/12/2021 20:28:05 06/07/19 22 06/07/2021 CBC W AUTO DIFFE RENTI AL PANEL - BLOOD erythrocytes [#/volume] in blood by automated count 5.39 10*6/ uL 4.2-5. 4 Not Available [facility] [address], [place], [address], 06/12/2021 20:28:05 06/07/19 22 06/07/2021 CBC W AUTO DIFFE RENTI AL PANEL - BLOOD hemoglobin [mass/volume ] in blood 12.8 g/dL 12.0-1 6.0 Not Available [facility] [address], [place], [address], 06/12/2021 20:28:05 06/07/19 22 06/07/2021 CBC W AUTO DIFFE RENTI AL PANEL - BLOOD HCT vfr bld auto 40.8 % 36.0-4 8.0 Not Available [facility] [address], [place], [address], 06/12/2021 20:28:05 06/07/19 22 06/07/2021 CBC W AUTO DIFFE RENTI AL PANEL - BLOOD MCV [entitic volume] by automated count 75.7 fL 80-100 low Not Available [facility] [address], [place], [address], 06/12/2021 20:28:05 06/07/19 22 06/07/2021 CBC W AUTO DIFFE RENTI AL PANEL - BLOOD MCH [entitic mass] by automated count 23.7 pg 27-32 low Not Available [facility] [address], [place], [address], 06/12/2021 20:28:05 06/07/19 22 06/07/2021 CBC W AUTO DIFFE RENTI AL PANEL - BLOOD MCHC [mass/volume ] by automated count 31.4 g/dL 31.0-3 7.0 Not Available [facility] [address], [place], [address], 06/12/2021 20:28:05 06/07/19 22 06/07/2021 CBC W AUTO DIFFE RENTI AL PANEL - BLOOD erythrocyte distribution width [ratio] by automated count 18.3 % 12-14. 5 high Not Available [facility] [address], [place], [address], 06/12/2021 20:28:05 06/07/19 22 06/07/2021 CBC W AUTO DIFFE RENTI AL PANEL - BLOOD platelets [#/volume] in blood by automated count 518 10*3/ uL 150-45 0 high 1230, 06/07 Not Available [place] [facility] [address], [place], [address], 06/12/2021 20:28:05 06/07/19 22 06/07/2021 CBC W AUTO DIFFE RENTI AL PANEL - BLOOD platelet mean volume [entitic volume] in blood by automated count 10.6 fL 9.1-13 .2 Not Available [place] [facility] [address], [place], [address], 06/12/2021 20:28:05 06/07/19 22 06/07/2021 CBC W AUTO DIFFE RENTI AL PANEL - BLOOD segmented neutrophils/ 100 leukocytes in blood by automated count 88.6 % 40-70 high Not Available [facility] as [facility] [address], [place], [address], 06/12/2021 20:28:05 06/07/19 22 06/07/2021 CBC W AUTO DIFFE RENTI AL PANEL - BLOOD lymphocytes/ 100 leukocytes in blood by flow cytometry (fc) 6.5 % 20-44 low Not Available [facility] as [facility] [address], [place], [address], 06/12/2021 20:28:05 06/07/19 22 06/07/2021 CBC W AUTO DIFFE RENTI AL PANEL - BLOOD monocytes/10 0 leukocytes in blood by automated count 4.1 % 2-9 Not Available [facility] as [facility] [address], [place], [address], 06/12/2021 20:28:05 06/07/19 22 06/07/2021 CBC W AUTO DIFFE RENTI AL PANEL - BLOOD eosinophils/ 100 leukocytes in blood by automated count 0.0 % 0-4 Not Available [facility] [address], [place], [address], 06/12/2021 20:28:05 06/07/19 22 06/07/2021 CBC W AUTO DIFFE RENTI AL PANEL - BLOOD basophils/10 0 leukocytes in blood by automated count 0.2 % 0-1 Not Available [facility] [address], [place], [address], 06/12/2021 20:28:05 06/07/19 22 06/07/2021 CBC W AUTO DIFFE RENTI AL PANEL - BLOOD neutrophils [#/volume] in blood by automated count 19.19 10*3/ uL 1.8-7. 7 high Not Available [facility] [address], [place], [address], 06/12/2021 20:28:05 06/07/19 22 06/07/2021 CBC W AUTO DIFFE RENTI AL PANEL - BLOOD lymphocytes [#/volume] in blood by automated count 1.42 10*3/ uL 0.9-4. 8 Not Available [facility] [address], [place], [address], 06/12/2021 20:28:05 06/07/19 22 06/07/2021 CBC W AUTO DIFFE RENTI AL PANEL - BLOOD monocytes [#/volume] in blood by automated count 0.9 10*3/ uL 0-0.8 high Not Available [facility] [address], [place], [address], 06/12/2021 20:28:05 06/07/19 22 06/07/2021 CBC W AUTO DIFFE RENTI AL PANEL - BLOOD eosinophils [#/volume] in blood by automated count 0.01 10*3/ uL 0-0.7 Not Available [facility] [address], [place], [address], 06/12/2021 20:28:05 06/07/19 22 06/07/2021 CBC W AUTO DIFFE RENTI AL PANEL - BLOOD basophils [#/volume] in blood by automated count 0.05 10*3/ uL 0-0.2 Not Available [place] [facility] [address], [place], [address], 06/12/2021 20:28:05 06/07/19 22 06/07/2021 CBC W AUTO DIFFE RENTI AL PANEL - BLOOD immature granulocytes [presence] in blood by automated count 0.6 % 0-0 high Not Available [facility] as [facility] [address], [place], [address], 06/12/2021 20:28:05 06/07/19 22 06/07/2021 CBC W AUTO DIFFE RENTI AL PANEL - BLOOD immature granulocytes [#/volume] in blood 0.1 10*3/ uL 0-0 high Not Available [place] [facility] [address], [place], [address], 06/12/2021 20:28:05 06/07/19 22 06/07/2021 CBC W AUTO DIFFE RENTI AL PANEL - BLOOD nucleated erythrocytes /100 leukocytes [ratio] in blood by automated count 0.0 % 0-0 Not Available [facility] as [facility] [address], [place], [address], 06/12/2021 20:28:05 06/07/19 22 06/07/2021 URINA LYSIS COMPL ETE PANEL - URINE color of urine by auto Yellow Not Available [facility] as [facility] [address], [place], [address], 06/12/2021 20:30:54 06/07/19 22 06/07/2021 URINA LYSIS COMPL ETE PANEL - URINE clarity in urine by refractometr y automated Cloudy Not Available [facility] [address], [place], [address], 06/12/2021 20:30:54 06/07/19 22 06/07/2021 URINA LYSIS COMPL ETE PANEL - URINE glucose [presence] in urine 50 negati ve Not Available [facility] [address], [place], [address], 06/12/2021 20:30:54 06/07/19 22 06/07/2021 URINA LYSIS COMPL ETE PANEL - URINE bilirubin.to cecil [presence] in urine Negati ve negati ve Not Available [facility] [address], [place], [address], 06/12/2021 20:30:54 06/07/19 22 06/07/2021 URINA LYSIS COMPL ETE PANEL - URINE ketones [presence] in urine by automated test strip Trace negati ve Not Available [facility] [address], [place], [address], 06/12/2021 20:30:54 06/07/19 22 06/07/2021 URINA LYSIS COMPL ETE PANEL - URINE specific gravity of urine by automated test strip 1.015 1.001- 1.030 Not Available [facility] [address], [place], [address], 06/12/2021 20:30:54 06/07/19 22 06/07/2021 URINA LYSIS COMPL ETE PANEL - URINE erythrocytes [presence] in urine by automated Small negati ve Not Available [facility] [address], [place], [address], 06/12/2021 20:30:54 06/07/19 22 06/07/2021 URINA LYSIS COMPL ETE PANEL - URINE pH of urine by automated test strip 5.0 5.0-8. 5 Not Available [facility] [address], [place], [address], 06/12/2021 20:30:54 06/07/19 22 06/07/2021 URINA LYSIS COMPL ETE PANEL - URINE protein [presence] in urine 100 negati ve high Not Available [facility] [address], [place], [address], 06/12/2021 20:30:54 06/07/19 22 06/07/2021 URINA LYSIS COMPL ETE PANEL - URINE urobilinogen [mass/volume ] in urine by automated test strip Normal 0.2-2 mg/dL Not Available [facility] [address], [place], [address], 06/12/2021 20:30:54 06/07/19 22 06/07/2021 URINA LYSIS COMPL ETE PANEL - URINE nitrite [presence] in urine Negati ve negati ve Not Available [facility] [address], [place], [address], 06/12/2021 20:30:54 06/07/19 22 06/07/2021 URINA LYSIS COMPL ETE PANEL - URINE leukocyte esterase [presence] in urine by automated test strip Negati ve negati ve Not Available [facility] [address], [place], [address], 06/12/2021 20:30:54 06/07/19 22 06/07/2021 URINA LYSIS COMPL ETE PANEL - URINE leukocytes [presence] in urine NONE 0-3 Not Available [facility] [address], [place], [address], 06/12/2021 20:30:54 06/07/19 22 06/07/2021 URINA LYSIS COMPL ETE PANEL - URINE erythrocytes [#/volume] in urine by automated test strip 0-2 0-2 Not Available [facility] [address], [place], [address], 06/12/2021 20:30:54 06/07/19 22 06/07/2021 URINA LYSIS COMPL ETE PANEL - URINE epithelial cells.squamo us [presence] in urine by automated 04-04 Not Available [facility] as [facility] [address], [place], [address], 06/12/2021 20:30:54 06/07/19 22 06/07/2021 URINA LYSIS COMPL ETE PANEL - URINE bacteria [presence] in urine by automated TRACE Not Available [facility] [address], [place], [address], 06/12/2021 20:30:54 06/07/19 22 06/07/2021 URINA LYSIS COMPL ETE PANEL - URINE mucus [presence] in urine by automated TR Not Available [facility] [address], [place], [address], 06/12/2021 20:30:54 06/07/19 22 06/07/2021 URINA LYSIS COMPL ETE PANEL - URINE hyaline casts [presence] in urine by automated 40 Not Available [facility] [address], [place], [address], 06/12/2021 20:30:54 06/07/19 22 06/07/2021 COMPR EHENS NEYDA METAB OLIC 2000 PANEL - SERUM OR PLASM A glucose [mass/volume ] in serum or plasma 147 mg/dL 74-106 high Not Available [facility] [address], [place], [address], 06/12/2021 20:36:43 06/07/19 22 06/07/2021 COMPR EHENS NEYDA METAB OLIC 2000 PANEL - SERUM OR PLASM A urea nitrogen [mass/volume ] in serum or plasma 9 mg/dL 7-17 Not Available [facility] [address], [place], [address], 06/12/2021 20:36:43 06/07/19 22 06/07/2021 COMPR EHENS NEYDA METAB OLIC 1999 PANEL - SERUM OR PLASM A creatinine [mass/volume ] in serum or plasma 0.8 mg/dL 0.7-1. 2 Not Available [facility] [address], [place], [address], 06/12/2021 20:36:43 06/07/19 22 06/07/2021 COMPR EHENS NEYDA METAB OLIC 1999 PANEL - SERUM OR PLASM A sodium [moles/volum e] in serum or plasma 138 mmol/ L 137-14 5 Not Available [facility] [address], [place], [address], 06/12/2021 20:36:43 06/07/19 22 06/07/2021 COMPR EHENS NEYDA METAB OLIC 1999 PANEL - SERUM OR PLASM A potassium [moles/volum e] in serum or plasma 3.5 mmol/ L 3.5-5. 1 Not Available [facility] [address], [place], [address], 06/12/2021 20:36:43 06/07/19 22 06/07/2021 COMPR EHENS NEYDA METAB OLIC 2000 PANEL - SERUM OR PLASM A chloride [moles/volum e] in serum or plasma 102 mmol/ L 98-107 Not Available [facility] [address], [place], [address], 06/12/2021 20:36:43 06/07/19 22 06/07/2021 COMPR EHENS NEYDA METAB OLIC 2000 PANEL - SERUM OR PLASM A carbon dioxide, total [moles/volum e] in serum or plasma 23 mmol/ L 22-30 Not Available [facility] [address], [place], [address], 06/12/2021 20:36:43 06/07/19 22 06/07/2021 COMPR EHENS NEYDA METAB OLIC 2000 PANEL - SERUM OR PLASM A calcium [mass/volume ] in blood 10.0 mg/dL 8.4-10 .2 Not Available [facility] [address], [place], [address], 06/12/2021 20:36:43 06/07/19 22 06/07/2021 COMPR EHENS NEYDA METAB OLIC 1999 PANEL - SERUM OR PLASM A anion gap in serum or plasma 13.0 mEq/L 7.0-16 .0 Not Available [facility] [address], [place], [address], 06/12/2021 20:36:43 06/07/19 22 06/07/2021 COMPR EHENS NEYDA METAB OLIC 1999 PANEL - SERUM OR PLASM A urea nitrogen/cre atinine [mass ratio] in blood 11.2 % 12.0-2 0.0 low Not Available [facility] [address], [place], [address], 06/12/2021 20:36:43 06/07/19 22 06/07/2021 COMPR EHENS NEYDA METAB OLIC 1999 PANEL - SERUM OR PLASM A osmolality of serum or plasma by calculation 277 mOsm/ kg 261-28 0 Not Available [facility] [address], [place], [address], 06/12/2021 20:36:43 06/07/19 22 06/07/2021 COMPR EHENS NEYDA METAB OLIC 1999 PANEL - SERUM OR PLASM A glomerular filtration rate/1.73 sq M.predicted [volume rate/area] in serum, plasma or blood by creatinine-b ased formula (CKD-epi) 93.5 mL 90.0-1 20 Not Available [facility] [address], [place], [address], 06/12/2021 20:36:43 06/07/19 22 06/07/2021 COMPR EHENS NEYDA METAB OLIC 1999 PANEL - SERUM OR PLASM A bilirubin.to cecil [mass/volume ] in serum or plasma 0.70 mg/dL 0.2-1. 3 Not Available [place] [facility] [address], [place], [address], 06/12/2021 20:36:43 06/07/19 22 06/07/2021 COMPR EHENS NEYDA METAB OLIC 2000 PANEL - SERUM OR PLASM A aspartate aminotransfe rase [enzymatic activity/vol ume] in serum or plasma 32 U/L 14-36 Not Available [facility] [address], [place], [address], 06/12/2021 20:36:43 06/07/19 22 06/07/2021 COMPR EHENS NEYDA METAB OLIC 2000 PANEL - SERUM OR PLASM A alanine aminotransfe rase [enzymatic activity/vol ume] in serum or plasma 29 U/L 0-34 Not Available [facility] [address], [place], [address], 06/12/2021 20:36:43 06/07/19 22 06/07/2021 COMPR EHENS NEYDA METAB OLIC 2000 PANEL - SERUM OR PLASM A alkaline phosphatase [enzymatic activity/vol ume] in serum or plasma 84 U/L 38-126 Not Available [facility] [address], [place], [address], 06/12/2021 20:36:43 06/07/19 22 06/07/2021 COMPR EHENS NEYDA METAB OLIC 2000 PANEL - SERUM OR PLASM A protein [mass/volume ] in serum or plasma 8.4 g/dL 6.3-8. 2 high Not Available [place] [facility] [address], [place], [address], 06/12/2021 20:36:43 06/07/19 22 06/07/2021 COMPR EHENS NEYDA METAB OLIC 2000 PANEL - SERUM OR PLASM A albumin [mass/volume ] in serum or plasma 4.9 g/dL 3.5-5. 0 Not Available [facility] [address], [place], [address], 06/12/2021 20:36:43 06/07/19 22 06/07/2021 COMPR EHENS NEYDA METAB OLIC 2000 PANEL - SERUM OR PLASM A globulin [mass/volume ] in plasma 3.5 g/dL 2.2-4. 2 Not Available [facility] [address], [place], [address], 06/12/2021 20:36:43 06/07/19 22 06/07/2021 COMPR EHENS NEYDA METAB OLIC 2000 PANEL - SERUM OR PLASM A albumin/glob ulin [mass ratio] in serum or plasma 1.40 % 1.10-2 .20 Not Available [facility] [address], [place], [address], 06/12/2021 20:36:43 06/07/19 22 06/07/2021 DRUGS IDENT IFIED IN SERUM OR PLASM A BY SCREE N METHO D salicylates [mass/volume ] in serum or plasma <1.0 mg/dL 2.0-29 low Not Available [facility] [address], [place], [address], 06/12/2021 20:36:44 06/07/19 22 06/07/2021 DRUGS IDENT IFIED IN SERUM OR PLASM A BY SCREE N METHO D acetaminophe n [mass/volume ] in blood <10.00 ug/mL 10.00- 30.00 low Not Available [facility] [address], [place], [address], 06/12/2021 20:36:44 06/07/19 22 06/07/2021 DRUGS IDENT IFIED IN SERUM OR PLASM A BY SCREE N METHO D ethanol [presence] in serum or plasma by screen method < 10.0 0.0-10 .0 Not Available [facility] [address], [place], [address], 06/12/2021 20:36:44 06/07/19 22 06/07/2021 THYRO TROPI N [UNIT S/VOL UME] IN SERUM OR PLASM A thyrotropin [units/volum e] in serum or plasma 0.92 u[IU] /mL 0.465- 4.68 Not Available [facility] [address], [place], [address], 06/12/2021 20:48:58 06/07/19 22 06/07/2021 DRUGS IDENT IFIED IN URINE BY SCREE N METHO D creatinine [mass/volume ] in urine 167.3 mg/dL Not Available [facility] [address], [place], [address], 06/12/2021 20:54:49 06/07/19 22 06/07/2021 DRUGS IDENT IFIED IN URINE BY SCREE N METHO D amphetamine [presence] in urine by screen method NEGATI VE neg Not Available [facility] [address], [place], [address], 06/12/2021 20:54:49 06/07/19 22 06/07/2021 DRUGS IDENT IFIED IN URINE BY SCREE N METHO D cocaine [presence] in urine by screen method NEGATI VE neg Not Available [facility] [address], [place], [address], 06/12/2021 20:54:49 06/07/19 22 06/07/2021 DRUGS IDENT IFIED IN URINE BY SCREE N METHO D cannabinoids [presence] in urine by screen method POSITI VE neg high Not Available [facility] [address], [place], [address], 06/12/2021 20:54:49 06/07/19 22 06/07/2021 DRUGS IDENT IFIED IN URINE BY SCREE N METHO D benzodiazepi dileep [presence] in urine by screen method NEGATI VE neg Not Available [facility] [address], [place], [address], 06/12/2021 20:54:49 06/07/19 22 06/07/2021 DRUGS IDENT IFIED IN URINE BY SCREE N METHO D tricyclic antidepressa nts [mass/volume ] in urine NEGATI VE neg Not Available [facility] [address], [place], [address], 06/12/2021 20:54:49 06/07/19 22 06/07/2021 DRUGS IDENT IFIED IN URINE BY SCREE N METHO D barbiturates [presence] in urine by screen method NEGATI VE neg Not Available [facility] [address], [place], [address], 06/12/2021 20:54:49 06/07/19 22 06/07/2021 DRUGS IDENT IFIED IN URINE BY SCREE N METHO D methylenedio xymethamphet amine [presence] in urine by screen method Negati ve neg Not Available [facility] [address], [place], [address], 06/12/2021 20:54:49 06/07/19 22 06/07/2021 DRUGS IDENT IFIED IN URINE BY SCREE N METHO D opiates [presence] in urine by screen method Negati ve neg Not Available [facility] [address], [place], [address], 06/12/2021 20:54:49 06/07/19 22 06/07/2021 DRUGS IDENT IFIED IN URINE BY SCREE N METHO D phencyclidin e [presence] in urine by screen method NEGATI VE neg Not Available [facility] [address], [place], [address], 06/12/2021 20:54:49 06/07/19 22 06/07/2021 DRUGS IDENT IFIED IN URINE BY SCREE N METHO D oxycodone [presence] in urine by screen method NEGATI VE neg Not Available [facility] [address], [place], [address], 06/12/2021 20:54:49 06/07/19 22 06/07/2021 DRUGS IDENT IFIED IN URINE BY SCREE N METHO D propoxyphene [presence] in urine by screen method Negati ve neg Not Available [facility] [address], [place], [address], 06/12/2021 20:54:49 06/07/19 22 06/07/2021 SARS- COV-2 (COVI D-19) RNA [PRES ENCE] IN RESPI RATOR Y SPECI MEN BY FRANSICO WITH PROBE DETEC TION IS this your first test? Unknow n Not Available [facility] 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, [place], [address], 06/12/2021 20:55:59 06/07/19 22 06/07/2021 SARS- COV-2 (COVI D-19) RNA [PRES ENCE] IN RESPI RATOR Y SPECI MEN BY FRANSICO WITH PROBE DETEC TION IS patient symptomatic defined by cdc? Unknow n Not Available [facility] [address], [place], [address], 06/12/2021 20:55:59 06/07/19 22 06/07/2021 SARS- COV-2 (COVI D-19) RNA [PRES ENCE] IN RESPI RATOR Y SPECI MEN BY FRANSICO WITH PROBE DETEC TION IS patient being hospitalized ? Yes Not Available [facility] [address], [place], [address], 06/12/2021 20:55:59 06/07/19 22 06/07/2021 SARS- COV-2 (COVI D-19) RNA [PRES ENCE] IN RESPI RATOR Y SPECI MEN BY FRANSICO WITH PROBE DETEC TION ICU patient? No Not Available [facility] [address], [place], [address], 06/12/2021 20:55:59 06/07/19 22 06/07/2021 SARS- COV-2 (COVI D-19) RNA [PRES ENCE] IN RESPI RATOR Y SPECI MEN BY FRANSICO WITH PROBE DETEC TION IS patient A resident in congregate care setting? Unknow n Not Available [facility] [address], [place], [address], 06/12/2021 20:55:59 06/07/19 22 06/07/2021 SARS- COV-2 (COVI D-19) RNA [PRES ENCE] IN RESPI RATOR Y SPECI MEN BY FRANSICO WITH PROBE DETEC TION IS patient ? Unknow n Not Available [facility] [address], [place], [address], 06/12/2021 20:55:59 06/07/19 22 06/07/2021 SARS- COV-2 (COVI D-19) RNA [PRES ENCE] IN RESPI RATOR Y SPECI MEN BY FRANSICO WITH PROBE DETEC TION sars-cov-2 RNA [presence] in respiratory specimen by PCR THIS TEST PERFO RMED ON [employer] SIRI ZER BY RT PCR. Negat neyda resul ts do not precl ude SARS- CoV-2 infec tion and shoul d not be used as the sole basis for treat ment or other patie nt manag ement decis ions. Negat neyda resul ts must be combi lino with clini kevin obser vatio ns, patie nt histo ry, and epide miolo gical infor matio n. N/A Negat neyda Not Available [facility] [address], [place], [address], 06/12/2021 20:55:59 06/07/19 22 06/07/2021 CHORI OGONA DOTRO PIN (PREG JANIE TEST) [PRES ENCE] IN URINE choriogonado tropin ( test) [presence] in urine NEGATI VE Not Available [facility] [address], [place], [address], 06/12/2021 21:46:15 06/07/19 22 06/07/2021 PROCA LCITO SHAHLA [MASS /VOLU ME] IN SERUM OR PLASM A procalcitoni n [mass/volume ] in serum or plasma 0.073 NG/mL <0.5 SEPSI S: <0.5 ng/mL - Low risk for progr essio n to sever e sepsi s and/o r septi c shock 0.5-2 .0 ng/mL - Sepsi s shoul d be consi dered ; recom mend seria l testi ng >2.0 ng/mL - High risk for progr essio n to sever e sepsi s and/o r septi c shock LOWER RESPI RATOR Y TRACT INFEC TIONS : <0.05 - 0.1: Stron gly disco urage antib iotic use 0.1-0 .24: Disco urage antib iotic use 0.25- 0.5: Encou rage antib iotic use >0.5: Stron gly encou rage antib iotic use - If proca lcito shahla is negat neyda, consi wicho nakul nuing antib iotic thera py if clini guillaume unsta ble. - If PCT level is risin g, or not adequ ately decre asing , consi wicho possi ble treat ment failu re and evalu ate for need for expan ding antib iotic cover age or furth er diagn ostic evalu ation . Not Available [facility] [address], [place], [address], 06/12/2021 22:04:22 06/07/19 22 06/07/2021 CBC W AUTO DIFFE RENTI AL PANEL - BLOOD leukocytes [#/volume] in blood by automated count 16.7 10*3/ uL 4.5-11 .0 high 2036, 06/07 Not Available [facility] [address], [place], [address], 06/13/2021 04:35:51 06/07/19 22 06/07/2021 CBC W AUTO DIFFE RENTI AL PANEL - BLOOD erythrocytes [#/volume] in blood by automated count 5.12 10*6/ uL 4.2-5. 4 Not Available [facility] [address], [place], [address], 06/13/2021 04:35:51 06/07/19 22 06/07/2021 CBC W AUTO DIFFE RENTI AL PANEL - BLOOD hemoglobin [mass/volume ] in blood 12.0 g/dL 12.0-1 6.0 Not Available [facility] [address], [place], [address], 06/13/2021 04:35:51 06/07/19 22 06/07/2021 CBC W AUTO DIFFE RENTI AL PANEL - BLOOD HCT vfr bld auto 38.9 % 36.0-4 8.0 Not Available [facility] [address], [place], [address], 06/13/2021 04:35:51 06/07/19 22 06/07/2021 CBC W AUTO DIFFE RENTI AL PANEL - BLOOD MCV [entitic volume] by automated count 76.0 fL 80-100 low Not Available [facility] [address], [place], [address], 06/13/2021 04:35:51 06/07/19 22 06/07/2021 CBC W AUTO DIFFE RENTI AL PANEL - BLOOD MCH [entitic mass] by automated count 23.4 pg 27-32 low Not Available [facility] [address], [place], [address], 06/13/2021 04:35:51 06/07/19 22 06/07/2021 CBC W AUTO DIFFE RENTI AL PANEL - BLOOD MCHC [mass/volume ] by automated count 30.8 g/dL 31.0-3 7.0 low Not Available [facility] [address], [place], [address], 06/13/2021 04:35:51 06/07/19 22 06/07/2021 CBC W AUTO DIFFE RENTI AL PANEL - BLOOD erythrocyte distribution width [ratio] by automated count 17.8 % 12-14. 5 high Not Available [facility] [address], [place], [address], 06/13/2021 04:35:51 06/07/19 22 06/07/2021 CBC W AUTO DIFFE RENTI AL PANEL - BLOOD platelets [#/volume] in blood by automated count 410 10*3/ uL 150-45 0 2036, 06/07 Not Available [facility] [address], [place], [address], 06/13/2021 04:35:51 06/07/19 22 06/07/2021 CBC W AUTO DIFFE RENTI AL PANEL - BLOOD platelet mean volume [entitic volume] in blood by automated count 10.6 fL 9.1-13 .2 Not Available [facility] [address], [place], [address], 06/13/2021 04:35:51 06/07/19 22 06/07/2021 CBC W AUTO DIFFE RENTI AL PANEL - BLOOD segmented neutrophils/ 100 leukocytes in blood by automated count 73.6 % 40-70 high Not Available [facility] [address], [place], [address], 06/13/2021 04:35:51 06/07/19 22 06/07/2021 CBC W AUTO DIFFE RENTI AL PANEL - BLOOD lymphocytes/ 100 leukocytes in blood by flow cytometry (fc) 18.2 % 20-44 low Not Available [facility] [address], [place], [address], 06/13/2021 04:35:51 06/07/19 22 06/07/2021 CBC W AUTO DIFFE RENTI AL PANEL - BLOOD monocytes/10 0 leukocytes in blood by automated count 7.2 % 2-9 Not Available [facility] [address], [place], [address], 06/13/2021 04:35:51 06/07/19 22 06/07/2021 CBC W AUTO DIFFE RENTI AL PANEL - BLOOD eosinophils/ 100 leukocytes in blood by automated count 0.3 % 0-4 Not Available [facility] [address], [place], [address], 06/13/2021 04:35:51 06/07/19 22 06/07/2021 CBC W AUTO DIFFE RENTI AL PANEL - BLOOD basophils/10 0 leukocytes in blood by automated count 0.3 % 0-1 Not Available [facility] [address], [place], [address], 06/13/2021 04:35:51 06/07/19 22 06/07/2021 CBC W AUTO DIFFE RENTI AL PANEL - BLOOD neutrophils [#/volume] in blood by automated count 12.29 10*3/ uL 1.8-7. 7 high Not Available [facility] [address], [place], [address], 06/13/2021 04:35:51 06/07/19 22 06/07/2021 CBC W AUTO DIFFE RENTI AL PANEL - BLOOD lymphocytes [#/volume] in blood by automated count 3.05 10*3/ uL 0.9-4. 8 Not Available [facility] [address], [place], [address], 06/13/2021 04:35:51 06/07/19 22 06/07/2021 CBC W AUTO DIFFE RENTI AL PANEL - BLOOD monocytes [#/volume] in blood by automated count 1.2 10*3/ uL 0-0.8 high Not Available [facility] [address], [place], [address], 06/13/2021 04:35:51 06/07/19 22 06/07/2021 CBC W AUTO DIFFE RENTI AL PANEL - BLOOD eosinophils [#/volume] in blood by automated count 0.05 10*3/ uL 0-0.7 Not Available [facility] [address], [place], [address], 06/13/2021 04:35:51 06/07/19 22 06/07/2021 CBC W AUTO DIFFE RENTI AL PANEL - BLOOD basophils [#/volume] in blood by automated count 0.05 10*3/ uL 0-0.2 Not Available [facility] [address], [place], [address], 06/13/2021 04:35:51 06/07/19 22 06/07/2021 CBC W AUTO DIFFE RENTI AL PANEL - BLOOD immature granulocytes [presence] in blood by automated count 0.4 % 0-0 high Not Available [facility] [address], [place], [address], 06/13/2021 04:35:51 06/07/19 22 06/07/2021 CBC W AUTO DIFFE RENTI AL PANEL - BLOOD immature granulocytes [#/volume] in blood 0.1 10*3/ uL 0-0 high Not Available [facility] [address], [place], [address], 06/13/2021 04:35:51 06/07/19 22 06/07/2021 CBC W AUTO DIFFE RENTI AL PANEL - BLOOD nucleated erythrocytes /100 leukocytes [ratio] in blood by automated count 0.0 % 0-0 Not Available [facility] [address], [place], [address], 06/13/2021 04:35:51 06/07/19 22 06/07/2021 DRUGS IDENT IFIED IN URINE BY SCREE N METHO D carboxy tetrahydroca nnabinol [presence] in urine by confirmatory method > 300.0 <27 Not Available [facility] [address], [place], [address], 06/14/2021 13:09:48 06/07/19 22 06/07/2021 DRUGS IDENT IFIED IN URINE BY SCREE N METHO D drugs identified in urine by screen method SEE COMMEN T This drug testi ng is for medic al treat ment only. Siri sis was perfo rmed as non-f orens ic testi ng and the resul ts shoul d be used only by healt hcare provi ders to rende r diagn osis or treat ment, or to monit or progr ess of medic al condi tions . This assay has been valid ated persu ant ot the CLIA regul ation s and is used for clini kevin purpo ses. The follo wing drugs and drug class es are inclu ded. A compl ete list may be provi ded upon reque st. Opiat e Class , Oxyco done Class , Opioi ds/Op iate Analo gs, Benzo diaze pine Class , Caris prodo l, Gabap entin , Methy lphen idate , Antid epres ants, Ketam ine, PCP, MDVP, Amphe tamin e/Met hamph etami ne, THC, MDA, 6-LEONARDA , MDMA, DMT, Benzo ylecg onine and Synth etic Canna binoi ds. Not Available [facility] [address], [place], [address], 06/14/2021 13:09:48 06/10/19 22 06/10/2021 CBC W AUTO DIFFE RENTI AL PANEL - BLOOD leukocytes [#/volume] in blood by automated count 14.3 10*3/ uL 4.5-11 .0 high 1852, 06/10 Not Available [facility] [address], [place], [address], 06/14/2021 19:19:58 06/10/19 22 06/10/2021 CBC W AUTO DIFFE RENTI AL PANEL - BLOOD erythrocytes [#/volume] in blood by automated count 5.92 10*6/ uL 4.2-5. 4 high Not Available [facility] [address], [place], [address], 06/14/2021 19:19:58 06/10/19 22 06/10/2021 CBC W AUTO DIFFE RENTI AL PANEL - BLOOD hemoglobin [mass/volume ] in blood 13.8 g/dL 12.0-1 6.0 Not Available [facility] [address], [place], [address], 06/14/2021 19:19:58 06/10/19 22 06/10/2021 CBC W AUTO DIFFE RENTI AL PANEL - BLOOD HCT vfr bld auto 46.1 % 36.0-4 8.0 Not Available [facility] [address], [place], [address], 06/14/2021 19:19:58 06/10/19 22 06/10/2021 CBC W AUTO DIFFE RENTI AL PANEL - BLOOD MCV [entitic volume] by automated count 77.9 fL 80-100 low Not Available [facility] [employer] [facility] [address], [place], [address], 06/14/2021 19:19:58 06/10/19 22 06/10/2021 CBC W AUTO DIFFE RENTI AL PANEL - BLOOD MCH [entitic mass] by automated count 23.3 pg 27-32 low Not Available [facility] [address], [place], [address], 06/14/2021 19:19:58 06/10/19 22 06/10/2021 CBC W AUTO DIFFE RENTI AL PANEL - BLOOD MCHC [mass/volume ] by automated count 29.9 g/dL 31.0-3 7.0 low Not Available [facility] [address], [place], [address], 06/14/2021 19:19:58 06/10/19 22 06/10/2021 CBC W AUTO DIFFE RENTI AL PANEL - BLOOD erythrocyte distribution width [ratio] by automated count 18.4 % 12-14. 5 high Not Available [facility] [address], [place], [address], 06/14/2021 19:19:58 06/10/19 22 06/10/2021 CBC W AUTO DIFFE RENTI AL PANEL - BLOOD platelets [#/volume] in blood by automated count 424 10*3/ uL 150-45 0 1852, 06/10 Not Available [facility] [address], [place], [address], 06/14/2021 19:19:58 06/10/19 22 06/10/2021 CBC W AUTO DIFFE RENTI AL PANEL - BLOOD platelet mean volume [entitic volume] in blood by automated count 10.7 fL 9.1-13 .2 Not Available [facility] [address], [place], [address], 06/14/2021 19:19:58 06/10/19 22 06/10/2021 CBC W AUTO DIFFE RENTI AL PANEL - BLOOD segmented neutrophils/ 100 leukocytes in blood by automated count 77.4 % 40-70 high Not Available [facility] [address], [place], [address], 06/14/2021 19:19:58 06/10/19 22 06/10/2021 CBC W AUTO DIFFE RENTI AL PANEL - BLOOD lymphocytes/ 100 leukocytes in blood by flow cytometry (fc) 13.9 % 20-44 low Not Available [facility] [address], [place], [address], 06/14/2021 19:19:58 06/10/19 22 06/10/2021 CBC W AUTO DIFFE RENTI AL PANEL - BLOOD monocytes/10 0 leukocytes in blood by automated count 5.7 % 2-9 Not Available [facility] [address], [place], [address], 06/14/2021 19:19:58 06/10/19 22 06/10/2021 CBC W AUTO DIFFE RENTI AL PANEL - BLOOD eosinophils/ 100 leukocytes in blood by automated count 1.8 % 0-4 Not Available [facility] [address], [place], [address], 06/14/2021 19:19:58 06/10/19 22 06/10/2021 CBC W AUTO DIFFE RENTI AL PANEL - BLOOD basophils/10 0 leukocytes in blood by automated count 0.6 % 0-1 Not Available [facility] [address], [place], [address], 06/14/2021 19:19:58 06/10/19 22 06/10/2021 CBC W AUTO DIFFE RENTI AL PANEL - BLOOD neutrophils [#/volume] in blood by automated count 11.06 10*3/ uL 1.8-7. 7 high Not Available [facility] [address], [place], [address], 06/14/2021 19:19:58 06/10/19 22 06/10/2021 CBC W AUTO DIFFE RENTI AL PANEL - BLOOD lymphocytes [#/volume] in blood by automated count 1.99 10*3/ uL 0.9-4. 8 Not Available [facility] [address], [place], [address], 06/14/2021 19:19:58 06/10/19 22 06/10/2021 CBC W AUTO DIFFE RENTI AL PANEL - BLOOD monocytes [#/volume] in blood by automated count 0.8 10*3/ uL 0-0.8 Not Available [facility] [address], [place], [address], 06/14/2021 19:19:58 06/10/19 22 06/10/2021 CBC W AUTO DIFFE RENTI AL PANEL - BLOOD eosinophils [#/volume] in blood by automated count 0.26 10*3/ uL 0-0.7 Not Available [facility] [address], [place], [address], 06/14/2021 19:19:58 06/10/19 22 06/10/2021 CBC W AUTO DIFFE RENTI AL PANEL - BLOOD basophils [#/volume] in blood by automated count 0.09 10*3/ uL 0-0.2 Not Available [facility] [address], [place], [address], 06/14/2021 19:19:58 06/10/19 22 06/10/2021 CBC W AUTO DIFFE RENTI AL PANEL - BLOOD immature granulocytes [presence] in blood by automated count 0.6 % 0-0 high Not Available [facility] [address], [place], [address], 06/14/2021 19:19:58 06/10/19 22 06/10/2021 CBC W AUTO DIFFE RENTI AL PANEL - BLOOD immature granulocytes [#/volume] in blood 0.1 10*3/ uL 0-0 high Not Available [facility] [address], [place], [address], 06/14/2021 19:19:58 06/10/19 22 06/10/2021 CBC W AUTO DIFFE RENTI AL PANEL - BLOOD nucleated erythrocytes /100 leukocytes [ratio] in blood by automated count 0.0 % 0-0 Not Available [facility] [address], [place], [address], 06/14/2021 19:19:58 06/10/19 22 06/10/2021 COMPR EHENS NEYDA METAB OLIC 2000 PANEL - SERUM OR PLASM A glucose [mass/volume ] in serum or plasma 133 mg/dL 74-106 high Not Available [facility] [address], [place], [address], 06/14/2021 19:38:51 06/10/19 22 06/10/2021 COMPR EHENS NEYDA METAB OLIC 2000 PANEL - SERUM OR PLASM A urea nitrogen [mass/volume ] in serum or plasma 32 mg/dL 7-17 high Not Available [facility] [address], [place], [address], 06/14/2021 19:38:51 06/10/19 22 06/10/2021 COMPR EHENS NEYDA METAB OLIC 2000 PANEL - SERUM OR PLASM A creatinine [mass/volume ] in serum or plasma 1.8 mg/dL 0.7-1. 2 high Not Available [facility] [address], [place], [address], 06/14/2021 19:38:51 06/10/19 22 06/10/2021 COMPR EHENS NEYDA METAB OLIC 2000 PANEL - SERUM OR PLASM A sodium [moles/volum e] in serum or plasma 138 mmol/ L 137-14 5 Not Available [facility] [address], [place], [address], 06/14/2021 19:38:51 06/10/19 22 06/10/2021 COMPR EHENS NEYDA METAB OLIC 2000 PANEL - SERUM OR PLASM A potassium [moles/volum e] in serum or plasma 3.9 mmol/ L 3.5-5. 1 Not Available [facility] [address], [place], [address], 06/14/2021 19:38:51 06/10/19 22 06/10/2021 COMPR EHENS NEYDA METAB OLIC 2000 PANEL - SERUM OR PLASM A chloride [moles/volum e] in serum or plasma 103 mmol/ L 98-107 Not Available [facility] [address], [place], [address], 06/14/2021 19:38:51 06/10/19 22 06/10/2021 COMPR EHENS NEYDA METAB OLIC 2000 PANEL - SERUM OR PLASM A carbon dioxide, total [moles/volum e] in serum or plasma 23 mmol/ L 22-30 Not Available [facility] [address], [place], [address], 06/14/2021 19:38:51 06/10/19 22 06/10/2021 COMPR EHENS NEYDA METAB OLIC 2000 PANEL - SERUM OR PLASM A calcium [mass/volume ] in blood 9.6 mg/dL 8.4-10 .2 Not Available [facility] [address], [place], [address], 06/14/2021 19:38:51 06/10/19 22 06/10/2021 COMPR EHENS NEYDA METAB OLIC 2000 PANEL - SERUM OR PLASM A anion gap in serum or plasma 12.0 mEq/L 7.0-16 .0 Not Available [facility] [address], [place], [address], 06/14/2021 19:38:51 06/10/19 22 06/10/2021 COMPR EHENS NEYDA METAB OLIC 1999 PANEL - SERUM OR PLASM A urea nitrogen/cre atinine [mass ratio] in blood 17.7 % 12.0-2 0.0 Not Available [facility] [address], [place], [address], 06/14/2021 19:38:51 06/10/19 22 06/10/2021 COMPR EHENS NEYDA METAB OLIC 1999 PANEL - SERUM OR PLASM A osmolality of serum or plasma by calculation 285 mOsm/ kg 261-28 0 high Not Available [facility] [address], [place], [address], 06/14/2021 19:38:51 06/10/19 22 06/10/2021 COMPR EHENS NEYDA METAB OLIC 1999 PANEL - SERUM OR PLASM A glomerular filtration rate/1.73 sq M.predicted [volume rate/area] in serum, plasma or blood by creatinine-b ased formula (CKD-epi) 35.1 mL 90.0-1 20 Stage 3, Chron ic Kidne y Disea se 30-44 mL/mi n. Not Available [facility] [address], [place], [address], 06/14/2021 19:38:51 06/10/19 22 06/10/2021 COMPR EHENS NEYDA METAB OLIC 1999 PANEL - SERUM OR PLASM A bilirubin.to cecil [mass/volume ] in serum or plasma 0.80 mg/dL 0.2-1. 3 Not Available [facility] [address], [place], [address], 06/14/2021 19:38:51 06/10/19 22 06/10/2021 COMPR EHENS NEYDA METAB OLIC 2000 PANEL - SERUM OR PLASM A aspartate aminotransfe rase [enzymatic activity/vol ume] in serum or plasma 32 U/L 14-36 Not Available [facility] [address], [place], [address], 06/14/2021 19:38:51 06/10/19 22 06/10/2021 COMPR EHENS NEYDA METAB OLIC 2000 PANEL - SERUM OR PLASM A alanine aminotransfe rase [enzymatic activity/vol ume] in serum or plasma 26 U/L 0-34 Not Available [facility] [address], [place], [address], 06/14/2021 19:38:51 06/10/19 22 06/10/2021 COMPR EHENS NEYDA METAB OLIC 2000 PANEL - SERUM OR PLASM A alkaline phosphatase [enzymatic activity/vol ume] in serum or plasma 96 U/L 38-126 Not Available [facility] [address], [place], [address], 06/14/2021 19:38:51 06/10/19 22 06/10/2021 COMPR EHENS NEYDA METAB OLIC 2000 PANEL - SERUM OR PLASM A protein [mass/volume ] in serum or plasma 8.3 g/dL 6.3-8. 2 high Not Available [facility] [address], [place], [address], 06/14/2021 19:38:51 06/10/19 22 06/10/2021 COMPR EHENS NEYDA METAB OLIC 2000 PANEL - SERUM OR PLASM A albumin [mass/volume ] in serum or plasma 4.9 g/dL 3.5-5. 0 Not Available [facility] [address], [place], [address], 06/14/2021 19:38:51 06/10/19 22 06/10/2021 COMPR EHENS NEYDA METAB OLIC 2000 PANEL - SERUM OR PLASM A globulin [mass/volume ] in plasma 3.4 g/dL 2.2-4. 2 Not Available [facility] [address], [place], [address], 06/14/2021 19:38:51 06/10/19 22 06/10/2021 COMPR EHENS NEYDA METAB OLIC 2000 PANEL - SERUM OR PLASM A albumin/glob ulin [mass ratio] in serum or plasma 1.40 % 1.10-2 .20 Not Available [facility] [address], [place], [address], 06/14/2021 19:38:51 06/10/19 22 06/10/2021 TROPO SHAHLA I.CAR DIAC [MASS /VOLU ME] IN SERUM OR PLASM A troponin I.cardiac [mass/volume ] in serum or plasma 0.014 NG/mL 0-0.03 4 Not Available [facility] [address], [place], [address], 06/14/2021 19:38:51 06/10/19 22 06/10/2021 AMYLA SE [ENZY MATIC ACTIV ITY/V OLUME ] IN SERUM OR PLASM A amylase [enzymatic activity/vol ume] in serum or plasma 90 U/L 30-110 Not Available [facility] [address], [place], [address], 06/14/2021 19:38:52 06/10/19 22 06/10/2021 LIPAS E [ENZY MATIC ACTIV ITY/V OLUME ] IN SERUM OR PLASM A lipase [enzymatic activity/vol ume] in serum or plasma 115 U/L 23-300 Not Available [facility] [address], [place], [address], 06/14/2021 19:38:52 06/10/19 22 06/10/2021 SARS CORON AVIRU S [PRES ENCE] IN SPECI MEN IS this your first test? No Not Available [facility] [address], [place], [address], 06/14/2021 20:19:44 06/10/19 22 06/10/2021 SARS CORON AVIRU S [PRES ENCE] IN SPECI MEN employed in healthcare No Not Available [facility] [address], [place], [address], 06/14/2021 20:19:44 06/10/19 22 06/10/2021 SARS CORON AVIRU S [PRES ENCE] IN SPECI MEN IS patient symptomatic defined by cdc? No Not Available [facility] [address], [place], [address], 06/14/2021 20:19:44 06/10/19 22 06/10/2021 SARS CORON AVIRU S [PRES ENCE] IN SPECI MEN IS patient being hospitalized ? Yes Not Available [facility] [address], [place], [address], 06/14/2021 20:19:44 06/10/19 22 06/10/2021 SARS CORON AVIRU S [PRES ENCE] IN SPECI MEN ICU patient? No Not Available [facility] [address], [place], [address], 06/14/2021 20:19:44 06/10/19 22 06/10/2021 SARS CORON AVIRU S [PRES ENCE] IN SPECI MEN IS patient A resident in congregate care setting? No Not Available [facility] [address], [place], [address], 06/14/2021 20:19:44 06/10/19 22 06/10/2021 SARS CORON AVIRU S [PRES ENCE] IN SPECI MEN IS patient ? Not pregna nt Not Available [facility] [address], [place], [address], 06/14/2021 20:19:44 06/10/19 22 06/10/2021 SARS CORON AVIRU S [PRES ENCE] IN SPECI MEN sars coronavirus [presence] in specimen Not detect ed When diagn ostic testi ng is negat neyda, the possi bilit y of a false negat neyda resul t shoul d be consi dered in the ct xt of a patie nt's recen t expos ures and the prese nce of clini kevin signs and sympt oms consi stent with COVID -19. The possi bilit y of a false negat neyda resul t shoul d espec ially be consi dered if the patie nt's recen t expos ures or clini kevin prese ntati on indic ate that COVID -19 is likel y. The monserrat l refer ence range for any viral patho gen is consi dered Not Detec segundo . Test resul ts may be affec segundo by concu rrent antib acter ial or antiv iral thera py or level s of bacte norberto or virus in the sampl e that are below the limit of detec tion for the test or seque nce varia nts of the viral or bacte rial targe ts. A resul t of No Targe ts Detec segundo on the ePlex RP2 Panel shoul d not be used as the sole basis for diagn osis, treat ment or other patie nt manag ement decis ions. Not Available [facility] [address] [facility] [address], [place], [address], 06/14/2021 20:19:44 09/27/19 22 09/26/2021 DRUGS IDENT IFIED IN URINE BY SCREE N METHO D amphetamine [presence] in urine by screen method NEGATI VE neg Not Available [facility] [address], [place], [address], 09/26/2021 21:53:37 09/27/19 22 09/26/2021 DRUGS IDENT IFIED IN URINE BY SCREE N METHO D barbiturates [presence] in urine by screen method NEGATI VE neg Not Available [facility] [address] [facility] [address], [place], [address], 09/26/2021 21:53:37 09/27/19 22 09/26/2021 DRUGS IDENT IFIED IN URINE BY SCREE N METHO D benzodiazepi dileep [presence] in urine by screen method POSITI VE neg high Not Available [facility] [address], [place], [address], 09/26/2021 21:53:37 09/27/19 22 09/26/2021 DRUGS IDENT IFIED IN URINE BY SCREE N METHO D cocaine [presence] in urine by screen method NEGATI VE neg Not Available [facility] [address], [place], [address], 09/26/2021 21:53:37 09/27/19 22 09/26/2021 DRUGS IDENT IFIED IN URINE BY SCREE N METHO D opiates [presence] in urine by screen method Negati ve neg Not Available [facility] [address], [place], [address], 09/26/2021 21:53:37 09/27/19 22 09/26/2021 DRUGS IDENT IFIED IN URINE BY SCREE N METHO D phencyclidin e [presence] in urine by screen method NEGATI VE neg Not Available [facility] [address], [place], [address], 09/26/2021 21:53:37 09/27/19 22 09/26/2021 DRUGS IDENT IFIED IN URINE BY SCREE N METHO D cannabinoids [presence] in urine by screen method POSITI VE neg high Not Available [facility] [address], [place], [address], 09/26/2021 21:53:37 09/27/19 22 09/26/2021 DRUGS IDENT IFIED IN URINE BY SCREE N METHO D oxycodone [presence] in urine NEGATI VE neg Not Available [facility] [address], [place], [address], 09/26/2021 21:53:37 09/27/19 22 09/26/2021 DRUGS IDENT IFIED IN URINE BY SCREE N METHO D methylenedio xymethamphet amine [presence] in urine by screen method Negati ve neg Not Available [facility] [address], [place], [address], 09/26/2021 21:53:37 09/27/19 22 09/26/2021 DRUGS IDENT IFIED IN URINE BY SCREE N METHO D propoxyphene [presence] in urine by screen method Negati ve neg Not Available [facility] [address], [place], [address], 09/26/2021 21:53:37 09/27/19 22 09/26/2021 DRUGS IDENT IFIED IN URINE BY SCREE N METHO D tricyclics serpl ql Positi ve neg high Not Available [facility] [address], [place], [address], 09/26/2021 21:53:37 09/27/19 22 09/26/2021 CHORI OGONA DOTRO PIN (PREG JANIE TEST) [PRES ENCE] IN URINE choriogonado tropin ( test) [presence] in urine NEGATI VE Not Available [facility] [address], [place], [address], 09/26/2021 21:58:34 09/27/19 22 09/26/2021 URINA LYSIS COMPL ETE PANEL - URINE color of urine by auto YELLOW Not Available [facility] [address], [place], [address], 09/26/2021 22:16:21 09/27/19 22 09/26/2021 URINA LYSIS COMPL ETE PANEL - URINE clarity in urine by refractometr y automated Clear Not Available [facility] [address], [place], [address], 09/26/2021 22:16:21 09/27/19 22 09/26/2021 URINA LYSIS COMPL ETE PANEL - URINE glucose [presence] in urine Negati ve negati ve Not Available [facility] [address], [place], [address], 09/26/2021 22:16:21 09/27/19 22 09/26/2021 URINA LYSIS COMPL ETE PANEL - URINE bilirubin.to cecil [presence] in urine Small negati ve Not Available [facility] [address], [place], [address], 09/26/2021 22:16:21 09/27/19 22 09/26/2021 URINA LYSIS COMPL ETE PANEL - URINE ketones [presence] in urine by automated test strip 15 negati ve Not Available [facility] [address], [place], [address], 09/26/2021 22:16:21 09/27/19 22 09/26/2021 URINA LYSIS COMPL ETE PANEL - URINE specific gravity of urine by automated test strip >=1.03 0 1.001- 1.030 Not Available [facility] [address], [place], [address], 09/26/2021 22:16:21 09/27/19 22 09/26/2021 URINA LYSIS COMPL ETE PANEL - URINE erythrocytes [presence] in urine by automated Negati ve negati ve Not Available [facility] [address], [place], [address], 09/26/2021 22:16:21 09/27/19 22 09/26/2021 URINA LYSIS COMPL ETE PANEL - URINE pH of urine by automated test strip 5.5 5.0-8. 5 Not Available [facility] [address], [place], [address], 09/26/2021 22:16:21 09/27/19 22 09/26/2021 URINA LYSIS COMPL ETE PANEL - URINE protein [presence] in urine 30 negati ve Not Available [facility] [address], [place], [address], 09/26/2021 22:16:21 09/27/19 22 09/26/2021 URINA LYSIS COMPL ETE PANEL - URINE urobilinogen [mass/volume ] in urine by automated test strip 0.2 0.2-2 mg/dL Not Available [facility] [address], [place], [address], 09/26/2021 22:16:21 09/27/19 22 09/26/2021 URINA LYSIS COMPL ETE PANEL - URINE nitrite [presence] in urine Negati ve negati ve Not Available [facility] [address], [place], [address], 09/26/2021 22:16:21 09/27/19 22 09/26/2021 URINA LYSIS COMPL ETE PANEL - URINE leukocyte esterase [presence] in urine by automated test strip Negati ve negati ve Not Available [facility] [address], [place], [address], 09/26/2021 22:16:21 09/27/19 22 09/26/2021 URINA LYSIS COMPL ETE PANEL - URINE leukocytes [presence] in urine 2-5 0-3 high Not Available [facility] [address], [place], [address], 09/26/2021 22:16:21 09/27/19 22 09/26/2021 URINA LYSIS COMPL ETE PANEL - URINE erythrocytes [#/volume] in urine by automated test strip 0-2 0-2 Not Available [facility] [address], [place], [address], 09/26/2021 22:16:21 09/27/19 22 09/26/2021 URINA LYSIS COMPL ETE PANEL - URINE bacteria [presence] in urine by automated 2+ Not Available [facility] [address], [place], [address], 09/26/2021 22:16:21 09/27/19 22 09/26/2021 CBC W AUTO DIFFE RENTI AL PANEL - BLOOD leukocytes [#/volume] in blood by automated count 11.0 10*3/ uL 4.5-11 .0 2130, 09/26 Not Available [facility] [address], [place], [address], 09/26/2021 22:36:55 09/27/19 22 09/26/2021 CBC W AUTO DIFFE RENTI AL PANEL - BLOOD erythrocytes [#/volume] in blood by automated count 5.00 10*6/ uL 4.2-5. 4 Not Available [facility] [address], [place], [address], 09/26/2021 22:36:55 09/27/19 22 09/26/2021 CBC W AUTO DIFFE RENTI AL PANEL - BLOOD hemoglobin [mass/volume ] in blood 12.2 g/dL 12.0-1 6.0 Not Available [facility] [address], [place], [address], 09/26/2021 22:36:55 09/27/19 22 09/26/2021 CBC W AUTO DIFFE RENTI AL PANEL - BLOOD HCT vfr bld auto 39.1 % 36.0-4 8.0 Not Available [facility] [address], [place], [address], 09/26/2021 22:36:55 09/27/19 22 09/26/2021 CBC W AUTO DIFFE RENTI AL PANEL - BLOOD MCV [entitic volume] by automated count 78.2 fL 80-100 low Not Available [facility] [address], [place], [address], 09/26/2021 22:36:55 09/27/19 22 09/26/2021 CBC W AUTO DIFFE RENTI AL PANEL - BLOOD MCH [entitic mass] by automated count 24.4 pg 27-32 low Not Available [facility] [address], [place], [address], 09/26/2021 22:36:55 09/27/19 22 09/26/2021 CBC W AUTO DIFFE RENTI AL PANEL - BLOOD MCHC [mass/volume ] by automated count 31.2 g/dL 31.0-3 7.0 Not Available [facility] [address], [place], [address], 09/26/2021 22:36:55 09/27/19 22 09/26/2021 CBC W AUTO DIFFE RENTI AL PANEL - BLOOD erythrocyte distribution width [ratio] by automated count 16.2 % 12-14. 5 high Not Available [facility] [address], [place], [address], 09/26/2021 22:36:55 09/27/19 22 09/26/2021 CBC W AUTO DIFFE RENTI AL PANEL - BLOOD platelets [#/volume] in blood by automated count 430 10*3/ uL 150-45 0 2131, 09/26 Not Available [facility] [address], [place], [address], 09/26/2021 22:36:55 09/27/19 22 09/26/2021 CBC W AUTO DIFFE RENTI AL PANEL - BLOOD platelet mean volume [entitic volume] in blood by automated count 10.5 fL 9.1-13 .2 Not Available [facility] [address], [place], [address], 09/26/2021 22:36:55 09/27/19 22 09/26/2021 CBC W AUTO DIFFE RENTI AL PANEL - BLOOD segmented neutrophils/ 100 leukocytes in blood by automated count 67.3 % 40-70 Not Available [facility] [address], [place], [address], 09/26/2021 22:36:55 09/27/19 22 09/26/2021 CBC W AUTO DIFFE RENTI AL PANEL - BLOOD lymphocytes/ 100 leukocytes in blood by flow cytometry (fc) 25.1 % 20-44 Not Available [facility] [address], [place], [address], 09/26/2021 22:36:55 09/27/19 22 09/26/2021 CBC W AUTO DIFFE RENTI AL PANEL - BLOOD monocytes/10 0 leukocytes in blood by automated count 6.5 % 2-9 Not Available [facility] [address], [place], [address], 09/26/2021 22:36:55 09/27/19 22 09/26/2021 CBC W AUTO DIFFE RENTI AL PANEL - BLOOD eosinophils/ 100 leukocytes in blood by automated count 0.4 % 0-4 Not Available [facility] [address], [place], [address], 09/26/2021 22:36:55 09/27/19 22 09/26/2021 CBC W AUTO DIFFE RENTI AL PANEL - BLOOD basophils/10 0 leukocytes in blood by automated count 0.5 % 0-1 Not Available [facility] [address], [place], [address], 09/26/2021 22:36:55 09/27/19 22 09/26/2021 CBC W AUTO DIFFE RENTI AL PANEL - BLOOD neutrophils [#/volume] in blood by automated count 7.41 10*3/ uL 1.8-7. 7 Not Available [facility] [address], [place], [address], 09/26/2021 22:36:55 09/27/19 22 09/26/2021 CBC W AUTO DIFFE RENTI AL PANEL - BLOOD lymphocytes [#/volume] in blood by automated count 2.76 10*3/ uL 0.9-4. 8 Not Available [facility] [address], [place], [address], 09/26/2021 22:36:55 09/27/19 22 09/26/2021 CBC W AUTO DIFFE RENTI AL PANEL - BLOOD monocytes [#/volume] in blood by automated count 0.7 10*3/ uL 0-0.8 Not Available [facility] [address], [place], [address], 09/26/2021 22:36:55 09/27/19 22 09/26/2021 CBC W AUTO DIFFE RENTI AL PANEL - BLOOD eosinophils [#/volume] in blood by automated count 0.04 10*3/ uL 0-0.7 Not Available [facility] [address], [place], [address], 09/26/2021 22:36:55 09/27/19 22 09/26/2021 CBC W AUTO DIFFE RENTI AL PANEL - BLOOD basophils [#/volume] in blood by automated count 0.06 10*3/ uL 0-0.2 Not Available [facility] [address], [place], [address], 09/26/2021 22:36:55 09/27/19 22 09/26/2021 CBC W AUTO DIFFE RENTI AL PANEL - BLOOD immature granulocytes [presence] in blood by automated count 0.2 % 0-0 high Not Available [facility] [address], [place], [address], 09/26/2021 22:36:55 09/27/19 22 09/26/2021 CBC W AUTO DIFFE RENTI AL PANEL - BLOOD immature granulocytes [#/volume] in blood 0.02 10*3/ uL 0.00-0 .00 high Not Available [facility] [address], [place], [address], 09/26/2021 22:36:55 09/27/19 22 09/26/2021 COMPR EHENS NEYDA METAB OLIC 2000 PANEL - SERUM OR PLASM A glomerular filtration rate/1.73 sq M.predicted [volume rate/area] in serum, plasma or blood by creatinine-b ased formula (CKD-epi) 109.9 mL 90.0-1 20 Not Available [facility] [address], [place], [address], 09/26/2021 23:24:01 09/27/19 22 09/26/2021 COMPR EHENS NEYDA METAB OLIC 2000 PANEL - SERUM OR PLASM A glucose [mass/volume ] in serum or plasma 105 mg/dL 74-106 Not Available [facility] [address], [place], [address], 09/26/2021 23:24:01 09/27/19 22 09/26/2021 COMPR EHENS NEYDA METAB OLIC 2000 PANEL - SERUM OR PLASM A urea nitrogen [mass/volume ] in serum or plasma 10 mg/dL 7-17 Not Available [facility] [address], [place], [address], 09/26/2021 23:24:01 09/27/19 22 09/26/2021 COMPR EHENS NEYDA METAB OLIC 2000 PANEL - SERUM OR PLASM A creatinine [mass/volume ] in serum or plasma 0.7 mg/dL 0.7-1. 2 Not Available [facility] [address], [place], [address], 09/26/2021 23:24:01 09/27/19 22 09/26/2021 COMPR EHENS NEYDA METAB OLIC 2000 PANEL - SERUM OR PLASM A urea nitrogen/cre atinine [mass ratio] in blood 14.2 % 12-20 Not Available [facility] [address], [place], [address], 09/26/2021 23:24:01 09/27/19 22 09/26/2021 COMPR EHENS NEYDA METAB OLIC 1999 PANEL - SERUM OR PLASM A sodium [moles/volum e] in serum or plasma 143 mmol/ L 137-14 5 Not Available [facility] [address], [place], [address], 09/26/2021 23:24:01 09/27/19 22 09/26/2021 COMPR EHENS NEYDA METAB OLIC 2000 PANEL - SERUM OR PLASM A potassium [moles/volum e] in serum or plasma 3.5 mmol/ L 3.5-5. 1 Not Available [facility] [address], [place], [address], 09/26/2021 23:24:01 09/27/19 22 09/26/2021 COMPR EHENS NEYDA METAB OLIC 2000 PANEL - SERUM OR PLASM A chloride [moles/volum e] in serum or plasma 111 mmol/ L 98-107 high Not Available [facility] [address], [place], [address], 09/26/2021 23:24:01 09/27/19 22 09/26/2021 COMPR EHENS NEYDA METAB OLIC 1999 PANEL - SERUM OR PLASM A carbon dioxide, total [moles/volum e] in serum or plasma 20 mmol/ L 22-30 low Not Available [facility] [address], [place], [address], 09/26/2021 23:24:01 09/27/19 22 09/26/2021 COMPR EHENS NEYDA METAB OLIC 2000 PANEL - SERUM OR PLASM A calcium [mass/volume ] in blood 9.9 mg/dL 8.4-10 .2 Not Available [facility] [address], [place], [address], 09/26/2021 23:24:01 09/27/19 22 09/26/2021 COMPR EHENS NEYDA METAB OLIC 2000 PANEL - SERUM OR PLASM A anion gap in serum or plasma 15.5 mmol/ L 11.0-2 0.0 Not Available [facility] [address], [place], [address], 09/26/2021 23:24:01 09/27/19 22 09/26/2021 COMPR EHENS NEYDA METAB OLIC 2000 PANEL - SERUM OR PLASM A osmolality of serum or plasma by calculation 284 mOsm/ kg 265.85 -296.6 0 Not Available [facility] [address], [place], [address], 09/26/2021 23:24:01 09/27/19 22 09/26/2021 COMPR EHENS NEYDA METAB OLIC 2000 PANEL - SERUM OR PLASM A protein [mass/volume ] in serum or plasma 7.9 g/dL 6.3-8. 2 Not Available [facility] [address], [place], [address], 09/26/2021 23:24:01 09/27/19 22 09/26/2021 COMPR EHENS NEYDA METAB OLIC 2000 PANEL - SERUM OR PLASM A albumin [mass/volume ] in serum or plasma 4.8 g/dL 3.5-5. 0 Not Available [facility] [address], [place], [address], 09/26/2021 23:24:01 09/27/19 22 09/26/2021 COMPR EHENS NEYDA METAB OLIC 2000 PANEL - SERUM OR PLASM A albumin/glob serpl-mrto 3.1 g/dL 2.2-4. 2 Not Available [facility] [address], [place], [address], 09/26/2021 23:24:01 09/27/19 22 09/26/2021 COMPR EHENS NEYDA METAB OLIC 1999 PANEL - SERUM OR PLASM A albumin/glob ulin [mass ratio] in serum or plasma 1.50 % 1.10-2 .20 Not Available [facility] [address], [place], [address], 09/26/2021 23:24:01 09/27/19 22 09/26/2021 COMPR EHENS NEYDA METAB OLIC 1999 PANEL - SERUM OR PLASM A bilirubin.to cecil [mass/volume ] in serum or plasma 0.60 mg/dL 0.2-1. 3 Not Available [facility] [address], [place], [address], 09/26/2021 23:24:01 09/27/19 22 09/26/2021 COMPR EHENS NEYDA METAB OLIC 2000 PANEL - SERUM OR PLASM A aspartate aminotransfe rase [enzymatic activity/vol ume] in serum or plasma 23 U/L 14-36 Not Available [facility] [address], [place], [address], 09/26/2021 23:24:01 09/27/19 22 09/26/2021 COMPR EHENS NEYDA METAB OLIC 2000 PANEL - SERUM OR PLASM A alanine aminotransfe rase [enzymatic activity/vol ume] in serum or plasma 17 U/L 9-52 Not Available [facility] [address], [place], [address], 09/26/2021 23:24:01 09/27/19 22 09/26/2021 COMPR EHENS NEYDA METAB OLIC 2000 PANEL - SERUM OR PLASM A alkaline phosphatase [enzymatic activity/vol ume] in serum or plasma 83 U/L 38-126 Not Available [facility] [address], [place], [address], 09/26/2021 23:24:01 09/27/19 22 09/26/2021 THYRO TROPI N [UNIT S/VOL UME] IN SERUM OR PLASM A thyrotropin [units/volum e] in serum or plasma 1.98 u[IU] /mL 0.46-4 .68 Not Available [facility] [address], [place], [address], 09/26/2021 23:24:02 09/27/19 22 09/26/2021 DRUGS IDENT IFIED IN SERUM OR PLASM A BY SCREE N METHO D ethanol [presence] in serum or plasma by screen method < 10.0 0.0-10 .0 Not Available [facility] [address], [place], [address], 09/26/2021 23:24:03 09/27/19 22 09/26/2021 DRUGS IDENT IFIED IN SERUM OR PLASM A BY SCREE N METHO D acetaminophe n [mass/volume ] in blood <10.00 ug/mL 10.00- 30.00 low Not Available [facility] [address], [place], [address], 09/26/2021 23:24:03 09/27/19 22 09/26/2021 DRUGS IDENT IFIED IN SERUM OR PLASM A BY SCREE N METHO D salicylates [mass/volume ] in serum or plasma <1.0 mg/dL 2.0-29 low Not Available [facility] [address], [place], [address], 09/26/2021 23:24:03 09/27/19 22 09/26/2021 TURNER OL [PRES ENCE] IN SERUM OR PLASM A BY SCREE N METHO D ethanol [presence] in serum or plasma by screen method < 10.0 0.0-10 .0 Not Available [facility] [address], [place], [address], 09/26/2021 23:29:26 09/27/19 22 09/26/2021 SARS- COV-2 (COVI D-19) AG [PRES ENCE] IN RESPI RATOR Y SPECI MEN BY RAPID IMMUN OASSA Y IS this your first test? Unknow n Not Available [facility] [address], [place], [address], 09/27/2021 00:35:36 09/27/19 22 09/26/2021 SARS- COV-2 (COVI D-19) AG [PRES ENCE] IN RESPI RATOR Y SPECI MEN BY RAPID IMMUN OASSA Y employed in healthcare No Not Available [facility] [address], [place], [address], 09/27/2021 00:35:36 09/27/19 22 09/26/2021 SARS- COV-2 (COVI D-19) AG [PRES ENCE] IN RESPI RATOR Y SPECI MEN BY RAPID IMMUN OASSA Y IS patient symptomatic defined by cdc? No Not Available [facility] [address], [place], [address], 09/27/2021 00:35:36 09/27/19 22 09/26/2021 SARS- COV-2 (COVI D-19) AG [PRES ENCE] IN RESPI RATOR Y SPECI MEN BY RAPID IMMUN OASSA Y IS patient being hospitalized ? Yes Not Available [facility] [address], [place], [address], 09/27/2021 00:35:36 09/27/19 22 09/26/2021 SARS- COV-2 (COVI D-19) AG [PRES ENCE] IN RESPI RATOR Y SPECI MEN BY RAPID IMMUN OASSA Y ICU patient? No Not Available [facility] [address], [place], [address], 09/27/2021 00:35:36 09/27/19 22 09/26/2021 SARS- COV-2 (COVI D-19) AG [PRES ENCE] IN RESPI RATOR Y SPECI MEN BY RAPID IMMUN OASSA Y IS patient A resident in congregate care setting? No Not Available [facility] [address], [place], [address], 09/27/2021 00:35:36 09/27/19 22 09/26/2021 SARS- COV-2 (COVI D-19) AG [PRES ENCE] IN RESPI RATOR Y SPECI MEN BY RAPID IMMUN OASSA Y IS patient ? Not pregna nt Not Available [facility] [address], [place], [address], 09/27/2021 00:35:36 09/27/19 22 09/26/2021 SARS- COV-2 (COVI D-19) AG [PRES ENCE] IN RESPI RATOR Y SPECI MEN BY RAPID IMMUN OASSA Y sars-cov-2 (covid-19) Ag [presence] in respiratory specimen by rapid immunoassay NEGATI VE negati ve THIS TEST PERFO RMED ON AN ACCUL A DEVIC E BY RT PCR. Negat neyda resul ts do not precl ude SARS- CoV-2 infec tion and shoul d not be used as the sole basis for treat ment or other patie nt manag ement decis ions. Negat neyda resul ts must be combi lino with clini kevin obser vatio ns, patie nt histo ry, and epide miolo gical infor matio n. Not Available [facility] [address], [place], [address], 09/27/2021 00:35:36 09/27/19 22 09/26/2021 BACTE NORBERTO IDENT IFIED IN URINE BY CULTU RE bacteria identified in urine by culture 50,00 0-100 ,000 cfu/m L Mixed marjorie isola segundo. No furth er janee p indic ated . Sugge st recol lecti on if sympt oms indic ate. Not Available [facility] [address], [place], [address], 09/29/2021 22:09:15 10/10/19 22 10/10/2021 BASIC METAB OLIC PANEL sodium 143 mEq/L 135-14 6 Not Available [facility] [address], [place], [address], 10/10/2021 04:14:52 10/10/19 22 10/10/2021 BASIC METAB OLIC PANEL potassium 4.5 mEq/L 3.5-5. 4 Not Available [facility] [address], [place], [address], 10/10/2021 04:14:52 10/10/19 22 10/10/2021 BASIC METAB OLIC PANEL chloride 109 mEq/L 95-107 high Not Available [facility] [address] [place], [address], 10/10/2021 04:14:52 10/10/19 22 10/10/2021 BASIC METAB OLIC PANEL carbon dioxide 17 mEq/L 19-31 low Not Available [facility] [address], [place], [address], 10/10/2021 04:14:52 10/10/19 22 10/10/2021 BASIC METAB OLIC PANEL anion gap 17 mEq/L 7-23 Not Available [facility] [address] [place], [address], 10/10/2021 04:14:52 10/10/19 22 10/10/2021 BASIC METAB OLIC PANEL glucose non-fasting 108 mg/dL 70-139 Not Available [facility] [address] [place], [address], 10/10/2021 04:14:52 10/10/19 22 10/10/2021 BASIC METAB OLIC PANEL urea nitrogen (BUN) 14 mg/dL 6-20 Not Available [facility] [address] [facility] [place], [address], 10/10/2021 04:14:52 10/10/19 22 10/10/2021 BASIC METAB OLIC PANEL creatinine 0.88 mg/dL 0.60-1 .30 Not Available [facility] [address] [facility] [place], [address], 10/10/2021 04:14:52 10/10/19 22 10/10/2021 BASIC METAB OLIC PANEL 2020 CKD-epi eGFR-cr 86 mL/mi n/1.7 3m'2 >59 Not Available [facility] [address] [place], [address], 10/10/2021 04:14:52 10/10/19 22 10/10/2021 BASIC METAB OLIC PANEL calcium total 9.3 mg/dL 8.5-10 .5 Not Available [facility] [address] [place], [address], 10/10/2021 04:14:52 10/10/19 22 10/10/2021 BASIC METAB OLIC PANEL BUN/creatini ne ratio 16 ratio Not Available [facility] ([facility]) [address] [facility] [place], [address], 10/10/2021 04:14:52 12/18/19 24 12/18/2023 CBC W AUTO DIFFE NICOLE AL PANEL - BLOOD leukocytes [#/volume] in blood by automated count 8.9 10*3/ uL 4.5-11 .0 1258, 12/17 Not Available [place] [facility] [address], [place], [address], 12/18/2023 13:58:56 12/18/19 24 12/18/2023 CBC W AUTO DIFFE RENTI AL PANEL - BLOOD erythrocytes [#/volume] in blood by automated count 5.23 10*6/ uL 4.2-5. 4 Not Available [facility] [address], [place], [address], 12/18/2023 13:58:56 12/18/19 24 12/18/2023 CBC W AUTO DIFFE RENTI AL PANEL - BLOOD hemoglobin [mass/volume ] in blood 14.6 g/dL 12.0-1 6.0 Not Available [facility] [address], [place], [address], 12/18/2023 13:58:56 12/18/19 24 12/18/2023 CBC W AUTO DIFFE RENTI AL PANEL - BLOOD hematocrit [volume fraction] of blood by automated count 45.4 % 36.0-4 8.0 Not Available [facility] [address], [place], [address], 12/18/2023 13:58:56 12/18/19 24 12/18/2023 CBC W AUTO DIFFE RENTI AL PANEL - BLOOD MCV [entitic volume] by automated count 86.8 fL 80-100 Not Available [facility] [address], [place], [address], 12/18/2023 13:58:56 12/18/19 24 12/18/2023 CBC W AUTO DIFFE RENTI AL PANEL - BLOOD MCH [entitic mass] by automated count 27.9 pg 27-32 Not Available [facility] [address], [place], [address], 12/18/2023 13:58:56 12/18/19 24 12/18/2023 CBC W AUTO DIFFE RENTI AL PANEL - BLOOD MCHC [mass/volume ] by automated count 32.2 g/dL 31.0-3 7.0 Not Available [facility] [address], [place], [address], 12/18/2023 13:58:56 12/18/19 24 12/18/2023 CBC W AUTO DIFFE RENTI AL PANEL - BLOOD erythrocyte distribution width [ratio] by automated count 16.2 % 12-14. 5 high Not Available [facility] [address], [place], [address], 12/18/2023 13:58:56 12/18/19 24 12/18/2023 CBC W AUTO DIFFE RENTI AL PANEL - BLOOD platelets [#/volume] in blood by automated count 383 10*3/ uL 150-45 0 1258, 12/17 Not Available [facility] [address], [place], [address], 12/18/2023 13:58:56 12/18/19 24 12/18/2023 CBC W AUTO DIFFE RENTI AL PANEL - BLOOD platelet mean volume [entitic volume] in blood by automated count 9.9 fL 9.1-13 .2 Not Available [facility] [address], [place], [address], 12/18/2023 13:58:56 12/18/19 24 12/18/2023 CBC W AUTO DIFFE RENTI AL PANEL - BLOOD segmented neutrophils/ 100 leukocytes in blood by automated count 74.7 % 40-70 high Not Available [facility] [address], [place], [address], 12/18/2023 13:58:56 12/18/19 24 12/18/2023 CBC W AUTO DIFFE RENTI AL PANEL - BLOOD lymphocytes/ 100 leukocytes in blood by flow cytometry (fc) 15.8 % 20-44 low Not Available [facility] [address], [place], [address], 12/18/2023 13:58:56 12/18/19 24 12/18/2023 CBC W AUTO DIFFE RENTI AL PANEL - BLOOD monocytes/10 0 leukocytes in blood by automated count 7.8 % 2-9 Not Available [facility] [address], [place], [address], 12/18/2023 13:58:56 12/18/19 24 12/18/2023 CBC W AUTO DIFFE RENTI AL PANEL - BLOOD eosinophils/ 100 leukocytes in blood by automated count 0.6 % 0-4 Not Available [facility] [address], [place], [address], 12/18/2023 13:58:56 12/18/19 24 12/18/2023 CBC W AUTO DIFFE RENTI AL PANEL - BLOOD basophils/10 0 leukocytes in blood by automated count 0.7 % 0-1 Not Available [facility] [address], [place], [address], 12/18/2023 13:58:56 12/18/19 24 12/18/2023 CBC W AUTO DIFFE RENTI AL PANEL - BLOOD neutrophils [#/volume] in blood by automated count 6.65 10*3/ uL 1.8-7. 7 Not Available [facility] [address], [place], [address], 12/18/2023 13:58:56 12/18/19 24 12/18/2023 CBC W AUTO DIFFE RENTI AL PANEL - BLOOD lymphocytes [#/volume] in blood by automated count 1.41 10*3/ uL 0.9-4. 8 Not Available [facility] [address], [place], [address], 12/18/2023 13:58:56 12/18/19 24 12/18/2023 CBC W AUTO DIFFE RENTI AL PANEL - BLOOD monocytes [#/volume] in blood by automated count 0.7 10*3/ uL 0-0.8 Not Available [facility] [address], [place], [address], 12/18/2023 13:58:56 12/18/19 24 12/18/2023 CBC W AUTO DIFFE RENTI AL PANEL - BLOOD eosinophils [#/volume] in blood by automated count 0.05 10*3/ uL 0-0.7 Not Available [facility] [address], [place], [address], 12/18/2023 13:58:56 12/18/19 24 12/18/2023 CBC W AUTO DIFFE RENTI AL PANEL - BLOOD basophils [#/volume] in blood by automated count 0.06 10*3/ uL 0-0.2 Not Available [facility] [address], [place], [address], 12/18/2023 13:58:56 12/18/19 24 12/18/2023 CBC W AUTO DIFFE RENTI AL PANEL - BLOOD immature granulocytes [presence] in blood by automated count 0.4 % 0-0.7 Not Available [facility] [address], [place], [address], 12/18/2023 13:58:56 12/18/19 24 12/18/2023 CBC W AUTO DIFFE RENTI AL PANEL - BLOOD immature granulocytes [#/volume] in blood 0.04 10*3/ uL 0.00-0 .06 Not Available [facility] [address], [place], [address], 12/18/2023 13:58:56 12/18/19 24 12/18/2023 CBC W AUTO DIFFE RENTI AL PANEL - BLOOD nucleated erythrocytes /100 leukocytes [ratio] in blood by automated count 0.0 % 0-0 Not Available [facility] [address], [place], [address], 12/18/2023 13:58:56 12/18/19 24 12/18/2023 URINA LYSIS COMPL ETE PANEL - URINE color of urine by auto YELLOW Not Available [facility] [address], [place], [address], 12/18/2023 14:08:38 12/18/19 24 12/18/2023 URINA LYSIS COMPL ETE PANEL - URINE clarity in urine by refractometr y automated Slight ly Cloudy Not Available [facility] [address], [place], [address], 12/18/2023 14:08:38 12/18/19 24 12/18/2023 URINA LYSIS COMPL ETE PANEL - URINE glucose [presence] in urine Negati ve negati ve Not Available [facility] [address], [place], [address], 12/18/2023 14:08:38 12/18/19 24 12/18/2023 URINA LYSIS COMPL ETE PANEL - URINE bilirubin.to cecil [presence] in urine 1+ negati ve high Not Available [facility] [address], [place], [address], 12/18/2023 14:08:38 12/18/19 24 12/18/2023 URINA LYSIS COMPL ETE PANEL - URINE ketones [presence] in urine by automated test strip 2+ negati ve Not Available [facility] [address], [place], [address], 12/18/2023 14:08:38 12/18/19 24 12/18/2023 URINA LYSIS COMPL ETE PANEL - URINE specific gravity of urine by automated test strip >=1.03 0 1.001- 1.030 Not Available [facility] [address], [place], [address], 12/18/2023 14:08:38 12/18/19 24 12/18/2023 URINA LYSIS COMPL ETE PANEL - URINE erythrocytes [presence] in urine by automated 3+ negati ve high Not Available [facility] [address], [place], [address], 12/18/2023 14:08:38 12/18/19 24 12/18/2023 URINA LYSIS COMPL ETE PANEL - URINE pH of urine by automated test strip 6.5 5.0-8. 5 Not Available [facility] [address], [place], [address], 12/18/2023 14:08:38 12/18/19 24 12/18/2023 URINA LYSIS COMPL ETE PANEL - URINE protein [presence] in urine 1+ negati ve high Not Available [facility] [address], [place], [address], 12/18/2023 14:08:38 12/18/19 24 12/18/2023 URINA LYSIS COMPL ETE PANEL - URINE urobilinogen [mass/volume ] in urine by automated test strip 0.2 0.2-2 mg/dL Not Available [facility] [address], [place], [address], 12/18/2023 14:08:38 12/18/19 24 12/18/2023 URINA LYSIS COMPL ETE PANEL - URINE nitrite [presence] in urine Negati ve negati ve Not Available [facility] [address], [place], [address], 12/18/2023 14:08:38 12/18/19 24 12/18/2023 URINA LYSIS COMPL ETE PANEL - URINE leukocyte esterase [presence] in urine by automated test strip Negati ve negati ve Not Available [facility] [address], [place], [address], 12/18/2023 14:08:38 12/18/19 24 12/18/2023 URINA LYSIS COMPL ETE PANEL - URINE leukocytes [presence] in urine 6-10 0-3 high Not Available [facility] [address], [place], [address], 12/18/2023 14:08:38 12/18/19 24 12/18/2023 URINA LYSIS COMPL ETE PANEL - URINE erythrocytes [#/volume] in urine by automated test strip TNTC 0-2 high Not Available [facility] [address], [place], [address], 12/18/2023 14:08:38 12/18/19 24 12/18/2023 URINA LYSIS COMPL ETE PANEL - URINE epithelial cells.squamo us [presence] in urine by automated 11-20 high Not Available [facility] [address], [place], [address], 12/18/2023 14:08:38 12/18/19 24 12/18/2023 URINA LYSIS COMPL ETE PANEL - URINE bacteria [presence] in urine by automated 1+ high Not Available [facility] [address], [place], [address], 12/18/2023 14:08:38 12/18/19 24 12/18/2023 URINA LYSIS COMPL ETE PANEL - URINE mucus [presence] in urine by automated 1+ Not Available [facility] [address], [place], [address], 12/18/2023 14:08:38 12/18/19 24 12/18/2023 CHORI OGONA DOTRO PIN (PREG JANIE TEST) [PRES ENCE] IN URINE choriogonado tropin ( test) [presence] in urine NEGATI VE Not Available [facility] [address], [place], [address], 12/18/2023 14:08:38 12/18/19 24 12/18/2023 DRUGS IDENT IFIED IN URINE BY GARRY Moss creatinine [mass/volume ] in urine 284.3 mg/dL Not Available [facility] [address], [place], [address], 12/18/2023 14:25:24 12/18/19 24 12/18/2023 DRUGS IDENT IFIED IN URINE BY SCREE N METHO D amphetamine [presence] in urine by screen method NEGATI VE neg Not Available [facility] [address], [place], [address], 12/18/2023 14:25:24 12/18/19 24 12/18/2023 DRUGS IDENT IFIED IN URINE BY SCREE N METHO D cocaine [presence] in urine by screen method NEGATI VE neg Not Available [facility] [address], [place], [address], 12/18/2023 14:25:24 12/18/19 24 12/18/2023 DRUGS IDENT IFIED IN URINE BY SCREE N METHO D cannabinoids [presence] in urine by screen method POSITI VE neg high Not Available [facility] [address], [place], [address], 12/18/2023 14:25:24 12/18/19 24 12/18/2023 DRUGS IDENT IFIED IN URINE BY SCREE N METHO D benzodiazepi dileep [presence] in urine by screen method POSITI VE neg high Not Available [facility] [address], [place], [address], 12/18/2023 14:25:24 12/18/19 24 12/18/2023 DRUGS IDENT IFIED IN URINE BY SCREE N METHO D tricyclic antidepressa nts [mass/volume ] in urine POSITI VE neg high Not Available [facility] [address], [place], [address], 12/18/2023 14:25:24 12/18/19 24 12/18/2023 DRUGS IDENT IFIED IN URINE BY SCREE N METHO D barbiturates [presence] in urine by screen method NEGATI VE neg Not Available [facility] [address], [place], [address], 12/18/2023 14:25:24 12/18/19 24 12/18/2023 DRUGS IDENT IFIED IN URINE BY SCREE N METHO D methylenedio xymethamphet amine [presence] in urine by screen method Negati ve neg Not Available [facility] [address], [place], [address], 12/18/2023 14:25:24 12/18/19 24 12/18/2023 DRUGS IDENT IFIED IN URINE BY SCREE N METHO D opiates [presence] in urine by screen method Negati ve neg Not Available [facility] [address], [place], [address], 12/18/2023 14:25:24 12/18/19 24 12/18/2023 DRUGS IDENT IFIED IN URINE BY SCREE N METHO D phencyclidin e [presence] in urine by screen method NEGATI VE neg Not Available [facility] [address], [place], [address], 12/18/2023 14:25:24 12/18/19 24 12/18/2023 DRUGS IDENT IFIED IN URINE BY SCREE N METHO D oxycodone [presence] in urine by screen method NEGATI VE neg Not Available [facility] [address], [place], [address], 12/18/2023 14:25:24 12/18/19 24 12/18/2023 DRUGS IDENT IFIED IN URINE BY SCREE N METHO D propoxyphene [presence] in urine by screen method Negati ve neg Not Available [facility] [address], [place], [address], 12/18/2023 14:25:24 12/18/19 24 12/18/2023 COMPR EHENS NEYDA METAB OLIC 2000 PANEL - SERUM OR PLASM A glucose [mass/volume ] in serum or plasma 114 mg/dL 74-106 high Not Available [facility] [address], [place], [address], 12/18/2023 14:27:57 12/18/19 24 12/18/2023 COMPR EHENS NEYDA METAB OLIC 2000 PANEL - SERUM OR PLASM A urea nitrogen [mass/volume ] in serum or plasma 6 mg/dL 7-17 low Not Available [facility] [address], [place], [address], 12/18/2023 14:27:57 12/18/19 24 12/18/2023 COMPR EHENS NEYDA METAB OLIC 2000 PANEL - SERUM OR PLASM A creatinine [mass/volume ] in serum or plasma 0.7 mg/dL 0.7-1. 2 Not Available [facility] [address], [place], [address], 12/18/2023 14:27:57 12/18/19 24 12/18/2023 COMPR EHENS NEYDA METAB OLIC 2000 PANEL - SERUM OR PLASM A sodium [moles/volum e] in serum or plasma 139 mmol/ L 137-14 5 Not Available [facility] [address], [place], [address], 12/18/2023 14:27:57 12/18/19 24 12/18/2023 COMPR EHENS NEYDA METAB OLIC 2000 PANEL - SERUM OR PLASM A potassium [moles/volum e] in serum or plasma 3.6 mmol/ L 3.5-5. 1 Not Available [facility] [address], [place], [address], 12/18/2023 14:27:57 12/18/19 24 12/18/2023 COMPR EHENS NEYDA METAB OLIC 2000 PANEL - SERUM OR PLASM A chloride [moles/volum e] in serum or plasma 108 mmol/ L 98-107 high Not Available [facility] [address], [place], [address], 12/18/2023 14:27:57 12/18/19 24 12/18/2023 COMPR EHENS NEYDA METAB OLIC 2000 PANEL - SERUM OR PLASM A carbon dioxide, total [moles/volum e] in serum or plasma 20 mmol/ L 22-30 low Not Available [facility] [address], [place], [address], 12/18/2023 14:27:57 12/18/19 24 12/18/2023 COMPR EHENS NEYDA METAB OLIC 2000 PANEL - SERUM OR PLASM A calcium [mass/volume ] in blood 9.2 mg/dL 8.4-10 .2 Not Available [facility] [address], [place], [address], 12/18/2023 14:27:57 12/18/19 24 12/18/2023 COMPR EHENS NEYDA METAB OLIC 2000 PANEL - SERUM OR PLASM A anion gap in serum or plasma 11 mEq/L 4-12 Not Available [facility] [address], [place], [address], 12/18/2023 14:27:57 12/18/19 24 12/18/2023 COMPR EHENS NEYDA METAB OLIC 2000 PANEL - SERUM OR PLASM A urea nitrogen/cre atinine [mass ratio] in blood 8.5 % 12.0-2 0.0 low Not Available [facility] [address], [place], [address], 12/18/2023 14:27:57 12/18/19 24 12/18/2023 COMPR EHENS NEYDA METAB OLIC 2000 PANEL - SERUM OR PLASM A osmolality of serum or plasma by calculation 276 mOsm/ kg 261-28 0 Not Available [facility] [address], [place], [address], 12/18/2023 14:27:57 12/18/19 24 12/18/2023 COMPR EHENS NEYDA METAB OLIC 2000 PANEL - SERUM OR PLASM A glomerular filtration rate/1.73 sq M.predicted [volume rate/area] in serum, plasma or blood by creatinine-b ased formula (CKD-epi) 112 mL 90-120 >=90 Monserrat l 60-89 Mildl y Decre ased 45-59 Mildl y to Moder ately Decre ased 30-44 Moder ately to Sever sally Decre ased 15-29 Sever sally Decre ased <15 Kidne y Failu re Not Available [facility] [address], [place], [address], 12/18/2023 14:27:57 12/18/19 24 12/18/2023 COMPR EHENS NEYDA METAB OLIC 2000 PANEL - SERUM OR PLASM A creatinine renal clearance/1. 73 sq M.predicted by cockcroft-ga ult formula, bsa formula >120 mL Creat inine clear ance (CrCl ) using Cockc roft- Gault equat ion. This may be used for medic ation adjus tment s per FDA and produ ct manuf actur er label ing. This calcu latio n is not stand ardiz ed to body surfa ce area and is not used for stagi ng CKD. Not Available [facility] [address], [place], [address], 12/18/2023 14:27:57 12/18/19 24 12/18/2023 COMPR EHENS NEYDA METAB OLIC 2000 PANEL - SERUM OR PLASM A bilirubin.to cecil [mass/volume ] in serum or plasma 1.30 mg/dL 0.2-1. 3 Not Available [facility] [address], [place], [address], 12/18/2023 14:27:57 12/18/19 24 12/18/2023 COMPR EHENS NEYDA METAB OLIC 2000 PANEL - SERUM OR PLASM A aspartate aminotransfe rase [enzymatic activity/vol ume] in serum or plasma 33 U/L 14-36 Not Available [facility] [address], [place], [address], 12/18/2023 14:27:57 12/18/19 24 12/18/2023 COMPR EHENS NEYDA METAB OLIC 2000 PANEL - SERUM OR PLASM A alanine aminotransfe rase [enzymatic activity/vol ume] in serum or plasma 42 U/L 0-34 high Not Available [facility] [address], [place], [address], 12/18/2023 14:27:57 12/18/19 24 12/18/2023 COMPR EHENS NEYDA METAB OLIC 2000 PANEL - SERUM OR PLASM A alkaline phosphatase [enzymatic activity/vol ume] in serum or plasma 64 U/L 38-126 Not Available [facility] [address], [place], [address], 12/18/2023 14:27:57 12/18/19 24 12/18/2023 COMPR EHENS NEYDA METAB OLIC 2000 PANEL - SERUM OR PLASM A protein [mass/volume ] in serum or plasma 8.1 g/dL 6.3-8. 2 Not Available [facility] [address], [place], [address], 12/18/2023 14:27:57 12/18/19 24 12/18/2023 COMPR EHENS NEYDA METAB OLIC 2000 PANEL - SERUM OR PLASM A albumin [mass/volume ] in serum or plasma 4.9 g/dL 3.5-5. 0 Not Available [facility] [address], [place], [address], 12/18/2023 14:27:57 12/18/19 24 12/18/2023 COMPR EHENS NEYDA METAB OLIC 2000 PANEL - SERUM OR PLASM A globulin [mass/volume ] in plasma 3.2 g/dL 2.2-4. 2 Not Available [facility] [address], [place], [address], 12/18/2023 14:27:57 12/18/19 24 12/18/2023 COMPR EHENS NEYDA METAB OLIC 2000 PANEL - SERUM OR PLASM A albumin/glob ulin [mass ratio] in serum or plasma 1.50 % 1.10-2 .20 Not Available [facility] [address] [facility] [address], [place], [address], 12/18/2023 14:27:57 12/18/19 24 12/18/2023 DRUGS IDENT IFIED IN SERUM OR PLASM A BY SCREE N METHO D salicylates [mass/volume ] in serum or plasma <1.0 mg/dL 2.0-29 low Not Available [facility] [address], [place], [address], 12/18/2023 14:27:57 12/18/19 24 12/18/2023 DRUGS IDENT IFIED IN SERUM OR PLASM A BY SCREE N METHO D acetaminophe n [mass/volume ] in blood <10.00 ug/mL 10.00- 30.00 low Not Available [facility] [address] [facility] [address], [place], [address], 12/18/2023 14:27:57 12/18/19 24 12/18/2023 DRUGS IDENT IFIED IN SERUM OR PLASM A BY SCREE N METHO D ethanol [presence] in serum or plasma by screen method < 10.0 0.0-10 .0 Not Available [facility] [address], [place], [address], 12/18/2023 14:27:57 12/18/19 24 12/18/2023 BACTE NORBERTO IDENT IFIED IN URINE BY CULTU RE colony count [#] in specimen by visual count 50,000 - 100,00 0 Not Available [facility] [address], [place], [address], 12/20/2023 07:51:57 12/18/19 24 12/18/2023 BACTE NORBERTO IDENT IFIED IN URINE BY CULTU RE bacteria identified in urine by culture E Not Available [facility] [address], [place], [address], 12/20/2023 07:51:57 12/18/19 24 12/18/2023 BACTE RIAL SUSCE PTIBI LITY PANEL BY MINIM UM INHIB ITORY DELMER NTRAT ION (JAYLON) ampicillin [susceptibil ity] by minimum inhibitory concentratio n (jaylon) >=32 ug/mL resistant Not Available [facility] [address], [place], [address], 12/20/2023 07:51:58 12/18/19 24 12/18/2023 BACTE RIAL SUSCE PTIBI LITY PANEL BY MINIM UM INHIB ITORY DELMER NTRAT ION (JAYLON) ampicillin+s ulbactam [susceptibil ity] by minimum inhibitory concentratio n (jaylon) 16 ug/mL intermedi ate Not Available [facility] [address], [place], [address], 12/20/2023 07:51:58 12/18/19 24 12/18/2023 BACTE RIAL SUSCE PTIBI LITY PANEL BY MINIM UM INHIB ITORY DELMER NTRAT ION (JAYLON) cefepime [susceptibil ity] by minimum inhibitory concentratio n (jaylon) <=0.12 ug/mL susceptib le Not Available [facility] [address], [place], [address], 12/20/2023 07:51:58 12/18/19 24 12/18/2023 BACTE RIAL SUSCE PTIBI LITY PANEL BY MINIM UM INHIB ITORY DELMER NTRAT ION (JAYLON) beta lactamase.ex tended spectrum [susceptibil ity] Neg ug/mL negative Not Available [facility] [address], [place], [address], 12/20/2023 07:51:58 12/18/19 24 12/18/2023 BACTE RIAL SUSCE PTIBI LITY PANEL BY MINIM UM INHIB ITORY DELMER NTRAT ION (JAYLON) ceftazidime [susceptibil ity] by minimum inhibitory concentratio n (jaylon) <=0.5 ug/mL susceptib le Not Available [facility] [address], [place], [address], 12/20/2023 07:51:58 12/18/19 24 12/18/2023 BACTE RIAL SUSCE PTIBI LITY PANEL BY MINIM UM INHIB ITORY DELMER NTRAT ION (JAYLON) ceftriaxone [susceptibil ity] by minimum inhibitory concentratio n (jaylon) <=0.25 ug/mL susceptib le Not Available [facility] [address], [place], [address], 12/20/2023 07:51:58 12/18/19 24 12/18/2023 BACTE RIAL SUSCE PTIBI LITY PANEL BY MINIM UM INHIB ITORY DELMER NTRAT ION (JAYLON) ciprofloxaci n [susceptibil ity] by minimum inhibitory concentratio n (jaylon) <=0.06 ug/mL susceptib le Not Available [facility] [address], [place], [address], 12/20/2023 07:51:58 12/18/19 24 12/18/2023 BACTE RIAL SUSCE PTIBI LITY PANEL BY MINIM UM INHIB ITORY DELMER NTRAT ION (JAYLON) gentamicin [susceptibil ity] by minimum inhibitory concentratio n (jaylon) >=16 ug/mL resistant Not Available [facility] [address], [place], [address], 12/20/2023 07:51:58 12/18/19 24 12/18/2023 BACTE RIAL SUSCE PTIBI LITY PANEL BY MINIM UM INHIB ITORY DELMER NTRAT ION (JAYLON) levofloxacin [susceptibil ity] by minimum inhibitory concentratio n (jaylon) <=0.12 ug/mL susceptib le Not Available [facility] [address], [place], [address], 12/20/2023 07:51:58 12/18/19 24 12/18/2023 BACTE RIAL SUSCE PTIBI LITY PANEL BY MINIM UM INHIB ITORY DELMER NTRAT ION (JAYLON) meropenem [susceptibil ity] by minimum inhibitory concentratio n (jaylon) <=0.25 ug/mL susceptib le Not Available [facility] [address], [place], [address], 12/20/2023 07:51:58 12/18/19 24 12/18/2023 BACTE RIAL SUSCE PTIBI LITY PANEL BY MINIM UM INHIB ITORY DELMER NTRAT ION (JAYLON) nitrofuranto in [susceptibil ity] by minimum inhibitory concentratio n (jaylon) <=16 ug/mL susceptib le Not Available [facility] [address], [place], [address], 12/20/2023 07:51:58 12/18/19 24 12/18/2023 BACTE RIAL SUSCE PTIBI LITY PANEL BY MINIM UM INHIB ITORY DELMER NTRAT ION (JAYLON) trimethoprim +sulfamethox azole [susceptibil ity] by minimum inhibitory concentratio n (jaylon) <=20 ug/mL susceptib le Not Available [facility] [address], [place], [address], 12/20/2023 07:51:58 12/18/19 24 12/18/2023 BACTE RIAL SUSCE PTIBI LITY PANEL BY MINIM UM INHIB ITORY DELMER NTRAT ION (JAYLON) piperacillin +tazobactam [susceptibil ity] by minimum inhibitory concentratio n (jaylon) <=4 ug/mL susceptib le Not Available [facility] [address] [facility], [place], [address], 12/20/2023 07:51:58 02/14/2002/14/2024 CBC W AUTO DIFFE RENTI AL PANEL - BLOOD leukocytes [#/volume] in blood by automated count 10.8 10*3/ uL 4.5-11 .0 Not Available [facility] [address], [place], [address], 02/14/2024 05:54:54 02/14/2002/14/2024 CBC W AUTO DIFFE RENTI AL PANEL - BLOOD erythrocytes [#/volume] in blood by automated count 5.77 10*6/ uL 4.2-5. 4 high Not Available [facility] [address] [facility], [place], [address], 02/14/2024 05:54:54 02/14/2002/14/2024 CBC W AUTO DIFFE RENTI AL PANEL - BLOOD hemoglobin [mass/volume ] in blood 16.6 g/dL 12.0-1 6.0 high Not Available [facility] [address] [facility], [place], [address], 02/14/2024 05:54:54 02/14/2002/14/2024 CBC W AUTO DIFFE RENTI AL PANEL - BLOOD hematocrit [volume fraction] of blood by automated count 50.4 % 36.0-4 8.0 high Not Available [facility] [address], [address], 02/14/2024 05:54:54 02/14/2002/14/2024 CBC W AUTO DIFFE RENTI AL PANEL - BLOOD MCV [entitic volume] by automated count 87.3 fL 80-100 Not Available [facility] [address] [place] [address], [place], [address], 02/14/2024 05:54:54 02/14/2002/14/2024 CBC W AUTO DIFFE RENTI AL PANEL - BLOOD MCH [entitic mass] by automated count 28.8 pg 27-32 Not Available [facility] [address], [place], [address], 02/14/2024 05:54:54 02/14/2002/14/2024 CBC W AUTO DIFFE RENTI AL PANEL - BLOOD MCHC [mass/volume ] by automated count 32.9 g/dL 31.0-3 7.0 Not Available [facility] [address], [place], [address], 02/14/2024 05:54:54 02/14/2002/14/2024 CBC W AUTO DIFFE RENTI AL PANEL - BLOOD erythrocyte distribution width [ratio] by automated count 14.6 % 12-14. 5 high Not Available [facility] [address], [place], [address], 02/14/2024 05:54:54 02/14/2002/14/2024 CBC W AUTO DIFFE RENTI AL PANEL - BLOOD platelets [#/volume] in blood 408 10*3/ uL 150-45 0 0454, 02/13 Not Available [facility] [address], [place], [address], 02/14/2024 05:54:54 02/14/2002/14/2024 CBC W AUTO DIFFE RENTI AL PANEL - BLOOD platelet mean volume [entitic volume] in blood by automated count 9.7 fL 9.1-13 .2 Not Available [facility] [address], [place], [address], 02/14/2024 05:54:54 02/14/2002/14/2024 CBC W AUTO DIFFE RENTI AL PANEL - BLOOD segmented neutrophils/ 100 leukocytes in blood by automated count 71.2 % 40-70 high Not Available [facility] [address], [place], [address], 02/14/2024 05:54:54 02/14/2002/14/2024 CBC W AUTO DIFFE RENTI AL PANEL - BLOOD lymphocytes/ 100 leukocytes in blood by flow cytometry (fc) 15.4 % 20-44 low Not Available [facility] [address], [place], [address], 02/14/2024 05:54:54 02/14/2002/14/2024 CBC W AUTO DIFFE RENTI AL PANEL - BLOOD monocytes/10 0 leukocytes in blood by automated count 10.2 % 2-9 high Not Available [facility] [address], [place], [address], 02/14/2024 05:54:54 02/14/2002/14/2024 CBC W AUTO DIFFE RENTI AL PANEL - BLOOD eosinophils/ 100 leukocytes in blood by automated count 2.0 % 0-4 Not Available [facility] [address], [place], [address], 02/14/2024 05:54:54 02/14/2002/14/2024 CBC W AUTO DIFFE RENTI AL PANEL - BLOOD basophils/10 0 leukocytes in blood by automated count 0.8 % 0-1 Not Available [facility] [address], [place], [address], 02/14/2024 05:54:54 02/14/2002/14/2024 CBC W AUTO DIFFE RENTI AL PANEL - BLOOD neutrophils [#/volume] in blood by automated count 7.66 10*3/ uL 1.8-7. 7 Not Available [facility] [address], [place], [address], 02/14/2024 05:54:54 02/14/2002/14/2024 CBC W AUTO DIFFE RENTI AL PANEL - BLOOD lymphocytes [#/volume] in blood by automated count 1.66 10*3/ uL 0.9-4. 8 Not Available [facility] [address], [place], [address], 02/14/2024 05:54:54 02/14/2002/14/2024 CBC W AUTO DIFFE RENTI AL PANEL - BLOOD monocytes [#/volume] in blood by automated count 1.1 10*3/ uL 0-0.8 high Not Available [facility] [address], [place], [address], 02/14/2024 05:54:54 02/14/2002/14/2024 CBC W AUTO DIFFE RENTI AL PANEL - BLOOD eosinophils [#/volume] in blood by automated count 0.21 10*3/ uL 0-0.7 Not Available [facility] [address], [place], [address], 02/14/2024 05:54:54 02/14/2002/14/2024 CBC W AUTO DIFFE RENTI AL PANEL - BLOOD basophils [#/volume] in blood by automated count 0.09 10*3/ uL 0-0.2 Not Available [facility] [address], [place], [address], 02/14/2024 05:54:54 02/14/2002/14/2024 CBC W AUTO DIFFE RENTI AL PANEL - BLOOD immature granulocytes [presence] in blood by automated count 0.4 % 0-0.7 Not Available [facility] [address], [place], [address], 02/14/2024 05:54:54 02/14/2002/14/2024 CBC W AUTO DIFFE RENTI AL PANEL - BLOOD immature granulocytes [#/volume] in blood 0.04 10*3/ uL 0.00-0 .06 Not Available [place] [facility] [address], [place], [address], 02/14/2024 05:54:54 02/14/20 24 02/14/2024 CBC W AUTO DIFFE RENTI AL PANEL - BLOOD nucleated erythrocytes /100 leukocytes [ratio] in blood by automated count 0.0 % 0-0 Not Available [facility] [address], [place], [address], 02/14/2024 05:54:54 02/14/2002/14/2024 COMPR EHENS NEYDA METAB OLIC 2000 PANEL - SERUM OR PLASM A glucose [mass/volume ] in serum or plasma 101 mg/dL 74-106 Not Available [facility] [address], [place], [address], 02/14/2024 06:35:06 02/14/20 24 02/14/2024 COMPR EHENS NEYDA METAB OLIC 2000 PANEL - SERUM OR PLASM A urea nitrogen [mass/volume ] in serum or plasma 15 mg/dL 7-17 Not Available [facility] [address], [place], [address], 02/14/2024 06:35:06 02/14/2002/14/2024 COMPR EHENS NEYDA METAB OLIC 2000 PANEL - SERUM OR PLASM A creatinine [mass/volume ] in serum or plasma 1.0 mg/dL 0.7-1. 2 Not Available [place] [facility] [address], [place], [address], 02/14/2024 06:35:06 02/14/20 24 02/14/2024 COMPR EHENS NEYDA METAB OLIC 2000 PANEL - SERUM OR PLASM A sodium [moles/volum e] in serum or plasma 141 mmol/ L 137-14 5 Not Available [place] [facility] [address], [place], [address], 02/14/2024 06:35:06 02/14/20 24 02/14/2024 COMPR EHENS NEYDA METAB OLIC 1999 PANEL - SERUM OR PLASM A potassium [moles/volum e] in serum or plasma 4.0 mmol/ L 3.5-5. 1 SPECI MEN IS SLIGH TLY HEMOL YZED WHICH CAN FALSE LY INCRE ASE THE FOLLO WING SIRI FRANCK: ALP, AST, MAGALIE, FE, K, LDH, MG, PHOS Not Available [facility] [address], [place], [address], 02/14/2024 06:35:06 02/14/2002/14/2024 COMPR EHENS NEYDA METAB OLIC 2000 PANEL - SERUM OR PLASM A chloride [moles/volum e] in serum or plasma 104 mmol/ L 98-107 Not Available [facility] [address], [place], [address], 02/14/2024 06:35:06 02/14/20 24 02/14/2024 COMPR EHENS NEYDA METAB OLIC 2000 PANEL - SERUM OR PLASM A carbon dioxide, total [moles/volum e] in serum or plasma 23 mmol/ L 22-30 Not Available [facility] [address], [place], [address], 02/14/2024 06:35:06 02/14/20 24 02/14/2024 COMPR EHENS NEYDA METAB OLIC 1999 PANEL - SERUM OR PLASM A calcium [mass/volume ] in blood 9.8 mg/dL 8.4-10 .2 Not Available [place] [employer] [facility] [address], [place], [address], 02/14/2024 06:35:06 02/14/20 24 02/14/2024 COMPR EHENS NEYDA METAB OLIC 2000 PANEL - SERUM OR PLASM A anion gap in serum or plasma 14 mEq/L 4-12 high Not Available [facility] [address], [place], [address], 02/14/2024 06:35:06 02/14/2002/14/2024 COMPR EHENS NEYDA METAB OLIC 1999 PANEL - SERUM OR PLASM A urea nitrogen/cre atinine [mass ratio] in blood 15.0 % 12.0-2 0.0 Not Available [facility] [address], [place], [address], 02/14/2024 06:35:06 02/14/2002/14/2024 COMPR EHENS NEYDA METAB OLIC 2000 PANEL - SERUM OR PLASM A osmolality of serum or plasma by calculation 282 mOsm/ kg 261-28 0 high Not Available [facility] [address], [place], [address], 02/14/2024 06:35:06 02/14/2002/14/2024 COMPR EHENS NEYDA METAB OLIC 2000 PANEL - SERUM OR PLASM A glomerular filtration rate/1.73 sq M.predicted [volume rate/area] in serum, plasma or blood by creatinine-b ased formula (CKD-epi) 73 mL 90-120 >=90 Monserrat l 60-89 Mildl y Decre ased 45-59 Mildl y to Moder ately Decre ased 30-44 Moder ately to Sever sally Decre ased 15-29 Sever sally Decre ased <15 Kidne y Failu re Not Available [facility] [address], [place], [address], 02/14/2024 06:35:06 02/14/2002/14/2024 COMPR EHENS NEYDA METAB OLIC 2000 PANEL - SERUM OR PLASM A creatinine renal clearance/1. 73 sq M.predicted by cockcroft-ga ult formula, bsa formula 93 mL Creat inine clear ance (CrCl ) using Cockc roft- Gault equat ion. This may be used for medic ation adjus tment s per FDA and produ ct manuf actur er label ing. This calcu latio n is not stand ardinegar ed to body surfa ce area and is not used for stagi ng CKD. Not Available [place] [facility] [address], [place], [address], 02/14/2024 06:35:06 02/14/2002/14/2024 COMPR EHENS NEYDA METAB OLIC 1999 PANEL - SERUM OR PLASM A bilirubin.to cecil [mass/volume ] in serum or plasma 1.80 mg/dL 0.2-1. 3 high Not Available [place] [facility] [address], [place], [address], 02/14/2024 06:35:06 02/14/2002/14/2024 COMPR EHENS NEYDA METAB OLIC 2000 PANEL - SERUM OR PLASM A aspartate aminotransfe rase [enzymatic activity/vol ume] in serum or plasma 63 U/L 14-36 high Not Available [facility] [address], [place], [address], 02/14/2024 06:35:06 02/14/2002/14/2024 COMPR EHENS NEYDA METAB OLIC 2000 PANEL - SERUM OR PLASM A alanine aminotransfe rase [enzymatic activity/vol ume] in serum or plasma 62 U/L 0-34 high Not Available [facility] [address], [place], [address], 02/14/2024 06:35:06 02/14/2002/14/2024 COMPR EHENS NEYDA METAB OLIC 2000 PANEL - SERUM OR PLASM A alkaline phosphatase [enzymatic activity/vol ume] in serum or plasma 64 U/L 38-126 Not Available [facility] [address], [place], [address], 02/14/2024 06:35:06 02/14/20 24 02/14/2024 COMPR EHENS NEYDA METAB OLIC 2000 PANEL - SERUM OR PLASM A protein [mass/volume ] in serum or plasma 9.6 g/dL 6.3-8. 2 high Not Available [facility] [address], [place], [address], 02/14/2024 06:35:06 02/14/20 24 02/14/2024 COMPR EHENS NEYDA METAB OLIC 2000 PANEL - SERUM OR PLASM A albumin [mass/volume ] in serum or plasma 5.4 g/dL 3.5-5. 0 high Not Available [facility] [address], [place], [address], 02/14/2024 06:35:06 02/14/2002/14/2024 COMPR EHENS NEYDA METAB OLIC 2000 PANEL - SERUM OR PLASM A globulin [mass/volume ] in plasma 4.2 g/dL 2.2-4. 2 Not Available [facility] [address], [place], [address], 02/14/2024 06:35:06 02/14/2002/14/2024 COMPR EHENS NEYDA METAB OLIC 2000 PANEL - SERUM OR PLASM A albumin/glob ulin [mass ratio] in serum or plasma 1.20 % 1.10-2 .20 Not Available [facility] [address], [place], [address], 02/14/2024 06:35:06 02/14/20 24 02/14/2024 DRUGS IDENT IFIED IN SERUM OR PLASM A BY SCREE N METHO D salicylates [mass/volume ] in serum or plasma <1.0 mg/dL 2.0-29 low Not Available [facility] [address], [place], [address], 02/14/2024 06:35:07 02/14/2002/14/2024 DRUGS IDENT IFIED IN SERUM OR PLASM A BY SCREE N METHO D acetaminophe n [mass/volume ] in blood <10.00 ug/mL 10.00- 30.00 low Not Available [facility] [address], [place], [address], 02/14/2024 06:35:07 02/14/20 24 02/14/2024 DRUGS IDENT IFIED IN SERUM OR PLASM A BY SCREE N METHO D ethanol [presence] in serum or plasma by screen method < 10.0 0.0-10 .0 Not Available [facility] [address], [place], [address], 02/14/2024 06:35:07 02/14/20 24 02/14/2024 HCG SERPL -ACNC choriogonado tropin [units/volum e] in serum or plasma NEGATI VE Not Available [facility] [address], [place], [address], 02/14/2024 06:45:12 02/14/2002/14/2024 THYRO TROPI N [UNIT S/VOL UME] IN SERUM OR PLASM A thyrotropin [units/volum e] in serum or plasma 3.40 u[IU] /mL 0.465- 4.68 Not Available [facility] [address], [place], [address], 02/14/2024 06:48:46 02/14/20 24 02/14/2024 URINA LYSIS COMPL ETE PANEL - URINE color of urine by auto Not Entere d Not Available [facility] [address], [place], [address], 02/14/2024 08:13:54 02/14/2002/14/2024 URINA LYSIS COMPL ETE PANEL - URINE clarity in urine by refractometr y automated Not Entere d Not Available [facility] [address], [place], [address], 02/14/2024 08:13:54 10/01/20 24 02/14/2024 URINA LYSIS COMPL ETE PANEL - URINE glucose [presence] in urine Negati ve negati ve Not Available [facility] [address], [place], [address], 02/14/2024 08:13:54 02/14/2002/14/2024 URINA LYSIS COMPL ETE PANEL - URINE bilirubin.to cecil [presence] in urine 1+ negati ve high Not Available [facility] [address], [place], [address], 02/14/2024 08:13:54 02/14/2002/14/2024 URINA LYSIS COMPL ETE PANEL - URINE ketones [presence] in urine by automated test strip Negati ve negati ve Not Available [facility] [address], [place], [address], 02/14/2024 08:13:54 02/14/2002/14/2024 URINA LYSIS COMPL ETE PANEL - URINE specific gravity of urine by automated test strip >=1.03 0 1.001- 1.030 Not Available [facility] [address], [place], [address], 02/14/2024 08:13:54 02/14/2002/14/2024 URINA LYSIS COMPL ETE PANEL - URINE erythrocytes [presence] in urine by automated Negati ve negati ve Not Available [facility] [address], [place], [address], 02/14/2024 08:13:54 02/14/2002/14/2024 URINA LYSIS COMPL ETE PANEL - URINE pH of urine by automated test strip 5.5 5.0-8. 5 Not Available [facility] [address], [place], [address], 02/14/2024 08:13:54 02/14/2002/14/2024 URINA LYSIS COMPL ETE PANEL - URINE protein [presence] in urine 1+ negati ve high Not Available [facility] [address], [place], [address], 02/14/2024 08:13:54 02/14/2002/14/2024 URINA LYSIS COMPL ETE PANEL - URINE urobilinogen [mass/volume ] in urine by automated test strip 0.2 0.2-2 mg/dL Not Available [facility] [address], [place], [address], 02/14/2024 08:13:54 02/14/2002/14/2024 URINA LYSIS COMPL ETE PANEL - URINE nitrite [presence] in urine Negati ve negati ve Not Available [facility] [address], [place], [address], 02/14/2024 08:13:54 02/14/2002/14/2024 URINA LYSIS COMPL ETE PANEL - URINE leukocyte esterase [presence] in urine by automated test strip Negati ve negati ve Not Available [facility] [address], [place], [address], 02/14/2024 08:13:54 02/14/2002/14/2024 URINA LYSIS COMPL ETE PANEL - URINE leukocytes [presence] in urine 3-5 0-3 high Not Available [facility] [address], [place], [address], 02/14/2024 08:13:54 02/14/2002/14/2024 URINA LYSIS COMPL ETE PANEL - URINE erythrocytes [#/volume] in urine by automated test strip 0-2 0-2 Not Available [facility] [address], [place], [address], 02/14/2024 08:13:54 02/14/2002/14/2024 URINA LYSIS COMPL ETE PANEL - URINE epithelial cells.squamo us [presence] in urine by automated 3-5 Not Available [facility] [address], [place], [address], 02/14/2024 08:13:54 02/14/20 24 02/14/2024 URINA LYSIS COMPL ETE PANEL - URINE mucus [presence] in urine by automated 2+ Not Available [facility] [address], [place], [address], 02/14/2024 08:13:54 02/14/20 24 02/14/2024 URINA LYSIS COMPL ETE PANEL - URINE hyaline casts [presence] in urine by automated 15 Not Available [facility] [address], [place], [address], 02/14/2024 08:13:54 02/14/20 24 02/14/2024 CHORI OGONA DOTRO PIN (PREG JANIE TEST) [PRES ENCE] IN URINE choriogonado tropin ( test) [presence] in urine NEGATI VE Not Available [facility] [address], [place], [address], 02/14/2024 08:13:54 02/14/2002/14/2024 DRUGS IDENT IFIED IN URINE BY SCREE N METHO D creatinine [mass/volume ] in urine 221.3 mg/dL Not Available [facility] [address], [place], [address], 02/14/2024 08:23:30 02/14/2002/14/2024 DRUGS IDENT IFIED IN URINE BY SCREE N METHO D amphetamine [presence] in urine by screen method NEGATI VE neg Not Available [facility] [address], [place], [address], 02/14/2024 08:23:30 02/14/20 24 02/14/2024 DRUGS IDENT IFIED IN URINE BY SCREE N METHO D cocaine [presence] in urine by screen method NEGATI VE neg Not Available [facility] [address], [place], [address], 02/14/2024 08:23:30 02/14/20 24 02/14/2024 DRUGS IDENT IFIED IN URINE BY SCREE N METHO D cannabinoids [presence] in urine by screen method POSITI VE neg high Not Available [facility] [address], [place], [address], 02/14/2024 08:23:30 02/14/2002/14/2024 DRUGS IDENT IFIED IN URINE BY SCREE N METHO D benzodiazepi dileep [presence] in urine by screen method POSITI VE neg high Not Available [facility] [address], [place], [address], 02/14/2024 08:23:30 02/14/20 24 02/14/2024 DRUGS IDENT IFIED IN URINE BY SCREE N METHO D tricyclic antidepressa nts [mass/volume ] in urine POSITI VE neg high Not Available [facility] [address], [place], [address], 02/14/2024 08:23:30 02/14/20 24 02/14/2024 DRUGS IDENT IFIED IN URINE BY SCREE N METHO D barbiturates [presence] in urine by screen method NEGATI VE neg Not Available [facility] [address], [place], [address], 02/14/2024 08:23:30 02/14/20 24 02/14/2024 DRUGS IDENT IFIED IN URINE BY SCREE N METHO D methylenedio xymethamphet amine [presence] in urine by screen method Negati ve neg Not Available [facility] [address], [place], [address], 02/14/2024 08:23:30 02/14/20 24 02/14/2024 DRUGS IDENT IFIED IN URINE BY SCREE N METHO D opiates [presence] in urine by screen method Negati ve neg Not Available [facility] [address], [place], [address], 02/14/2024 08:23:30 02/14/20 24 02/14/2024 DRUGS IDENT IFIED IN URINE BY SCREE N METHO D phencyclidin e [presence] in urine by screen method NEGATI VE neg Not Available [facility] [address], [place], [address], 02/14/2024 08:23:30 02/14/20 24 02/14/2024 DRUGS IDENT IFIED IN URINE BY SCREE N METHO D oxycodone [presence] in urine by screen method NEGATI VE neg Not Available [facility] [address], [place], [address], 02/14/2024 08:23:30 02/14/20 24 02/14/2024 DRUGS IDENT IFIED IN URINE BY SCREE N METHO D propoxyphene [presence] in urine by screen method Negati ve neg Not Available [facility] [address], [place], [address], 02/14/2024 08:23:30 08/15/19 19 08/11/2018 CT, head, w/o contr ast No observ ation record ed. [facility] [address] [place] [address] [place], [id number], 08/14/2018 16:33:05 03/04/20 20 02/29/2020 [email or web address] 2v [facility] [address] [facility] [place] [address] Radiol ogy Report Kaleyen t: IZABELA DANIELS segundo: [phone] [id number] MR #: [id number] /AG E/SEX: 1984 Room/B ed: Locati on: [place] [facility] Access ion: [id number] Exam: Foot Lt AP/OBL /LAT Reason : INJURY Orderi ng Provid er: Perla Varghese MD Attend ing Provid er: CC: Felix Hunter; MD Hood Ronald ; Tr Varghese MD Report Number :[id number] 70 THREE VIEWS OF THE LEFT FOOT: Normal . End of Report Dictat ed by: MD Hood Ronald 1623 Transc riptio nist: Cydney malik 33 Signed by: MD Hood Ronald [address], [place], [address], 03/04/2020 17:48:23 03/04/20 20 02/29/2020 [email or web address] [address] [address] Radiol ogy Report Patien t: IZABELA DANIELS segundo: [phone] MR #: [id number] /AG E/SEX: 1984 Room/B ed: Locati [place]: [facility] [facility] Access ion: [id number] Exam: HAND RT AP/OBL /LAT Reason : INJURY Orderi ng Provid er: Perla Varghese MD Attend ing Provid er: CC: Felix Hunter; MD Hood Ronald ; Tr Varghese MD Report Number :[id number] 71 THREE VIEWS OF THE RIGHT HAND: Normal . End of Report Dictat ed by: MD Hood Ronald 1624 Transc riptio nist: Cydney malik 10/17/ 20 0933 Signed by: MD Hood Ronald 0947 [facility] [address] [facility]. [address], [place], [address], 03/04/2020 17:48:24 03/04/2002/29/2020 XR, foot No observ ation record ed. [email or web address] [facility] [address] [place], [address], 03/05/2020 10:10:07 03/04/2002/29/2020 XR, hand No observ ation record ed. [facility] [address] [place], [address], 03/05/2020 10:11:18 06/10/19 22 06/07/2021 XR, chest , 2 view No observ ation record ed. [facility] - Medical Records [address] [place], [address], 06/10/2021 12:33:50 Result Notes None recorded. Problems No Known Problems Procedures Surgical History Date Name Laterality Status Provider Name and Address Organization Details Recorded Time 01/06/20 18 EKG completed Benedicto Kraft MD [address], [place], [address], [facility] 01/08/2018 13:25:18 12/01/19 18 Cholecystectomy completed Belén [facility] 01/05/2018 15:35:33 05/16/19 10 Caesarean Section completed Belén [facility] 01/05/2018 15:35:19 Dilation and curettage completed COMFORT TARIQ APRN [address], [place], [address], [place] [facility] 05/21/2020 11:43:27 Imaging Results None recorded. Procedure Notes None recorded. Medical Equipment None Reported. Allergies Allergen ID Allergen Name Allergen Category Reaction Reaction Severity Criticality Documentation Date Start Date Code Code System Note Provider Name and Address Organization Details Recorded Time 20225 prednisol one medicatio n Not available Not available Not available 05/21/2020 8638 RxNorm LORENZA [facility] 11:19:22 20922 codeine medicatio n hives Not available Not available 05/21/2020 2670 RxNorm LORENZA [facility] 11:19:31 48864 Product containin g penicilli n (product) medicatio n hives Not available Not available 05/21/2020 92619 8001 SNOMED [facility]ENZA [facility] 11:19:40 Medications Name Sig Start Date Stop Date Status Note LastModified by Organization Details LastModified Time losartan 50 mg tablet TAKE TWO TABLET BY MOUTH EVERY DAY active Not Available Not Available No t Available medroxyprog esterone 10 mg tablet TAKE ONE TABLET BY MOUTH THREE TIMES DAILY FOR 5 DAYS 05/21 completed Not Available Not Available Not Available potassium chloride ER 10 mEq capsule,ext ended release TAKE TWO CAPSULES BY MOUTH EVERY DAY 10/09 completed Not Available Not Available Not Available quetiapine 300 mg tablet TAKE TWO TABLETS BY MOUTH AT BEDTIME 10/09 completed Not Available Not Available Not Available ibuprofen 800 mg tablet TAKE ONE TABLET BY MOUTH EVERY 8 HOURS DIRECTED 10/09 completed Not Available Not Available Not Available meloxicam 15 mg tablet Take 1 tablet every day by oral route as needed. 01/26 completed Not Available Not Available Not Available sertraline 100 mg tablet TAKE TWO TABLETS BY MOUTH EVERY DAY 10/09 completed Not Available Not Available Not Available clonazepam 1 mg tablet TAKE ONE TABLET BY MOUTH AT BEDTIME FOR 5 DAYS 10/09 completed Not Available Not Available Not Available atenolol 25 mg tablet TAKE ONE TABLET BY MOUTH EVERY DAY 10/09 completed Not Available Not Available Not Available hydroxyzine pamoate 50 mg capsule TAKE TWO CAPSULES BY MOUTH THREE TIMES DAILY NEEDED 10/09 completed Not Available Not Available Not Available olanzapine 10 mg tablet Take 1 tablet every day by oral route. 06/04 completed Not Available Not Available Not Available phentermine 37.5 mg tablet Take 1 tablet every day by oral route. 04/14 completed Not Available Not Available Not Available chlorthalid one 25 mg tablet TAKE 1/2 TABLET BY MOUTH ONCE DAILY 10/09 completed Not Available Not Available Not Available divalproex 500 mg tablet,lubna yed release Take 1 tablet twice a day by oral route. 06/04 completed Not Available Not Available Not Available oxycodone-a cetaminophe n 5 mg-325 mg tablet TAKE ONE TABLET BY MOUTH EVERY 6 HOURS 05/21 completed Not Available Not Available Not Available propranolol 10 mg tablet Take 2 tablets twice a day by oral route. 05/04 completed Not Available Not Available Not Available propranolol 40 mg tablet TAKE ONE TABLET BY MOUTH THREE TIMES DAILY FOR HYPERTENS ION/ ANGER active Not Available Not Available No t Available methocarbam ol 750 mg tablet TAKE ONE TABLET BY MOUTH FOUR TIMES DAILY NEEDED FOR NECK PAIN/ FOR BACK PAIN active Not Available Not Available No t Available trazodone 100 mg tablet TAKE 1/2 TABLET BY MOUTH AT BEDTIME NEEDED FOR INSOMNIA 10/09 completed Not Available Not Available Not Available Valium 5 mg tablet Take 1 tablet every day by oral route. 02/23 completed Not Available Not Available Not Available fluvoxamine 100 mg tablet TAKE ONE TABLET BY MOUTH TWICE DAILY FOR FOR ANXIETY active Not Available Not Available No t Available doxycycline monohydrate 100 mg capsule TAKE ONE CAPSULE BY MOUTH TWICE DAILY FOR 7 DAYS 07/24 completed Not Available Not Available Not Available hydrocodone 7.5 mg-acetamin ophen 325 mg tablet Take 1 tablet every 8 hours by oral route as needed. 04/14 completed Not Available Not Available Not Available trazodone 150 mg tablet TAKE ONE TABLET BY MOUTH AT BEDTIME 10/09 completed Not Available Not Available Not Available diphenhydra mine 25 mg tablet TAKE TWO TABLETS BY MOUTH EVERY 4 HOURS NEEDED FOR EPS PREVENTIO N active Not Available Not Available No t Available clonazepam 2 mg tablet TAKE ONE TABLET BY MOUTH AT BEDTIME FOR SLEEP active Not Available Not Available No t Available benztropine 1 mg tablet TAKE ONE TABLET BY MOUTH TWICE DAILY 10/09 completed Not Available Not Available Not Available nitroglycer in 0.4 mg sublingual tablet TAKE ONE TABLET UNDER THE TONGUE EVERY FIVE MINUTES up to 3 times NEEDED FOR SHORTNESS OF BREATH OR FOR CHEST PAIN active Not Available Not Available No t Available gabapentin 300 mg capsule TAKE ONE CAPSULE BY MOUTH THREE TIMES DAILY 10/09 completed Not Available Not Available Not Available omeprazole 20 mg capsule,del ayed release TAKE ONE CAPSULE BY MOUTH TWICE DAILY 10/09 completed Not Available Not Available Not Available oxcarbazepi ne 600 mg tablet TAKE 1 TABLET BY MOUTH TWICE DAILY 10/09 completed Not Available Not Available Not Available olanzapine 15 mg tablet TAKE ONE TABLET BY MOUTH AT BEDTIME 10/09 completed Not Available Not Available Not Available ziprasidone 40 mg capsule TAKE ONE CAPSULE BY MOUTH EVERY 6 HOURS NEEDED FOR ANXIETY active Not Available Not Available No t Available lorazepam 1 mg tablet Take one tablet by mouth at 8 am, 1 pm, and 9pm active Not Available Not Available No t Available lisinopril 10 mg-hydrochl orothiazide 12.5 mg tablet Take 1 tablet every day by oral route. 06/04 completed Not Available Not Available Not Available zolpidem 10 mg tablet Take 1 tablet every day by oral route. 06/04 completed Not Available Not Available Not Available topiramate 100 mg tablet TAKE ONE TABLET BY MOUTH THREE TIMES DAILY FOR MOOD/ ANGER active Not Available Not Available No t Available lithium carbonate 300 mg tablet TAKE ONE TABLET BY MOUTH EVERY MORNING AND TWO TABLETS AT BEDTIME 10/09 completed Not Available Not Available Not Available sertraline 50 mg tablet TAKE ONE TABLET BY MOUTH EVERY DAY 07/24 completed Not Available Not Available Not Available olanzapine 20 mg tablet TAKE ONE TABLET BY MOUTH AT BEDTIME 10/09 completed Not Available Not Available Not Available fluphenazin e 5 mg tablet TAKE THREE TABLETS BY MOUTH TWICE DAILY 10/09 completed Not Available Not Available Not Available hydroxyzine pamoate 25 mg capsule Take 1 capsule 3 times a day by oral route as needed. 06/04 completed Not Available Not Available Not Available metoprolol tartrate 25 mg tablet Take 1 tablet twice a day by oral route. 06/04 completed Not Available Not Available Not Available tizanidine 4 mg capsule Take 1 capsule 3 times a day by oral route as needed. 04/14 completed Not Available Not Available Not Available Zoloft 200mg daily 05/04 completed Not Available Not Available Not Available quetiapine 50 mg tablet TAKE ONE TABLET BY MOUTH EVERY 8 HOURS NEEDED AGITATION 10/09 completed Not Available Not Available Not Available tranexamic acid 650 mg tablet TAKE TWO TABLETS BY MOUTH THREE TIMES DAILY FOR 5 DAYS 10/09 completed Not Available Not Available Not Available Vitals Date Recorded Body height Body mass index (BMI) Body weight Body temperature Heart rate Respiratory rate Oxygen saturation Oxygen saturation in Arterial blood by Pulse oximetry Systolic And Diastolic Provider Name and Address Organization Details Last Updated DateTime 1 162.56 cm 43.2 kg/m2 710934. 48 g 98.9 [degF] 97 /min 18 /min 98 %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
--- OUTSIDE RECORDS SUMMARY | 2025-03-22 13:59 | XMS_ITS | Data Portability ---
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 [address] 05/20/2017 11:28:20 05/20/2017 12:57:27 Gestation period, 29 weeks 95951075 Z3A.29 Supervisio n of high risk with history of previous section done 4428754396 9106 O34.211 High risk 4720 0007 O09.893 Hypertensive disorder 38 053156 I10 Anxiety 27484120 F41.9 [id number] Indy Henderson MD [place] [address] [place] [address] 06/10/2017 10:15:14 06/10/2017 12:58:37 Hypertensive disorder 08671582 I10 High risk 4720 0007 O09.893 Anxiety 85472050 F41.9 Supervisio n of high risk with history of previous section done 7323077634 9106 O34.211 Gestation period, 32 weeks 1281163 Z3A.32 [id number] Indy Henderson MD [place] [address] [place] [address] 06/17/2017 14:16:35 06/17/2017 15:59:43 Hypertensive disorder 27109859 I10 High risk 4720 0007 O09.893 Anxiety 32145010 F41.9 Supervisio n of high risk with history of previous section done 8940206711 9106 O34.211 Gestation period, 33 weeks 13639341 Z3A.33 [id number] Indy Henderson MD [address] [address] 06/21/2017 11:09:21 06/21/2017 13:14:35 finding 431085576 O26.93 Hypertensive disorder 38 706776 I10 High risk 4720 0007 O09.893 Anxiety 80159854 F41.9 Supervisio n of high risk with history of previous section done 2049072024 9106 O34.211 Gestation period, 34 weeks 74831539 Z3A.34 [id number] Elaine Oneal MD [address] [address] 06/24/2017 10:53:36 06/24/2017 11:51:56 Hypertensive disorder 48490529 I10 High risk 4720 0007 O09.893 Anxiety 44278451 F41.9 Supervisio n of high risk with history of previous section done 1957252618 9106 O34.211 Gestation period, 34 weeks 76266794 Z3A.34 Previous u terine surgical scar 150638170 N85.8 Obesity 198363972 E66.9 Maternal o besity complicating , childbirth and the puerperium, antepartum 0596675929 07 O99.213 Body mass index 40+ - severely obese 502118551 Z68.41 BMI: 42.1 [id number] Indy Henderson MD The [address] [address] 06/28/2017 10:34:30 06/28/2017 11:27:55 Hypertensive disorder 09595978 I10 High risk 4720 0007 O09.893 Anxiety 00010541 F41.9 Supervisio n of high risk with history of previous section done 7532222389 9106 O34.211 Previous u terine surgical scar 435230835 N85.8 Obesity 897348047 E66.9 Maternal o besity complicating , childbirth and the puerperium, antepartum 7967890693 07 O99.213 Body mass index 40+ - severely obese 163331977 Z68.41 BMI: 42.1 Gestation period, 35 weeks 31079037 Z3A.35 [id number] Indy Henderson MD [address] [place] [address] 07/01/2017 14:02:44 07/01/2017 15:42:49 Hypertensive disorder 12189293 I10 High risk 4720 0007 O09.893 Anxiety 64526991 F41.9 Supervisio n of high risk with history of previous section done 7215858760 9106 O34.211 Previous u terine surgical scar 532502943 N85.8 Obesity 999130477 E66.9 Maternal o besity complicating , childbirth and the puerperium, antepartum 2670492787 07 O99.213 Body mass index 40+ - severely obese 917984305 Z68.41 BMI: 42.1 Gestation period, 35 weeks 51552337 Z3A.35 [id number] Indy Henderson MD [address] [place] [address] 07/05/2017 14:17:49 07/05/2017 15:32:07 Hypertensive disorder 99312681 I10 High risk 4720 0007 O09.893 Anxiety 40407072 F41.9 Supervisio n of high risk with history of previous section done 7521391656 9106 O34.211 Previous u terine surgical scar 407115061 N85.8 Obesity 368903514 E66.9 Maternal o besity complicating , childbirth and the puerperium, antepartum 3950111544 07 O99.213 Body mass index 40+ - severely obese 717745370 Z68.41 BMI: 42.1 Gestation period, 36 weeks 86788462 Z3A.36 [id number] Indy Henderson MD [address] [place] [address] 07/08/2017 14:17:38 07/08/2017 16:06:28 Uterine scar from previous surgery affecting 61802461 O34.211 High risk 4720 0007 O09.893 Hypertensive disorder 38 974838 I10 Anxiety 56957954 F41.9 Gestation period, 36 weeks 03819193 Z3A.36 Maternal o besity complicating , childbirth and the puerperium, antepartum 8685530979 07 O99.821 [id number] Indy Henderson MD [place] [address] [place] [address] 07/12/2017 14:17:04 07/12/2017 15:29:20 Gestation period, 37 weeks 11459485 Z3A.37 High risk 4720 0007 O09.893 Uterine sc ar from previous surgery affecting 90669500 O34.211 Hypertensive disorder 38 956679 I10 Anxiety 82741303 F41.9 Maternal o besity complicating , childbirth and the puerperium, antepartum 9238717390 07 O99.213 Headache 47895416 R51 [id number] Indy Henderson MD [place] [address] [place] [address] 07/20/2017 10:53:50 07/20/2017 12:51:40 Postoperative care 933995816 Z48.89 care 67509944 8 Z39.2 [id number] Indy Henderson MD [place] [address] [place] [address] 09/14/2017 14:44:48 09/14/2017 16:25:06 care 006599190 Z39.2 Pts last pap was 07/22/16 that was normal. She states she will [facility] education 281079488 Z30.09 Discussed options today with the pt. She would like to talk with her spouse before making a decison. Encouraged her to call our office if she decides to do anything. Essential hypertension 53940431 I10 Encouraged pt to restart labetolol to help manage BP. Pt states she still has some left over from . [id number] Paola Barlow MD [facility] [address] [place] [address] [place] [address] 04/19/2018 14:36:56 04/19/2018 16:31:05 Anxiety 98005648 F41.9 with PTSD and depression / no suicidal ideation at this time Essential hypertension 96087162 I10 well controlled Palpitations 99454030 R0 0.2 ECG shows sinus tachycardi a with PACs. NO fever, no anemia, normal TSH, negative pregnanacy test.Start Metoprolol 25 mg PO bid. Order ECHO [id number] Indy Henderson MD [place] [address] [place] [address] 04/24/2019 15:33:56 04/24/2019 17:58:18 Gestation period, 8 weeks 40643831 Z3A.08 High risk 4720 0007 O09.521 Advanced m aternal age 984391581 O09.891 Supervisio n of high risk with history of previous section done 6871142047 9106 O34.211 Mental dis order during - baby not yet delivered 419342612 O99.341 -Anxiety Chronic hy pertension complicating AND/OR reason for care during 89298208 O16.9 Past pregn devon history of intrauterine 2412120811 9100569 Z87.59 Depressive disorder 3548 9007 F32.9 Past pregn devon history of psychosis 337905583 Z87.June. Benign ess ential hypertension complicating AND/OR reason for care during 88764114 O10.011 Essential hypertension complicating AND/OR reason for care during 20064693 O10.568 [id number] Indy Henderson MD [facility] [place] [address] [place] [address] 05/23/2019 14:34:41 05/23/2019 15:52:43 Gestation period, 12 weeks 45607323 Z3A.12 High risk 4720 0007 O09.521 Advanced m aternal age 286276785 O09.891 Supervisio n of high risk with history of previous section done 4731071835 9106 O34.211 Mental dis order during - baby not yet delivered 115847457 O99.341 -Anxiety Chronic hy pertension complicating AND/OR reason for care during 05165198 O16.9 Past pregn devon history of intrauterine 2130014200 2400373 Z87.59 Depressive disorder 3548 9007 F32.9 Past pregn devon history of psychosis 826314253 Z87.June. Benign ess ential hypertension complicating AND/OR reason for care during 06817121 O10.011 Essential hypertension complicating AND/OR reason for care during 40062154 O10.011 Vaginal discharge 895576 006 N89.8 [id number] Indy Henderson MD [facility] [place] [address] [place] [address] 06/20/2019 15:32:17 06/20/2019 17:25:46 Gestation period, 16 weeks 43505284 Z3A.16 High risk 4720 0007 O09.512 Pt states that she has contacted her insurance and it is covered. Advanced m aternal age 379031046 O09.892 Supervisio n of high risk with history of previous section done 5551457765 9106 O34.211 Mental dis order during - baby not yet delivered 745138460 O99.342 -Anxiety Chronic hy pertension complicating AND/OR reason for care during 90786885 O16.9 Past pregn devon history of intrauterine 1292120150 7807062 Z87.59 Depressive disorder 3548 9007 F32.9 Past pregn devon history of psychosis 922592628 Z87.June. Benign ess ential hypertension complicating AND/OR reason for care during 43759622 O10.012 Essential hypertension complicating AND/OR reason for care during 10211761 O10.012 Vaginal discharge 884690 006 N89.8 [id number] Indy Henderson MD [facility] [place] [address] [employer] [place] [address] 07/17/2019 15:54:30 07/17/2019 16:48:27 Gestation period, 20 weeks 04149879 Z3A.20 High risk 4720 0007 O09.892 Pt states that she has contacted her insurance and it is covered. Advanced m aternal age 208695086 O09.892 Supervisio n of high risk with history of previous section done 1790817131 9106 O34.211 Mental dis order during - baby not yet delivered 429475539 O99.342 -Anxiety Chronic hy pertension complicating AND/OR reason for care during 34809076 O16.9 Past pregn devon history of intrauterine 6517021258 2708833 Z87.59 Depressive disorder 3548 9007 F32.9 Past pregn devon history of psychosis 103152530 Z87.June. Benign ess ential hypertension complicating AND/OR reason for care during 20946610 O10.012 Essential hypertension complicating AND/OR reason for care during 96021967 O10.012 High risk care 963467143 O09.917 [id number] Indy Henderson MD [address] [place] [address] 08/14/2019 15:00:04 08/14/2019 16:32:43 Gestation period, 24 weeks 199536199 Z3A.24 High risk 4720 0007 O09.892 Pt states that she has contacted her insurance and it is covered. Advanced m aternal age 657308064 O09.892 Supervisio n of high risk with history of previous section done 0597857076 9106 O34.211 Mental dis order during - baby not yet delivered 539550890 O99.342 -Anxiety Chronic hy pertension complicating AND/OR reason for care during 05461394 O16.9 Past pregn devon history of intrauterine 1023463344 6949194 Z87.59 Depressive disorder 3548 9007 F32.9 Past pregn devon history of psychosis 940158084 Z87.June. Benign ess ential hypertension complicating AND/OR reason for care during 26020008 O10.012 Essential hypertension complicating AND/OR reason for care during 40084751 O10.012 High risk care 561042664 O09.863 [id number] Indy Henderson MD [address] [place] [address] 08/22/2019 10:11:44 08/22/2019 12:06:19 Gestation period, 25 weeks 20160854 Z3A.25 High risk 4720 0007 O09.892 Pt states that she has contacted her insurance and it is covered. Advanced m aternal age 215933128 O09.892 Supervisio n of high risk with history of previous section done 0769789195 9106 O34.211 Mental dis order during - baby not yet delivered 126738765 O99.342 -Anxiety Chronic hy pertension complicating AND/OR reason for care during 25183266 O16.9 Past pregn devon history of intrauterine 4564785449 6327826 Z87.59 Depressive disorder 3548 9007 F32.9 Past pregn devon history of psychosis 662149901 Z87.June. Benign ess ential hypertension complicating AND/OR reason for care during 59602103 O10.012 Essential hypertension complicating AND/OR reason for care during 34284649 O10.012 High risk care 909610709 O09.603 [id number] Indy Henderson MD [place] [address] [place] [address] 09/11/2019 15:22:22 09/11/2019 16:22:44 Gestation period, 28 weeks 34093631 Z3A.28 High risk 4720 0007 O09.893 Pt states that she has contacted her insurance and it is covered. Supervisio n of high risk with history of previous section done 8568191269 9106 O34.211 Mental dis order during - baby not yet delivered 691261370 O99.342 -Anxiety Chronic hy pertension complicating AND/OR reason for care during 22837274 O10.013 Past pregn devon history of intrauterine 2973092164 7764119 Z87.59 Depressive disorder 3548 9007 F32.9 Past pregn devon history of psychosis 695171906 Z87.June. Benign ess ential hypertension complicating AND/OR reason for care during 05305780 O10.013 Multigravi da of advanced maternal age 277819893 O09.523 Heartburn 25023679 R12 [id number] Indy Henderson MD [place] [address] [place] [address] 09/25/2019 15:27:18 09/25/2019 16:46:21 Gestation period, 30 weeks 44860470 Z3A.30 High risk 4720 0007 O09.893 Pt states that she has contacted her insurance and it is covered. Multigravi da of advanced maternal age 009469304 O09.523 Supervisio n of high risk with history of previous section done 4080271197 9106 O34.211 Mental dis order during - baby not yet delivered 267972035 O99.343 -Anxiety Chronic hy pertension complicating AND/OR reason for care during 14626944 O10.013 Past pregn devon history of intrauterine 3710614305 0988352 Z87.59 Depressive disorder 3548 9007 F32.9 Past pregn devon history of psychosis 257284087 Z87.June. Benign ess ential hypertension complicating AND/OR reason for care during 59262661 O10.013 Heartburn 59360014 R12 Maternal o besity complicating , childbirth and the puerperium, antepartum 5728603536 07 O99.213 cond ition affecting obstetrical care of mother 794833663 O36.8130 [id number] Indy Henderson MD [facility] [place] [address] [place] [address] 10/09/2019 15:05:25 10/09/2019 16:35:19 Gestation period, 32 weeks 1219778 Z3A.32 High risk 4720 0007 O09.893 Pt states that she has contacted her insurance and it is covered. Multigravi da of advanced maternal age 296676759 O09.523 Supervisio n of high risk with history of previous section done 3540008779 9106 O34.211 Mental dis order during - baby not yet delivered 197486897 O99.343 -Anxiety Chronic hy pertension complicating AND/OR reason for care during 96012816 O10.013 Past pregn devon history of intrauterine 9590634435 8439239 Z87.59 Depressive disorder 3548 9007 F32.9 Past pregn devon history of psychosis 698666785 Z87.June. Benign ess ential hypertension complicating AND/OR reason for care during 93883132 O10.013 Heartburn 48316117 R12 Maternal o besity complicating , childbirth and the puerperium, antepartum 1290414716 07 O99.213 cond ition affecting obstetrical care of mother 200869766 O36.8130 [id number] Cha Pittman APRN [facility] [place] [address] [place] [address] 10/25/2019 15:12:16 10/25/2019 16:39:24 Gestation period, 34 weeks 47409631 Z3A.34 High risk 4720 0007 O09.893 Pt states that she has contacted her insurance and it is covered. Multigravi da of advanced maternal age 259935857 O09.523 Supervisio n of high risk with history of previous section done 7390026619 9106 O34.211 Mental dis order during - baby not yet delivered 206377533 O99.343 -Anxiety Chronic hy pertension complicating AND/OR reason for care during 85746526 O10.013 Past pregn devon history of intrauterine 1113042664 8347357 Z87.59 Depressive disorder 3548 9007 F32.9 Past pregn devon history of psychosis 939155394 Z87.June. Benign ess ential hypertension complicating AND/OR reason for care during 44521392 O10.013 Heartburn 15238222 R12 Maternal o besity complicating , childbirth and the puerperium, antepartum 9905568194 07 O99.213 cond ition affecting obstetrical care of mother 109860309 O36.8130 [id number] Indy Henderson MD The [address] [employer] [place] [address] 10/30/2019 14:37:06 10/30/2019 16:23:53 Gestation period, 35 weeks 60043491 Z3A.35 High risk 4720 0007 O09.893 Pt states that she has contacted her insurance and it is covered. Multigravi da of advanced maternal age 790586240 O09.523 Supervisio n of high risk with history of previous section done 4803437290 9106 O34.211 Mental dis order during - baby not yet delivered 976313744 O99.343 -Anxiety Chronic hy pertension complicating AND/OR reason for care during 33971415 O10.013 Past pregn devon history of intrauterine 8131472158 1928451 Z87.59 Depressive disorder 3548 9007 F32.9 Past pregn devon history of psychosis 113984581 Z87.June. Benign ess ential hypertension complicating AND/OR reason for care during 12198574 O10.013 Heartburn 91857067 R12 Maternal o besity complicating , childbirth and the puerperium, antepartum 1385120230 07 O99.213 cond ition affecting obstetrical care of mother 019604415 O36.8130 [id number] Indy Henderson MD [address] [place] [address] 11/06/2019 14:53:04 11/06/2019 15:55:11 High risk 06849695 O09.893 Multigravi da of advanced maternal age 065853892 O09.523 Supervisio n of high risk with history of previous section done 2508120598 9106 O34.211 Mental dis order during - baby not yet delivered 560624226 O99.343 -Anxiety Chronic hy pertension complicating AND/OR reason for care during 88818089 O10.013 Past pregn devon history of intrauterine 4158011425 0685932 Z87.59 Depressive disorder 3548 9007 F32.9 Past pregn devon history of psychosis 860255146 Z87.June. Benign ess ential hypertension complicating AND/OR reason for care during 02863814 O10.013 Maternal o besity complicating , childbirth and the puerperium, antepartum 6279525323 07 O99.213 cond ition affecting obstetrical care of mother 210361869 O36.8130 Gestation period, 36 weeks 54860861 Z3A.36 [id number] Indy Henderson MD [address] [place] [address] 11/13/2019 14:19:26 11/13/2019 15:41:25 Postoperative state 92844226 Z98.890 PECO dressing intact-rem halle. Steri strips removed. Incision cleaned with peroxide. Incision well approximat ed with no drainage/o dede noted. NO s/s of infection noted. Pt tolerated well with minimal discomfort . Instructed to keep dry and contact clinic if s/s of infection appear.-Pt verbalized understand ing and had no questions. -Instructe d to RTC in 2 weeks for PP B/P check state 8851393 1 Z39.2 Depressive disorder 3542 4137 F32.9 She had significan t pp depression /psycosis following last , she is on zoloft currently and reports doing well, and her SO seems to concur with this.She is also going to check in with her prior mental health provider.W e discussed to monitor closely and seek help for feelings of harm or paranoia etc... [id number] Indy Henderson MD [facility] [address] [place] [address] [place] [address] 12/19/2019 15:46:06 12/19/2019 17:09:23 state 76608147 Z39.2 Denies vaginal bleeding. Depressive disorder 6457 0106 F32.9 States being better, on zoloft; has had a better pp course than prior. Vaginal odor 325355951 N 89.8 suspect old blood from delivery. no dc or odor on exam Skin lesion 97003064 L98 .9 LLQ of abdomen, will treat with abx due to erythema; not much fluctuance and is draining thus doesnt need I&D [id number] Usman Goncalves MD [facility] [address] [place] [address] 02/21/2020 14:04:19 02/25/2020 14:30:59 Chest pain 57547721 R07.9 Will assess with probable left heart catheter and coronary angiograph y after her blood pressure is better controlled Hypertensive disorder 38 430329 I10 admitted May the her to [facility] and starting her on losartan 50 mg a day, and atenolol 25 mg a day. Schizoaffe ctive disorder 31370910 F25.9 stable Bipolar disorder 5301536 4 F31.9 stable Morbid obesity 564776206 E66.01 [id number] Suzie Trujillo MD [facility] [place] [address] [place] [address] 03/10/2020 15:08:05 03/10/2020 15:45:41 Abnormal uterine bleeding 2125425797 9100 N92.1 AUB: -Discussed the common causes of abnormal uterine bleeding, including polyps, fibroids, hyperplasi a, atrophy, and anovulatio n. -Reviewed recommende d evaluation with labs, pelvic US and endometria l biopsy. -Consider TSH at time of follow-up visit. -EMB today; biopsy procedure reviewed in detail. -Pap smear 2018 -Pelvic US Scheduled -Briefly discussed treatment options (depending on the results of evaluation ) including hormonal treatment (OCPs, progestins ), Mirena, endometria l ablation, and surgery. -Discussed /recommend provera 10 mg TID x 5 days in combinatio n with an nsaid scheduled. -Follow up in clinic for results/ POC with Dr. Henderson Body mass index 40+ - severely obese 829740646 Z68.41 -BMI 42.8 [id number] Indy Henderson MD [facility] [place] [address] [place] [address] 03/19/2020 15:23:20 03/19/2020 16:50:35 Follow-up visit 769144404 Z09 Menometrorrhagia 6553845 08 N92.1 Cyst of right ovary 1223 969049 2931260 N83.291 Endometrium thickened 44 7455021 R93.89 Discussing possible polyp. Discussed US-thicken ed endometriu m.Does not do well with hormonal treatment (failed provera, estrogen contraindi cated)As isolated prolonged bleeding, would rec less invasive method to start - will do hsc D&CDiscuss ing hysterosco py D&C. Irregular periods 234987 07 N92.6 States bleeding large, fibrous chunks of tissue. Nicotine dependence 5629 4008 F17.200 Pre-surger y evaluation 844168009 Z01.818 The risks (including , but not limited to bleeding, infection, damage to surroundin g structures e.g. bladder, bowel, nerves, ureter, possibilit y requiring repair; failure of procedure to obtain desired results, possible need for further surgery, and/or possible vascular or respirator y complicati ons e.g. blood clots, pneumonia) the possibilit ies of complicati ons and the alternativ es to this operation or procedure, their risks and benefits were explained to the patient. [id number] Indy Henderson MD The [address] [place] [address] 04/18/2020 14:24:32 04/18/2020 15:49:22 Postoperative visit 103574098 Z09 Menometrorrhagia 3395804 08 N92.1 [facility] normal pathIUD now in placeLyste da to try to give time for IUD to work CANNOT MENTALLY TOLERATE HORMONAL MANAGEMENT Cyst of right ovary 1223 529341 7170030 N83.291 Endometrium thickened 44 4426184 R93.89 Irregular periods 395973 07 N92.6 Nicotine dependence 5629 4008 F17.200 Secondary dysmenorrhea 22723876 N94.5 [id number] Usman Goncalves MD [facility] [address] [place] [address] 06/02/2020 10:54:47 06/02/2020 12:52:57 History of atrial fibrillation 636494012 Z86.79 One once told Mrs. Ernandez that he felt she may have atrial fibrillati on.. My review of her charts and ECG shows no evidence of atrial fibrillati on Hypertensive disorder 38 431099 I10 For the hypertensi on I am adding chlorthali done 25 mg once a day, and potassium chloride 2x 10 mEq a day Morbid obesity [id number] E66.01 She is losing weight, [place] 7-1/2 pounds since the February 21, 2020. Gastroesop hageal reflux disease [id number] K21.9 I've asked her to increase the omeprazole to 20 mg twice a day and to start famitodine 20 mg twice a day. [id number] Indy Henderson MD The [address] [place] [phone] 06/20/2020 14:26:39 06/20/2020 15:14:52 Menometrorrhagia [id number] N92.1 Not heavy, but never stops-the amount is better. 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, and more spotting - I am hopefully regarding her bleeding pattern--T he cramping maybe the limiting factor; US last visit showed normal placement; discussed can try doxy as she does have uterine tenderness ; and then lysteda--I f this fails then may need to proceed with hyst - she is well aware that we are trying to max medical management prior to as would be a complicate d hyst with 4 prior cs, obese, HTN, and tobacco use Cyst of right ovary [id number] N83.291 Endometrium thickened 44 [id number] R93.89 Nicotine dependence 5629 4008 F17.210 Secondary dysmenorrhea 22826429 N94.5 Cramping pain [id number] R52 Random. Pt thinks that they are caused by the IUD. Heavy lifting will trigger cramps. Pt is willing to give more time before considerin g surgery. [id number] Usman Goncalves MD [facility] [address] [place] [phone] 10/07/2020 11:04:37 10/08/2020 17:32:25 Hypertensive disorder 19741108 I10 Improved Gastroesop hageal reflux disease [id number] K21.9 I've asked her to increase the omeprazole to 20 mg twice a day and to start famitodine 20 mg twice a day. [id number] Usman Goncalves MD [facility] [address] [place] [address] [place] [phone] 03/23/2021 15:26:17 03/23/2021 16:33:59 Hypertensive disorder [id number] I10 Improved Gastroesop hageal reflux disease [id number] K21.9 Health Concerns Section Related Observation LastModified by Organization Detai ls LastModified Time None Recorded Concern Status LastModified by Organization Details LastModified Time None Recorded Advance Directives Directive None Recorded Payers Insurance Date Sequence Insurance Name Policy Number Policy Ledesma Covered Member ID Ledesma Member ID Guarantor Name 01/21/2025 2 [place]: [id number] Marroquin Pollo Daniels [id number] Cara Daniels 08/31/2023 2 [employer] (MEDICAID REPLACEMENT - HMO) Cara Pollo Hudson [id number] Cara Daniels 02/02/2025 1 [place] (MEDICARE) Cara Daniels [id number] Cara Daniels 08/31/2023 2 [place]: KARENMARIE COBB Cara Daniels [id number] Craa Daniels 01/21/2025 2 [place] [employer] - INSTITUTIONAL (MEDICAID) Cara Daniels [id number] Cara Daniels Notes Date Note Type Note Provider Name and Address Organization Details Recorded Time 04/18/20 20 text/htm l Post-OpReported by PatientHPIFor associated symptoms, patient reportspainandbleedingbut reportsincision healing well,no fatigue,normal appetite,normal bowel function,no constipation,no nausea,no emesis,pain improving,no fever,no lower extremity edema/pain, andno dysuria/urinary symptoms. For onset/timing, patient reportsdate of surgery: (03/27/20). For quality, patient reportsprocedure: (hysteroscopy d&c/mirena insertion). For context, patient reportsreason for procedure: (aub)andpathology findings: (non-secretory endometrium with focal changes consistent with polyp; negative for dysplasia or atypia). Pt presents to clinic for post op visit.Pt states bleeding has not stopped- Pt states bleeding varies from time to time with tissue like clots. Pt states bleeding is light currently at this time. Pt states bleeding stopped for a couple days after surgery but then returned.Pt c/o significant cramping that occurs intermittently- Pt currently taking IBU 800mg. Last pap: 04/24/19 (WNL) Indy wise, [facility] 05/16/2020 17:57:17 06/02/19 21 text/htm l ROS as noted in the HPI Mrs. Cara Daniels is a 37-year-old lady followed by a DANAY the nurse practitioner working with Elsa at [facility].She has had severe hypertension for over 4 years and recently was started on medication with low dose lisinopril and hydrochlorothiazide and metoprolol and later hospitalized overnight at [facility].Where her current blood pressure medications were started to include atenolol 25 mg twice a day, and losartan 50 mg twice a day. She has been told in the past that she has sleep apnea and she knows that she snores quite loudly.Josselin at Dr. Raymundo office has offered her a sleep study and she's not sure if she should do it because she has difficulty sleeping and other places other than her home. She denies fever chills and night sweats. She has had some weight loss since her last visit. She denies headaches, earaches, sore throat, sinus problems,.She has some acid reflux to the mouth and she denies cough. She indicates that she does not smoke.She denies nausea vomiting and about abdominal pain. Denies diarrhea constipation and hematochezia. Denies hematuria nocturia dysuria and polyuria. Denies focal neurologic deficits, altered thinking and suicidal ideation.She denies skin lesions and enlarged lymph nodes. Denies claudication and leg swelling.And remainder of review of systems is normal or negative. Usman wise [facility] 06/02/2020 20:13:29 06/20/19 21 text/htm l Pt presents to clinic for follow up on irregular menses.LMP: Pt states she has not stopped bleeding since delivery in October. Pt states she changes her pads and/or tampons 3-4 times daily.Pt was last seen in clinic on 04/18/20 and given Lysteda for heavy, irregular periods.Pt states she has not tried Lysteda that was prescribed last visit. Pt states her bleeding has not been severe so she did not think she was supposed to take medication.Pt c/o cramping r/t IUD- Pt states Tylenol/IBU is effective. Last pap: 04/24/19 (WNL) Indy wise [facility] 06/21/2020 11:16:36 10/08/19 21 text/htm l ROS as noted in the HPI .Mrs. Cara Daniels Is a 35-year-old lady followed by Ms Josselin Tariq, and Dr. Ye Santana , who I saw in May of 2020 because of an occasional sensation of heart flutter and because of less than well-controlled hypertension.At that time I added chlorthalidone 25 mg a day and potassium chloride to, 10 mEq tablets per day.Since then her blood pressure has been better controlled on atenolol 25mg, twice a day, and on that dose has, she has had no recurrence of any sensation of palpitations. Currently, however, she has run short of atenolol and is only able to take 25 mg once a day. She denies angina, orthopnea, and PND. She denies dyspnea on exertion. She denies TIA like symptoms. She denies claudication and leg swelling. She denies fever chills and weight loss. There's been no headaches. She's had no earache sore throat or sinus infection. Her hearing is good and vision is good sense of taste and smell is Normal.She's had no trouble swallowing or acid reflux to the mouth. She's had no cough. She's had no nausea vomiting or abdominal pain. She's had no diarrhea, constipation, or hematochezia. She's had no hematuria, nocturia or dysuria. No polyuria.There's been no skin infection or large lymph nodes. She's had no easy bleeding or bruising. She's had no focal neurologic deficit. She's had no altered thinking or suicidal ideation.Remainder of review of systems is normal or negative. Usman wise [facility] 10/08/2020 00:04:00 03/23/20 21 text/htm l ROS as noted in the HPI Ms. Cara Daniels is a 35-year-old lady with a history of palpitations and hypertensive cardiovascular disease. In May of 2020 I added chlorthalidone 25 mg a day and potassium chloride 10 mEq a day. She relates that because of anxiety, posttraumatic stress disorder, and bipolar disorder, that in addition to Zoloft she uses medical marijuana. She indicates that although this has helped her stress substantially, bad because of this she is also gained 15 pounds since October 07. She complains of rare palpitations and some mild shortness of breath with exertion and she did not start the famotidine 20 mg twice a day that had been prescribed for her peptic ulcer disease. She denies angina, orthopnea, and PND. She denies is significant dyspnea on exertion. She denies significant palpitations. She denies focal neurologic deficit her altered thinking or suicidal ideation. She denies headaches, earaches, sore throat, and sinus infection. She has normal hearing and vision. She's not lost her sense of smell or taste. She's had no trouble swallowing and no acid reflux to the mouth.She does cough when smoking marijuana.she has no nausea, vomiting, or abdominal pain. She has no diarrhea, constipation, or hematochezia. She has no hematuria, nocturia, dysuria or polyuria.She has no focal neurologic deficit or altered thinking or suicidal ideation. She has no claudication or leg swelling or enlarged lymph nodes or easy bleeding or bruising.Remainder of review of systems is normal or negative. [facility] 23:31:14 OBGyn Episode Ob Episode Information Episode Created Date Number of Fetuses Patient Bloodtype Patient rh Status Prepregnancy Weight lbs Domestic Partner Domestic Partner Phone Father Name Golf Stud Riveter Status 09/15/19 18 1 CLOSED Fetus Data First Name Last Name Admitted to NICU Weight (g) Sex Living Outcome Pediatric Complications Fetus ID Race Codes Race Delivery Type 2976.47 0704 M Full Term 5463 C Section Repeat Tomas Calculation Initial Tomas Date Initial Exam Date Initial Exam Provider Initial Ultrasound Date Last Menstrual Period Date Ultra Sound Weeks Gestation 0 Eighteen To Twenty Week Tomas Update Ultra Sound Date Fundal Height At Umbil Quickening Date Ultra Sound Latest Weeks Gestation Final Tomas Confirmed By Final Tomas Confirmed Date Final Tomas Date Ultra Sound Latest Days Gestation 0 0 Menstrual History Last Menstrual Date Menses Monthly On Bcp Conception Prior Menses Frequency Hcg Plus Date Menarche Onset Age Delivery Information Delivery Date Delivery Type Labor Anesthesia Weeks Gestation Incision Type Labor Labor Length Hrs Delivered By Post Complications Tubal Sterilization Discharge Date Comments 8 Discharge Information Feeding Method Contraceptive Method Maternal HG B and HCT Levels Ob Episode Information Episode Created Date Number of Fetuses Patient Bloodtype Patient rh Status Prepregnancy Weight lbs Domestic Partner Domestic Partner Phone Father Name Golf Stud Riveter Status 04/24/20 19 1 A Positive Dc FOB involve d unsure/bottle /no circ if male CLOSED Fetus Data First Name Last Name Admitted to NICU Weight (g) Sex Living Outcome Pediatric Complications Fetus ID Race Codes Race Delivery Type Casie Holden false 2806.60 05 F true Prematur e 64461 2106-3 White C Section Repeat Problems Problem Notes Indication for 38 week jen tillman: CHTN on medicationBTL on 08/14/2019Growth ; weekly NST and fluid @ 34 weeks Start 81mg ASA @ 12wga for chronic HTN.06.20.2019 (baseline pre-e): AST: 19, ALT: 13, F: 621, PLT: 384, 24hrp: 40.0Normal level II USG. Gender-female (Zahida Holden) Problem Name Start Date End Date Resolution Snomed Code Not e Anxiety [id number] on zofolt - reports is doing okay, now on 100mg and doing well Benign hypertension 78140776 Has been given 24 hr kit; 81 mg ASA rec Past history of stillbirth 569970548 Per patient due to trama @ 28 weeks Past history of section [id number] X2, last doc PAT T at [facility] Advanced maternal age [id number] Given number to call for NIPT, will call us if desired; LII ordered Maternal drug exposure 53295924 THC +; no significant history psychosis in remission 06/16/2018 [id number] currently on zoloft Maternal obesity complicating , childbirth and the puerperium, antepartum [id number] Tomas Calculation Initial Tomas Date Initial Exam Date Initial Exam Provider Initial Ultrasound Date Last Menstrual Period Date Ultra Sound Weeks Gestation 11/30/2019 04/24/2019 04/24/2019 02/15/2019 8 Eighteen To Twenty Week Tomas Update Ultra Sound Date Fundal Height At Umbil Quickening Date Ultra Sound Latest Weeks Gestation Final Tomas Confirmed By Final Tomas Confirmed Date Final Tomas Date Ultra Sound Latest Days Gestation 04/24/20 19 8 11/30/19 20 4 Pre- Flowsheet Flowsheet Date 04/24/2019 House Score Blood Edema Fundus Height Fundus Units Glucose Ketones Leukocytes Nitrite Labor Signs Protein Cervic Dilation Cervic Effacement Cervic Station neg none negative none Negative none neg Type Weight in lbs Pre/Post Dialysis Refused Weight 269.255955671946 BP Diastolic BP Location Tested BP Systolic BP Type 82 148 sitting Fetus Heart Rate Present Fetus Movement A No Comments NOB. [employer]. AMA. No prior care. 5th - 1 vaginal delivery, 2 c-sect, 1 IUFD at 26 weeks. Denies tobacco/alcohol/drug use. Pt reports hx of vaping. Last pap- 2017 (WNL)- Pt reports hx of abn pap smears. Pt reports hx of STIs (HPV). Pt reports hx of anxiety and HTN- Pt previously taken Zoloft and Labetalol in 2018- Pt desires to restart medications during . Denies VB/discharge/urinary complaints. Pt c/o N/V and desires script. Dating USG/NOB labs/pap today. Pre-E labs given to pt. Flowsheet Date 05/23/2019 House Score Blood Edema Fundus Height Fundus Units Glucose Ketones Leukocytes Nitrite Labor Signs Protein Cervic Dilation Cervic Effacement Cervic Station neg none negative none Negative none neg Type Weight in lbs Pre/Post Dialysis Refused Weight 255.284785601266 BP Diastolic BP Location Tested BP Systolic BP Type 88 142 sitting Fetus Heart Rate Present A 153 Present Fetus Movement A No Comments Denies VB. Pt c/o thick whit e discharge with odor and vaginal itching- Pt states symptoms have been present for a couple weeks. Pt c/o increase in urinary frequency making it difficult to sleep, no dysuria. Pt states nausea still present at times but pt is able to eat. Pt reports Zoloft has been effective for anxiety. Pt is c/o yeast - rec an exam however declines this. Due to being in first trimester, will recommend doing the 7 day treatment of Monistat. If that does not work, will Rx 1 diflucan (pt will call back if needed). Flowsheet Date 06/20/2019 House Score Blood Edema Fundus Height Fundus Units Glucose Ketones Leukocytes Nitrite Labor Signs Protein Cervic Dilation Cervic Effacement Cervic Station wks none Type Weight in lbs Pre/Post Dialysis Refused Weight 255.650869663279 BP Diastolic BP Location Tested BP Systolic BP Type 86 132 Fetus Heart Rate Present A 140 Present Fetus Movement A No Comments Denies VB/discharge/urinary complaints. Pt desires Qnatal testing today. Pt turned in 24 hr urine collection today. Pt has not yet voided. Gender scan next visit. Qnatal today-Pt states that she has contacted her insurance and it is covered. Flowsheet Date 07/17/2019 House Score Blood Edema Fundus Height Fundus Units Glucose Ketones Leukocytes Nitrite Labor Signs Protein Cervic Dilation Cervic Effacement Cervic Station neg none negative none Negative none neg Type Weight in lbs Pre/Post Dialysis Refused Weight 253.819934747640 BP Diastolic BP Location Tested BP Systolic BP Type 90 170 sitting Fetus Heart Rate Present A 143 Present Fetus Movement A Yes Comments Denies VB/SROM/urinary compl aints. Pt reports (+) FM. Pt c/o occasional lower abdominal cramping and pain around incision site. Gender scan today. Elevated blood pressures-will send to L&D for observation. Chronic HTN. Gender scan today- Girl, 143 bpm. Flowsheet Date 08/14/2019 House Score Blood Edema Fundus Height Fundus Units Glucose Ketones Leukocytes Nitrite Labor Signs Protein Cervic Dilation Cervic Effacement Cervic Station neg 25 wks none negative none Negative none neg Type Weight in lbs Pre/Post Dialysis Refused Weight 256.497804670113 BP Diastolic BP Location Tested BP Systolic BP Type 80 154 sitting Fetus Heart Rate Present A 130 Present Fetus Movement A Yes Comments Denies VB/SROM/urinary compl aints. Pt reports (+) FM. Pt wishes to discuss if she needs to continue taking Labetalol- If so, pt needs refill as well as Zoloft refill. Pt reports some occasional cramping. Discussed with pt the need for 1 hr GTT before next visit- Pt verbalized understanding and will come in for 1 hr gtt nurse visit. Growth next visit ( w/ GCT visit). Will increase Zoloft at pt's request for depression.Was started on 100mg bid labetalol at last visit. She is not taking her bp at home, have encouraged her to take her bps. Flowsheet Date 08/22/2019 House Score Blood Edema Fundus Height Fundus Units Glucose Ketones Leukocytes Nitrite Labor Signs Protein Cervic Dilation Cervic Effacement Cervic Station Type Weight in lbs Pre/Post Dialysis Refused BP Diastolic BP Location Tested BP Systolic BP Type Fetus Heart Rate Present A 150 Present Fetus Movement Comments Growth scan only today- AUA 26.0, EFW 1# 15 oz (884 grams, 53%), SDP 6.12 cm, Cephalic pres, 150 bpm.Had labs done today. Flowsheet Date 09/11/2019 House Score Blood Edema Fundus Height Fundus Units Glucose Ketones Leukocytes Nitrite Labor Signs Protein Cervic Dilation Cervic Effacement Cervic Station neg none negative none Negative Other (see comments ) 1+ Type Weight in lbs Pre/Post Dialysis Refused Weight 258.13464022875 BP Diastolic BP Location Tested BP Systolic BP Type 80 136 Fetus Heart Rate Present A 154 Present Fetus Movement A Yes Comments Denies VB/SROM/urinary compl aints. Pt reports (+) FM and occasional ctx. Pt c/o heartburn- Desires script. PTL precautions and kick counts discussed. Still taking bp meds, discussed checking bps at home, she does not believe they been highAUA 28w2d, EDC 12/02/2019, EFW 2lbs 11oz, 30%tile, 1217g, Breech pres, SDP 4.31cm, FHT 154 BPM, girl.States having occasional CTXs. C/o heartburn. Depression is doing ok. Pt desires a tubal. Consent has been signed. NSTs will start @ 34 wga. Flowsheet Date 09/25/2019 House Score Blood Edema Fundus Height Fundus Units Glucose Ketones Leukocytes Nitrite Labor Signs Protein Cervic Dilation Cervic Effacement Cervic Station neg none negative none Negative Pressure neg Type Weight in lbs Pre/Post Dialysis Refused Weight 255.326758171177 BP Diastolic BP Location Tested BP Systolic BP Type 74 118 Fetus Heart Rate Present Fetus Movement A Yes Comments Denies VB/SROM/urinary compl aints. Pt reports (+) FM and irregular ctx. Pt c/o pressure when baby is moving down. PTL precautions and kick counts discussed. Pt reports decreased movement-will do NST today. Growth scan in two weeks. Flowsheet Date 10/09/2019 House Score Blood Edema Fundus Height Fundus Units Glucose Ketones Leukocytes Nitrite Labor Signs Protein Cervic Dilation Cervic Effacement Cervic Station Type Weight in lbs Pre/Post Dialysis Refused Weight 250.016718451641 BP Diastolic BP Location Tested BP Systolic BP Type 76 136 sitting Fetus Heart Rate Present A 150 Present Fetus Movement A Yes Comments Denies VB/SROM/urinary compl aints. Pt reports (+) FM and occasional ctx. Pt c/o feeling of lower abdominal menstrual cramps that occur a couple times a day. PTL precautions and kick counts discussed. Growth scan today- AUA 33.4, EFW 4# 13 oz (2188 grams, 67%), SDP 4.33 cm, Cephalic pres.NST next visit. Will tentatively deliver 11/16/2019.Her bp has been well controlled with labetalol and discussed rec for monitoring, she has difficulty traveling, and thus I believe it is reasonable to do weekly NSTs; if her bp were to worsen, or she has any prob would move to biweekly NST Flowsheet Date 10/25/2019 House Score Blood Edema Fundus Height Fundus Units Glucose Ketones Leukocytes Nitrite Labor Signs Protein Cervic Dilation Cervic Effacement Cervic Station neg none negative none Negative neg 1cm 0% -3 Type Weight in lbs Pre/Post Dialysis Refused Weight 249.808716769919 BP Diastolic BP Location Tested BP Systolic BP Type 86 128 sitting Fetus Heart Rate Present A 150 Present Fetus Movement A Yes Comments Pt. denies vaginal bleeding, SROM. Pt. states she's been having ctx since she's been in the clinic. She also states she was having ctx last night, nothing that can be timed or anything . NST today r/t and usg for fluidSend to OB for sedate/ hydrate/ possible Betamethasone injections- Per Dr. Trujillo. Report called to Sidra Cummings RN. Dr Trujillo to assess.GBS next week SDP 4.39cm, Cephalic pres FHT 154 BPM Flowsheet Date 10/30/2019 House Score Blood Edema Fundus Height Fundus Units Glucose Ketones Leukocytes Nitrite Labor Signs Protein Cervic Dilation Cervic Effacement Cervic Station neg none negative trace Negative neg 0cm 0 % -3 Type Weight in lbs Pre/Post Dialysis Refused Weight 250.386447572768 BP Diastolic BP Location Tested BP Systolic BP Type 90 142 sitting Fetus Heart Rate Present A 150 Present Fetus Movement Comments Steroids last week. Pt had P rocardia last week to stop CTXs. Denies VB/LOF & urinary s/s.Initially FHTs appeared to be 160s w mod variability and acels; however prolong monitoring in clinic revealed baseline 150s with + 15X15 acels, no contractions, cvx closed, feels good. Flowsheet Date 11/06/2019 House Score Blood Edema Fundus Height Fundus Units Glucose Ketones Leukocytes Nitrite Labor Signs Protein Cervic Dilation Cervic Effacement Cervic Station Uterine Contract ions Type Weight in lbs Pre/Post Dialysis Refused Weight 248.161477468869 BP Diastolic BP Location Tested BP Systolic BP Type 90 136 sitting Fetus Heart Rate Present A 150 Present Fetus Movement Comments Denies VB/SROM/urinary compl aints. Pt states she may have lost some mucus plug. Pt reports (+) FM. Pt reports increase in ctx- Approx 5-6 an hour that occurs a couple times daily. Pt states ctx slow down upon rest. Pt c/o pressure. Pt is pankaj q 2-3 minutes. Will send to L&D for fluid. Flowsheet Date 11/13/2019 House Score Blood Edema Fundus Height Fundus Units Glucose Ketones Leukocytes Nitrite Labor Signs Protein Cervic Dilation Cervic Effacement Cervic Station Type Weight in lbs Pre/Post Dialysis Refused Weight 237.160239187399 BP Diastolic BP Location Tested BP Systolic BP Type 86 R arm 140 sitting Fetus Heart Rate Present Fetus Movement Comments Flowsheet Date 12/19/2019 House Score Blood Edema Fundus Height Fundus Units Glucose Ketones Leukocytes Nitrite Labor Signs Protein Cervic Dilation Cervic Effacement Cervic Station Type Weight in lbs Pre/Post Dialysis Refused Weight 242.323946756514 BP Diastolic BP Location Tested BP Systolic BP Type 88 132 Fetus Heart Rate Present Fetus Movement Comments Menstrual History Last Menstrual Date Menses Monthly On Bcp Conception Prior Menses Frequency Hcg Plus Date Menarche Onset Age 1002/15/2019 Genetic Screening And Infection History Question Response Note Patient's Age Will Be 35 Yea rs Or Older At Estimated Date of Delivery true Thalassemia (Estonian, Burundian, Mediterranean, Or Background): MCV < 80 false Neural Tube Defect (Meningom yelocele, Spina Bifida, Or Anencephaly) false Congenital Heart Defect false FOB brot her born with heart murmur Down Syndrome false Bhanu-Sachs (eg, Yazidism, Cajun , Ukrainian-[place]) false Mayuri Disease false Sickle Cell Disease Or Trait () false Hemophilia Or Other Blood Disorders false Muscular Dystrophy false Cystic Fibrosis false Valentin's Chorea false Mental Retardation/Autism false If Yes, Was Person Tested For Fragile X? false Other Inherited Genetic Or C hromosomal Disorder false Maternal Metabolic Disorder (eg, Type 1 Diabetes, PKU) false Patient Or Baby's Father Had A Child With Defects Not Listed Above false Recurrent Loss, Or A Stillbirth false Medications (including Suppl ements, Vitamins, Herbs, OTC Drugs), Illicit/Recreational Drugs, Alcohol true Benadryl, PNV If Yes, Agent(s) And Strength/Dosage false Any Other Genetic History false Live With Someone With TB Or Exposed To TB false Patient Or Partner Has Histo ry Of Genital Herpes false Rash Or Viral Illness Since Last Menstrual Period false History Of STD, Gonorrhea, C hlamydia, HPV, Syphilis true HPV Other Infection History false Prior GBS-infected child false History of HIV false History of Hepatitis false Hemoglobinopathy Or Carrier false Other Structural Defect false Recent Travel History Outside of Country false Plans and Education First Trimester Discussed Date Discussion Item Discussion Note Discuss ed By Second Trimester Discussed Date Discussion Item Discussion Note Discuss ed By Third Trimester Discussed Date Discussion Item Discussion Note Discuss ed By 10/30/2019 Nicotine Use (tobacco/vaping) 35 weeks De nies tobacco use Delivery Information Delivery Date Delivery Type Labor Anesthesia Weeks Gestation Incision Type Labor Labor Length Hrs Delivered By Post Complications Tubal Sterilization Discharge Date Comments 0 Regional-Sp inal 36.4 Low Transvers e kappleget None true 11/08/2019 Discharge Information Feeding Method Contraceptive Method Maternal HG B and HCT Levels Bottle BTL Ob Episode Information Episode Created Date Number of Fetuses Patient Bloodtype Patient rh Status Prepregnancy Weight lbs Domestic Partner Domestic Partner Phone Father Name Golf Stud Riveter Status 12/14/19 17 1 CLOSED Fetus Data First Name Last Name Admitted to NICU Weight (g) Sex Living Outcome Pediatric Complications Fetus ID Race Codes Race Delivery Type M Full Term 2883 Vaginal Delivery Tomas Calculation Initial Tomas Date Initial Exam Date Initial Exam Provider Initial Ultrasound Date Last Menstrual Period Date Ultra Sound Weeks Gestation 0 Eighteen To Twenty Week Tomas Update Ultra Sound Date Fundal Height At Umbil Quickening Date Ultra Sound Latest Weeks Gestation Final Tomas Confirmed By Final Tomas Confirmed Date Final Tomas Date Ultra Sound Latest Days Gestation 0 0 Menstrual History Last Menstrual Date Menses Monthly On Bcp Conception Prior Menses Frequency Hcg Plus Date Menarche Onset Age Delivery Information Delivery Date Delivery Type Labor Anesthesia Weeks Gestation Incision Type Labor Labor Length Hrs Delivered By Post Complications Tubal Sterilization Discharge Date Comments 8 Regional-Ep idural 40 [facility] Discharge Information Feeding Method Contraceptive Method Maternal HG B and HCT Levels Ob Episode Information Episode Created Date Number of Fetuses Patient Bloodtype Patient rh Status Prepregnancy Weight lbs Domestic Partner Domestic Partner Phone Father Name Golf Stud Riveter Status 12/14/19 17 1 CLOSED Fetus Data First Name Last Name Admitted to NICU Weight (g) Sex Living Outcome Pediatric Complications Fetus ID Race Codes Race Delivery Type Full Term 2884 C Section Primary Tomas Calculation Initial Tomas Date Initial Exam Date Initial Exam Provider Initial Ultrasound Date Last Menstrual Period Date Ultra Sound Weeks Gestation 0 Eighteen To Twenty Week Tomas Update Ultra Sound Date Fundal Height At Umbil Quickening Date Ultra Sound Latest Weeks Gestation Final Tomas Confirmed By Final Tomas Confirmed Date Final Tomas Date Ultra Sound Latest Days Gestation 0 0 Menstrual History Last Menstrual Date Menses Monthly On Bcp Conception Prior Menses Frequency Hcg Plus Date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
--- NOTE | 2025-03-22 14:19 | ECG_ITS ---
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 Measurements Intervals [place] Rate: 108 P: 48 MD: 199 QRS: 4 QRSD: 90 T: 49 QT: 347 QTc: 465 Interpretive Statements SINUS TACHYCARDIA WITH FREQUENT SUPRAVENTRICULAR PREMATURE COMPLEXES ABNORMAL RHYTHM ECG Compared to ECG 10/24/2023 22:25:34 Myocardial infarct finding no longer present Electronically Signed On 03-23-2025 08:31:24 ACTUARIAL SCIENCE PROFESSOR by Jonathan Taylor M.D. [email or web address]
--- NOTE | 2025-03-22 14:33 | PC.NURSE ---
96 hour paperwork read by this nurse with security present. Patient verbalized understanding.
[2025-03-22 14:43] LABS: Hematocrit 44.3 % (36-47); Hemoglobin 14.50 g/dL (11.27-16.99); Mean Corpuscular HGB Conc 32.7 g/dL (30-55); Mean Corpuscular Hemoglobin 27.5 pg (27-33); Mean Corpuscular Volume 83.9 fl (85-98); Nucleated Red Blood Cells % 0 %; Platelet Count 318 10^3/cmm (157-399); Red Blood Count 5.28 10^6/uL (3.85-5.65); White Blood Count 12.28 10^3/uL (3.29-11.43)
[2025-03-22 15:00] VITALS: BP 158/82; PULSE 96; RESP 18; TEMP 36.8; O2SAT 96
[2025-03-22 15:02] LABS: Alanine Aminotransferase 47 U/L (0-33); Albumin Level 4.1 g/dL (3.5-5.2); Alkaline Phosphatase 62 U/L (35-105); Anion Gap 16.7 (5-19); Aspartate Amino Transferase 20 U/L (0-32); Blood Urea Nitrogen 13 mg/dL (6-20); Calcium 8.8 mg/dL (8.5-10.5); Carbon Dioxide 21 mmol/L (22-29); Chloride 107 mmol/L (98-107); Creatinine Clr Calc Pharmacy 109.3262; Globulin 2.9 g/dL (1.3-4.6); Glucose 147 mg/dL (65-115); Osmolality Calculated 295 mOsm/kg (285-295); Potassium 3.7 mmol/L (3.5-5.1); Sodium 141 mmol/L (136-145); Thyroid Stimulating Hormone 2.34 uIU/mL (0.27-4.20); Total Protein 7.0 g/dL (6.6-8.7)
[2025-03-22 15:06] LABS: Acetaminophen < 5.0 ug/mL (10-30); Alcohol Level < 10 mg/dL (0-10); Salicylate < 0.3 mg/dL (3-10)
--- NOTE | 2025-03-22 15:50 | W.ED.PSYCHS ---
HPI - Psych General: Chief Complaint: Psychiatric Symptoms Stated Complaint: SI Time Seen by Provider: 03/22/25 13:52 History of Present Illness: Patient presenting to the emergency department with 96-hour hold in place by PD after they were called to her residence for trespassing and patient was irate and agitated, after being taken to custody she reported that she wanted to blow her brains out with a gun, she reports that she is feeling very anxious because she was recently kicked out of her 's house, has been staying with her ex- whom they have a child together and she does not agree with the way in which her child is being raised, this is causing her to be upset and causing her to want to kill herself because she does not feel there is any point in living. She denies any attempts at self-harm in recent days, she does not answer when I ask if she has been compliant with her prescribed psychiatric medication, per PD she was recently admitted to a psychiatric institution in [place] last month Related Data Home Medications ?Medication ?Instructions ?Recorded ?Confirmed haloperidol 5 mg tablet 5 mg PO Q8H PRN Agitation 03/22/25 03/22/25 hydroxyzine pamoate 50 mg capsule 50 mg PO QID 03/22/25 03/22/25 lamotrigine 25 mg tablet 25 mg PO BID 03/22/25 03/22/25 lurasidone 60 mg tablet 60 mg PO DAILY 03/22/25 03/22/25 Previous Rx's ?Medication ?Instructions ?Recorded propranolol 20 mg tablet 20 mg PO TID 30 days #90 tabs 03/15/24 Allergies Allergy/AdvReac Type Severity Reaction Status Date / Time codeine Allergy ALGY-Hives Verified 03/12/24 16:55 lorazepam Allergy ALGY-Anaphy Verified 03/12/24 16:55 laxis Penicillins Allergy ALGY-Hives Verified 03/12/24 16:55 prednisone Allergy ALGY-Anaphy Verified 03/12/24 16:55 laxis Physical Exam Narrative: EXAM NARRATIVE: Gen: A&Ox4, no acute distress, nontoxic appearing HEENT: Normocephalic, atraumatic, no scleral icterus, external ears normal, moist mucous membranes Neck: Supple, full range of motion, no observable masses Lungs: No Respiratory distress, Lungs clear to auscultation bilaterally no rales, rhonchi, wheezing CV: Minimally tachycardic, regular rhythm, no murmur, no pitting edema to lower extremities bilaterally Abdomen: Soft, nondistended, nontender to palpation MSK: No joint swelling, FROM all 4 extremities Skin: No rashes, petechiae, lesions. Normal color per patient. Neuro: Alert and oriented, no slurred speech, sensation and strength grossly intact all 4 extremities Psych: Patient with pressured speech, intermittently yelling, appears upset, does not appear to be responding to internal stimuli or displaying any magical thinking Course Vital Signs: Vital signs: Vital Signs Temperature 98.3 F 03/22/25 15:00 Pulse Rate 96 03/22/25 15:00 Respiratory Rate 18 03/22/25 15:00 Blood Pressure 158/82 03/22/25 15:00 Pulse Oximetry 96 03/22/25 15:00 Oxygen Delivery Me thod Room Air 03/22/25 15:00 MDM - Psych Medical Decision Making 39-year-old female with previous psychiatric history presenting the emergency department with endorsed SI to police after they were called to a trespassing call at her residence, patient appears to be undergoing some family conflict with her ex- and child, recently kicked out of her 's house per her report, she is mildly tachycardic and appears anxious and upset which is not seem acutely psychotic on my evaluation, she is cooperating with evaluation in the emergency department, she is requesting sedation, plan for medical clearance for psychiatric evaluation. No medical symptoms endorsed. Lab Data Labs with minimal leukocytosis 12.2, normal electrolytes, normal kidney function, minimal hyperglycemia 147 not clinically relevant, TSH normal, salicylates acetaminophen and ethanol levels negative, negative, LFTs normal 03/22/25 14:24 03/22/25 14:24 Laboratory Results WBC 12.28 10^3/uL (3.29-11.43) H 03/22/25 14:24 RBC 5.28 10^6/uL (3.85-5.65) 03/22/25 14:24 Hgb 14.50 g/dL (11.27-16.99) 03/22/25 14:24 Hct 44.3 % (36-47) 03/22/25 14:24 MCV 83.9 fl (85-98) L 03/22/25 14:24 MCH 27.5 pg (27-33) 03/22/25 14:24 MCHC 32.7 g/dL (30-55) 03/22/25 14:24 RDW 15.2 % (12.1-15.1) H 03/22/25 14:24 Plt Count 318 10^3/cmm (157-399) 03/22/25 14:24 MPV 10.6 fL (7.4-10.4) H 03/22/25 14:24 Neut % (Auto) 68.4 % 03/22/25 14:24 Lymph % (Auto) 18.5 % 03/22/25 14:24 [place] % (Auto) 6.9 % 03/22/25 14:24 Eos % (Auto) 4.6 % 03/22/25 14:24 Baso % (Auto) 0.9 % 03/22/25 14:24 Neut # (Auto) 8.39 10^3/uL (1.8-7.7) H 03/22/25 14:24 Lymph # (Auto) 2.3 10^3/uL (0.8-4.8) 03/22/25 14:24 [place] # (Auto) 0.9 10^3/uL (0.2-0.9) 03/22/25 14:24 Eos # (Auto) 0.6 10^3/uL (0.0-0.8) 03/22/25 14:24 Baso # (Auto) 0.1 10^3/uL (0.0-0.1) 03/22/25 14:24 Nucleated RBC % (auto) 0 % 03/22/25 14:24 Nucleated RBCs # 0.0 /100WBC 03/22/25 14:24 Sodium 141 mmol/L (136-145) 03/22/25 14:24 Potassium 3.7 mmol/L (3.5-5.1) 03/22/25 14:24 Chloride 107 mmol/L (98-107) 03/22/25 14:24 Carbon Dioxide 21 mmol/L (22-29) L 03/22/25 14:24 Anion Gap 16.7 (5-19) 03/22/25 14:24 BUN 13 mg/dL (6-20) 03/22/25 14:24 Creatinine 0.7 mg/dL (0.5-0.9) 03/22/25 14:24 GFR Calculation 92.2 mL/min (90-130) 03/22/25 14:24 Glucose 147 mg/dL (65-115) H 03/22/25 14:24 Calculated Osmolality 295 mOsm/kg (285-295) 03/22/25 14:24 Calcium 8.8 mg/dL (8.5-10.5) 03/22/25 14:24 Total Bilirubin 0.4 mg/dL (0.15-1.2) 03/22/25 14:24 AST 20 U/L (0-32) 03/22/25 14:24 ALT 47 U/L (0-33) H 03/22/25 14:24 Alkaline Phosphatase 62 U/L (35-105) 03/22/25 14:24 Total Protein 7.0 g/dL (6.6-8.7) 03/22/25 14:24 Albumin 4.1 g/dL (3.5-5.2) 03/22/25 14:24 Globulin 2.9 g/dL (1.3-4.6) 03/22/25 14:24 TSH 2.34 uIU/mL (0.27-4.20) 03/22/25 14:24 HCG, Qual Negative (Negative) 03/22/25 15:41 Urine Color Yellow (Yellow) 03/22/25 15:41 Urine Appearance Cloudy (CLEAR) A 03/22/25 15:41 Urine pH 5.5 (5-7) 03/22/25 15:41 Ur Specific [place] 1.027 (1.005-1.030) 03/22/25 15:41 Urine Protein Trace (Negative) A 03/22/25 15:41 Urine Glucose (UA) Negative (Normal) 03/22/25 15:41 Urine Ketones Trace (Negative) 03/22/25 15:41 Urine Blood 3+ (Negative) A 03/22/25 15:41 Urine Nitrate Negative (Negative) 03/22/25 15:41 Urine Bilirubin Negative (Negative) 03/22/25 15:41 Urine Urobilinogen 1.0 mg/dL (Negative) 03/22/25 15:41 Ur Leukocyte Esterase Trace (Negative) A 03/22/25 15:41 Urine RBC 3-5 /hpf (0-2) 03/22/25 15:41 Urine WBC 0-5 /hpf (0-5) 03/22/25 15:41 Ur Squamous Epith Cells 6-10 /hpf (0-5) 03/22/25 15:41 Amorphous Sediment Not Reportable 03/22/25 15:41 Urine Bacteria 2+ /hpf (NONE) H 03/22/25 15:41 Hyaline Casts 4.11 /lpf 03/22/25 15:41 Salicylates < 0.3 mg/dL (3-10) L 03/22/25 14:24 Urine Opiates Screen Negative ng/mL (Negative) 03/22/25 15:41 Acetaminophen < 5.0 ug/mL (10-30) L 03/22/25 14:24 Ur Barbiturates Screen Negative ng/mL (Negative) 03/22/25 15:41 Ur Phencyclidine Scrn Negative ng/mL (Negative) 03/22/25 15:41 Ur Amphetamines Screen Negative ng/mL (Negative) 03/22/25 15:41 U Benzodiazepines Scrn Positive ng/mL (Negative) H 03/22/25 15:41 Urine Cocaine Screen Negative ng/mL (Negative) 03/22/25 15:41 U Marijuana (THC) Screen Positive ng/mL (Negative) H 03/22/25 15:41 Ethyl Alcohol < 10 mg/dL (0-10) 03/22/25 14:24 No radiology studies performed this visit EKG Data EKG 1: I personally reviewed and interpreted this EKG as follows: EKG interpretation date: 03/22/25 EKG interpretation time: 15:35 Interpretation: Sinus tachycardia at 208 bpm with frequent PACs, no STEMI, normal axis, QTc 410 ms Discharge Plan Discharge Patient Disposition: Admitted As Inpatient Admit Provider: Conor Beatty Clinical Impression: Suicidal ideation Condition: Stable Coding Level of Care Code ED Feather Edger for Ashleigh Peres
[2025-03-22 15:52] LABS: Glucose Urine UA Negative (Normal); HCG Qualitative Urine. Negative (Negative); Nitrate Urine Negative (Negative); Specific Gravity, Urine 1.027 (1.005-1.030)
[2025-03-22 16:00] LABS: PCP Screen Urine Negative (Negative)
[2025-03-22 16:09] LABS: Add Urine Microscopic? YES
[2025-03-22] MEDS: haloperidol inj 5 mg/mL INJ 1 mL IVP (16:56)
[2025-03-22 18:04] VITALS: BP 136/85; PULSE 97; RESP 18; TEMP 36.8; O2SAT 97
--- NOTE | 2025-03-22 19:58 | PC.NURSE ---
Patient admission assessment completed. Patient was no cooperative with the assessment. She yelled at staff to leave her alone. During skin assessment she started ripping her clothes off. She told this RN that she was a bitch and wanted me to leave. Prior medical records reviewed to assist with documentation. Home medications are reordered. Unit norms and expectations were reviewed with the patient. Patient declined needs and request staff to let her be. Fluids offered. Patient is now sleeping on her right side. Resp unlabored.
[2025-03-22 20:18] VITALS: RESP 16
--- NOTE | 2025-03-22 20:18 | PC.NURSE ---
vitals not done per nurse, resp 16
[2025-03-23 06:00] VITALS: BP 158/102; PULSE 98; RESP 16; TEMP 36.6; O2SAT 100
--- NOTE | 2025-03-23 09:13 | PC.NURSE ---
Pt. c/o anxiety. Pt. has already had vistaril and requested more anxiety med. Signee pulled haldol and pt. refused getting agitated and upset. Signee then asked if pt. wanted a zyprexa pt. refused that too. Signee informed pt. that was all she could have at this time for anxiety and pt. stated she would just sit there and have an anxiety attack. Pt. is talking with another pt. who is not helping the situation.
[2025-03-23] MEDS: haloperidol inj 5 mg/mL INJ 1 mL IM (10:25)
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
--- NOTE | 2025-03-23 10:40 | PC.NURSE ---
Signee called Dr. Beatty and he gave the verbal order to give one x order for Geodon 20mg IM.
[2025-03-23 14:00] VITALS: BP 155/107; PULSE 83; RESP 18; TEMP 36.6; O2SAT 95
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
--- NOTE | 2025-03-23 22:35 | PC.NURSE ---
pt refused vs nurse notified resp 16
[2025-03-24 06:00] VITALS: BP 156/101; PULSE 91; RESP 16; TEMP 36.5; O2SAT 98; BMI 38.4
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
[2025-03-24 13:35] VITALS: BP 144/94; PULSE 81; RESP 16; TEMP 36.8; O2SAT 97
--- NOTE | 2025-03-24 14:16 | P.NPUPN_ITS ---
Subjective NPU 2 Subjective: Patient presented today reporting that she is willing to take the medication/shot we had discussed. We discussed the possible wrinkle preventing her from getting it thusfar. She continued to be quite psychotic per staff reports and direct observation. She was open to restarting her current medications in the meanwhile. She denied any side effects to the medication. Mental Status Exam 2 MSE Comments: Patient is an obese white female in hospital scrubs with poor hygiene and adequate eye contact. No abnormal movements except for mild psychomotor retardation. Cooperative with exam in mild to moderate distress. Speech was decreased rate and volume. Her mood was described as not good, her affect was mood congruent and agitated. Thought process was organized. Her thought content: She denied any suicidal or homicidal ideation. There were no delusions reported but there was evidence of significant paranoid, persecutory and grandiose delusions with significant religiosity and ideas of reference. She denied auditory or visual hallucinations. Expressed fear of being in harm's way due to a weapon, indicating suicidal risk. Discussed a situation involving a weapon and police involvement, suggesting thoughts of violence or aggression against others. Reported having their head chopped off, indicating possible visual hallucinations and delusions. Difficulty sleeping with certain medications. Involvement with police and concerns about medication are stressors. Concerns about mood dysregulation. Attention and concentration were limited and memory was unreliable but none were formally tested. She was alert and oriented to person, place at this time. Her insight and judgment are poor and her impulse control appeared impaired. Her attention span appeared impaired as well. Vitals/I&O/Wt Last Vital Signs Temp 98.3 F 03/24/25 13:35 Pulse 81 03/24/25 13:35 Resp 16 03/24/25 13:35 BP 144/94 03/24/25 13:35 Pulse Ox 97 03/24/25 13:35 O2 Del Method Room Air 03/24/25 13:35 Weight last 48 hrs Weight 101.605 kg Data NPU 03/22/25 14:24 03/22/25 14:24 Micro: Microbiology 03/22/25 15:41 Urine Culture - Final Urine,Clean Catch Microbiology 03/22/25 15:41 Urine,Clean Catch Urine Culture - Final A&P Assessment and plan 1. Bipolar I disorder with mood-congruent psychotic features: 2. Bipolar disorder with psychotic features: 3. Psychosis: 4. Suicidal ideation: Plan: This is a 39-year-old white female with a past history of psychosis, likely bipolar d/o with psychotic features or schizoaffective disorder bipolar type once again admitted involuntarily with increased agitation and suicidal ideation while noncompliant with medication regimen. Mood dysregulation with psychotic features, including reported delusional experiences. Medication nonadherence noted. Sleep disturbance associated with prior antipsychotic use. Plan Recommended follow-up for psychiatric medications to reduce the risk of mood dysregulation and related complications. Advised restarting prescribed medications or ensuring administration as indicated. Discussed alternative antipsychotic options, including Abilify, Invega, and Risperdal, based on tolerability and previous experience. Proposed trial of a new long-acting injectable antipsychotic, administered subcutaneously, with dosing intervals of one to two months, to improve adherence and minimize the need for frequent medication refills. 1. Encourage individual, group and milieu therapy. 2. Recommend sober living treatment at the highest level of care to which the patient is willing to commit. 3. Continue q-15 minute checks for safety.? 4. Continue current medication. Start subcutaneous antipsychotic long-acting agent that was discussed with head of inpatient pharmacy after talking with her tomorrow. 5. Obtain collateral information 6. Evaluate against the backdrop of 96-hour hold. PDMP PDMP Reviewed: Not Reviewed Involuntary Hold Information 2 Hold Status: Legal Status: 96 Hour Hold Date/Time Hold Expires: 03/28/25 96 Hour Hold: 96 Hour Involuntary Admission: Yes Other Hold: Hold End Date: 03/16/24 Attestations NPU 2 Medical Necessity Statement*: Inpatient hospitalization is medically necessary and the clinically appropriate intervention at this time.? We will monitor/initiate medications and make changes as indicated.? The patient?s likely length of stay 5-7 days. Coding Level of Care Code Acute Code for Chg Fwd Diagnoses Bipolar I disorder with mood-congruent psychotic features F31.9 Bipolar disorder with psychotic features F31.9 Psychosis F29 Suicidal ideation R45.851
[2025-03-24 20:34] VITALS: BP 135/75; PULSE 70; RESP 17; TEMP 36.5; O2SAT 96
--- NOTE | 2025-03-24 22:42 | PC.NURSE ---
03/24/251999 Cara was walking past this nurse, outwardly anxious/upset after being up @ the nursing station. She voiced that she asks a question & gets asked if I'm suicidal . It did not appear that any staff was nearby to have interacted with her. She allowed nsg to console, make plan with her for her needs at the moment, to resolve. Immediately positive response, et positivity continued from her. A few minutes later, she noticed another patient going through an upset et stepped up to offer comfort/ companionship. The two patients then began walking/utilizing coping skills together. They were noted to be cheerful et laughing soon after. Nursing continues to monitor for needs et changes.
[2025-03-25 14:00] VITALS: RESP 18
--- NOTE | 2025-03-25 14:43 | P.NPUPN_ITS ---
Subjective NPU 2 Subjective: Patient presented today reporting that she is doing horribly because she is so anxious secondary to her thoughts. She reports that mostly the situation is that she thinks she is the devil because she is so evil. She then started ranting about different conspiracy theories involving anyone he could think of including he will jose and Benedicto Ruizsusannah caballero. We discussed starting some respite all including the risks, benefits and alternatives as we plan for the use that he injection which he agreed to and reports that she understood and she agreed to proceed as documented in this note. She denied any side effects of her current medication. Mental Status Exam 2 MSE Comments: Patient is an obese white female in hospital scrubs with poor hygiene and adequate eye contact. No abnormal movements except for mild psychomotor retardation. Cooperative with exam in mild to moderate distress. Speech was decreased rate and volume. Her mood was described as not good, her affect was mood congruent and agitated. Thought process was organized. Her thought content: She denied any suicidal or homicidal ideation. There were no delusions reported but there was evidence of significant paranoid, persecutory, bizarre and grandiose delusions with significant religiosity and ideas of reference. She denied auditory or visual hallucinations. Expressed fear of being in harm's way due to a weapon, indicating suicidal risk. Discussed a situation involving a weapon and police involvement, suggesting thoughts of violence or aggression against others. Reported having their head chopped off, indicating possible visual hallucinations and delusions. Difficulty sleeping with certain medications. Involvement with police and concerns about medication are stressors. Concerns about mood dysregulation. Attention and concentration were limited and memory was unreliable but none were formally tested. She was alert and oriented to person, place at this time. Her insight and judgment are poor and her impulse control appeared impaired. Her attention span appeared impaired as well. Vitals/I&O/Wt Last Vital Signs Temp 97.7 F 03/24/25 20:34 Pulse 70 03/24/25 20:34 Resp 17 03/24/25 20:34 BP 135/75 03/24/25 20:34 Pulse Ox 96 03/24/25 20:34 O2 Del Method Room Air 03/24/25 20:34 Weight last 48 hrs Weight 101.605 kg Data NPU 03/22/25 14:24 03/22/25 14:24 Micro: Microbiology 03/22/25 15:41 Urine Culture - Final Urine,Clean Catch Microbiology 03/22/25 15:41 Urine,Clean Catch Urine Culture - Final A&P Assessment and plan 1. Bipolar I disorder with mood-congruent psychotic features: 2. Bipolar disorder with psychotic features: 3. Psychosis: 4. Suicidal ideation: Plan: This is a 39-year-old white female with a past history of psychosis, likely bipolar d/o with psychotic features or schizoaffective disorder bipolar type once again admitted involuntarily with increased agitation and suicidal ideation while noncompliant with medication regimen. Mood dysregulation with psychotic features, including reported delusional experiences. Medication nonadherence noted. Sleep disturbance associated with prior antipsychotic use. Plan Recommended follow-up for psychiatric medications to reduce the risk of mood dysregulation and related complications. Advised restarting prescribed medications or ensuring administration as indicated. Discussed alternative antipsychotic options, including Abilify, Invega, and Risperdal, based on tolerability and previous experience. Proposed trial of a new long-acting injectable antipsychotic, administered subcutaneously, with dosing intervals of one to two months, to improve adherence and minimize the need for frequent medication refills. 1. Encourage individual, group and milieu therapy. 2. Recommend sober living treatment at the highest level of care to which the patient is willing to commit. 3. Continue q-15 minute checks for safety.? 4. Continue current medication. Start Risperdal 1 mg 3 times daily as needed as we prepare for her to get the you steady injection. 5. Obtain collateral information 6. Evaluate against the backdrop of 96-hour hold. PDMP PDMP Reviewed: Not Reviewed Involuntary Hold Information 2 Hold Status: Legal Status: 96 Hour Hold Date/Time Hold Expires: 1558 96 Hour Hold: 96 Hour Involuntary Admission: Yes Other Hold: Hold End Date: 03/16/24 Attestations NPU 2 Medical Necessity Statement*: Inpatient hospitalization is medically necessary and the clinically appropriate intervention at this time.? We will monitor/initiate medications and make changes as indicated.? The patient?s likely length of stay 5-7 days. Coding Level of Care Code Acute Code for Chg Fwd Diagnoses Bipolar I disorder with mood-congruent psychotic features F31.9 Bipolar disorder with psychotic features F31.9 Psychosis F29 Suicidal ideation R45.858
--- NOTE | 2025-03-25 20:28 | PC.NURSE ---
vd not collected resp 16 nurse notified
--- NOTE | 2025-03-25 21:03 | PC.NURSE ---
pt got upset because this CURRICULUM SUPERVISOR and the EXPERIMENTAL ROCKETSLED MECHANIC went into her room to do pt safety checks EXPERIMENTAL ROCKETSLED MECHANIC removed a lozenge from pts bedside table
--- NOTE | 2025-03-26 06:07 | PC.NURSE ---
pt refused vs and took the cuff off off and stated that we know she has heart problems and high bp and that we wont give her anything for it anyway. pt yelled dont piss me off and stated she didnt need it done. pt then contuined to yell at this ROTARY DRIER FEEDER and BEHAVIORAL INSTRUCTOR Ebony.
--- NOTE | 2025-03-26 09:47 | W.PM.NPUPNS ---
Subjective NPU Subjective: Patient presented today continuing to somewhat struggle with her thought process but seeming less irritable per staff reports and direct observation likely secondary to the introduction of the Risperdal which has been effective in the past. We discussed working to get the Uzed approved since she has agreed to take that once we doy have it authorized. Tiny specks of her medication. Mental Status Exam MSE Comments: Patient is an obese white female in hospital scrubs with poor hygiene and adequate eye contact. No abnormal movements except for mild psychomotor retardation. Cooperative with exam in mild to moderate distress. Speech was decreased rate and volume. Her mood was described as not good, her affect was mood congruent and agitated. Thought process was organized. Her thought content: She denied any suicidal or homicidal ideation. There were no delusions reported but there was evidence of significant paranoid, persecutory, bizarre and grandiose delusions with significant religiosity and ideas of reference. She denied auditory or visual hallucinations. Expressed fear of being in harm's way due to a weapon, indicating suicidal risk. Discussed a situation involving a weapon and police involvement, suggesting thoughts of violence or aggression against others. Reported having their head chopped off, indicating possible visual hallucinations and delusions. Difficulty sleeping with certain medications. Involvement with police and concerns about medication are stressors. Concerns about mood dysregulation. Attention and concentration were limited and memory was unreliable but none were formally tested. She was alert and oriented to person, place at this time. Her insight and judgment are poor and her impulse control appeared impaired. Her attention span appeared impaired as well. Vitals/I&O/Wt Last Vital Signs Temp 97.7 F 03/24/25 20:34 Pulse 70 03/24/25 20:34 Resp 18 03/25/25 14:00 BP 135/75 03/24/25 20:34 Pulse Ox 96 03/24/25 20:34 O2 Del Method Room Air 03/24/25 20:34 Data NPU 03/22/25 14:24 03/22/25 14:24 A&P Assessment and plan 1. Bipolar I disorder with mood-congruent psychotic features: 2. Bipolar disorder with psychotic features: 3. Psychosis: 4. Suicidal ideation: Plan: This is a 39-year-old white female with a past history of psychosis, likely bipolar d/o with psychotic features or schizoaffective disorder bipolar type once again admitted involuntarily with increased agitation and suicidal ideation while noncompliant with medication regimen. Mood dysregulation with psychotic features, including reported delusional experiences. Medication nonadherence noted. Sleep disturbance associated with prior antipsychotic use. Plan Recommended follow-up for psychiatric medications to reduce the risk of mood dysregulation and related complications. Advised restarting prescribed medications or ensuring administration as indicated. Discussed alternative antipsychotic options, including Abilify, Invega, and Risperdal, based on tolerability and previous experience. Proposed trial of a new long-acting injectable antipsychotic, administered subcutaneously, with dosing intervals of one to two months, to improve adherence and minimize the need for frequent medication refills. 1. Encourage individual, group and milieu therapy. 2. Recommend sober living treatment at the highest level of care to which the patient is willing to commit. 3. Continue q-15 minute checks for safety.? 4. Continue current medication. Start Risperdal 1 mg 3 times daily as needed as we prepare for her to get the Uzedy injection. 5. Obtain collateral information 6. Evaluate against the backdrop of 96-hour hold. PDMP PDMP Reviewed: Not Reviewed Involuntary Hold Information Hold Status: Legal Status: 96 Hour Hold Date/Time Hold Expires: 1405 96 Hour Hold: 96 Hour Involuntary Admission: Yes Other Hold: Hold End Date: 03/16/24 Attestations NPU Medical Necessity Statement*: Inpatient hospitalization is medically necessary and the clinically appropriate intervention at this time.? We will monitor/initiate medications and make changes as indicated.? The patient?s likely length of stay 4-6 days. Coding Level of Care Code Acute Code for [facility] Diagnoses Bipolar I disorder with mood-congruent psychotic features F31.9 Bipolar disorder with psychotic features F31.9 Psychosis F29 Suicidal ideation R45.858
--- NOTE | 2025-03-26 10:49 | PC.NURSE ---
pt refusing to wear [facility] medical wrist band. pt threatening that she will just rip it off and throw it away and you will just have to continue to put them on me. when this staff member went to place medical band on pt. pt refused saying if you make me mad everyone is going to know about it. explained to pt the importance of wearing medical id bracelet pt stated she is not wearing it.
--- NOTE | 2025-03-26 11:52 | PC.NURSE ---
Pt. verbally abuse and making threats to staff and other pt.'s. Pt. claims another male pt. is purposely aggravating her. The male pt. was moved to the sought side of the unit. Security was called down to the unit d/t the threats and verbal insults by this pt. Pt. threatening to knock peoples heads off. Vistaril and Zyprexa given at this time.
[2025-03-26 14:00] VITALS: RESP 18
--- NOTE | 2025-03-26 19:47 | PC.NURSE ---
vs not collected pt refused and said to get out of her room. resp 18 nurse notified
--- NOTE | 2025-03-26 20:19 | PC.NURSE ---
This MARKETING REPORTING ANALYST, CARIDAD Beck and HS Alise went into pt room to do pt safety checks and pt began to yell and scream at us to all get out of her room pt began to yell and curse then called us cunts and went into the bathroom and slammed the door behind her.
--- NOTE | 2025-03-27 06:29 | PC.NURSE ---
vs n ot collected resp 18 nurse notified
--- NOTE | 2025-03-27 08:11 | P.NPUPN_ITS ---
Subjective NPU 2 Subjective: Patient presented today reporting that she is being less agitated. She reports that she is taking the Risperdal and that her anxiety has maybe come down a little bit. She once again inquired about the injection and we discussed the fact that I have been advised that it should be available to her tomorrow at some time. We discussed that after she gets the injection that we will continue to monitor her to identify if she is having the type of improvement that would be consistent with discharge. She reports that she believes she has a place to go home to. Otherwise she denied side effects of the medication. Mental Status Exam 2 MSE Comments: Patient is an obese white female in hospital scrubs with poor hygiene and adequate eye contact. No abnormal movements except for mild psychomotor retardation. Cooperative with exam in mild to moderate distress, but clearly slightly less distressed. Speech was decreased rate and volume. Her mood was described as trying to be better, her affect was mood congruent and less limiting intake with current medications less agitated. Thought process was organized. Her thought content: She denied any suicidal or homicidal ideation. There were no delusions reported but there was evidence of significant paranoid, persecutory, bizarre and grandiose delusions with significant religiosity and ideas of reference. She denied auditory or visual hallucinations. Expressed fear of being in harm's way due to a weapon, indicating suicidal risk. Discussed a situation involving a weapon and police involvement, suggesting thoughts of violence or aggression against others. Reported having their head chopped off, indicating possible visual hallucinations and delusions. Difficulty sleeping with certain medications. Involvement with police and concerns about medication are stressors. Concerns about mood dysregulation. Attention and concentration were limited and memory was unreliable but none were formally tested. She was alert and oriented to person, place at this time. Her insight and judgment are poor and her impulse control appeared impaired. Her attention span appeared impaired as well. Vitals/I&O/Wt Last Vital Signs Temp 97.7 F 03/24/25 20:34 Pulse 70 03/24/25 20:34 Resp 18 03/26/25 14:00 BP 135/75 03/24/25 20:34 Pulse Ox 96 03/24/25 20:34 O2 Del Method Room Air 03/24/25 20:34 Data NPU 03/22/25 14:24 03/22/25 14:24 A&P Assessment and plan 1. Bipolar I disorder with mood-congruent psychotic features: 2. Bipolar disorder with psychotic features: 3. Psychosis: 4. Suicidal ideation: Plan: This is a 39-year-old white female with a past history of psychosis, likely bipolar d/o with psychotic features or schizoaffective disorder bipolar type once again admitted involuntarily with increased agitation and suicidal ideation while noncompliant with medication regimen. Mood dysregulation with psychotic features, including reported delusional experiences. Medication nonadherence noted. Sleep disturbance associated with prior antipsychotic use. Plan Recommended follow-up for psychiatric medications to reduce the risk of mood dysregulation and related complications. Advised restarting prescribed medications or ensuring administration as indicated. Discussed alternative antipsychotic options, including Abilify, Invega, and Risperdal, based on tolerability and previous experience. Proposed trial of a new long-acting injectable antipsychotic, administered subcutaneously, with dosing intervals of one to two months, to improve adherence and minimize the need for frequent medication refills. 1. Encourage individual, group and milieu therapy. 2. Recommend sober living treatment at the highest level of care to which the patient is willing to commit. 3. Continue q-15 minute checks for safety.? 4. Continue current medication. Start Risperdal 1 mg 3 times daily as needed as we prepare for her to get the Uzedy injection. Have been advised by the pharmacy that injection should be ready for tomorrow. 5. Obtain collateral information 6. Evaluate against the backdrop of 96-hour hold. PDMP PDMP Reviewed: Not Reviewed Involuntary Hold Information 2 Hold Status: Legal Status: 96 Hour Hold Date/Time Hold Expires: 4575 96 Hour Hold: 96 Hour Involuntary Admission: Yes Other Hold: Hold End Date: 03/16/24 Attestations NPU 2 Medical Necessity Statement*: Inpatient hospitalization is medically necessary and the clinically appropriate intervention at this time.? We will monitor/initiate medications and make changes as indicated.? The patient?s likely length of stay 3-5 days. Coding Level of Care Code Acute Code for Chg Fwd Diagnoses Bipolar I disorder with mood-congruent psychotic features F31.9 Bipolar disorder with psychotic features F31.9 Psychosis F29 Suicidal ideation R45.850
[2025-03-27 13:41] VITALS: BP 145/87; PULSE 93; RESP 16; TEMP 36.3; O2SAT 96
[2025-03-27 19:53] VITALS: BP 149/99; PULSE 84; RESP 18; TEMP 36.3; O2SAT 100
--- NOTE | 2025-03-28 06:51 | PC.NURSE ---
vs not collected resp 16
--- NOTE | 2025-03-28 06:52 | PC.NURSE ---
vs not collected resp17
[2025-03-28 13:47] VITALS: BP 109/66; PULSE 73; RESP 16; TEMP 36.8; O2SAT 96
--- NOTE | 2025-03-28 16:44 | PC.NURSE ---
1537 Administered Subcut injection of Uzedy 100mg to back of left arm. Pt tolerated the injection well.
--- NOTE | 2025-03-28 20:23 | P.NPUPN_ITS ---
Subjective NPU 2 Subjective: Patient presented today reporting that she is upset that she feels that we have been playing games with her with the medication even though we have explained again and again circumstance of the medication that it was absolutely new she is the first person giving it on the unit and so there were some billing issues that needed to be managed first before the medication was identifiable on the formulary in the system on the computer. She reported that willingness to take the medication still. She denied any side effects to her current medication. Mental Status Exam 2 MSE Comments: Patient is an obese white female in hospital scrubs with poor hygiene and adequate eye contact. No abnormal movements except for mild psychomotor retardation. Cooperative with exam in mild to moderate distress, but clearly slightly less distressed. Speech was decreased rate and volume. Her mood was described as trying to be better, her affect was mood congruent and less limiting intake with current medications less agitated. Thought process was organized. Her thought content: She denied any suicidal or homicidal ideation. There were no delusions reported but there was evidence of significant paranoid, persecutory, bizarre and grandiose delusions with significant religiosity and ideas of reference. She denied auditory or visual hallucinations. Expressed fear of being in harm's way due to a weapon, indicating suicidal risk. Discussed a situation involving a weapon and police involvement, suggesting thoughts of violence or aggression against others. Reported having their head chopped off, indicating possible visual hallucinations and delusions. Difficulty sleeping with certain medications. Involvement with police and concerns about medication are stressors. Concerns about mood dysregulation. Attention and concentration were limited and memory was unreliable but none were formally tested. She was alert and oriented to person, place at this time. Her insight and judgment are poor and her impulse control appeared impaired. Her attention span appeared impaired as well. Vitals/I&O/Wt Last Vital Signs Temp 98.3 F 03/28/25 13:47 Pulse 73 03/28/25 13:47 Resp 16 03/28/25 13:47 BP 109/66 03/28/25 13:47 Pulse Ox 96 03/28/25 13:47 O2 Del Method Room Air 03/28/25 13:47 Data NPU 03/22/25 14:24 03/22/25 14:24 A&P Assessment and plan 1. Bipolar I disorder with mood-congruent psychotic features: 2. Bipolar disorder with psychotic features: 3. Psychosis: 4. Suicidal ideation: Plan: This is a 39-year-old white female with a past history of psychosis, likely bipolar d/o with psychotic features or schizoaffective disorder bipolar type once again admitted involuntarily with increased agitation and suicidal ideation while noncompliant with medication regimen. Mood dysregulation with psychotic features, including reported delusional experiences. Medication nonadherence noted. Sleep disturbance associated with prior antipsychotic use. Plan Recommended follow-up for psychiatric medications to reduce the risk of mood dysregulation and related complications. Advised restarting prescribed medications or ensuring administration as indicated. Discussed alternative antipsychotic options, including Abilify, Invega, and Risperdal, based on tolerability and previous experience. Proposed trial of a new long-acting injectable antipsychotic, administered subcutaneously, with dosing intervals of one to two months, to improve adherence and minimize the need for frequent medication refills. 1. Encourage individual, group and milieu therapy. 2. Recommend sober living treatment at the highest level of care to which the patient is willing to commit. 3. Continue q-15 minute checks for safety.? 4. Continue current medication. Start Risperdal 1 mg 3 times daily as needed as we prepare for her to get the Uzedy injection. Have been advised by the pharmacy that injection should be ready for tomorrow. Give Uzedy 100 mg subcutaneous q. monthly. 5. Obtain collateral information 6. Evaluate against the backdrop of 96-hour hold. PDMP PDMP Reviewed: Not Reviewed Involuntary Hold Information 2 Hold Status: Legal Status: 96 Hour Hold Date/Time Hold Expires: 03/29/2025 @ 1405 96 Hour Hold: 96 Hour Involuntary Admission: Yes Other Hold: Hold End Date: 03/16/24 Attestations NPU 2 Medical Necessity Statement*: Inpatient hospitalization is medically necessary and the clinically appropriate intervention at this time.? We will monitor/initiate medications and make changes as indicated.? The patient?s likely length of stay 3-5 days. Coding Level of Care Code Acute Code for g Fwd Diagnoses Bipolar I disorder with mood-congruent psychotic features F31.9 Bipolar disorder with psychotic features F31.9 Psychosis F29 Suicidal ideation R45.857
[2025-03-28 21:01] VITALS: BP 130/83; PULSE 81; RESP 18; O2SAT 99
[2025-03-29 06:00] VITALS: RESP 12
--- NOTE | 2025-03-29 06:34 | PC.NURSE ---
vitals not done per nurse, pt resting, resp 12
--- NOTE | 2025-03-29 07:51 | W.PM.NPUPNS ---
Subjective NPU Subjective: Patient presented today reporting that she got her shot and she was wanting to be discharged. When this senior technical writer identified that that was not going to happen today she got very angry and was unable to control her self. She started naming the different reasons why she needed to be discharged. We discussed the need for observation and hopes of seeing additional improvement given she still holds several intense delusions. She then got angry and started describing that she is Satan mainly because she is an atheist and then went on talking about the [facility] and things of that nature. She denied any side effects to the medication. Mental Status Exam MSE Comments: Patient is an obese white female in hospital scrubs with poor hygiene and adequate eye contact. No abnormal movements except for mild psychomotor retardation. Cooperative with exam in mild to moderate distress, but clearly slightly less distressed. Speech was decreased rate and volume. Her mood was described as pissed I am not being discharged. her affect was mood congruent and less irritable. With current medications, less agitated. Thought process was organized. Her thought content: She denied any suicidal or homicidal ideation. There were no delusions reported but there was evidence of significant paranoid, persecutory, bizarre and grandiose delusions with significant religiosity and ideas of reference. She denied auditory or visual hallucinations. Expressed fear of being in harm's way due to a weapon, indicating suicidal risk. Discussed a situation involving a weapon and police involvement, suggesting thoughts of violence or aggression against others. Reported having their head chopped off, indicating possible visual hallucinations and delusions. Difficulty sleeping with certain medications. Involvement with police and concerns about medication are stressors. Concerns about mood dysregulation. Attention and concentration were limited and memory was unreliable but none were formally tested. She was alert and oriented to person, place at this time. Her insight and judgment are poor and her impulse control appeared impaired. Her attention span appeared impaired as well. Vitals/I&O/Wt Last Vital Signs Temp 98.3 F 03/28/25 13:47 Pulse 81 03/28/25 21:01 Resp 12 03/29/25 06:00 BP 130/83 03/28/25 21:01 Pulse Ox 99 03/28/25 21:01 O2 Del Method Room Air 03/28/25 21:01 Data NPU 03/22/25 14:24 03/22/25 14:24 A&P Assessment and plan 1. Bipolar I disorder with mood-congruent psychotic features: 2. Bipolar disorder with psychotic features: 3. Psychosis: 4. Suicidal ideation: Plan: This is a 39-year-old white female with a past history of psychosis, likely bipolar d/o with psychotic features or schizoaffective disorder bipolar type once again admitted involuntarily with increased agitation and suicidal ideation while noncompliant with medication regimen. Mood dysregulation with psychotic features, including reported delusional experiences. Medication nonadherence noted. Sleep disturbance associated with prior antipsychotic use. Plan Recommended follow-up for psychiatric medications to reduce the risk of mood dysregulation and related complications. Advised restarting prescribed medications or ensuring administration as indicated. Discussed alternative antipsychotic options, including Abilify, Invega, and Risperdal, based on tolerability and previous experience. Proposed trial of a new long-acting injectable antipsychotic, administered subcutaneously, with dosing intervals of one to two months, to improve adherence and minimize the need for frequent medication refills. 1. Encourage individual, group and milieu therapy. 2. Recommend sober living treatment at the highest level of care to which the patient is willing to commit. 3. Continue q-15 minute checks for safety.? 4. Continue current medication. Start Risperdal 1 mg 3 times daily as needed as we prepare for her to get the Uzedy injection. Have been advised by the pharmacy that injection should be ready. Gave Uzedy 100 mg subcutaneous q. monthly. 5. Obtain collateral information 6. Evaluate against the backdrop of 96-hour hold. PDMP PDMP Reviewed: Not Reviewed Involuntary Hold Information Hold Status: Legal Status: 96 Hour Hold Date/Time Hold Expires: 03/29/2025 @ 1405 96 Hour Hold: 96 Hour Involuntary Admission: Yes Other Hold: Hold End Date: 03/16/24 Attestations NPU Medical Necessity Statement*: Inpatient hospitalization is medically necessary and the clinically appropriate intervention at this time.? We will monitor/initiate medications and make changes as indicated.? The patient?s likely length of stay 3-5 days. Coding Level of Care Code Acute Code for Chg Fwd Diagnoses Bipolar I disorder with mood-congruent psychotic features F31.9 Bipolar disorder with psychotic features F31.9 Psychosis F29 Suicidal ideation R45.852
[2025-03-29 13:41] VITALS: BP 105/69; PULSE 78; RESP 16; TEMP 36.7; O2SAT 99
[2025-03-29 20:35] VITALS: BP 136/79; PULSE 84; RESP 17; TEMP 36.7; O2SAT 96
[2025-03-30 06:00] VITALS: RESP 14
--- NOTE | 2025-03-30 06:27 | PC.NURSE ---
vitals not done per nurse, pt resp. 14 resting
--- NOTE | 2025-03-30 11:27 | P.NPUPN_ITS ---
Subjective NPU 2 Subjective: Patient presents today reporting that she is doing okay. She was really driving to be discharged today and was fully focused on the fact that her birthday is tomorrow. We continue to discussed that we were trying to make sure that she is well enough for birthdays to come and not focused on the date tomorrow we talked about her capacity to celebrate her birthday on any day she wanted to after she discharged but she was saying that in her [facility] belief system a birthday is a high holiday. We discussed a plan for her to sign in as her 96-hour hold had been apparently missed and she agreed to stay versus this food writer considering a 96-hour hold based on her active psychosis. She denied any side effects of the medication but was upset that the medication took away her bayron. Mental Status Exam 2 MSE Comments: Patient is an obese white female in hospital scrubs with poor hygiene and adequate eye contact. No abnormal movements except for mild psychomotor retardation. Cooperative with exam in mild to moderate distress, but clearly slightly less distressed. Speech was decreased rate and volume. Her mood was described as I was really upset but I am okay with leaving at the beginning of the week. her affect was mood congruent and less irritable. With current medications, less agitated. Thought process was organized. Her thought content: She denied any suicidal or homicidal ideation. There were no delusions reported but there was evidence of significant paranoid, persecutory, bizarre and grandiose delusions with significant religiosity and ideas of reference. She denied auditory or visual hallucinations. Expressed fear of being in harm's way due to a weapon, indicating suicidal risk. Discussed a situation involving a weapon and police involvement, suggesting thoughts of violence or aggression against others. Reported having their head chopped off, indicating possible visual hallucinations and delusions. Difficulty sleeping with certain medications. Involvement with police and concerns about medication are stressors. Concerns about mood dysregulation. Attention and concentration were limited and memory was unreliable but none were formally tested. She was alert and oriented to person, place at this time. Her insight and judgment are poor and her impulse control appeared impaired. Her attention span appeared impaired as well. Vitals/I&O/Wt Last Vital Signs Temp 98.0 F 03/29/25 20:35 Pulse 84 03/29/25 20:35 Resp 14 03/30/25 06:00 BP 136/79 03/29/25 20:35 Pulse Ox 96 03/29/25 20:35 O2 Del Method Room Air 03/29/25 20:35 Data NPU 03/22/25 14:24 03/22/25 14:24 A&P Assessment and plan 1. Bipolar I disorder with mood-congruent psychotic features: 2. Bipolar disorder with psychotic features: 3. Psychosis: 4. Suicidal ideation: Plan: This is a 39-year-old white female with a past history of psychosis, likely bipolar d/o with psychotic features or schizoaffective disorder bipolar type once again admitted involuntarily with increased agitation and suicidal ideation while noncompliant with medication regimen. Mood dysregulation with psychotic features, including reported delusional experiences. Medication nonadherence noted. Sleep disturbance associated with prior antipsychotic use. Plan Recommended follow-up for psychiatric medications to reduce the risk of mood dysregulation and related complications. Advised restarting prescribed medications or ensuring administration as indicated. Discussed alternative antipsychotic options, including Abilify, Invega, and Risperdal, based on tolerability and previous experience. Proposed trial of a new long-acting injectable antipsychotic, administered subcutaneously, with dosing intervals of one to two months, to improve adherence and minimize the need for frequent medication refills. 1. Encourage individual, group and milieu therapy. 2. Recommend sober living treatment at the highest level of care to which the patient is willing to commit. 3. Continue q-15 minute checks for safety.? 4. Continue current medication. Start Risperdal 1 mg 3 times daily as needed as we prepare for her to get the Uzedy injection. Have been advised by the pharmacy that injection should be ready. Gave Uzedy 100 mg subcutaneous q. monthly. 5. Obtain collateral information 6. Evaluate against the backdrop of 96-hour hold. Patient signed into the hospital under discussed a tentative plan for discharge on Tuesday. PDMP PDMP Reviewed: Not Reviewed Involuntary Hold Information 2 Hold Status: Legal Status: 96 Hour Hold Date/Time Hold Expires: 03/29/2025 @ 1405 96 Hour Hold: 96 Hour Involuntary Admission: Yes Other Hold: Hold End Date: 03/16/24 Attestations NPU 2 Medical Necessity Statement*: Inpatient hospitalization is medically necessary and the clinically appropriate intervention at this time.? We will monitor/initiate medications and make changes as indicated.? The patient?s likely length of stay likely 2 days. Coding Level of Care Code Acute Code for Chg Fwd Diagnoses Bipolar I disorder with mood-congruent psychotic features F31.9 Bipolar disorder with psychotic features F31.9 Psychosis F29 Suicidal ideation R45.850
[2025-03-30 14:00] VITALS: BP 140/92; PULSE 88; RESP 16; TEMP 36.7; O2SAT 95
[2025-03-30 20:36] VITALS: BP 119/62; PULSE 88; RESP 17; O2SAT 98
--- NOTE | 2025-03-31 05:51 | PC.NURSE ---
pt unwilling to allow vitals or weight to be collected, resp 14
[2025-03-31 05:52] VITALS: RESP 14
--- NOTE | 2025-03-31 10:06 | PC.NURSE ---
Dr. Beatty gave verbal order to start Zoloft 50mg PO now and QD
[2025-03-31 14:00] VITALS: BP 133/77; PULSE 104; RESP 17; TEMP 36.4; O2SAT 95
--- NOTE | 2025-03-31 18:26 | P.NPUPN_ITS ---
Subjective NPU 2 Subjective: Patient presented today reporting that she doing better. We discussed concerns about her continuing the medication after discharge as she has struggled with the injection taking away my bayron. We discussed that she is not the only person that feels this way about her bayron being treated and that we needed to make sure that he was taking the medication after discharge there is related enough in the exact same situation with these recent hospitalizations here and at other places. We discussed the risks, benefits and alternatives of initiating Zoloft 50 mg p.o. daily and he understood and agreed to proceed as is documented in his note. She reports having success with Zoloft in the past to take away the depression now that her bayron is better managed. She denied any side effects with medication otherwise. Mental Status Exam 2 MSE Comments: Patient is an obese white female in hospital scrubs with poor hygiene and adequate eye contact. No abnormal movements except for mild psychomotor retardation. Cooperative with exam in mild distress, but clearly less distressed. Speech was decreased rate and volume. Her mood was described as better. her affect was mood congruent and less irritable. With current medications, less agitated. Thought process was organized. Her thought content: She denied any suicidal or homicidal ideation. There were no delusions reported but there was evidence of significant paranoid, persecutory, bizarre and grandiose delusions with significant religiosity and ideas of reference. She denied auditory or visual hallucinations. Attention and concentration were limited and memory was poor reliable but none were formally tested. She was alert and oriented to person, place at this time. Her insight and judgment are poor and her impulse control appeared impaired. Her attention span appeared to be improving as well. Vitals/I&O/Wt Last Vital Signs Temp 98.0 F 03/31/25 20:10 Pulse 92 03/31/25 20:10 Resp 17 03/31/25 20:10 BP 144/89 03/31/25 20:10 Pulse Ox 94 03/31/25 20:10 O2 Del Method Room Air 03/31/25 20:10 Data NPU 03/22/25 14:24 03/22/25 14:24 A&P Assessment and plan 1. Bipolar I disorder with mood-congruent psychotic features: 2. Bipolar disorder with psychotic features: 3. Psychosis: 4. Suicidal ideation: Plan: This is a 39-year-old white female with a past history of psychosis, likely bipolar d/o with psychotic features or schizoaffective disorder bipolar type once again admitted involuntarily with increased agitation and suicidal ideation while noncompliant with medication regimen. Mood dysregulation with psychotic features, including reported delusional experiences. Medication nonadherence noted. Sleep disturbance associated with prior antipsychotic use. Plan Recommended follow-up for psychiatric medications to reduce the risk of mood dysregulation and related complications. Advised restarting prescribed medications or ensuring administration as indicated. Discussed alternative antipsychotic options, including Abilify, Invega, and Risperdal, based on tolerability and previous experience. Proposed trial of a new long-acting injectable antipsychotic, administered subcutaneously, with dosing intervals of one to two months, to improve adherence and minimize the need for frequent medication refills. 1. Encourage individual, group and milieu therapy. 2. Recommend sober living treatment at the highest level of care to which the patient is willing to commit. 3. Continue q-15 minute checks for safety.? 4. Continue current medication. Start Risperdal 1 mg 3 times daily as needed as we prepare for her to get the Uzedy injection. Have been advised by the pharmacy that injection should be ready. Gave Uzedy 100 mg subcutaneous q. monthly. Will need to determine if she is able to get the medication outpatient and if not we will need to continue oral supplementation as needed. Started Zoloft 50 mg p.o. daily. 5. Obtain collateral information 6. Evaluate against the backdrop of 96-hour hold. Patient signed into the hospital under discussed a tentative plan for discharge on Tuesday. PDMP PDMP Reviewed: Not Reviewed Involuntary Hold Information 2 Hold Status: Legal Status: 96 Hour Hold Date/Time Hold Expires: 03/29/2025 @ 1405 96 Hour Hold: 96 Hour Involuntary Admission: Yes Other Hold: Hold End Date: 03/16/24 Attestations NPU 2 Medical Necessity Statement*: Inpatient hospitalization is medically necessary and the clinically appropriate intervention at this time.? We will monitor/initiate medications and make changes as indicated.? The patient?s likely length of stay likely 1 day. Coding Level of Care Code Acute Code for Chg Fwd Diagnoses Bipolar I disorder with mood-congruent psychotic features F31.9 Bipolar disorder with psychotic features F31.9 Psychosis F29 Suicidal ideation R45.856
[2025-03-31 20:10] VITALS: BP 144/89; PULSE 92; RESP 17; TEMP 36.7; O2SAT 94
--- NOTE | 2025-04-01 06:36 | PC.NURSE ---
pt refused, vitals not collected nurse aware, resps 14
[2025-04-01 06:38] VITALS: RESP 14
[2025-04-01 13:58] VITALS: BP 133/86; PULSE 91; RESP 16; TEMP 37.2; O2SAT 95
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
[2025-04-01 15:09] VITALS: BP 133/86; PULSE 91; TEMP 37.1; O2SAT 95
--- NOTE | 2025-04-01 16:50 | DCPLANNER ---
IMM was printed and right explained to pt and copy placed in pts file.
== END 2025-04-01 16:43 | disposition home or self-care (01) | DRG 885 ==
LOC: ER 16:01 → NP 17:14
PROVIDERS: Admitting Provider Psychiatry & Neurology Psychiatry; Emergency Provider Student in an Organized Health Care Education/Training Program; PCP Family Medicine; Visit Provider Psychiatry & Neurology Psychiatry
DX: F30.2 Manic episode, severe with psychotic symptoms (principal); R45.851 Suicidal ideations; Z91.148 Patient's other noncompliance with medication regimen for other reason; E66.9 Obesity, unspecified; Z68.38 Body mass index [BMI] 38.0-38.9, adult; T43.596A Underdosing of other antipsychotics and neuroleptics, initial encounter
CPT/HCPCS: 36415; 80053; 80306; 80307; 81001; 81025; 84443; 85025; 87086; 93005; 96372; 97150; 97165; 99285; J1630; J3486; J9999